=== PATIENT | female | born 1955 | race Caucasian/White ===

== ENCOUNTER 2018-03-19 05:54 | Emergency (ER) | payer BC ==
--- OUTSIDE RECORDS SUMMARY | 2018-03-19 05:57 | XMS REPORT | Clinical Summary ---
:1955 Author Organization [facility] Address [address] [place] [address] Phone Care Team Providers Name Role Phone Unavailable Primary Care Provider Unavailable Allergies No Known Allergies Current Medications Prescription Sig. Disp. Refills Start End Date Status Date amLODIPine Take 2.5 mg by Active (NORVASC) 2.5 MG mouth daily. tablet lysine 1,000 mg Take 1,000 mg by Active Tab mouth. gabapentin Take 1 capsule 90 capsule 2 07/10/20 Active (NEURONTIN) 100 MG (100 mg total) by 7 18 capsule mouth 3 (three) times daily. meropenem (MERREM) Inject 1 g 0 Active MBP 1 gm in 100 mL intravenously 7 NS every 8 (eight) hours. micafungin Inject 100 mg 0 Active (MYCAMINE) MBP 100 intravenously 7 mg in 100 mL NS daily. lisinopril Take 20 mg by 07/10/20 Discontinued (PRINIVIL,ZESTRIL) mouth daily. 17 20 MG tablet acetaminophen Take 2 tablets 50 tablet 0 07/20/20 (TYLENOL) 325 MG (650 mg total) by 7 17 tablet mouth every 6 (six) hours for 10 days. psyllium Take 1 packet by 90 packet 0 07/20/20 (METAMUCIL mouth 3 (three) 7 17 SUGAR-FREE) 3.4 times daily for 10 gram packet days. traMADol (ULTRAM) Take 1-2 tablets 80 tablet 0 07/20/20 50 mg tablet (50-100 mg total) 7 17 by mouth every 6 (six) hours for 10 days. Max Daily Amount: 400 mg Active Problems Problem Noted Date Pulmonary edema 06/30/2017 Moderate protein-calorie malnutrition (HCC) 06/30/2017 Acute pulmonary insufficiency following thoracic surgery ([facility]) 06/26/2017 Acute blood loss as cause of postoperative anemia 06/26/2017 Metabolic acidosis 06/26/2017 LESTER (acute kidney injury) ([facility]) 06/26/2017 COPD (chronic obstructive pulmonary disease) ([facility]) 06/26/2017 Leukocytosis 06/26/2017 Empyema lung ([facility]) 06/22/2017 HTN (hypertension) 06/21/2017 Hiatal hernia 06/21/2017 Acid reflux 06/21/2017 Obesity 06/21/2017 [place] lesion, chronic 06/21/2017 Dyspnea 06/21/2017 Parapneumonic effusion 06/21/2017 s/p L VATS decortication 06/22/17 06/21/2017 Encounters Date Type Specialty Care Team Description 01/29/2018 Procedure Pass Gastroenterology 01/26/2018 Procedure Pass Gastroenterology 06/24/2017 Anesthesia Event Intensive Care Leni Kessler MD 06/22/2017 Anesthesia Event Jose Kelly AA 06/22/2017 Procedure Pass 06/22/2017 Surgery Brayan Joseph BRONCHOSCOPY MD [place] 06/21/2017 - Hospital Encounter Intensive Care Noah Larios, [place] lesion, 07/10/2017 MD harden (Primary Brayan Joseph Dx);Empyema of left MD [place] pleural space ([facility]);Pneumonia of left lower lobe due to infectious organism ([facility]);Essential hypertension;Acute blood loss as cause of postoperative anemia;Acute pulmonary insufficiency following thoracic surgery ([facility]);LESTER (acute kidney injury) ([facility]) 06/21/2017 Orders Only General Internal Medicine after 03/18/2017 Social History Tobacco Use Types Packs/Day Years Used Date Former Smoker Quit: 09/12/2016 Smokeless Tobacco: Never Used Sex Assigned at Date Recorded Not on file Last Filed Vital Signs Vital Sign Reading Time Taken Blood Pressure 147/72 07/10/2017 11:50 AM CDT Pulse 75 07/10/2017 11:50 AM CDT Temperature 36.9 C (98.4 F) 07/10/2017 11:50 AM CDT Respiratory Rate 22 07/10/2017 11:50 AM CDT Oxygen Saturation 95% 07/10/2017 11:50 AM CDT Inhaled Oxygen Concentration - - Weight 82.8 kg (182 lb 9.6 oz) 07/10/2017 5:34 AM CDT Height 160 cm (5' 3") 06/21/2017 11:43 PM CDT Body Mass Index 32.35 07/10/2017 5:34 AM CDT Plan of Treatment Not on file Implants Implanted Type Area Bank Messenger Device Expiration Model / Identifier Date Serial / Lot Block Nrv C-Blk 1-7ml/Hr 600ml [id number] - [id number] Pain Left: [facility] 09/08/2019 [id number] / Implanted: Qty: 1 on 06/22/2017 by Brayan Joseph MD Mgmt/Sti Chest / mulator [id number] Cath Exp Silv Soak M1 Armor Crewman 12.5cmx [id number] - [id number] Pain Left: JERI LUNDBERG 07/06/2019 [id number] / Implanted: Qty: 2 on 06/22/2017 by Brayan Joseph MD Mgmt/Sti Chest / mulator [id number] Procedures Procedure Name Priority Date/Time Associated Comments Diagnosis THORACOSCOPY (VATS),DECORTICATION 06/22/2017 9:30 LEFT EMPYEMA AM CDT ESOPHAGOGASTRODUODENOSCOPY (EGD) 06/22/2017 9:30 LEFT EMPYEMA AM CDT BRONCHOSCOPY 06/22/2017 9:30 LEFT EMPYEMA AM CDT after 03/18/2017 Results RHYTHM STRIP - SCAN (07/11/2017 1:41 PM)XR chest 1 view portable/bedside (07/10 6:25 AM)Only the most recent of27 resultswithin the time period is included. Specimen Performing Laboratory GE RIS Narrative FINAL REPORT RAD, CHEST, 1 VIEW, NON DEPT INDICATION: r/o effusion COMPARISON: Prior day's exam FINDINGS: Portable frontal view of the chest. IMPRESSION: Support Lines: Stable right PICC. Lungs and pleura: Scattered subsegmental atelectasis and questionable interstitial edema. No new airspace disease. Trace left effusion. No pneumothorax. Heart and mediastinum: Cardiomediastinal contours are unchanged. Additional findings: None. Signed: JR Saldana Robert MD Report Verified Date/Time:07/10/2017 06:40:58 Reading Location: [facility] Transitional Reading Room Procedure Note Interface, External Ris In - 07/10/2017 6:56 AM CDT FINAL REPORT RAD, CHEST, 1 VIEW, NON DEPT INDICATION: r/o effusion COMPARISON: Prior day's exam FINDINGS: Portable frontal view of the chest. IMPRESSION: Support Lines: Stable right PICC. Lungs and pleura: Scattered subsegmental atelectasis and questionable interstitial edema. No new airspace disease. Trace left effusion. No pneumothorax. Heart and mediastinum: Cardiomediastinal contours are unchanged. Additional findings: None. Signed: JR Saldana Robert MD Report Verified Date/Time: 07/10/2017 06:40:58 Reading Location: [address] Transitional Reading Room with platelet count + automated diff (07/10/2017 4:25 AM)Only the most recent of43 resultswithin the time period is included. Component Value Ref Range WBC 7.6 3.5 - 10.5 K/L RBC 3.53 (L) 3.93 - 5.22 M/L Hemoglobin 9.0 (L) 11.2 - 15.7 GM/DL Hematocrit 29.2 (L) 34.1 - 44.9 % MCV 82.7 79.4 - 94.8 fL MCH 25.5 (L) 25.6 - 32.2 pg MCHC 30.8 (L) 32.2 - 35.5 GM/DL RDW 17.5 (H) 11.7 - 14.4 % Platelets 364 150 - 450 K/CU MM MPV 9.7 9.4 - 12.3 fL nRBC 0 0 - 0 /100 WBC % Neutros 56 % % Lymphs 26 % % Monos 12 % % Eos 5 % % Baso 2 % # Neutros 4.22 1.56 - 6.13 K/L # Lymphs 1.93 1.18 - 3.74 K/L # Monos 0.92 (H) 0.24 - 0.36 K/L # Eos 0.34 0.04 - 0.36 K/L # Baso 0.11 (H) 0.01 - 0.08 K/L Immature Granulocytes-Relative 1 0 - 1 % Specimen Performing Laboratory Blood - Central Venous Line [address] [address] Prothrombin time/INR (07/10/2017 4:25 AM)Only the most recent of33 resultswithin the time period is included. Component Value Ref Range Protime 15.7 (H) 11.7 - 14.7 seconds INR 1.3 <=5.9 Specimen Performing Laboratory Blood - Central Venous Line [address] [address] Narrative RECOMMENDED COUMADIN/WARFARIN INR THERAPY RANGES STANDARD DOSE: 2.0 - 3.0 Includes: PROPHYLAXIS for venous thrombosis, systemic embolization; TREATMENT for venous thrombosis and/or pulmonary embolus. HIGH RISK: Target INR is 2.5-3.5 for patients with mechanical heart valves. CBC with platelet count + automated diff (07/10/2017 4:25 AM)Only the most recent of43 resultswithin the time period is included. Specimen Performing Laboratory Blood Narrative The following orders were created for panel order CBC with platelet count + automated diff. Procedure Abnormality Status --------- ------ CBC with platelet count ...[[id number]]AbnormalFinal result Please view results for these tests on the individual orders. Protein, total (07/10/2017 4:25 AM)Only the most recent of3 resultswithin the time period is included. Component Value Ref Range Protein, Total 6.5 6.0 - 8.3 gm/dL Specimen Performing Laboratory Blood - Central Venous Line [address] [address] Prealbumin (07/10/2017 4:25 AM)Only the most recent of4 resultswithin the time period is included. Component Value Ref Range Prealbumin 15 14 - 45 mg/dL Specimen Performing Laboratory Blood - Central Venous Line [address] [address] Phosphorus (07/10/2017 4:25 AM)Only the most recent of40 resultswithin the time period is included. Component Value Ref Range Phosphorus 2.9 2.3 - 4.7 mg/dL Specimen Performing Laboratory Blood - Central Venous Line [address] [address] Magnesium (07/10/2017 4:25 AM)Only the most recent of45 resultswithin the time period is included. Component Value Ref Range Magnesium 1.7 1.6 - 2.6 mg/dL Specimen Performing Laboratory Blood - Central Venous Line [address] [address] Albumin (07/10/2017 4:25 AM)Only the most recent of3 resultswithin the time period is included. Component Value Ref Range Albumin 3.0 (L) 3.5 - 5.0 g/dL Specimen Performing Laboratory Blood - Central Venous Line [address] [address] Basic Metabolic Panel (07/10/2017 4:25 AM)Only the most recent of42 resultswithin the time period is included. Component Value Ref Range Sodium 142 136 - 145 meq/L Potassium 3.5 3.5 - 5.1 meq/L Chloride 105 98 - 107 meq/L CO2 26 22 - 29 meq/L BUN 14 7 - 21 mg/dL Creatinine 0.88 0.57 - 1.25 mg/dL Glucose 95 70 - 105 mg/dL Calcium 8.8 8.4 - 10.2 mg/dL EGFR 66Comment: ESTIMATED GFR IS NOT ACCURATE mL/min/1.73 sq m CREATININE CLEARANCE IN PREDICTING GLOMERULAR FILTRATION RATE. ESTIMATED GFR IS NOT APPLICABLE FOR DIALYSIS PATIENTS. Specimen Performing Laboratory Blood - Central Venous Line [address] [address] Potassium (07/05/2017 4:45 PM)Only the most recent of3 resultswithin the time period is included. Component Value Ref Range Potassium 3.6 3.5 - 5.1 meq/L Specimen Performing Laboratory Blood [address] [address] Blood gas, arterial (07/04/2017 1:06 PM)Only the most recent of37 resultswithin the time period is included. Component Value Ref Range pH, Arterial 7.49 (H) 7.35 - 7.45 pCO2, Arterial 34 (L) 35 - 45 mmHg pO2, Arterial 88 80 - 90 mmHg O2 Sat, Arterial 97.4 (H) 96.0 - 97.0 % HCO3, Arterial 25 21 - 29 mmol/L Base Excess, Arterial 1.8 -2.0 - 3.0 mmol/L Patient Temperature 37.0 C FIO2 36.0 % Specimen Performing Laboratory Blood, Arterial [address] [address] TRANSFUSION SERVICE REPORT - SCAN (07/03/2017 5:41 PM)Only the most recent of7 resultswithin the time period is included.POC-Glucose meter (07/03/2017 12:13 PM )Only the most recent of22 resultswithin the time period is included. Component Value Ref Range POC-Glucose Meter 110Comment: TESTED AT [address] 70 - 110 mg/dL [id number] Specimen Performing Laboratory Blood [address] [address] Prepare Leuko-Red RBC (07/02/2017 11:54 PM)Only the most recent of4 resultswithin the time period is included. Component Value Ref Range CROSSMATCH COMPATIBLE Unit ABO A Neg UNIT NUMBER [id number] Status TRANSFUSED Blood Bank Product RED BLOOD CELLS PRODUCT CODE [id number] Specimen Performing Laboratory Other SAFETRACE TX XR abdomen / KUB 1 view (07/02/2017 7:18 PM)Only the most recent of2 resultswithin the time period is included. Specimen Performing Laboratory GE RIS Narrative FINAL REPORT EXAMINATION: SUPINE ABDOMEN CLINICAL INDICATION:FEEDING TUBE PLACEMENT IMPRESSION: Compared with 06/27/2017. Tip of the feeding tube projects over the right upper abdomen in the region of the gastroduodenal junction. The visualized bowel gas pattern is nonspecific. Signed: Darrin Escalera MD Report Verified Date/Time:07/02/2017 20:00:19 Reading Location: [address] Reading Room Procedure Note Interface, External Ris In - 07/02/2017 8:02 PM CDT FINAL REPORT EXAMINATION: SUPINE ABDOMEN CLINICAL INDICATION: FEEDING TUBE PLACEMENT IMPRESSION: Compared with 06/27/2017. Tip of the feeding tube projects over the right upper abdomen in the region of the gastroduodenal junction. The visualized bowel gas pattern is nonspecific. Signed: Darrin Escalera MD Report Verified Date/Time: 07/02/2017 20:00:19 Reading Location: [address] Reading Room Transfuse Leuko-Red RBC (07/01/2017 6:24 PM)Only the most recent of4 resultswithin the time period is included.Type and screen, automated (2016 11:53 AM)Only the most recent of2 resultswithin the time period is included. Component Value Ref Range ABO/RH AUTOMATED (BEAKER) A NEGATIVE Ab Scrn NEGATIVE Specimen Performing [place] [address] Vancomycin level, random (06/30/2017 3:16 AM)Only the most recent of8 resultswithin the time period is included. Component Value Ref Range Vancomycin Rm 11.5 ug/mL Specimen Performing Laboratory Blood [address] [address] Narrative Reference Range: No Normals ECHOCARDIOGRAM REPORT - SCAN (06/26/2017 11:32 AM)2D Echo W/Doppler(CW/PW/Color ) (06/25/2017 3:59 PM) Component Value Ref Range Ejection Fraction Specimen Performing Laboratory [facility] ECHO [facility] MKCKESSON CPA Narrative Transthoracic Echocardiography Report (TTE) Demographics Patient Name Kyaw NAQVI of Study06/25/2017 [id number] Female Visit Number [id number] Unknown [id number] Room [id number] Number Date of Birth1955Referring Physician Age62 year(s)SonographerTdominic Sagastume RDCS Interpreting [facility] Needs to be Pre Physician Read Josef Chakraborty MD Fellow DESTINY Moreau Procedure Type of Study TTE procedure:2DECHO W DOPPLER(CW/PW/COLOR) (STAT) Indications:Hypotension or hemodynamic instability. Clinical History HGB 8.5 HCT 27.6 % Dyspnea Hypertension Empyema lung Obesity S/P L VATs decortication (06/22/17) Contrast Medium: Definity. Height: 63 inches Weight: 89.81 kg (198 lbs) BSA: 1.93 m^2 BMI: 35.07 kg/m^2 HR: 107 bpm BP: 146/62 mmHg Summary Global LV systolic function hyperdynamic . LVEF by quantitative assessment is increased (>70%) . Degree of diastolic dysfunction (LAP assessment) is inconclusive due to tachycardia . All of the LV segments are hyperkinetic . No evidence of LV hypertrophy. The right ventricular chamber size and systolic function are within normal limits. Estimated peak systolic PA pressure is 40-45 mmHg . No pericardial effusion is visualized. The estimated RA pressure by IVC dynamics 5-10mmHg . Signature Findings Rhythm/BPSinus tachycardia during the exam. Left Ventricle Global LV systolic function hyperdynamic . LVEF by quantitative assessment is increased (>70%) . Degree of diastolic dysfunction (LAP assessment) is inconclusive due to tachycardia . All of the LV segments are hyperkinetic . No evidence of LV hypertrophy. Left AtriumLA is not well visualized, but appears normal based on available views. Right VentricleThe right ventricular chamber size and systolic function are within normal limits. Right Atrium RA size is probably normal based on available views. Aortic Valve Normal AoV structure and function. There is no aortic stenosis. There is no aortic regurgitation. Mitral Valve Normal MV structure and function. No evidence of mitral regurgitation. Tricuspid ValveTV structure is normal. Mild tricuspid regurgitation. Estimated peak systolic PA pressure is 40-45 mmHg . Pulmonic Valve Normal PV structure and function by limited views and Doppler. AortaAortic root size (SInus of Valsalva diameter) is normal . PericardiumNo pericardial effusion is visualized. IVC/SVC/PA/PV/PleuralThe inferior vena cava size is normal . The estimated RA pressure by IVC dynamics 5-10mmHg . Chambers/Structures Left Ventricle LVIDd: 4.75 cmLVEDV 2D:104.82 ml LVIDs: 2.82 cmLVESV 2D :29.95 ml LV Septum Diastolic: 0.81 cm LV PW Diastolic: 0.84 cm LV FS: 40.6 % LV ESV (Cubed):22.43 cc LVOT Diameter: 1.83 cm LV ESV (Teich):30.07 ml LV SV (Teich):74.85 ml LV SI (Teich):38.78 ml/m^2 LVEF 2D Teich: 71.4 % Shunts QS:69.46 ml Doppler/Quantitative Measurements Mitral Valve MV Peak E-Wave: 1.12 m/s MV Peak A-Wave: 0.91 m/s E /A Ratio: 1.23 P eak Gradient: 4.99 mmHg Tissue Doppler E' Septal Velocity: 0.11 m/s E/E': 7.42 E' Lateral Velocity: 0.15 m/s LVOT Peak Velocity: 1.7 m/sPeak Gradient: 11.5 mmHg Mean Velocity: 0.99 m/s Mean Gradient: 4.81 mmHg LVOT Diameter: 1.83 cmLVOT VTI: 26.41 cm LVOT Area: 2.63 cm^2LVOT SV:69.43 ml LVOT CO: 7.43 l/min LVOT CI: 3.85 l/min/m^2 Tricuspid Valve TV Mean Gradient: 23.98 mmHg TR Mean Velocity: 2.35 m/s Procedure Note Interface, External Ris In - 06/26/2017 10:47 AM CDT Transthoracic Echocardiography Report (TTE) Demographics Patient Name PRINCE NAQVI Date of Study 06/25/2017 Gender Female Visit Number [id number] Race Unknown Room Number 7A11 Number Date of 1955 Referring Physician Age 62 year(s) Manager Cosmetics Meli Sagastume RDCS Interpreting [facility] Needs to be Pre Physician Read Josef Chakraborty MD Fellow DESTINY Moreau Procedure Type of Study TTE procedure:2DECHO W DOPPLER(CW/PW/COLOR) (STAT) Indications:Hypotension or hemodynamic instability. Clinical History HGB 8.5 HCT 27.6 % Dyspnea Hypertension Empyema lung Obesity S/P L VATs decortication (06/22/17) Contrast Medium: Definity. Height: 63 inches Weight: 89.81 kg (198 lbs) BSA: 1.93 m^2 BMI: 35.07 kg/m^2 HR: 107 bpm BP: 146/62 mmHg Summary Global LV systolic function hyperdynamic . LVEF by quantitative assessment is increased (>70%) . Degree of diastolic dysfunction (LAP assessment) is inconclusive due to tachycardia . All of the LV segments are hyperkinetic . No evidence of LV hypertrophy. The right ventricular chamber size and systolic function are within normal limits. Estimated peak systolic PA pressure is 40-45 mmHg . No pericardial effusion is visualized. The estimated RA pressure by IVC dynamics 5-10mmHg . Signature Findings Rhythm/BP Sinus tachycardia during the exam. Left Ventricle Global LV systolic function hyperdynamic . LVEF by quantitative assessment is increased (>70%) . Degree of diastolic dysfunction (LAP assessment) is inconclusive due to tachycardia . All of the LV segments are hyperkinetic . No evidence of LV hypertrophy. Left Atrium LA is not well visualized, but appears normal based on available views. Right Ventricle The right ventricular chamber size and systolic function are within normal limits. Right Atrium RA size is probably normal based on available views. Aortic Valve Normal AoV structure and function. There is no aortic stenosis. There is no aortic regurgitation. Mitral Valve Normal MV structure and function. No evidence of mitral regurgitation. Tricuspid Valve TV structure is normal. Mild tricuspid regurgitation. Estimated peak systolic PA pressure is 40-45 mmHg . Pulmonic Valve Normal PV structure and function by limited views and Doppler. Aorta Aortic root size (SInus of Valsalva diameter) is normal . Pericardium No pericardial effusion is visualized. IVC/SVC/PA/PV/Pleural The inferior vena cava size is normal . The estimated RA pressure by IVC dynamics 5-10mmHg . Chambers/Structures Left Ventricle LVIDd: 4.75 cm LVEDV 2D:104.82 ml LVIDs: 2.82 cm LVESV 2D:29.95 ml LV Septum Diastolic: 0.81 cm LV PW Diastolic: 0.84 cm LV FS: 40.6 % LV ESV (Cubed):22.43 cc LVOT Diameter: 1.83 cm LV ESV (Teich):30.07 ml LV SV (Teich):74.85 ml LV SI (Teich):38.78 ml/m^2 LVEF 2D Teich: 71.4 % Shunts QS:69.46 ml Doppler/Quantitative Measurements Mitral Valve MV Peak E-Wave: 1.12 m/s MV Peak A-Wave: 0.91 m/s E/A Ratio: 1.23 Peak Gradient: 4.99 mmHg Tissue Doppler E' Septal Velocity: 0.11 m/s E/E': 7.42 E' Lateral Velocity: 0.15 m/s LVOT Peak Velocity: 1.7 m/s Peak Gradient: 11.5 mmHg Mean Velocity: 0.99 m/s Mean Gradient: 4.81 mmHg LVOT Diameter: 1.83 cm LVOT VTI: 26.41 cm LVOT Area: 2.63 cm^2 LVOT SV:69.43 ml LVOT CO: 7.43 l/min LVOT CI: 3.85 l/min/m^2 Tricuspid Valve TV Mean Gradient: 23.98 mmHg TR Mean Velocity: 2.35 m/s Osmolality, serum (06/24/2017 4:03 PM) Component Value Ref Range Osmolality Serum 292 275 - 295 mOsm/kg Specimen Performing Laboratory Blood [address] [address] Manual Differential (06/24/2017 4:13 AM)Only the most recent of3 resultswithin the time period is included. Component Value Ref Range Total Counted WBC Morphology Normal Platelet Morphology Normal [place] Cells 2+ moderate Specimen Performing Laboratory Blood [address] [address] Sodium, random urine (06/23/2017 1:27 PM) Component Value Ref Range Sodium Urine 35 meq/L Specimen Performing Laboratory Urine - Urine, [address] [address] Narrative Reference Range: No Normals Osmolality, urine (06/23/2017 1:27 PM) Component Value Ref Range Osmolality, Ur 228 40 - 1400 mOsm/kg Specimen Performing Laboratory Urine - Urine, [address] [address] Creatinine, random urine (06/23/2017 1:27 PM) Component Value Ref Range Creatinine, Ur 62.4 mg/dL Specimen Performing Laboratory Urine - Urine, [address] [address] Narrative Reference Range: No Normals Vancomycin level, trough (06/23/2017 11:21 AM) Component Value Ref Range Vancomycin Tr 22.6 (H) 10.0 - 20.0 ug/mL Specimen Performing Laboratory Blood - Line, Arterial [place] [id number] Narrative Get Vanc trough before next dose Dont give Vanc until result reviewed by MED ADMIN/MD Lactic acid, arterial, whole blood (06/23/2017 3:37 AM) Component Value Ref Range Lactate, Art 1.0 0.5 - 2.2 mmol/L Specimen Performing Laboratory Blood, Arterial [address] [address] Narrative Effective 02/10/2016: Units/Reference Range Change New: 0.5-2.2 mmol/LPrevious: 5-20 mg/dL RRL Critical Labs (ABG,NA,K,H&H,GLU) (06/22/2017 3:45 PM)Only the most recent of2 resultswithin the time period is included. Specimen Performing Laboratory Blood, Arterial Narrative The following orders were created for panel order RRL Critical Labs (ABG,NA,K,H&H,GLU). Procedure Abnormality Status --------- ------ Blood gas, arterial[[id number]]AbnormalFinal result Sodium Na-Stat Lab[[id number]] AbnormalFinal result Potassium-Stat Lab[[id number]] AbnormalFinal result Glucose-Stat Lab[[id number]] AbnormalFinal result HGB/HCT (H&H)-Stat Lab[[id number]] Abnormal Final result Please view results for these tests on the individual orders. Potassium-Stat Lab (06/22/2017 3:45 PM)Only the most recent of2 resultswithin the time period is included. Component Value Ref Range Potassium 3.4 (L) 3.6 - 5.5 meq/L Specimen Performing Laboratory Blood, [address] [address] Sodium Na-Stat Lab (06/22/2017 3:45 PM)Only the most recent of2 resultswithin the time period is included. Component Value Ref Range Sodium 134 (L) 135 - 148 meq/L Specimen Performing Laboratory Blood, [address] [address] Glucose-Stat Lab (06/22/2017 3:45 PM)Only the most recent of2 resultswithin the time period is included. Component Value Ref Range Glucose 132 (H) 70 - 110 mg/dL Specimen Performing Laboratory Blood, [address] [address] HGB/HCT (H&H)-Stat Lab (06/22/2017 3:45 PM)Only the most recent of2 resultswithin the time period is included. Component Value Ref Range Hemoglobin 8.3 (L) 12.0 - 15.0 g/dL Hematocrit 24.0 (L) 36.0 - 45.0 % Specimen Performing Laboratory Blood, [address] [address] Calcium, Ionized (06/22/2017 3:45 PM) Component Value Ref Range Calcium, Ion 1.00 (L) 1.12 - 1.27 mmol/L pH, Blood 7.34 Specimen Performing Laboratory Blood [address] [address] Bronchial culture + gram stain (06/22/2017 11:33 AM) Component Value Ref Range Result No growth Gram Stain Result <1+ WBCs Gram Stain Result No organisms seen Specimen Performing Laboratory BAL - Lung, Left Lower Lobe [address] [address] Anaerobic culture (06/22/2017 10:50 AM)Only the most recent of4 resultswithin the time period is included. Component Value Ref Range Result No anaerobes isolated Specimen Performing Laboratory Tissue - Pleural, Left [address] [address] Surgically obtained culture + gram stain (06/22/2017 10:50 AM)Only the most recent of4 resultswithin the time period is included. Component Value Ref Range Result No growth Gram Stain Result 1+ WBCs Gram Stain Result No organisms seen Specimen Performing Laboratory Tissue - Pleural, [address] [address] Fungus culture + smear (06/22/2017 10:50 AM)Only the most recent of5 resultswithin the time period is included. Component Value Ref Range Result No fungus isolated in 28 days Fungus Smear No fungi seen Specimen Performing Laboratory Tissue - Pleural, [address] [address] [employer] PCR (06/22/2017 10:50 AM)Only the most recent of3 resultswithin the time period is included. Component Value Ref Range Scan Result Specimen Performing Laboratory Tissue [facility] [id number] [place] [address] Tissue Exam (06/22/2017 10:45 AM) Component Value Ref Range Case Report Surgical Pathology Report Case: [id number] Authorizing Provider:Brayan Joseph MD Collected: 06/22/2017 1045 Ordering Location: [facility] Received: 06/22/2017 1510 PERIOPERATIVE SERVICES Pathologist: Otis Meade MD Specimens: A) - Pleural, Left, Left Parietal Pleural Peel B) - Pleural, Left, left upper lobe visceral pleural peel C) - Pleural, Left, Left Lower Lobe Viseral Pleural Peel DIAGNOSIS A. PLEURA, LEFT PARIETAL, EXCISION: - FIBROADIPOSE TISSUE WITH MARKED ACUTE INFLAMMATION WITH ABSCESS FORMATION AND NECROSIS. B. PLEURA, LEFT UPPER LOBE VISCERAL, EXCISION: - FIBROUS TISSUE WITH MARKED ACUTE INFLAMMATION WITH ABSCESS FORMATION AND NECROSIS. C. PLEURA, LEFT LOWER LOBE VISCERAL, EXCISION: -FIBROUS TISSUE WITH MARKED ACUTE INFLAMMATION WITH ABSCESS FORMATION AND NECROSIS. Signing Pathologist Direct Phone Line: [phone] CPT Code(s) 03229 X3 CLINICAL HISTORY Left empyema SPECIMEN SOURCE A. Left parietal pleural peel; B. Left upper lobe visceral pleural peel; C. Lower lobe visceral pleural peel GROSS DESCRIPTION The specimen is received in three containers of formalin all labeled with the patient's information, received without formalin. Part A labeled "left parietal pleural peel" consists of multiple fragments of champion-hicks and champion-pink soft tissue measuring 2.5 x 2 x 1 cm in aggregate. The specimen is entirely submitted A1 to A3. Part B labeled "left upper lobe visceral pleural peel" consists of a segment of champion-hicks hemorrhagic soft tissue measuring 1.5 x 1 x 0.2 cm. Tissue is submitted entirely B1. Part C labeled "left lower lobe visceral pleural peel" consists of a segment of champion hemorrhagic dusky soft tissue measuring 2.9 x 2 x 0.2 cm. Tissue is sectioned, submitted entirely C1 and C2. CG/pl MICROSCOPIC DESCRIPTION A-C. Performed. Specimen Performing Laboratory Tissue - Pleural, [address] [address] AF[employer] culture + smear (06/22/2017 9:42 AM) Component Value Ref Range Result No acid-fast bacilli isolated in 42 days [employer] Smear No acid fast bacilli seen Specimen Performing Laboratory BAL - Lung, Left Lower Lobe [address] [address] SPIN/CONCENTRATION CHARGE (06/22/2017 9:42 AM) Component Value Ref Range Concentration charged Done Specimen Performing Laboratory BAL - Lung, Left Lower Lobe [address] [address] Urinalysis w/ Microscopic (06/22/2017) Component Value Ref Range Color, UA Yellow Clarity, UA Clear Specific [place], UA 1.023 1.001 - 1.035 pH, UA 5.5 5.0 - 8.0 Protein, UA 50 mg/dL (A) Negative Glucose, UA Negative Negative Ketones, UA 60 mg/dL (A) Negative Bilirubin, UA Negative Negative Blood, UA Small (A) Negative Nitrite, UA Negative Negative Leukocytes, UA Small (A) Negative Urobilinogen, UA 0.2 0.2 - 1.0 mg/dL RBC, UA 4 /HPF WBC, UA 19 /HPF Mucus Many Squam Epithel, UA 2 /HPF Hyaline Casts, UA 3 /LPF Amorphous Crystals Rare Specimen Source Urine, Clean Catch Specimen Performing Laboratory Urine - Urine, Clean Catch [address] [address] PT/aPTT (06/21/2017 9:28 PM) Component Value Ref Range Protime 17.6 (H) 11.7 - 14.7 seconds INR 1.5 <=5.9 PTT 39.0 (H) 22.5 - 36.0 seconds Specimen Performing Laboratory Blood [address] [address] Narrative RECOMMENDED COUMADIN/WARFARIN INR THERAPY RANGES STANDARD DOSE: 2.0 - 3.0 Includes: PROPHYLAXIS for venous thrombosis, systemic embolization; TREATMENT for venous thrombosis and/or pulmonary embolus. HIGH RISK: Target INR is 2.5-3.5 for patients with mechanical heart valves. Comprehensive metabolic panel (06/21/2017 9:28 PM) Component Value Ref Range Protein, Total 6.4 6.0 - 8.3 gm/dL Albumin 3.2 (L) 3.5 - 5.0 g/dL Alkaline Phosphatase 65 40 - 150 U/L Total Bilirubin <0.3 0.2 - 1.2 mg/dL Sodium 136 136 - 145 meq/L Potassium 3.7 3.5 - 5.1 meq/L Chloride 105 98 - 107 meq/L CO2 23 22 - 29 meq/L BUN 10 7 - 21 mg/dL Creatinine 0.61 0.57 - 1.25 mg/dL Glucose 110 (H) 70 - 105 mg/dL Calcium 9.0 8.4 - 10.2 mg/dL AST 12 5 - 34 U/L ALT 13 6 - 55 U/L EGFR 100Comment: ESTIMATED GFR IS NOT ACCURATE mL/min/1.73 sq m CREATININE CLEARANCE IN PREDICTING GLOMERULAR FILTRATION RATE. ESTIMATED GFR IS NOT APPLICABLE FOR DIALYSIS PATIENTS. Specimen Performing Laboratory Blood [address] [address] ECG 12 lead (06/21/2017 8:52 PM) Specimen Performing Laboratory GE MUSE Narrative Ventricular Rate 111 BPM Atrial Rate 111 BPM P-R Interval 140 ms QRS Duration 82 ms Q-T Interval 302 ms QTC Calculation(Bazett) 410 ms P Barrett 43 degrees R Barrett 9 degrees T Barrett 31 degrees Sinus tachycardia with Premature ventricular complex Low voltage QRS Borderline ECG No previous ECGs available Confirmed by MD Jennings Roberto ([id number]) on 06/22/2017 10:33:05 AM Procedure Note Interface, External Ris In - 06/22/2017 10:33 AM CDT Ventricular Rate 111 BPM Atrial Rate 111 BPM P-R Interval 140 ms QRS Duration 82 ms Q-T Interval 302 ms QTC Calculation(Bazett) 410 ms P Barrett 43 degrees R Barrett 9 degrees T Barrett 31 degrees Sinus tachycardia with Premature ventricular complex Low voltage QRS Borderline ECG No previous ECGs available Confirmed by MD Jennings Roberto ([id number]) on 06/22/2017 10:33:05 AM after 03/18/2017
--- OUTSIDE RECORDS SUMMARY | 2018-03-19 06:02 | XMS REPORT ---
:1955 [facility] Address [address] [place] [id number] Care Team Providers Name Role Phone NICOLE BRAXTOND SarahJose Unavailable Unavailable Problems This patient has no known problems. Allergies, Adverse Reactions, Alerts This patient has no known allergies or adverse reactions. Medications This patient has no known medications. Results Test Description Test Time Test Comments Text Results Atomic Results Result Comments AFB CULTURE + SMEAR 2017-08-08 08:42:00 Test Item Value Reference Range Comments CULTURE (BEAKER) (test ituv=8585) No acid-fast bacilli isolated in 42 days AFB SMEAR (BEAKER) (test fbtl=332) No acid fast bacilli seen FUNGUS CULTURE + [id number] 10:40:00 Test Item Value Reference Range Comments CULTURE (BEAKER) (test No fungus isolated in 28 days cdpf=7855) FUNGUS SMEAR (BEAKER) (test No fungi seen vvdl=5575) FUNGUS CULTURE + [id number] 10:40:00 Test Item Value Reference Range Comments CULTURE (BEAKER) (test No fungus isolated in 28 days easn=5075) FUNGUS SMEAR (BEAKER) (test No fungi seen zwfd=9841) FUNGUS CULTURE + [id number] 10:40:00 Test Item Value Reference Range Comments CULTURE (BEAKER) (test No fungus isolated in 28 days ajoi=1328) FUNGUS SMEAR (BEAKER) (test No fungi seen uajs=9733) FUNGUS CULTURE + [id number] 10:40:00 Test Item Value Reference Range Comments CULTURE (BEAKER) (test No fungus isolated in 28 days akto=9744) FUNGUS SMEAR (BEAKER) (test No fungi seen qcdv=1791) RAD, CHEST, 1 VIEW, NON [id number] 06:40:00Reason for exam:->r/o effusionIs the patient ?->NoShould this be performed at the bedside?- >YesFINAL REPORT RAD, CHEST, 1 VIEW, NON DEPT INDICATION: r/o effusion COMPARISON: Prior day's exam FINDINGS: Portable frontal view of the chest. IMPRESSION: Support Lines: Stableright PICC. Lungs and pleura: Scattered subsegmental atelectasis and questionable interstitial edema. No new airspace disease. Trace left effusion. No pneumothorax.Heart and mediastinum: Cardiomediastinal contours are unchanged.Additional findings: None. Signed: JR Saldana Robert MDReport Verified Date/Time: 07/10/2017 06:40:58 Reading Location: [address] Transitional Reading Room [id number] 05:25:00 Test Item Value Reference Range Comments PREALBUMIN (BEAKER) (test aqfo=694) 15 mg/dL 14-45 PROTEIN, [id number] 05:10:00 Test Item Value Reference Range Comments TOTAL PROTEIN (BEAKER) (test wzdv=267) 6.5 gm/dL 6.0-8.3 [id number] 05:10:00 Test Item Value Reference Range Comments MAGNESIUM (BEAKER) (test xvwl=617) 1.7 mg/dL 1.6-2.6 [id number] 05:10:00 Test Item Value Reference Range Comments PHOSPHORUS (BEAKER) (test fqnf=917) 2.9 mg/dL 2.3-4.7 BASIC METABOLIC [id number] 05:10:00 Test Item Value Reference Range Comments SODIUM (BEAKER) (test 142 meq/L 136-145 iavz=402) POTASSIUM (BEAKER) (test 3.5 meq/L 3.5-5.1 rswj=886) CHLORIDE (BEAKER) (test 105 meq/L 98-107 vwgk=040) CO2 (BEAKER) (test 26 meq/L 22-29 cfti=667) BLOOD UREA NITROGEN 14 mg/dL 7-21 (BEAKER) (test gaby=462) CREATININE (BEAKER) (test 0.88 mg/dL 0.57-1.25 uppf=285) GLUCOSE RANDOM (BEAKER) 95 mg/dL 70-105 (test xgta=238) CALCIUM (BEAKER) (test 8.8 mg/dL 8.4-10.2 naqx=916) EGFR (BEAKER) (test 66 mL/min/1.73 sq m ESTIMATED GFR IS NOT dvau=2168) ACCURATE CREATININE CLEARANCE IN PREDICTING GLOMERULAR FILTRATION RATE. ESTIMATED GFR IS NOT APPLICABLE FOR DIALYSIS PATIENTS. [id number] 05:10:00 Test Item Value Reference Range Comments ALBUMIN (BEAKER) (test bbmo=1592) 3.0 g/dL 3.5-5.0 PROTHROMBIN [id number] 04:52:00 Test Item Value Reference Range Comments PROTIME (BEAKER) (test yitp=892) 15.7 seconds 11.7-14.7 INR (BEAKER) (test wkfr=967) 1.3 <=5.9 RECOMMENDED COUMADIN/WARFARIN INR THERAPY RANGESSTANDARD DOSE: 2.0 - 3.0 Includes: PROPHYLAXIS forvenous thrombosis, systemic embolization; TREATMENT for venous thrombosis and/or pulmonary embolus.HIGH RISK: Target INR is 2.5-3.5 for patients with mechanical heart valves.CBC W/PLT COUNT & AUTO [id number] 04:49:00 Test Item Value Reference Range Comments WHITE BLOOD CELL COUNT (BEAKER) (test cnjp=341) 7.6 K/ L 3.5-10.5 RED BLOOD CELL COUNT (BEAKER) (test aqep=535) 3.53 M/ L 3.93-5.22 HEMOGLOBIN (BEAKER) (test aupv=880) 9.0 GM/DL 11.2-15.7 HEMATOCRIT (BEAKER) (test ybxh=953) 29.2 % 34.1-44.9 MEAN CORPUSCULAR VOLUME (BEAKER) (test acda=052) 82.7 fL 79.4-94.8 MEAN CORPUSCULAR HEMOGLOBIN (BEAKER) (test 25.5 pg 25.6-32.2 kuzn=152) MEAN CORPUSCULAR HEMOGLOBIN CONC (BEAKER) (test 30.8 GM/DL 32.2-35.5 dlhu=486) RED CELL DISTRIBUTION WIDTH (BEAKER) (test 17.5 % 11.7-14.4 luym=955) PLATELET COUNT (BEAKER) (test hlat=869) 364 K/CU MM 150-450 MEAN PLATELET VOLUME (BEAKER) (test qnib=053) 9.7 fL 9.4-12.3 NUCLEATED RED BLOOD CELLS (BEAKER) (test 0 /100 WBC 0-0 zqgd=796) NEUTROPHILS RELATIVE PERCENT (BEAKER) (test 56 % lqjn=193) LYMPHOCYTES RELATIVE PERCENT (BEAKER) (test 26 % zbow=564) MONOCYTES RELATIVE PERCENT (BEAKER) (test 12 % rbhw=380) EOSINOPHILS RELATIVE PERCENT (BEAKER) (test 5 % mqpr=584) BASOPHILS RELATIVE PERCENT (BEAKER) (test 2 % efgn=673) NEUTROPHILS ABSOLUTE COUNT (BEAKER) (test 4.22 K/ L 1.56-6.13 ktuj=674) LYMPHOCYTES ABSOLUTE COUNT (BEAKER) (test 1.93 K/ L 1.18-3.74 xwyd=807) MONOCYTES ABSOLUTE COUNT (BEAKER) (test 0.92 K/ L 0.24-0.36 sadq=179) EOSINOPHILS ABSOLUTE COUNT (BEAKER) (test 0.34 K/ L 0.04-0.36 ouuj=237) BASOPHILS ABSOLUTE COUNT (BEAKER) (test 0.11 K/ L 0.01-0.08 cgtx=492) IMMATURE GRANULOCYTES-RELATIVE PERCENT (BEAKER) 1 % 0-1 (test qfce=2215) [id number] 05:14:00 Test Item Value Reference Range Comments PHOSPHORUS (BEAKER) (test udzd=775) 3.0 mg/dL 2.3-4.7 [id number] 05:14:00 Test Item Value Reference Range Comments MAGNESIUM (BEAKER) (test qzlz=347) 1.5 mg/dL 1.6-2.6 BASIC METABOLIC [id number] 05:14:00 Test Item Value Reference Range Comments SODIUM (BEAKER) (test 140 meq/L 136-145 jkdw=299) POTASSIUM (BEAKER) (test 3.6 meq/L 3.5-5.1 wglu=846) CHLORIDE (BEAKER) (test 104 meq/L 98-107 cnqh=419) CO2 (BEAKER) (test 26 meq/L 22-29 rxyl=384) BLOOD UREA NITROGEN 14 mg/dL 7-21 (BEAKER) (test jhnp=727) CREATININE (BEAKER) (test 0.87 mg/dL 0.57-1.25 wukn=914) GLUCOSE RANDOM (BEAKER) 110 mg/dL 70-105 (test rrpp=173) CALCIUM (BEAKER) (test 8.5 mg/dL 8.4-10.2 jvcy=719) EGFR (BEAKER) (test 66 mL/min/1.73 sq m ESTIMATED GFR IS NOT wtbz=9634) ACCURATE CREATININE CLEARANCE IN PREDICTING GLOMERULAR FILTRATION RATE. ESTIMATED GFR IS NOT APPLICABLE FOR DIALYSIS PATIENTS. PROTHROMBIN TIME/[id number] 05:05:00 Test Item Value Reference Range Comments PROTIME (BEAKER) (test dyyi=147) 16.7 seconds 11.7-14.7 INR (BEAKER) (test vsyt=203) 1.4 <=5.9 RECOMMENDED COUMADIN/WARFARIN INR THERAPY RANGESSTANDARD DOSE: 2.0 - 3.0 Includes: PROPHYLAXIS forvenous thrombosis, systemic embolization; TREATMENT for venous thrombosis and/or pulmonary embolus.HIGH RISK: Target INR is 2.5-3.5 for patients with mechanical heart valves.CBC W/PLT COUNT & AUTO [id number] 05:00:00 Test Item Value Reference Range Comments WHITE BLOOD CELL COUNT (BEAKER) (test vwiw=939) 6.8 K/ L 3.5-10.5 RED BLOOD CELL COUNT (BEAKER) (test lgcj=088) 3.50 M/ L 3.93-5.22 HEMOGLOBIN (BEAKER) (test xume=756) 8.9 GM/DL 11.2-15.7 HEMATOCRIT (BEAKER) (test vdem=029) 29.2 % 34.1-44.9 MEAN CORPUSCULAR VOLUME (BEAKER) (test pwfg=380) 83.4 fL 79.4-94.8 MEAN CORPUSCULAR HEMOGLOBIN (BEAKER) (test 25.4 pg 25.6-32.2 bgto=072) MEAN CORPUSCULAR HEMOGLOBIN CONC (BEAKER) (test 30.5 GM/DL 32.2-35.5 fxlq=498) RED CELL DISTRIBUTION WIDTH (BEAKER) (test 17.4 % 11.7-14.4 oxtj=221) PLATELET COUNT (BEAKER) (test xefg=809) 362 K/CU MM 150-450 MEAN PLATELET VOLUME (BEAKER) (test jbri=849) 9.8 fL 9.4-12.3 NUCLEATED RED BLOOD CELLS (BEAKER) (test 0 /100 WBC 0-0 mwgt=721) NEUTROPHILS RELATIVE PERCENT (BEAKER) (test 62 % duow=959) LYMPHOCYTES RELATIVE PERCENT (BEAKER) (test 20 % gjzs=263) MONOCYTES RELATIVE PERCENT (BEAKER) (test 11 % ydhz=246) EOSINOPHILS RELATIVE PERCENT (BEAKER) (test 6 % tgtm=815) BASOPHILS RELATIVE PERCENT (BEAKER) (test 1 % lfsc=646) NEUTROPHILS ABSOLUTE COUNT (BEAKER) (test 4.16 K/ L 1.56-6.13 gzcg=114) LYMPHOCYTES ABSOLUTE COUNT (BEAKER) (test 1.34 K/ L 1.18-3.74 xohq=175) MONOCYTES ABSOLUTE COUNT (BEAKER) (test 0.72 K/ L 0.24-0.36 envf=682) EOSINOPHILS ABSOLUTE COUNT (BEAKER) (test 0.39 K/ L 0.04-0.36 mmly=772) BASOPHILS ABSOLUTE COUNT (BEAKER) (test 0.08 K/ L 0.01-0.08 iybp=072) IMMATURE GRANULOCYTES-RELATIVE PERCENT (BEAKER) 1 % 0-1 (test bvpn=2566) RAD, CHEST, 1 VIEW, NON [id number] 04:27:00Reason for exam:->r/o effusionIs the patient ?->NoShould this be performed at the bedside?- >YesFINAL REPORT EXAMINATION: AP PORTABLE CHEST RADIOGRAPH CLINICAL INDICATION:Pleural effusion IMPRESSION: Compared with 2016. The tip of the right upper survey central lineprojects over the superior vena cava. The heart is enlarged as before. Mediastinal contours are grossly stable with a prominent thoracic aorta. The bilateral parenchymal lung opacities and superimposedpleural effusions are grossly stable. No definite evidence of new lung consolidation or pneumothorax. In summary, no significant interval change. Signed: Darrin Escalera Verified Date/Time: 07/09/2017 04:27:13 Reading Location: [address] Reading Room [id number] 05:12:00 Test Item Value Reference Range Comments PHOSPHORUS (BEAKER) (test fugo=710) 3.3 mg/dL 2.3-4.7 [id number] 05:12:00 Test Item Value Reference Range Comments MAGNESIUM (BEAKER) (test hfwq=397) 1.7 mg/dL 1.6-2.6 BASIC METABOLIC [id number] 05:12:00 Test Item Value Reference Range Comments SODIUM (BEAKER) (test 139 meq/L 136-145 rrvg=218) POTASSIUM (BEAKER) (test 3.3 meq/L 3.5-5.1 zdex=608) CHLORIDE (BEAKER) (test 103 meq/L 98-107 ilgn=511) CO2 (BEAKER) (test 27 meq/L 22-29 pyqp=566) BLOOD UREA NITROGEN 15 mg/dL 7-21 (BEAKER) (test dtdr=502) CREATININE (BEAKER) (test 1.01 mg/dL 0.57-1.25 qxpn=579) GLUCOSE RANDOM (BEAKER) 101 mg/dL 70-105 (test ikzb=448) CALCIUM (BEAKER) (test 8.6 mg/dL 8.4-10.2 ffmf=104) EGFR (BEAKER) (test 56 mL/min/1.73 sq m ESTIMATED GFR IS NOT nlxv=3965) ACCURATE CREATININE CLEARANCE IN PREDICTING GLOMERULAR FILTRATION RATE. ESTIMATED GFR IS NOT APPLICABLE FOR DIALYSIS PATIENTS. PROTHROMBIN TIME/[id number] 04:56:00 Test Item Value Reference Range Comments PROTIME (BEAKER) (test sqmb=829) 15.6 seconds 11.7-14.7 INR (BEAKER) (test jgib=599) 1.3 <=5.9 RECOMMENDED COUMADIN/WARFARIN INR THERAPY RANGESSTANDARD DOSE: 2.0 - 3.0 Includes: PROPHYLAXIS forvenous thrombosis, systemic embolization; TREATMENT for venous thrombosis and/or pulmonary embolus.HIGH RISK: Target INR is 2.5-3.5 for patients with mechanical heart valves.CBC W/PLT COUNT & AUTO [id number] 04:47:00 Test Item Value Reference Range Comments WHITE BLOOD CELL COUNT (BEAKER) (test kjlo=487) 8.4 K/ L 3.5-10.5 RED BLOOD CELL COUNT (BEAKER) (test jogj=491) 3.48 M/ L 3.93-5.22 HEMOGLOBIN (BEAKER) (test keom=311) 8.8 GM/DL 11.2-15.7 HEMATOCRIT (BEAKER) (test xfuu=549) 29.1 % 34.1-44.9 MEAN CORPUSCULAR VOLUME (BEAKER) (test tacy=758) 83.6 fL 79.4-94.8 MEAN CORPUSCULAR HEMOGLOBIN (BEAKER) (test 25.3 pg 25.6-32.2 nhqg=120) MEAN CORPUSCULAR HEMOGLOBIN CONC (BEAKER) (test 30.2 GM/DL 32.2-35.5 zrow=067) RED CELL DISTRIBUTION WIDTH (BEAKER) (test 17.4 % 11.7-14.4 dhft=107) PLATELET COUNT (BEAKER) (test vxgr=758) 364 K/CU MM 150-450 MEAN PLATELET VOLUME (BEAKER) (test nskn=448) 9.6 fL 9.4-12.3 NUCLEATED RED BLOOD CELLS (BEAKER) (test 0 /100 WBC 0-0 ktac=765) NEUTROPHILS RELATIVE PERCENT (BEAKER) (test 71 % ccqa=262) LYMPHOCYTES RELATIVE PERCENT (BEAKER) (test 13 % gyha=260) MONOCYTES RELATIVE PERCENT (BEAKER) (test 9 % gbix=787) EOSINOPHILS RELATIVE PERCENT (BEAKER) (test 5 % zgts=704) BASOPHILS RELATIVE PERCENT (BEAKER) (test 1 % baol=598) NEUTROPHILS ABSOLUTE COUNT (BEAKER) (test 5.92 K/ L 1.56-6.13 pcrd=126) LYMPHOCYTES ABSOLUTE COUNT (BEAKER) (test 1.10 K/ L 1.18-3.74 himn=905) MONOCYTES ABSOLUTE COUNT (BEAKER) (test 0.77 K/ L 0.24-0.36 fdes=510) EOSINOPHILS ABSOLUTE COUNT (BEAKER) (test 0.41 K/ L 0.04-0.36 wdgj=355) BASOPHILS ABSOLUTE COUNT (BEAKER) (test 0.09 K/ L 0.01-0.08 gsak=638) IMMATURE GRANULOCYTES-RELATIVE PERCENT (BEAKER) 1 % 0-1 (test nsqu=2865) RAD, CHEST, 1 VIEW, NON [id number] 04:47:00Reason for exam:->r/o effusionIs the patient ?->NoShould this be performed at the bedside?- >YesFINAL REPORT RAD, CHEST, 1 VIEW, NON DEPT INDICATION: r/o effusion COMPARISON: Prior day's exam FINDINGS: Portable frontal view of the chest. IMPRESSION: Support Lines: Stableright PICC Lungs and pleura: Redemonstration of bilateral pleural effusions, left greater than right. No significant change in the appearance of the air spaces. Interstitial congestion is greater on the left. There is no pneumothorax.Heart and mediastinum: Stable contours. Additional findings: None. Signed: JR Saldana Robert MDReport Verified Date/Time: 07/08/2017 04:47:50 Reading Location: [facility] C013Y CT Body Reading Room RAD, CHEST, 1 VIEW, NON [id number] 13:44: 00Reason for exam:->eval atelectasisFINAL REPORT Chest one view INDICATION: Atelectasis COMPARISON: 07/07/2017 IMPRESSION: Right PICC line extends to the SVC. The cardiac silhouette is enlarged. Pulmonary edema appears decreased. Left asymmetric airspace opacities are improved. Pneumonitis should be excluded clinically. Dependent pleural effusions are suspected, left greater than right. A retrocardiac hiatal hernia is present. No pneumothorax is seen. Signed: Ruslan Cohen MDReport Verified Date/Time: 07/07/2017 13:44:12 Reading Location: [facility] C013W Consult Reading Room [id number] 05:20:00 Test Item Value Reference Range Comments PHOSPHORUS (BEAKER) (test tfal=371) 3.8 mg/dL 2.3-4.7 [id number] 05:20:00 Test Item Value Reference Range Comments MAGNESIUM (BEAKER) (test yrad=630) 2.1 mg/dL 1.6-2.6 BASIC METABOLIC [id number] 05:20:00 Test Item Value Reference Range Comments SODIUM (BEAKER) (test 142 meq/L 136-145 fxdb=577) POTASSIUM (BEAKER) (test 3.6 meq/L 3.5-5.1 rldx=963) CHLORIDE (BEAKER) (test 105 meq/L 98-107 khbw=681) CO2 (BEAKER) (test 28 meq/L 22-29 elxk=492) BLOOD UREA NITROGEN 21 mg/dL 7-21 (BEAKER) (test dkwd=948) CREATININE (BEAKER) (test 1.34 mg/dL 0.57-1.25 xbuk=661) GLUCOSE RANDOM (BEAKER) 89 mg/dL 70-105 (test sjhc=929) CALCIUM (BEAKER) (test 8.4 mg/dL 8.4-10.2 xnoo=819) EGFR (BEAKER) (test 40 mL/min/1.73 sq m ESTIMATED GFR IS NOT jaaf=9143) ACCURATE CREATININE CLEARANCE IN PREDICTING GLOMERULAR FILTRATION RATE. ESTIMATED GFR IS NOT APPLICABLE FOR DIALYSIS PATIENTS. PROTHROMBIN [id number] 05:10:00 Test Item Value Reference Range Comments PROTIME (BEAKER) (test xwdz=413) 16.9 seconds 11.7-14.7 INR (BEAKER) (test glfk=452) 1.4 <=5.9 RECOMMENDED COUMADIN/WARFARIN INR THERAPY RANGESSTANDARD DOSE: 2.0 - 3.0 Includes: PROPHYLAXIS forvenous thrombosis, systemic embolization; TREATMENT for venous thrombosis and/or pulmonary embolus.HIGH RISK: Target INR is 2.5-3.5 for patients with mechanical heart valves.CBC W/PLT COUNT & AUTO [id number] 04:57:00 Test Item Value Reference Range Comments WHITE BLOOD CELL COUNT (BEAKER) (test glng=942) 8.3 K/ L 3.5-10.5 RED BLOOD CELL COUNT (BEAKER) (test vmsp=172) 3.32 M/ L 3.93-5.22 HEMOGLOBIN (BEAKER) (test vzgt=864) 8.5 GM/DL 11.2-15.7 HEMATOCRIT (BEAKER) (test maqf=754) 28.3 % 34.1-44.9 MEAN CORPUSCULAR VOLUME (BEAKER) (test etur=518) 85.2 fL 79.4-94.8 MEAN CORPUSCULAR HEMOGLOBIN (BEAKER) (test 25.6 pg 25.6-32.2 ngpe=410) MEAN CORPUSCULAR HEMOGLOBIN CONC (BEAKER) (test 30.0 GM/DL 32.2-35.5 xxub=452) RED CELL DISTRIBUTION WIDTH (BEAKER) (test 17.7 % 11.7-14.4 xtza=446) PLATELET COUNT (BEAKER) (test ppgt=099) 397 K/CU MM 150-450 MEAN PLATELET VOLUME (BEAKER) (test wkzl=507) 10.2 fL 9.4-12.3 NUCLEATED RED BLOOD CELLS (BEAKER) (test 0 /100 WBC 0-0 shjj=687) NEUTROPHILS RELATIVE PERCENT (BEAKER) (test 66 % mbkn=539) LYMPHOCYTES RELATIVE PERCENT (BEAKER) (test 15 % ydjk=431) MONOCYTES RELATIVE PERCENT (BEAKER) (test 12 % gkvn=642) EOSINOPHILS RELATIVE PERCENT (BEAKER) (test 5 % rkyn=734) BASOPHILS RELATIVE PERCENT (BEAKER) (test 1 % jpbg=857) NEUTROPHILS ABSOLUTE COUNT (BEAKER) (test 5.50 K/ L 1.56-6.13 abov=662) LYMPHOCYTES ABSOLUTE COUNT (BEAKER) (test 1.25 K/ L 1.18-3.74 cmpc=239) MONOCYTES ABSOLUTE COUNT (BEAKER) (test 1.02 K/ L 0.24-0.36 tome=353) EOSINOPHILS ABSOLUTE COUNT (BEAKER) (test 0.41 K/ L 0.04-0.36 lctx=306) BASOPHILS ABSOLUTE COUNT (BEAKER) (test 0.09 K/ L 0.01-0.08 vwyz=232) IMMATURE GRANULOCYTES-RELATIVE PERCENT (BEAKER) 1 % 0-1 (test gtzk=2754) RAD, CHEST, 1 VIEW, NON [id number] 04:40:00Reason for exam:->r/o effusionIs the patient ?->NoShould this be performed at the bedside?- >YesFINAL REPORT RAD, CHEST, 1 VIEW, NON DEPT INDICATION: r/o effusion COMPARISON: Prior day's exam FINDINGS: Portable frontal view of the chest. IMPRESSION: The right PICC remains in place with termination over the superior vena cava. Previously noted left IJ central venous catheter has been removed. Since the prior date there has been increased conspicuity of interstitial edema/congestion in the left lung. The left effusion has increased in volume. Increasing congestive changes on the right are noted, but to a lesser degree than on the left. There is no visible pneumothorax.The cardiomediastinal contours are stable. Signed: JR Les , Mahendra Zafar Verified Date/Time: 07/07/2017 04:40:50 Reading Location: [facility] C013Y CT Body Reading Room [id number] 18:44:00 Test Item Value Reference Range Comments MAGNESIUM (BEAKER) (test glzt=704) 1.5 mg/dL 1.6-2.6 CBC W/PLT COUNT & AUTO [id number] 08:59:00 Test Item Value Reference Range Comments WHITE BLOOD CELL COUNT (BEAKER) (test htfu=280) 11.1 K/ L 3.5-10.5 RED BLOOD CELL COUNT (BEAKER) (test prpx=393) 3.58 M/ L 3.93-5.22 HEMOGLOBIN (BEAKER) (test rzvl=886) 9.4 GM/DL 11.2-15.7 HEMATOCRIT (BEAKER) (test qneg=511) 30.5 % 34.1-44.9 MEAN CORPUSCULAR VOLUME (BEAKER) (test lmwl=662) 85.2 fL 79.4-94.8 MEAN CORPUSCULAR HEMOGLOBIN (BEAKER) (test 26.3 pg 25.6-32.2 fkbq=104) MEAN CORPUSCULAR HEMOGLOBIN CONC (BEAKER) (test 30.8 GM/DL 32.2-35.5 ongl=074) RED CELL DISTRIBUTION WIDTH (BEAKER) (test 17.8 % 11.7-14.4 hyfm=784) PLATELET COUNT (BEAKER) (test bmis=258) 453 K/CU MM 150-450 MEAN PLATELET VOLUME (BEAKER) (test ixje=973) 9.8 fL 9.4-12.3 NUCLEATED RED BLOOD CELLS (BEAKER) (test 0 /100 WBC 0-0 sdfo=284) NEUTROPHILS RELATIVE PERCENT (BEAKER) (test 80 % bnjo=616) LYMPHOCYTES RELATIVE PERCENT (BEAKER) (test 8 % ride=739) MONOCYTES RELATIVE PERCENT (BEAKER) (test 9 % vgun=484) EOSINOPHILS RELATIVE PERCENT (BEAKER) (test 2 % drus=077) BASOPHILS RELATIVE PERCENT (BEAKER) (test 1 % qoze=605) NEUTROPHILS ABSOLUTE COUNT (BEAKER) (test 8.79 K/ L 1.56-6.13 akzq=312) LYMPHOCYTES ABSOLUTE COUNT (BEAKER) (test 0.83 K/ L 1.18-3.74 mchh=248) MONOCYTES ABSOLUTE COUNT (BEAKER) (test 1.03 K/ L 0.24-0.36 asil=613) EOSINOPHILS ABSOLUTE COUNT (BEAKER) (test 0.23 K/ L 0.04-0.36 xzqn=770) BASOPHILS ABSOLUTE COUNT (BEAKER) (test 0.11 K/ L 0.01-0.08 hrvj=157) IMMATURE GRANULOCYTES-RELATIVE PERCENT (BEAKER) 1 % 0-1 (test nufa=7659) RAD, CHEST, 1 VIEW, NON [id number] 05:06:00Reason for exam:->r/o effusionIs the patient ?->NoShould this be performed at the bedside?- >YesFINAL REPORT RAD, CHEST, 1 VIEW, NON DEPT INDICATION: r/o effusion COMPARISON: Prior day's exam FINDINGS: Portable frontal view of the chest. IMPRESSION: Support Lines: Stable. Lungs and pleura: Unchanged airspace and pleural opacities. No pneumothorax.Heart and mediastinum: Stable contours. Additional findings: None. Signed: JR Saldana Robert MDRepcox north Verified Date/Time: 07/06/2017 05:06:54 Reading Location: [facility] B1 C013Y CT Body Reading Room [id number] 04:29:00 Test Item Value Reference Range Comments PHOSPHORUS (BEAKER) (test qfuo=093) 3.7 mg/dL 2.3-4.7 [id number] 04:29:00 Test Item Value Reference Range Comments MAGNESIUM (BEAKER) (test fvme=212) 2.0 mg/dL 1.6-2.6 BASIC METABOLIC [id number] 04:29:00 Test Item Value Reference Range Comments SODIUM (BEAKER) (test 147 meq/L 136-145 tgzt=230) POTASSIUM (BEAKER) (test 3.5 meq/L 3.5-5.1 zcas=809) CHLORIDE (BEAKER) (test 109 meq/L 98-107 atqa=626) CO2 (BEAKER) (test 27 meq/L 22-29 cplw=467) BLOOD UREA NITROGEN 25 mg/dL 7-21 (BEAKER) (test rhpv=438) CREATININE (BEAKER) (test 1.57 mg/dL 0.57-1.25 ymls=387) GLUCOSE RANDOM (BEAKER) 101 mg/dL 70-105 (test eukw=258) CALCIUM (BEAKER) (test 8.7 mg/dL 8.4-10.2 unkf=581) EGFR (BEAKER) (test 34 mL/min/1.73 sq m ESTIMATED GFR IS NOT wvtg=5798) ACCURATE CREATININE CLEARANCE IN PREDICTING GLOMERULAR FILTRATION RATE. ESTIMATED GFR IS NOT APPLICABLE FOR DIALYSIS PATIENTS. PROTHROMBIN TIME/[id number] 04:24:00 Test Item Value Reference Range Comments PROTIME (BEAKER) (test psws=975) 15.8 seconds 11.7-14.7 INR (BEAKER) (test rtjw=251) 1.3 <=5.9 RECOMMENDED COUMADIN/WARFARIN INR THERAPY RANGESSTANDARD DOSE: 2.0 - 3.0 Includes: PROPHYLAXIS forvenous thrombosis, systemic embolization; TREATMENT for venous thrombosis and/or pulmonary embolus.HIGH RISK: Target INR is 2.5-3.5 for patients with mechanical heart valves.[id number] 17:12:00 Test Item Value Reference Range Comments POTASSIUM (BEAKER) (test mtdu=650) 3.6 meq/L 3.5-5.1 [id number] 17:12:00 Test Item Value Reference Range Comments MAGNESIUM (BEAKER) (test kxrb=908) 2.2 mg/dL 1.6-2.6 [id number] 17:01:00 Test Item Value Reference Range Comments POTASSIUM (BEAKER) (test bdip=607) 3.8 meq/L 3.5-5.1 [id number] 17:01:00 Test Item Value Reference Range Comments MAGNESIUM (BEAKER) (test znao=071) 2.3 mg/dL 1.6-2.6 RAD, CHEST, 1 VIEW, NON [id number] 15:01:00Reason for exam:->PICC PlacementShould this be performed at the bedside?->YesReason for exam:-> PICC PlacementShould this be performed at the bedside?->YesFINAL REPORT EXAM: AP chest radiograph HISTORY: PICC placement COMPARISON: 07/05/2017 at 0419 IMPRESSION:The tip of a right arm PICC line projects over the SVC. Left IJ central venous catheter projects over the SVC. No significant change in bilateral left greater than right interstitial opacities compatible with interstitial edema. Retrocardiac opacity likely represents a combination of a left pleural effusion and atelectasis, although underlying airspace disease is not excluded. The cardiac silhouette is stable. No discernible pneumothorax. Signed: Eric AlexandraVerified Date/ Time: 07/05/2017 15:01:27 Reading Location: [facility] Mammo Reading Room RAD, CHEST, 1 VIEW, NON [id number] 05:06:00Reason for exam:->r/o effusionIs the patient ?->NoShould this be performed at the bedside?->YesFINAL REPORT RAD, CHEST, 1 VIEW, NON DEPT INDICATION: r/o effusion COMPARISON: Prior day's exam FINDINGS: Portable frontal view of the chest. IMPRESSION: Support Lines: Left IJ central venous catheter terminates over the superior vena cava. Lungs and pleura: Within the limitations of patient rotation, no significant improvement in interstitial congestion, presumed to represent edema. Tracking left effusion noted. No pneumothorax.Heart and mediastinum: Stable contours. Additional findings: None. Signed: JR Saldana Robert MDReport Verified Date/Time: 07/05/2017 05:06: 19 Reading Location: [facility] C013Y CT Body Reading Room BASIC METABOLIC [id number] 04:36:00 Test Item Value Reference Range Comments SODIUM (BEAKER) (test 149 meq/L 136-145 tsrz=469) POTASSIUM (BEAKER) (test 3.0 meq/L 3.5-5.1 sfgp=219) CHLORIDE (BEAKER) (test 110 meq/L 98-107 fmfm=493) CO2 (BEAKER) (test 26 meq/L 22-29 malf=497) BLOOD UREA NITROGEN 34 mg/dL 7-21 (BEAKER) (test kipo=046) CREATININE (BEAKER) (test 2.16 mg/dL 0.57-1.25 tywn=982) GLUCOSE RANDOM (BEAKER) 106 mg/dL 70-105 (test qzak=153) CALCIUM (BEAKER) (test 8.6 mg/dL 8.4-10.2 qbzy=677) EGFR (BEAKER) (test 23 mL/min/1.73 sq m ESTIMATED GFR IS NOT urzg=0448) ACCURATE CREATININE CLEARANCE IN PREDICTING GLOMERULAR FILTRATION RATE. ESTIMATED GFR IS NOT APPLICABLE FOR DIALYSIS PATIENTS. [id number] 04:26:00 Test Item Value Reference Range Comments PHOSPHORUS (BEAKER) (test wuvu=638) 3.6 mg/dL 2.3-4.7 [id number] 04:26:00 Test Item Value Reference Range Comments MAGNESIUM (BEAKER) (test woul=203) 1.8 mg/dL 1.6-2.6 CBC W/PLT COUNT & AUTO [id number] 04:08:00 Test Item Value Reference Range Comments WHITE BLOOD CELL COUNT (BEAKER) (test qbug=740) 8.9 K/ L 3.5-10.5 RED BLOOD CELL COUNT (BEAKER) (test hrph=084) 3.54 M/ L 3.93-5.22 HEMOGLOBIN (BEAKER) (test htoe=589) 9.0 GM/DL 11.2-15.7 HEMATOCRIT (BEAKER) (test orrc=458) 29.2 % 34.1-44.9 MEAN CORPUSCULAR VOLUME (BEAKER) (test ryzh=216) 82.5 fL 79.4-94.8 MEAN CORPUSCULAR HEMOGLOBIN (BEAKER) (test 25.4 pg 25.6-32.2 ijwm=577) MEAN CORPUSCULAR HEMOGLOBIN CONC (BEAKER) (test 30.8 GM/DL 32.2-35.5 peol=206) RED CELL DISTRIBUTION WIDTH (BEAKER) (test 17.8 % 11.7-14.4 zveq=945) PLATELET COUNT (BEAKER) (test ebgh=518) 496 K/CU MM 150-450 MEAN PLATELET VOLUME (BEAKER) (test fuhe=655) 10.2 fL 9.4-12.3 NUCLEATED RED BLOOD CELLS (BEAKER) (test 0 /100 WBC 0-0 weob=459) NEUTROPHILS RELATIVE PERCENT (BEAKER) (test 70 % japf=602) LYMPHOCYTES RELATIVE PERCENT (BEAKER) (test 12 % mnyh=972) MONOCYTES RELATIVE PERCENT (BEAKER) (test 13 % vlac=295) EOSINOPHILS RELATIVE PERCENT (BEAKER) (test 3 % ysqg=387) BASOPHILS RELATIVE PERCENT (BEAKER) (test 1 % vjpb=390) NEUTROPHILS ABSOLUTE COUNT (BEAKER) (test 6.26 K/ L 1.56-6.13 owyj=892) LYMPHOCYTES ABSOLUTE COUNT (BEAKER) (test 1.09 K/ L 1.18-3.74 wggq=720) MONOCYTES ABSOLUTE COUNT (BEAKER) (test 1.12 K/ L 0.24-0.36 fmvp=610) EOSINOPHILS ABSOLUTE COUNT (BEAKER) (test 0.28 K/ L 0.04-0.36 ccni=578) BASOPHILS ABSOLUTE COUNT (BEAKER) (test 0.08 K/ L 0.01-0.08 zqkg=467) IMMATURE GRANULOCYTES-RELATIVE PERCENT (BEAKER) 1 % 0-1 (test eozg=0332) PROTHROMBIN [id number] 04:05:00 Test Item Value Reference Range Comments PROTIME (BEAKER) (test txwv=230) 17.1 seconds 11.7-14.7 INR (BEAKER) (test neek=571) 1.4 <=5.9 RECOMMENDED COUMADIN/WARFARIN INR THERAPY RANGESSTANDARD DOSE: 2.0 - 3.0 Includes: PROPHYLAXIS forvenous thrombosis, systemic embolization; TREATMENT for venous thrombosis and/or pulmonary embolus.HIGH RISK: Target INR is 2.5-3.5 for patients with mechanical heart valves.CBC W/PLT COUNT & AUTO [id number] 17:52:00 Test Item Value Reference Range Comments WHITE BLOOD CELL COUNT (BEAKER) (test cosb=908) 8.7 K/ L 3.5-10.5 RED BLOOD CELL COUNT (BEAKER) (test nryf=711) 3.58 M/ L 3.93-5.22 HEMOGLOBIN (BEAKER) (test ulln=593) 8.9 GM/DL 11.2-15.7 HEMATOCRIT (BEAKER) (test zilh=035) 29.5 % 34.1-44.9 MEAN CORPUSCULAR VOLUME (BEAKER) (test tvxk=140) 82.4 fL 79.4-94.8 MEAN CORPUSCULAR HEMOGLOBIN (BEAKER) (test 24.9 pg 25.6-32.2 ryko=855) MEAN CORPUSCULAR HEMOGLOBIN CONC (BEAKER) (test 30.2 GM/DL 32.2-35.5 unob=821) RED CELL DISTRIBUTION WIDTH (BEAKER) (test 17.7 % 11.7-14.4 mrvv=826) PLATELET COUNT (BEAKER) (test fmmi=588) 490 K/CU MM 150-450 MEAN PLATELET VOLUME (BEAKER) (test yuyc=464) 9.5 fL 9.4-12.3 NUCLEATED RED BLOOD CELLS (BEAKER) (test 0 /100 WBC 0-0 gmxw=155) NEUTROPHILS RELATIVE PERCENT (BEAKER) (test 79 % irkq=241) LYMPHOCYTES RELATIVE PERCENT (BEAKER) (test 7 % hsvj=782) MONOCYTES RELATIVE PERCENT (BEAKER) (test 11 % ysnx=302) EOSINOPHILS RELATIVE PERCENT (BEAKER) (test 1 % kvfd=465) BASOPHILS RELATIVE PERCENT (BEAKER) (test 1 % xjso=404) NEUTROPHILS ABSOLUTE COUNT (BEAKER) (test 6.88 K/ L 1.56-6.13 cgtk=046) LYMPHOCYTES ABSOLUTE COUNT (BEAKER) (test 0.64 K/ L 1.18-3.74 zhdr=856) MONOCYTES ABSOLUTE COUNT (BEAKER) (test 0.93 K/ L 0.24-0.36 yekh=728) EOSINOPHILS ABSOLUTE COUNT (BEAKER) (test 0.10 K/ L 0.04-0.36 ptsm=581) BASOPHILS ABSOLUTE COUNT (BEAKER) (test 0.08 K/ L 0.01-0.08 kdzo=095) IMMATURE GRANULOCYTES-RELATIVE PERCENT (BEAKER) 1 % 0-1 (test eekm=0433) BASIC METABOLIC [id number] 17:51:00 Test Item Value Reference Range Comments SODIUM (BEAKER) (test 147 meq/L 136-145 ukre=187) POTASSIUM (BEAKER) (test 3.4 meq/L 3.5-5.1 tfdh=750) CHLORIDE (BEAKER) (test 110 meq/L 98-107 mogt=735) CO2 (BEAKER) (test 25 meq/L 22-29 zhum=452) BLOOD UREA NITROGEN 42 mg/dL 7-21 (BEAKER) (test jrhw=410) CREATININE (BEAKER) (test 2.69 mg/dL 0.57-1.25 ymqp=705) GLUCOSE RANDOM (BEAKER) 122 mg/dL 70-105 (test xesj=457) CALCIUM (BEAKER) (test 8.5 mg/dL 8.4-10.2 mlnc=334) EGFR (BEAKER) (test 18 mL/min/1.73 sq m ESTIMATED GFR IS NOT jons=9681) ACCURATE CREATININE CLEARANCE IN PREDICTING GLOMERULAR FILTRATION RATE. ESTIMATED GFR IS NOT APPLICABLE FOR DIALYSIS PATIENTS. [id number] 17:45:00 Test Item Value Reference Range Comments PHOSPHORUS (BEAKER) (test nkdj=319) 3.5 mg/dL 2.3-4.7 [id number] 17:45:00 Test Item Value Reference Range Comments MAGNESIUM (BEAKER) (test vftr=144) 2.0 mg/dL 1.6-2.6 RAD, CHEST, 1 VIEW, NON [id number] 17:39:00Reason for exam:->s/p chest tube removalShould this be performed at the bedside?->YesFINAL REPORT Chest x-ray Clinical History: s/p chest tube removal Comparison:July 04, 2017 at 424 Views: 1 Chest x-ray:The cardiac and mediastinal silhouettes are within normal limits. There is no evidence of a pneumothorax. There is no evidence of a pleural effusion. There is no evidence of overt cardiac failure. The visible regional skeleton is intact. There is noevidence of a focal parenchymal opacity. There is a left internal jugular catheter terminating at cavoatrial junction. There is been interval removal of a right internal jugular dialysis catheter. Impression: Interval removal of a right dialysis catheter. There remains volume loss on the left with nonspecific increased interstitial findings. Signed: Ingrid Garciaort Verified Date/Time: 07/04/2017 17:39:24 Reading Location: [facility] B1 C013W Consult Reading Room 05: 39 PMPROTHROMBIN [id number] 17:08:00 Test Item Value Reference Range Comments PROTIME (BEAKER) (test fcde=241) 17.3 seconds 11.7-14.7 INR (BEAKER) (test pphw=853) 1.4 <=5.9 RECOMMENDED COUMADIN/WARFARIN INR THERAPY RANGESSTANDARD DOSE: 2.0 - 3.0 Includes: PROPHYLAXIS forvenous thrombosis, systemic embolization; TREATMENT for venous thrombosis and/or pulmonary embolus.HIGH RISK: Target INR is 2.5-3.5 for patients with mechanical heart valves.BLOOD GAS, [id number] 13:15:00 Test Item Value Reference Range Comments PH ARTERIAL (BEAKER) (test hidx=230) 7.49 7.35-7.45 PCO2 ARTERIAL (BEAKER) (test lvew=122) 34 mmHg 35-45 PO2 ARTERIAL (BEAKER) (test psvx=025) 88 mmHg 80-90 O2 SATURATION ARTERIAL (BEAKER) (test faea=697) 97.4 % 96.0-97.0 HCO3 ARTERIAL (BEAKER) (test oyme=786) 25 mmol/L 21-29 BASE EXCESS ARTERIAL (BEAKER) (test uexe=365) 1.8 mmol/L -2.0-3.0 PATIENT TEMPERATURE (BEAKER) (test kdmz=8975) 37.0 C FIO2 (BEAKER) (test ppls=8118) 36.0 % FUNGUS CULTURE + [id number] 12:50:00 Test Item Value Reference Range Comments CULTURE (BEAKER) (test <1+ Theodora dubliniensis txwe=9522) FUNGUS SMEAR (BEAKER) (test No fungi seen zehp=7002) BLOOD GAS, [id number] 05:22:00 Test Item Value Reference Range Comments PH ARTERIAL (BEAKER) (test cnby=958) 7.48 7.35-7.45 PCO2 ARTERIAL (BEAKER) (test ppvp=386) 32 mmHg 35-45 PO2 ARTERIAL (BEAKER) (test macq=310) 69 mmHg 80-90 O2 SATURATION ARTERIAL (BEAKER) (test ptsm=011) 95.1 % 96.0-97.0 HCO3 ARTERIAL (BEAKER) (test hrry=287) 23 mmol/L 21-29 BASE EXCESS ARTERIAL (BEAKER) (test hxvg=132) 0.4 mmol/L -2.0-3.0 PATIENT TEMPERATURE (BEAKER) (test wsvl=1100) 37.0 C FIO2 (BEAKER) (test dedh=6437) 36.0 % RAD, CHEST, 1 VIEW, NON [id number] 05:15:00Reason for exam:->r/o effusionIs the patient ?->NoShould this be performed at the bedside?- >YesFINAL REPORT RAD, CHEST, 1 VIEW, NON DEPT INDICATION: r/o effusion COMPARISON: Prior day's exam FINDINGS: Portable frontal view of the chest. IMPRESSION: Support Lines: The feeding tube is been removed. Remaining support hardware is stable. Lungs and pleura: No significant change in the appearance of the air spaces or small effusions. No pneumothorax.Heart and mediastinum: Stable contours.Additional findings: None. Signed: JR Saldana Robert MDReport Verified Date/Time: 07/04/2017 05:15: 15 Reading Location: [address] Reading Room BASIC METABOLIC [id number] 04:31:00 Test Item Value Reference Range Comments SODIUM (BEAKER) (test 149 meq/L 136-145 dfle=477) POTASSIUM (BEAKER) (test 3.2 meq/L 3.5-5.1 ekej=716) CHLORIDE (BEAKER) (test 110 meq/L 98-107 yqlw=671) CO2 (BEAKER) (test 24 meq/L 22-29 rqhc=799) BLOOD UREA NITROGEN 46 mg/dL 7-21 (BEAKER) (test sapf=525) CREATININE (BEAKER) (test 3.18 mg/dL 0.57-1.25 cdtw=186) GLUCOSE RANDOM (BEAKER) 118 mg/dL 70-105 (test sybk=412) CALCIUM (BEAKER) (test 9.1 mg/dL 8.4-10.2 jhri=921) EGFR (BEAKER) (test 15 mL/min/1.73 sq m ESTIMATED GFR IS NOT ztsw=2365) ACCURATE CREATININE CLEARANCE IN PREDICTING GLOMERULAR FILTRATION RATE. ESTIMATED GFR IS NOT APPLICABLE FOR DIALYSIS PATIENTS. [id number] 04:26:00 Test Item Value Reference Range Comments PHOSPHORUS (BEAKER) (test qvui=538) 4.9 mg/dL 2.3-4.7 [id number] 04:26:00 Test Item Value Reference Range Comments MAGNESIUM (BEAKER) (test tkge=265) 2.1 mg/dL 1.6-2.6 PROTHROMBIN [id number] 04:07:00 Test Item Value Reference Range Comments PROTIME (BEAKER) (test mwih=689) 16.8 seconds 11.7-14.7 INR (BEAKER) (test zhre=976) 1.4 <=5.9 RECOMMENDED COUMADIN/WARFARIN INR THERAPY RANGESSTANDARD DOSE: 2.0 - 3.0 Includes: PROPHYLAXIS forvenous thrombosis, systemic embolization; TREATMENT for venous thrombosis and/or pulmonary embolus.HIGH RISK: Target INR is 2.5-3.5 for patients with mechanical heart valves.CBC W/PLT COUNT & AUTO [id number] 03:55:00 Test Item Value Reference Range Comments WHITE BLOOD CELL COUNT (BEAKER) (test hkrh=856) 7.9 K/ L 3.5-10.5 RED BLOOD CELL COUNT (BEAKER) (test nrms=154) 3.50 M/ L 3.93-5.22 HEMOGLOBIN (BEAKER) (test oacd=336) 8.8 GM/DL 11.2-15.7 HEMATOCRIT (BEAKER) (test kdve=728) 28.7 % 34.1-44.9 MEAN CORPUSCULAR VOLUME (BEAKER) (test mwdn=217) 82.0 fL 79.4-94.8 MEAN CORPUSCULAR HEMOGLOBIN (BEAKER) (test 25.1 pg 25.6-32.2 oxab=901) MEAN CORPUSCULAR HEMOGLOBIN CONC (BEAKER) (test 30.7 GM/DL 32.2-35.5 jzcf=779) RED CELL DISTRIBUTION WIDTH (BEAKER) (test 17.7 % 11.7-14.4 zwsc=626) PLATELET COUNT (BEAKER) (test aivw=146) 459 K/CU MM 150-450 MEAN PLATELET VOLUME (BEAKER) (test jcug=562) 9.8 fL 9.4-12.3 NUCLEATED RED BLOOD CELLS (BEAKER) (test 0 /100 WBC 0-0 qzgg=651) NEUTROPHILS RELATIVE PERCENT (BEAKER) (test 72 % hujb=455) LYMPHOCYTES RELATIVE PERCENT (BEAKER) (test 13 % yqfz=531) MONOCYTES RELATIVE PERCENT (BEAKER) (test 11 % hsds=265) EOSINOPHILS RELATIVE PERCENT (BEAKER) (test 2 % zlzr=627) BASOPHILS RELATIVE PERCENT (BEAKER) (test 1 % bvgz=517) NEUTROPHILS ABSOLUTE COUNT (BEAKER) (test 5.68 K/ L 1.56-6.13 ugoz=862) LYMPHOCYTES ABSOLUTE COUNT (BEAKER) (test 1.01 K/ L 1.18-3.74 qnfp=347) MONOCYTES ABSOLUTE COUNT (BEAKER) (test 0.84 K/ L 0.24-0.36 dpmz=567) EOSINOPHILS ABSOLUTE COUNT (BEAKER) (test 0.19 K/ L 0.04-0.36 ppck=746) BASOPHILS ABSOLUTE COUNT (BEAKER) (test 0.07 K/ L 0.01-0.08 bnss=329) IMMATURE GRANULOCYTES-RELATIVE PERCENT (BEAKER) 1 % 0-1 (test wiqd=8130) RAD, CHEST, 1 VIEW, NON [id number] 17:46:00Reason for exam:->s/p chest tube removalShould this be performed at the bedside?->YesFINAL REPORT Chest, portable AP view History: Status post chest tube removal Comparison: Earlier the same day at 434 IMPRESSION: Examination is slightly recommended by patient rotation to right. There is been interval removal of one left-sided chest tube. There is no evidence ofpneumothorax. There is a small left pleural effusion. Left basilar chest tube remains in place. Other support devices are stable. Signed: Marcellus Wren MDReport Verified Date/Time: 07/03/2017 17:46:43 Reading Location: [facility] B1 C013W Consult Reading Room BASI METABOLIC [id number] 16:18:00 Test Item Value Reference Range Comments SODIUM (BEAKER) (test 146 meq/L 136-145 ohzx=548) POTASSIUM (BEAKER) (test 3.3 meq/L 3.5-5.1 eiis=900) CHLORIDE (BEAKER) (test 108 meq/L 98-107 jyfq=123) CO2 (BEAKER) (test 25 meq/L 22-29 pkqi=554) BLOOD UREA NITROGEN 50 mg/dL 7-21 (BEAKER) (test utub=458) CREATININE (BEAKER) (test 3.72 mg/dL 0.57-1.25 laif=723) GLUCOSE RANDOM (BEAKER) 107 mg/dL 70-105 (test jnmj=691) CALCIUM (BEAKER) (test 9.1 mg/dL 8.4-10.2 knop=795) EGFR (BEAKER) (test 12 mL/min/1.73 sq m ESTIMATED GFR IS NOT obqi=9517) ACCURATE CREATININE CLEARANCE IN PREDICTING GLOMERULAR FILTRATION RATE. ESTIMATED GFR IS NOT APPLICABLE FOR DIALYSIS PATIENTS. [id number] 16:11:00 Test Item Value Reference Range Comments PHOSPHORUS (BEAKER) (test wndm=074) 5.2 mg/dL 2.3-4.7 [id number] 16:11:00 Test Item Value Reference Range Comments MAGNESIUM (BEAKER) (test samp=487) 2.1 mg/dL 1.6-2.6 PROTHROMBIN [id number] 16:10:00 Test Item Value Reference Range Comments PROTIME (BEAKER) (test vkhl=397) 16.0 seconds 11.7-14.7 INR (BEAKER) (test xtnn=286) 1.3 <=5.9 RECOMMENDED COUMADIN/WARFARIN INR THERAPY RANGESSTANDARD DOSE: 2.0 - 3.0 Includes: PROPHYLAXIS forvenous thrombosis, systemic embolization; TREATMENT for venous thrombosis and/or pulmonary embolus.HIGH RISK: Target INR is 2.5-3.5 for patients with mechanical heart valves.CBC W/PLT COUNT & AUTO [id number] 16:01:00 Test Item Value Reference Range Comments WHITE BLOOD CELL COUNT (BEAKER) (test nqnc=443) 8.2 K/ L 3.5-10.5 RED BLOOD CELL COUNT (BEAKER) (test bskm=825) 3.59 M/ L 3.93-5.22 HEMOGLOBIN (BEAKER) (test mztu=447) 9.1 GM/DL 11.2-15.7 HEMATOCRIT (BEAKER) (test uyjt=395) 29.1 % 34.1-44.9 MEAN CORPUSCULAR VOLUME (BEAKER) (test mxsi=460) 81.1 fL 79.4-94.8 MEAN CORPUSCULAR HEMOGLOBIN (BEAKER) (test 25.3 pg 25.6-32.2 yfad=911) MEAN CORPUSCULAR HEMOGLOBIN CONC (BEAKER) (test 31.3 GM/DL 32.2-35.5 djmu=652) RED CELL DISTRIBUTION WIDTH (BEAKER) (test 17.7 % 11.7-14.4 iriv=051) PLATELET COUNT (BEAKER) (test ukxx=557) 480 K/CU MM 150-450 MEAN PLATELET VOLUME (BEAKER) (test shbm=340) 9.5 fL 9.4-12.3 NUCLEATED RED BLOOD CELLS (BEAKER) (test 0 /100 WBC 0-0 unps=638) NEUTROPHILS RELATIVE PERCENT (BEAKER) (test 82 % fscu=645) LYMPHOCYTES RELATIVE PERCENT (BEAKER) (test 7 % jaxm=136) MONOCYTES RELATIVE PERCENT (BEAKER) (test 9 % ooze=274) EOSINOPHILS RELATIVE PERCENT (BEAKER) (test 1 % sgvl=128) BASOPHILS RELATIVE PERCENT (BEAKER) (test 1 % yrbu=177) NEUTROPHILS ABSOLUTE COUNT (BEAKER) (test 6.70 K/ L 1.56-6.13 xaug=005) LYMPHOCYTES ABSOLUTE COUNT (BEAKER) (test 0.58 K/ L 1.18-3.74 qahx=996) MONOCYTES ABSOLUTE COUNT (BEAKER) (test 0.70 K/ L 0.24-0.36 fjoz=250) EOSINOPHILS ABSOLUTE COUNT (BEAKER) (test 0.11 K/ L 0.04-0.36 sqhs=724) BASOPHILS ABSOLUTE COUNT (BEAKER) (test 0.07 K/ L 0.01-0.08 sxzo=924) IMMATURE GRANULOCYTES-RELATIVE PERCENT (BEAKER) 1 % 0-1 (test xuwq=8206) BLOOD GAS, [id number] 15:49:00 Test Item Value Reference Range Comments PH ARTERIAL (BEAKER) (test idtt=401) 7.46 7.35-7.45 PCO2 ARTERIAL (BEAKER) (test rbil=151) 39 mmHg 35-45 PO2 ARTERIAL (BEAKER) (test glwc=566) 79 mmHg 80-90 O2 SATURATION ARTERIAL (BEAKER) (test agnm=440) 96.3 % 96.0-97.0 HCO3 ARTERIAL (BEAKER) (test kqob=132) 27 mmol/L 21-29 BASE EXCESS ARTERIAL (BEAKER) (test ndpf=677) 2.9 mmol/L -2.0-3.0 PATIENT TEMPERATURE (BEAKER) (test jvuu=2828) 37.0 C FIO2 (BEAKER) (test gnnl=3158) 36.0 % [id number] 13:56:00 Test Item Value Reference Range Comments POTASSIUM (BEAKER) (test yxed=729) 3.4 meq/L 3.5-5.1 POCT-GLUCOSE [id number] 12:22:00 Test Item Value Reference Range Comments POC-GLUCOSE METER (BEAKER) 110 mg/dL 70-[address] [facility] [address] [place] [address] (test vwby=6128) [facility] [address] RAD, CHEST, 1 VIEW, NON [id number] 08:28:00Reason for exam:->r/o effusionIs the patient ?->NoShould this be performed at the bedside?- >YesFINAL REPORT Chest, one view. HISTORY: Effusion COMPARISON: 07/02/2017 IMPRESSION: Interval decrease in bilateral pleural effusions with near resolution of right-sided pleural effusion. A trace left- sided pleural effusion remains. No identifiable pneumothorax. Supporting hardware grossly unchanged in position. Cardiomediastinal silhouette is unchanged from prior examination. Signed: Marcellus Brxaton Verified Date/ Time: 07/03/2017 08:28:04 Reading Location: [facility] Diagnostic Imaging Reading Room - [place] [address] Electronically signed by: MARCELLUS BRAXTON on 2016 08:28 [id number] 04:33:00 Test Item Value Reference Range Comments PREALBUMIN (BEAKER) (test fspo=654) 12 mg/dL 14-45 CBC W/PLT COUNT & AUTO [id number] 04:30:00 Test Item Value Reference Range Comments WHITE BLOOD CELL COUNT (BEAKER) (test xneg=579) 8.5 K/ L 3.5-10.5 RED BLOOD CELL COUNT (BEAKER) (test pajk=072) 3.15 M/ L 3.93-5.22 HEMOGLOBIN (BEAKER) (test ndqw=965) 8.2 GM/DL 11.2-15.7 HEMATOCRIT (BEAKER) (test hqfj=133) 25.8 % 34.1-44.9 MEAN CORPUSCULAR VOLUME (BEAKER) (test olip=700) 81.9 fL 79.4-94.8 MEAN CORPUSCULAR HEMOGLOBIN (BEAKER) (test 26.0 pg 25.6-32.2 rxnr=419) MEAN CORPUSCULAR HEMOGLOBIN CONC (BEAKER) (test 31.8 GM/DL 32.2-35.5 tyvk=294) RED CELL DISTRIBUTION WIDTH (BEAKER) (test 18.0 % 11.7-14.4 rzhc=773) PLATELET COUNT (BEAKER) (test xqiv=527) 470 K/CU MM 150-450 MEAN PLATELET VOLUME (BEAKER) (test zuzs=642) 10.2 fL 9.4-12.3 NUCLEATED RED BLOOD CELLS (BEAKER) (test 0 /100 WBC 0-0 bwqg=965) NEUTROPHILS RELATIVE PERCENT (BEAKER) (test 73 % yyfh=642) LYMPHOCYTES RELATIVE PERCENT (BEAKER) (test 12 % vxyt=761) MONOCYTES RELATIVE PERCENT (BEAKER) (test 11 % pnyj=176) EOSINOPHILS RELATIVE PERCENT (BEAKER) (test 3 % aqtx=548) BASOPHILS RELATIVE PERCENT (BEAKER) (test 1 % bgvq=806) NEUTROPHILS ABSOLUTE COUNT (BEAKER) (test 6.17 K/ L 1.56-6.13 jmhh=209) LYMPHOCYTES ABSOLUTE COUNT (BEAKER) (test 0.97 K/ L 1.18-3.74 cfuu=975) MONOCYTES ABSOLUTE COUNT (BEAKER) (test 0.95 K/ L 0.24-0.36 frsp=176) EOSINOPHILS ABSOLUTE COUNT (BEAKER) (test 0.24 K/ L 0.04-0.36 skoo=256) BASOPHILS ABSOLUTE COUNT (BEAKER) (test 0.05 K/ L 0.01-0.08 rtgl=038) IMMATURE GRANULOCYTES-RELATIVE PERCENT (BEAKER) 1 % 0-1 (test nwrg=3068) BASIC METABOLIC [id number] 04:27:00 Test Item Value Reference Range Comments SODIUM (BEAKER) (test 147 meq/L 136-145 xrfl=057) POTASSIUM (BEAKER) (test 3.0 meq/L 3.5-5.1 kwtn=305) CHLORIDE (BEAKER) (test 110 meq/L 98-107 hdhg=976) CO2 (BEAKER) (test 24 meq/L 22-29 ynnp=621) BLOOD UREA NITROGEN 54 mg/dL 7-21 (BEAKER) (test cylo=587) CREATININE (BEAKER) (test 4.42 mg/dL 0.57-1.25 ugkp=660) GLUCOSE RANDOM (BEAKER) 81 mg/dL 70-105 (test bmwi=935) CALCIUM (BEAKER) (test 9.1 mg/dL 8.4-10.2 ajfw=906) EGFR (BEAKER) (test 10 mL/min/1.73 sq m ESTIMATED GFR IS NOT bpts=9223) ACCURATE CREATININE CLEARANCE IN PREDICTING GLOMERULAR FILTRATION RATE. ESTIMATED GFR IS NOT APPLICABLE FOR DIALYSIS PATIENTS. PROTEIN, [id number] 04:25:00 Test Item Value Reference Range Comments TOTAL PROTEIN (BEAKER) (test wchm=469) 5.9 gm/dL 6.0-8.3 [id number] 04:25:00 Test Item Value Reference Range Comments MAGNESIUM (BEAKER) (test dmdz=256) 1.8 mg/dL 1.6-2.6 [id number] 04:25:00 Test Item Value Reference Range Comments PHOSPHORUS (BEAKER) (test somx=638) 5.1 mg/dL 2.3-4.7 [id number] 04:25:00 Test Item Value Reference Range Comments ALBUMIN (BEAKER) (test lkgg=0312) 2.5 g/dL 3.5-5.0 PROTHROMBIN [id number] 04:20:00 Test Item Value Reference Range Comments PROTIME (BEAKER) (test wfpt=764) 16.7 seconds 11.7-14.7 INR (BEAKER) (test qwad=684) 1.4 <=5.9 RECOMMENDED COUMADIN/WARFARIN INR THERAPY RANGESSTANDARD DOSE: 2.0 - 3.0 Includes: PROPHYLAXIS forvenous thrombosis, systemic embolization; TREATMENT for venous thrombosis and/or pulmonary embolus.HIGH RISK: Target INR is 2.5-3.5 for patients with mechanical heart valves.BLOOD GAS, [id number] 04:13:00 Test Item Value Reference Range Comments PH ARTERIAL (BEAKER) (test lqty=677) 7.51 7.35-7.45 PCO2 ARTERIAL (BEAKER) (test ozid=033) 22 mmHg 35-45 PO2 ARTERIAL (BEAKER) (test cwqb=959) 111 mmHg 80-90 O2 SATURATION ARTERIAL (BEAKER) (test kjmd=645) 98.5 % 96.0-97.0 HCO3 ARTERIAL (BEAKER) (test mgom=710) 17 mmol/L 21-29 BASE EXCESS ARTERIAL (BEAKER) (test wcbe=656) -5.3 mmol/L -2.0-3.0 PATIENT TEMPERATURE (BEAKER) (test jdys=2517) 37.5 C FIO2 (BEAKER) (test oold=1382) 50.0 % POCT-GLUCOSE [id number] 00:13:00 Test Item Value Reference Range Comments POC-GLUCOSE METER (BEAKER) 118 mg/dL 70-110 TESTED AT [address] (test mjke=9785) [facility] [address] RAD, ABDOMEN/KUB, 1 VIEW [id number] 20:00:00Reason for exam:->s/p Corpak insertion Should this be performed at the bedside?->YesFINAL REPORT EXAMINATION: SUPINE ABDOMEN CLINICAL INDICATION: FEEDING TUBE PLACEMENT IMPRESSION: Compared with 06/27/2017. Tip of the feeding tube projects over the right upper abdomen in the region of the gastroduodenal junction. The visualized bowel gas pattern is nonspecific. Signed: Darrin Escalera Verified Date/Time: 07/02/2017 20:00:19 Reading Location: [address] Reading Room Electronically signed by: DARRIN ESCALERA M.D. on 08:00 PMPOCT-GLUCOSE [id number] 18:51:00 Test Item Value Reference Range Comments POC-GLUCOSE METER (BEAKER) 105 mg/dL 70-[address] [facility] [address] [facility] (test iccl=2698) [facility] [address] BASIC METABOLIC [id number] 16:42:00 Test Item Value Reference Range Comments SODIUM (BEAKER) (test 146 meq/L 136-145 mptq=891) POTASSIUM (BEAKER) (test 3.4 meq/L 3.5-5.1 eifh=324) CHLORIDE (BEAKER) (test 111 meq/L 98-107 kxqh=049) CO2 (BEAKER) (test 21 meq/L 22-29 iflb=412) BLOOD UREA NITROGEN 56 mg/dL 7-21 (BEAKER) (test fynd=368) CREATININE (BEAKER) (test 4.90 mg/dL 0.57-1.25 fovj=962) GLUCOSE RANDOM (BEAKER) 111 mg/dL 70-105 (test dxtd=330) CALCIUM (BEAKER) (test 9.3 mg/dL 8.4-10.2 vgsu=426) EGFR (BEAKER) (test 9 mL/min/1.73 sq m ESTIMATED GFR IS NOT rgbj=5685) ACCURATE CREATININE CLEARANCE IN PREDICTING GLOMERULAR FILTRATION RATE. ESTIMATED GFR IS NOT APPLICABLE FOR DIALYSIS PATIENTS. [id number] 16:37:00 Test Item Value Reference Range Comments PHOSPHORUS (BEAKER) (test ncyf=110) 5.4 mg/dL 2.3-4.7 [id number] 16:37:00 Test Item Value Reference Range Comments MAGNESIUM (BEAKER) (test dkxv=037) 1.9 mg/dL 1.6-2.6 CBC W/PLT COUNT & AUTO [id number] 16:24:00 Test Item Value Reference Range Comments WHITE BLOOD CELL COUNT (BEAKER) (test fljz=788) 10.4 K/ L 3.5-10.5 RED BLOOD CELL COUNT (BEAKER) (test afnx=586) 3.43 M/ L 3.93-5.22 HEMOGLOBIN (BEAKER) (test gnwz=752) 8.8 GM/DL 11.2-15.7 HEMATOCRIT (BEAKER) (test iuzf=853) 27.3 % 34.1-44.9 MEAN CORPUSCULAR VOLUME (BEAKER) (test aulf=796) 79.6 fL 79.4-94.8 MEAN CORPUSCULAR HEMOGLOBIN (BEAKER) (test 25.7 pg 25.6-32.2 tuke=136) MEAN CORPUSCULAR HEMOGLOBIN CONC (BEAKER) (test 32.2 GM/DL 32.2-35.5 dktx=729) RED CELL DISTRIBUTION WIDTH (BEAKER) (test 18.0 % 11.7-14.4 eqzn=784) PLATELET COUNT (BEAKER) (test fcyr=514) 518 K/CU MM 150-450 MEAN PLATELET VOLUME (BEAKER) (test nsjh=170) 9.9 fL 9.4-12.3 NUCLEATED RED BLOOD CELLS (BEAKER) (test 0 /100 WBC 0-0 vooy=228) NEUTROPHILS RELATIVE PERCENT (BEAKER) (test 79 % dpsm=919) LYMPHOCYTES RELATIVE PERCENT (BEAKER) (test 7 % zrvf=724) MONOCYTES RELATIVE PERCENT (BEAKER) (test 10 % fzgv=688) EOSINOPHILS RELATIVE PERCENT (BEAKER) (test 3 % pmrq=762) BASOPHILS RELATIVE PERCENT (BEAKER) (test 0 % hwpr=079) NEUTROPHILS ABSOLUTE COUNT (BEAKER) (test 8.19 K/ L 1.56-6.13 eruy=020) LYMPHOCYTES ABSOLUTE COUNT (BEAKER) (test 0.72 K/ L 1.18-3.74 imut=644) MONOCYTES ABSOLUTE COUNT (BEAKER) (test 1.01 K/ L 0.24-0.36 drtj=789) EOSINOPHILS ABSOLUTE COUNT (BEAKER) (test 0.34 K/ L 0.04-0.36 fvpz=247) BASOPHILS ABSOLUTE COUNT (BEAKER) (test 0.04 K/ L 0.01-0.08 blcx=964) IMMATURE GRANULOCYTES-RELATIVE PERCENT (BEAKER) 1 % 0-1 (test svqs=4202) PROTHROMBIN [id number] 16:18:00 Test Item Value Reference Range Comments PROTIME (BEAKER) (test dnsn=973) 16.5 seconds 11.7-14.7 INR (BEAKER) (test pvpn=982) 1.3 <=5.9 RECOMMENDED COUMADIN/WARFARIN INR THERAPY RANGESSTANDARD DOSE: 2.0 - 3.0 Includes: PROPHYLAXIS forvenous thrombosis, systemic embolization; TREATMENT for venous thrombosis and/or pulmonary embolus.HIGH RISK: Target INR is 2.5-3.5 for patients with mechanical heart valves.BLOOD GAS, [id number] 15:56:00 Test Item Value Reference Range Comments PH ARTERIAL (BEAKER) (test lmso=237) 7.49 7.35-7.45 PCO2 ARTERIAL (BEAKER) (test zblf=905) 33 mmHg 35-45 PO2 ARTERIAL (BEAKER) (test fvgq=444) 114 mmHg 80-90 O2 SATURATION ARTERIAL (BEAKER) (test wstc=515) 98.5 % 96.0-97.0 HCO3 ARTERIAL (BEAKER) (test ikdf=850) 24 mmol/L 21-29 BASE EXCESS ARTERIAL (BEAKER) (test apnv=962) 1.0 mmol/L -2.0-3.0 PATIENT TEMPERATURE (BEAKER) (test khfv=0359) 37.0 C FIO2 (BEAKER) (test gtbt=8740) 50.0 % POCT-GLUCOSE [id number] 12:25:00 Test Item Value Reference Range Comments POC-GLUCOSE METER (BEAKER) 139 mg/dL 70-[address] [facility] [address] (test qipu=0736) [facility] [address] RAD, CHEST, 1 VIEW, NON [id number] 07:09:00Reason for exam:->r/o effusionIs the patient ?->NoShould this be performed at the bedside?- >YesFINAL REPORT History: Pleural effusion Comparison : 07/01/2017 Findings: Smallleft pleural effusion, decreased since the prior study. Minimal right pleural effusion. Left-sided chest tubes are present, without evidence of a pneumothorax. Mild diffuse pulmonary opacities persist suggestive of pulmonary edema. Atelectatic changes in the left lower lobe are unchanged. Endotrachealtube tip is 3.0 cm proximal to the rachele. Bilateral jugular central venous catheters are present, with their tips in the SVC region. Feeding tube passes below the diaphragm, with the tip not imaged. Signed: Eric Osman MDReport Verified Date/Time: 07/02/2017 07:09:46 Reading Location: [address] Reading Room BASIC METABOLIC [id number] 04:14: 00 Test Item Value Reference Range Comments SODIUM (BEAKER) (test 145 meq/L 136-145 nauy=584) POTASSIUM (BEAKER) (test 3.3 meq/L 3.5-5.1 vmau=540) CHLORIDE (BEAKER) (test 112 meq/L 98-107 iknq=194) CO2 (BEAKER) (test 19 meq/L 22-29 fupv=808) BLOOD UREA NITROGEN 57 mg/dL 7-21 (BEAKER) (test upkt=415) CREATININE (BEAKER) (test 5.45 mg/dL 0.57-1.25 hsyq=678) GLUCOSE RANDOM (BEAKER) 111 mg/dL 70-105 (test ijdw=927) CALCIUM (BEAKER) (test 9.1 mg/dL 8.4-10.2 eozn=653) EGFR (BEAKER) (test 8 mL/min/1.73 sq m ESTIMATED GFR IS NOT bwfi=0329) ACCURATE CREATININE CLEARANCE IN PREDICTING GLOMERULAR FILTRATION RATE. ESTIMATED GFR IS NOT APPLICABLE FOR DIALYSIS PATIENTS. BLOOD GAS, [id number] 04:11:00 Test Item Value Reference Range Comments PH ARTERIAL (BEAKER) (test rfav=026) 7.47 7.35-7.45 PCO2 ARTERIAL (BEAKER) (test wncm=052) 31 mmHg 35-45 PO2 ARTERIAL (BEAKER) (test wqwo=327) 141 mmHg 80-90 O2 SATURATION ARTERIAL (BEAKER) (test iafq=312) 98.9 % 96.0-97.0 HCO3 ARTERIAL (BEAKER) (test felm=951) 22 mmol/L 21-29 BASE EXCESS ARTERIAL (BEAKER) (test tlkr=701) -1.1 mmol/L -2.0-3.0 PATIENT TEMPERATURE (BEAKER) (test tmid=0317) 37.5 C FIO2 (BEAKER) (test kllw=8022) 60.0 % [id number] 04:09:00 Test Item Value Reference Range Comments PHOSPHORUS (BEAKER) (test mrlm=345) 5.5 mg/dL 2.3-4.7 [id number] 04:09:00 Test Item Value Reference Range Comments MAGNESIUM (BEAKER) (test tchk=783) 1.9 mg/dL 1.6-2.6 PROTHROMBIN [id number] 03:50:00 Test Item Value Reference Range Comments PROTIME (BEAKER) (test znyg=855) 16.7 seconds 11.7-14.7 INR (BEAKER) (test wlnk=711) 1.4 <=5.9 RECOMMENDED COUMADIN/WARFARIN INR THERAPY RANGESSTANDARD DOSE: 2.0 - 3.0 Includes: PROPHYLAXIS forvenous thrombosis, systemic embolization; TREATMENT for venous thrombosis and/or pulmonary embolus.HIGH RISK: Target INR is 2.5-3.5 for patients with mechanical heart valves.CBC W/PLT COUNT & AUTO [id number] 03:45:00 Test Item Value Reference Range Comments WHITE BLOOD CELL COUNT (BEAKER) (test nzbj=455) 9.0 K/ L 3.5-10.5 RED BLOOD CELL COUNT (BEAKER) (test ixso=468) 3.31 M/ L 3.93-5.22 HEMOGLOBIN (BEAKER) (test seqi=872) 8.3 GM/DL 11.2-15.7 HEMATOCRIT (BEAKER) (test zllk=320) 26.8 % 34.1-44.9 MEAN CORPUSCULAR VOLUME (BEAKER) (test pvup=168) 81.0 fL 79.4-94.8 MEAN CORPUSCULAR HEMOGLOBIN (BEAKER) (test 25.1 pg 25.6-32.2 soon=377) MEAN CORPUSCULAR HEMOGLOBIN CONC (BEAKER) (test 31.0 GM/DL 32.2-35.5 mjgi=249) RED CELL DISTRIBUTION WIDTH (BEAKER) (test 18.0 % 11.7-14.4 qtuw=123) PLATELET COUNT (BEAKER) (test qiku=862) 433 K/CU MM 150-450 MEAN PLATELET VOLUME (BEAKER) (test zuft=630) 9.6 fL 9.4-12.3 NUCLEATED RED BLOOD CELLS (BEAKER) (test 0 /100 WBC 0-0 qylb=005) NEUTROPHILS RELATIVE PERCENT (BEAKER) (test 72 % qnrn=058) LYMPHOCYTES RELATIVE PERCENT (BEAKER) (test 10 % toty=588) MONOCYTES RELATIVE PERCENT (BEAKER) (test 11 % rqco=352) EOSINOPHILS RELATIVE PERCENT (BEAKER) (test 5 % hkun=132) BASOPHILS RELATIVE PERCENT (BEAKER) (test 1 % lhro=529) NEUTROPHILS ABSOLUTE COUNT (BEAKER) (test 6.50 K/ L 1.56-6.13 vpnr=261) LYMPHOCYTES ABSOLUTE COUNT (BEAKER) (test 0.93 K/ L 1.18-3.74 qqbf=821) MONOCYTES ABSOLUTE COUNT (BEAKER) (test 0.96 K/ L 0.24-0.36 rlwp=963) EOSINOPHILS ABSOLUTE COUNT (BEAKER) (test 0.46 K/ L 0.04-0.36 nuzb=347) BASOPHILS ABSOLUTE COUNT (BEAKER) (test 0.05 K/ L 0.01-0.08 cbus=582) IMMATURE GRANULOCYTES-RELATIVE PERCENT (BEAKER) 1 % 0-1 (test tuwh=8611) POCT-GLUCOSE [id number] 00:44:00 Test Item Value Reference Range Comments POC-GLUCOSE METER (BEAKER) 132 mg/dL 70-[address] [facility] [address] (test guuo=9101) [facility] [address] CBC W/PLT COUNT & AUTO [id number] 18:56:00 Test Item Value Reference Range Comments WHITE BLOOD CELL COUNT (BEAKER) (test npqv=522) 10.4 K/ L 3.5-10.5 RED BLOOD CELL COUNT (BEAKER) (test abbh=673) 3.45 M/ L 3.93-5.22 HEMOGLOBIN (BEAKER) (test dyij=843) 8.8 GM/DL 11.2-15.7 HEMATOCRIT (BEAKER) (test sval=292) 28.4 % 34.1-44.9 MEAN CORPUSCULAR VOLUME (BEAKER) (test qshu=188) 82.3 fL 79.4-94.8 MEAN CORPUSCULAR HEMOGLOBIN (BEAKER) (test 25.5 pg 25.6-32.2 btgl=870) MEAN CORPUSCULAR HEMOGLOBIN CONC (BEAKER) (test 31.0 GM/DL 32.2-35.5 rpru=432) RED CELL DISTRIBUTION WIDTH (BEAKER) (test 18.3 % 11.7-14.4 zacs=259) PLATELET COUNT (BEAKER) (test qmsr=243) 453 K/CU MM 150-450 MEAN PLATELET VOLUME (BEAKER) (test veik=595) 9.5 fL 9.4-12.3 NUCLEATED RED BLOOD CELLS (BEAKER) (test 0 /100 WBC 0-0 uenj=592) NEUTROPHILS RELATIVE PERCENT (BEAKER) (test 77 % ujej=417) LYMPHOCYTES RELATIVE PERCENT (BEAKER) (test 7 % hdcn=711) MONOCYTES RELATIVE PERCENT (BEAKER) (test 9 % ygag=196) EOSINOPHILS RELATIVE PERCENT (BEAKER) (test 5 % dgfc=986) BASOPHILS RELATIVE PERCENT (BEAKER) (test 1 % qvse=614) NEUTROPHILS ABSOLUTE COUNT (BEAKER) (test 8.02 K/ L 1.56-6.13 jjmr=996) LYMPHOCYTES ABSOLUTE COUNT (BEAKER) (test 0.77 K/ L 1.18-3.74 ipay=434) MONOCYTES ABSOLUTE COUNT (BEAKER) (test 0.92 K/ L 0.24-0.36 dwyv=762) EOSINOPHILS ABSOLUTE COUNT (BEAKER) (test 0.48 K/ L 0.04-0.36 hire=547) BASOPHILS ABSOLUTE COUNT (BEAKER) (test 0.05 K/ L 0.01-0.08 pedm=076) IMMATURE GRANULOCYTES-RELATIVE PERCENT (BEAKER) 1 % 0-1 (test peeg=9287) BASIC METABOLIC [id number] 16:41:00 Test Item Value Reference Range Comments SODIUM (BEAKER) (test 141 meq/L 136-145 gmdw=095) POTASSIUM (BEAKER) (test 3.4 meq/L 3.5-5.1 rzbn=565) CHLORIDE (BEAKER) (test 111 meq/L 98-107 zeym=353) CO2 (BEAKER) (test 20 meq/L 22-29 zwdk=316) BLOOD UREA NITROGEN 56 mg/dL 7-21 (BEAKER) (test zwnr=082) CREATININE (BEAKER) (test 5.85 mg/dL 0.57-1.25 symf=660) GLUCOSE RANDOM (BEAKER) 116 mg/dL 70-105 (test hoxk=202) CALCIUM (BEAKER) (test 9.1 mg/dL 8.4-10.2 qbky=012) EGFR (BEAKER) (test 7 mL/min/1.73 sq m ESTIMATED GFR IS NOT ezgd=2565) ACCURATE CREATININE CLEARANCE IN PREDICTING GLOMERULAR FILTRATION RATE. ESTIMATED GFR IS NOT APPLICABLE FOR DIALYSIS PATIENTS. [id number] 16:37:00 Test Item Value Reference Range Comments PHOSPHORUS (BEAKER) (test mhdw=454) 5.7 mg/dL 2.3-4.7 [id number] 16:37:00 Test Item Value Reference Range Comments MAGNESIUM (BEAKER) (test pgrf=897) 2.0 mg/dL 1.6-2.6 PROTHROMBIN [id number] 16:21:00 Test Item Value Reference Range Comments PROTIME (BEAKER) (test hvfu=164) 16.0 seconds 11.7-14.7 INR (BEAKER) (test hhfk=056) 1.3 <=5.9 RECOMMENDED COUMADIN/WARFARIN INR THERAPY RANGESSTANDARD DOSE: 2.0 - 3.0 Includes: PROPHYLAXIS forvenous thrombosis, systemic embolization; TREATMENT for venous thrombosis and/or pulmonary embolus.HIGH RISK: Target INR is 2.5-3.5 for patients with mechanical heart valves.BLOOD GAS, [id number] 15:49:00 Test Item Value Reference Range Comments PH ARTERIAL (BEAKER) (test bdvq=360) 7.48 7.35-7.45 PCO2 ARTERIAL (BEAKER) (test uvxv=418) 29 mmHg 35-45 PO2 ARTERIAL (BEAKER) (test dfql=292) 132 mmHg 80-90 O2 SATURATION ARTERIAL (BEAKER) (test xxta=662) 98.9 % 96.0-97.0 HCO3 ARTERIAL (BEAKER) (test zbof=312) 21 mmol/L 21-29 BASE EXCESS ARTERIAL (BEAKER) (test cxvx=447) -1.7 mmol/L -2.0-3.0 PATIENT TEMPERATURE (BEAKER) (test wxke=5591) 37.0 C FIO2 (BEAKER) (test qdzt=1895) 60.0 % POCT-GLUCOSE [id number] 12:20:00 Test Item Value Reference Range Comments POC-GLUCOSE METER (BEAKER) 134 mg/dL 70-110 TESTED AT [address] (test acsl=3751) [facility] [address] RAD, CHEST, 1 VIEW, NON [id number] 07:57:00Reason for exam:->r/o effusionIs the patient ?->NoShould this be performed at the bedside?- >YesFINAL REPORT Chest one view compared to June 30 Discussion: Pulmonary congestion and basilar opacities obscuring hemidiaphragms are similar. Tubes and lines again noted. I could not exclude small effusions. No pneumothorax. IMPRESSIONS: No change Signed: Fady Bauer Verified Date/Time: 07/01/2017 07:57:44 Reading Location: [address] Reading Room Electronically signed by: FADY BAUER M.D. on 07:57 AMBLOOD GAS, [id number] 05:39:00 Test Item Value Reference Range Comments PH ARTERIAL (BEAKER) (test vedq=535) 7.45 7.35-7.45 PCO2 ARTERIAL (BEAKER) (test avlj=526) 29 mmHg 35-45 PO2 ARTERIAL (BEAKER) (test ucbb=847) 132 mmHg 80-90 O2 SATURATION ARTERIAL (BEAKER) (test okyp=886) 98.8 % 96.0-97.0 HCO3 ARTERIAL (BEAKER) (test eezp=584) 20 mmol/L 21-29 BASE EXCESS ARTERIAL (BEAKER) (test kglr=864) -3.6 mmol/L -2.0-3.0 PATIENT TEMPERATURE (BEAKER) (test rble=6829) 37.0 C FIO2 (BEAKER) (test kizp=6177) 60.0 % BASIC METABOLIC [id number] 05:29:00 Test Item Value Reference Range Comments SODIUM (BEAKER) (test 144 meq/L 136-145 qrwx=527) POTASSIUM (BEAKER) (test 3.3 meq/L 3.5-5.1 ofjm=337) CHLORIDE (BEAKER) (test 114 meq/L 98-107 lnlh=375) CO2 (BEAKER) (test 20 meq/L 22-29 mzmg=034) BLOOD UREA NITROGEN 57 mg/dL 7-21 (BEAKER) (test uyng=324) CREATININE (BEAKER) (test 6.39 mg/dL 0.57-1.25 jjzh=637) GLUCOSE RANDOM (BEAKER) 106 mg/dL 70-105 (test ffmg=626) CALCIUM (BEAKER) (test 9.0 mg/dL 8.4-10.2 yyot=115) EGFR (BEAKER) (test 7 mL/min/1.73 sq m ESTIMATED GFR IS NOT elrd=7867) ACCURATE CREATININE CLEARANCE IN PREDICTING GLOMERULAR FILTRATION RATE. ESTIMATED GFR IS NOT APPLICABLE FOR DIALYSIS PATIENTS. [id number] 05:26:00 Test Item Value Reference Range Comments PHOSPHORUS (BEAKER) (test ofqi=390) 5.8 mg/dL 2.3-4.7 [id number] 05:26:00 Test Item Value Reference Range Comments MAGNESIUM (BEAKER) (test bfqo=241) 2.0 mg/dL 1.6-2.6 PROTHROMBIN [id number] 05:19:00 Test Item Value Reference Range Comments PROTIME (BEAKER) (test ygil=514) 16.5 seconds 11.7-14.7 INR (BEAKER) (test ijyd=508) 1.3 <=5.9 RECOMMENDED COUMADIN/WARFARIN INR THERAPY RANGESSTANDARD DOSE: 2.0 - 3.0 Includes: PROPHYLAXIS forvenous thrombosis, systemic embolization; TREATMENT for venous thrombosis and/or pulmonary embolus.HIGH RISK: Target INR is 2.5-3.5 for patients with mechanical heart valves.CBC W/PLT COUNT & AUTO [id number] 05:04:00 Test Item Value Reference Range Comments WHITE BLOOD CELL COUNT (BEAKER) (test gyok=126) 8.6 K/ L 3.5-10.5 RED BLOOD CELL COUNT (BEAKER) (test nbel=139) 2.98 M/ L 3.93-5.22 HEMOGLOBIN (BEAKER) (test hhlc=721) 7.6 GM/DL 11.2-15.7 HEMATOCRIT (BEAKER) (test cjts=144) 24.3 % 34.1-44.9 MEAN CORPUSCULAR VOLUME (BEAKER) (test gscd=998) 81.5 fL 79.4-94.8 MEAN CORPUSCULAR HEMOGLOBIN (BEAKER) (test 25.5 pg 25.6-32.2 fjbp=635) MEAN CORPUSCULAR HEMOGLOBIN CONC (BEAKER) (test 31.3 GM/DL 32.2-35.5 mycn=960) RED CELL DISTRIBUTION WIDTH (BEAKER) (test 18.6 % 11.7-14.4 goct=929) PLATELET COUNT (BEAKER) (test xmwz=849) 472 K/CU MM 150-450 MEAN PLATELET VOLUME (BEAKER) (test prga=741) 10.1 fL 9.4-12.3 NUCLEATED RED BLOOD CELLS (BEAKER) (test 0 /100 WBC 0-0 hruh=499) NEUTROPHILS RELATIVE PERCENT (BEAKER) (test 75 % psdr=101) LYMPHOCYTES RELATIVE PERCENT (BEAKER) (test 10 % jhvh=780) MONOCYTES RELATIVE PERCENT (BEAKER) (test 9 % fydq=334) EOSINOPHILS RELATIVE PERCENT (BEAKER) (test 5 % hwzy=839) BASOPHILS RELATIVE PERCENT (BEAKER) (test 1 % eeob=259) NEUTROPHILS ABSOLUTE COUNT (BEAKER) (test 6.43 K/ L 1.56-6.13 rrrb=583) LYMPHOCYTES ABSOLUTE COUNT (BEAKER) (test 0.83 K/ L 1.18-3.74 jvhs=242) MONOCYTES ABSOLUTE COUNT (BEAKER) (test 0.78 K/ L 0.24-0.36 xxhe=352) EOSINOPHILS ABSOLUTE COUNT (BEAKER) (test 0.42 K/ L 0.04-0.36 hyfr=839) BASOPHILS ABSOLUTE COUNT (BEAKER) (test 0.05 K/ L 0.01-0.08 cqsu=371) IMMATURE GRANULOCYTES-RELATIVE PERCENT (BEAKER) 1 % 0-1 (test hgid=9004) BASIC METABOLIC [id number] 17:53:00 Test Item Value Reference Range Comments SODIUM (BEAKER) (test 144 meq/L 136-145 whxj=871) POTASSIUM (BEAKER) (test 3.3 meq/L 3.5-5.1 ovek=714) CHLORIDE (BEAKER) (test 115 meq/L 98-107 okzh=357) CO2 (BEAKER) (test 18 meq/L 22-29 ouhr=444) BLOOD UREA NITROGEN 53 mg/dL 7-21 (BEAKER) (test lhkf=617) CREATININE (BEAKER) (test 6.82 mg/dL 0.57-1.25 hjbj=816) GLUCOSE RANDOM (BEAKER) 114 mg/dL 70-105 (test uwbn=380) CALCIUM (BEAKER) (test 8.9 mg/dL 8.4-10.2 jfao=303) EGFR (BEAKER) (test 6 mL/min/1.73 sq m ESTIMATED GFR IS NOT idnq=4913) ACCURATE CREATININE CLEARANCE IN PREDICTING GLOMERULAR FILTRATION RATE. ESTIMATED GFR IS NOT APPLICABLE FOR DIALYSIS PATIENTS. POCT-GLUCOSE [id number] 17:53:00 Test Item Value Reference Range Comments POC-GLUCOSE METER (BEAKER) 132 mg/dL 70-[address] [facility] [address] (test gehb=2857) [place] [address] [id number] 17:48:00 Test Item Value Reference Range Comments PHOSPHORUS (BEAKER) (test rygy=716) 5.7 mg/dL 2.3-4.7 [id number] 17:48:00 Test Item Value Reference Range Comments MAGNESIUM (BEAKER) (test gtqk=870) 2.0 mg/dL 1.6-2.6 PROTHROMBIN [id number] 17:45:00 Test Item Value Reference Range Comments PROTIME (BEAKER) (test yblu=967) 16.6 seconds 11.7-14.7 INR (BEAKER) (test qbyo=777) 1.4 <=5.9 RECOMMENDED COUMADIN/WARFARIN INR THERAPY RANGESSTANDARD DOSE: 2.0 - 3.0 Includes: PROPHYLAXIS forvenous thrombosis, systemic embolization; TREATMENT for venous thrombosis and/or pulmonary embolus.HIGH RISK: Target INR is 2.5-3.5 for patients with mechanical heart valves.BLOOD GAS, [id number] 17:24:00 Test Item Value Reference Range Comments PH ARTERIAL (BEAKER) (test pmjh=782) 7.45 7.35-7.45 PCO2 ARTERIAL (BEAKER) (test dffk=817) 29 mmHg 35-45 PO2 ARTERIAL (BEAKER) (test wzbu=866) 110 mmHg 80-90 O2 SATURATION ARTERIAL (BEAKER) (test ovdd=385) 98.3 % 96.0-97.0 HCO3 ARTERIAL (BEAKER) (test zfdw=188) 19 mmol/L 21-29 BASE EXCESS ARTERIAL (BEAKER) (test oxzn=044) -3.9 mmol/L -2.0-3.0 PATIENT TEMPERATURE (BEAKER) (test qoml=8608) 37.0 C CBC W/PLT COUNT & AUTO [id number] 17:19:00 Test Item Value Reference Range Comments WHITE BLOOD CELL COUNT (BEAKER) (test qlwj=489) 8.3 K/ L 3.5-10.5 RED BLOOD CELL COUNT (BEAKER) (test jiyc=869) 2.89 M/ L 3.93-5.22 HEMOGLOBIN (BEAKER) (test mrsb=630) 7.4 GM/DL 11.2-15.7 HEMATOCRIT (BEAKER) (test pfag=757) 23.4 % 34.1-44.9 MEAN CORPUSCULAR VOLUME (BEAKER) (test jbkw=189) 81.0 fL 79.4-94.8 MEAN CORPUSCULAR HEMOGLOBIN (BEAKER) (test 25.6 pg 25.6-32.2 vdtu=579) MEAN CORPUSCULAR HEMOGLOBIN CONC (BEAKER) (test 31.6 GM/DL 32.2-35.5 yvsq=771) RED CELL DISTRIBUTION WIDTH (BEAKER) (test 18.4 % 11.7-14.4 uvza=101) PLATELET COUNT (BEAKER) (test bwhf=161) 443 K/CU MM 150-450 MEAN PLATELET VOLUME (BEAKER) (test sfgd=447) 9.7 fL 9.4-12.3 NUCLEATED RED BLOOD CELLS (BEAKER) (test 0 /100 WBC 0-0 gfss=119) NEUTROPHILS RELATIVE PERCENT (BEAKER) (test 75 % nvwg=419) LYMPHOCYTES RELATIVE PERCENT (BEAKER) (test 10 % resb=735) MONOCYTES RELATIVE PERCENT (BEAKER) (test 9 % ugsc=267) EOSINOPHILS RELATIVE PERCENT (BEAKER) (test 5 % ogyc=189) BASOPHILS RELATIVE PERCENT (BEAKER) (test 0 % einh=032) NEUTROPHILS ABSOLUTE COUNT (BEAKER) (test 6.21 K/ L 1.56-6.13 ufwy=632) LYMPHOCYTES ABSOLUTE COUNT (BEAKER) (test 0.79 K/ L 1.18-3.74 kcnr=097) MONOCYTES ABSOLUTE COUNT (BEAKER) (test 0.78 K/ L 0.24-0.36 udfm=385) EOSINOPHILS ABSOLUTE COUNT (BEAKER) (test 0.41 K/ L 0.04-0.36 uoby=131) BASOPHILS ABSOLUTE COUNT (BEAKER) (test 0.03 K/ L 0.01-0.08 dvhe=180) IMMATURE GRANULOCYTES-RELATIVE PERCENT (BEAKER) 1 % 0-1 (test rqho=4602) POCT-GLUCOSE [id number] 08:21:00 Test Item Value Reference Range Comments POC-GLUCOSE METER (BEAKER) 140 mg/dL 70-[address] [facility] [address] (test ggez=3815) [place] [address] RAD, CHEST, 1 VIEW, NON [id number] 07:46:00Reason for exam:->r/o effusionIs the patient ?->NoShould this be performed at the bedside?- >YesFINAL REPORT HISTORY : r/o effusion. Comparison: Comment: Single portable view of the chest was obtained. The cardiac silhouette size is enlarged. There are findings of pulmonary venous congestion. Some diffuse airspace disease may represent interstitial edema or a nonspecific interstitial pneumonitis. Support lines and tubes are unchanged. There are bilateral pleural effusions which are small-moderate in size with adjacent consolidations. Signed: Cecy Saucedo Verified Date/Time: 06/30/2017 07 :46:57 Reading Location: [facility] Diagnostic Imaging Reading Room -[place] [address] BLOOD GAS , [id number] 06:10:00 Test Item Value Reference Range Comments PH ARTERIAL (BEAKER) (test sgnq=913) 7.41 7.35-7.45 PCO2 ARTERIAL (BEAKER) (test wckk=654) 29 mmHg 35-45 PO2 ARTERIAL (BEAKER) (test emfe=267) 107 mmHg 80-90 O2 SATURATION ARTERIAL (BEAKER) (test vnbh=293) 97.9 % 96.0-97.0 HCO3 ARTERIAL (BEAKER) (test pibh=800) 18 mmol/L 21-29 BASE EXCESS ARTERIAL (BEAKER) (test qiml=118) -5.9 mmol/L -2.0-3.0 PATIENT TEMPERATURE (BEAKER) (test qxxk=5893) 37.5 C FIO2 (BEAKER) (test kthl=3918) 60.0 % VANCOMYCIN LEVEL, [id number] 05:08:00 Test Item Value Reference Range Comments VANCOMYCIN RANDOM (BEAKER) (test lzoq=185) 11.5 ug/mL Reference Range: No NormalsPROTHROMBIN [id number] 03:55:00 Test Item Value Reference Range Comments PROTIME (BEAKER) (test rklf=792) 16.7 seconds 11.7-14.7 INR (BEAKER) (test qscq=352) 1.4 <=5.9 RECOMMENDED COUMADIN/WARFARIN INR THERAPY RANGESSTANDARD DOSE: 2.0 - 3.0 Includes: PROPHYLAXIS forvenous thrombosis, systemic embolization; TREATMENT for venous thrombosis and/or pulmonary embolus.HIGH RISK: Target INR is 2.5-3.5 for patients with mechanical heart valves.BASIC METABOLIC [id number] 03:54: 00 Test Item Value Reference Range Comments SODIUM (BEAKER) (test 144 meq/L 136-145 boyd=006) POTASSIUM (BEAKER) (test 3.5 meq/L 3.5-5.1 pdxc=009) CHLORIDE (BEAKER) (test 116 meq/L 98-107 cshb=593) CO2 (BEAKER) (test 17 meq/L 22-29 kmky=154) BLOOD UREA NITROGEN 51 mg/dL 7-21 (BEAKER) (test dpog=423) CREATININE (BEAKER) (test 7.09 mg/dL 0.57-1.25 dbxc=622) GLUCOSE RANDOM (BEAKER) 111 mg/dL 70-105 (test weie=685) CALCIUM (BEAKER) (test 8.9 mg/dL 8.4-10.2 pssl=767) EGFR (BEAKER) (test 6 mL/min/1.73 sq m ESTIMATED GFR IS NOT umug=8098) ACCURATE CREATININE CLEARANCE IN PREDICTING GLOMERULAR FILTRATION RATE. ESTIMATED GFR IS NOT APPLICABLE FOR DIALYSIS PATIENTS. [id number] 03:51:00 Test Item Value Reference Range Comments PHOSPHORUS (BEAKER) (test ghow=650) 5.8 mg/dL 2.3-4.7 [id number] 03:51:00 Test Item Value Reference Range Comments MAGNESIUM (BEAKER) (test awwh=153) 2.1 mg/dL 1.6-2.6 CBC W/PLT COUNT & AUTO [id number] 03:41:00 Test Item Value Reference Range Comments WHITE BLOOD CELL COUNT (BEAKER) (test joko=456) 7.6 K/ L 3.5-10.5 RED BLOOD CELL COUNT (BEAKER) (test lqwf=254) 2.90 M/ L 3.93-5.22 HEMOGLOBIN (BEAKER) (test lbeq=296) 7.3 GM/DL 11.2-15.7 HEMATOCRIT (BEAKER) (test ugdb=537) 23.4 % 34.1-44.9 MEAN CORPUSCULAR VOLUME (BEAKER) (test kjpf=537) 80.7 fL 79.4-94.8 MEAN CORPUSCULAR HEMOGLOBIN (BEAKER) (test 25.2 pg 25.6-32.2 zwmq=761) MEAN CORPUSCULAR HEMOGLOBIN CONC (BEAKER) (test 31.2 GM/DL 32.2-35.5 mntb=534) RED CELL DISTRIBUTION WIDTH (BEAKER) (test 18.5 % 11.7-14.4 sxls=318) PLATELET COUNT (BEAKER) (test ancr=741) 453 K/CU MM 150-450 MEAN PLATELET VOLUME (BEAKER) (test shkv=750) 9.3 fL 9.4-12.3 NUCLEATED RED BLOOD CELLS (BEAKER) (test 0 /100 WBC 0-0 yfuw=431) NEUTROPHILS RELATIVE PERCENT (BEAKER) (test 76 % kzje=725) LYMPHOCYTES RELATIVE PERCENT (BEAKER) (test 9 % fxtz=007) MONOCYTES RELATIVE PERCENT (BEAKER) (test 9 % sanr=433) EOSINOPHILS RELATIVE PERCENT (BEAKER) (test 5 % tmer=774) BASOPHILS RELATIVE PERCENT (BEAKER) (test 1 % owuc=420) NEUTROPHILS ABSOLUTE COUNT (BEAKER) (test 5.80 K/ L 1.56-6.13 kegk=777) LYMPHOCYTES ABSOLUTE COUNT (BEAKER) (test 0.72 K/ L 1.18-3.74 ppfn=629) MONOCYTES ABSOLUTE COUNT (BEAKER) (test 0.66 K/ L 0.24-0.36 knmt=171) EOSINOPHILS ABSOLUTE COUNT (BEAKER) (test 0.34 K/ L 0.04-0.36 wftz=758) BASOPHILS ABSOLUTE COUNT (BEAKER) (test 0.04 K/ L 0.01-0.08 uxip=235) IMMATURE GRANULOCYTES-RELATIVE PERCENT (BEAKER) 1 % 0-1 (test svee=9850) POCT-GLUCOSE [id number] 22:03:00 Test Item Value Reference Range Comments POC-GLUCOSE METER (BEAKER) 135 mg/dL 70-110 TESTED AT [address] (test fivl=2155) [facility] [id number] POCT-GLUCOSE [id number] 18:07:00 Test Item Value Reference Range Comments POC-GLUCOSE METER (BEAKER) 116 mg/dL 70-110 TESTED AT [address] (test gidd=1842) [facility] [address] POCT-GLUCOSE [id number] 17:48:00 Test Item Value Reference Range Comments POC-GLUCOSE METER (BEAKER) 134 mg/dL 70-110 TESTED AT [address] (test wdml=9845) [facility] [address] [id number] 17:14:00 Test Item Value Reference Range Comments PHOSPHORUS (BEAKER) (test thtt=381) 5.7 mg/dL 2.3-4.7 [id number] 17:14:00 Test Item Value Reference Range Comments MAGNESIUM (BEAKER) (test kjoo=680) 2.1 mg/dL 1.6-2.6 BASIC METABOLIC [id number] 17:14:00 Test Item Value Reference Range Comments SODIUM (BEAKER) (test 144 meq/L 136-145 zhsd=944) POTASSIUM (BEAKER) (test 3.5 meq/L 3.5-5.1 bzbp=455) CHLORIDE (BEAKER) (test 116 meq/L 98-107 clrv=690) CO2 (BEAKER) (test 17 meq/L 22-29 jqxz=876) BLOOD UREA NITROGEN 48 mg/dL 7-21 (BEAKER) (test bgcq=143) CREATININE (BEAKER) (test 7.07 mg/dL 0.57-1.25 hbdz=652) GLUCOSE RANDOM (BEAKER) 120 mg/dL 70-105 (test biqv=254) CALCIUM (BEAKER) (test 9.0 mg/dL 8.4-10.2 xkyk=410) EGFR (BEAKER) (test 6 mL/min/1.73 sq m ESTIMATED GFR IS NOT bqdg=2640) ACCURATE CREATININE CLEARANCE IN PREDICTING GLOMERULAR FILTRATION RATE. ESTIMATED GFR IS NOT APPLICABLE FOR DIALYSIS PATIENTS. PROTHROMBIN [id number] 17:09:00 Test Item Value Reference Range Comments PROTIME (BEAKER) (test dyjh=633) 16.7 seconds 11.7-14.7 INR (BEAKER) (test wkfj=868) 1.4 <=5.9 RECOMMENDED COUMADIN/WARFARIN INR THERAPY RANGESSTANDARD DOSE: 2.0 - 3.0 Includes: PROPHYLAXIS forvenous thrombosis, systemic embolization; TREATMENT for venous thrombosis and/or pulmonary embolus.HIGH RISK: Target INR is 2.5-3.5 for patients with mechanical heart valves.BLOOD GAS, [id number] 17:03:00 Test Item Value Reference Range Comments PH ARTERIAL (BEAKER) (test slad=814) 7.38 7.35-7.45 PCO2 ARTERIAL (BEAKER) (test amiq=038) 33 mmHg 35-45 PO2 ARTERIAL (BEAKER) (test drjq=179) 120 mmHg 80-90 O2 SATURATION ARTERIAL (BEAKER) (test pece=962) 98.3 % 96.0-97.0 HCO3 ARTERIAL (BEAKER) (test mmpa=132) 19 mmol/L 21-29 BASE EXCESS ARTERIAL (BEAKER) (test ytke=018) -5.4 mmol/L -2.0-3.0 PATIENT TEMPERATURE (BEAKER) (test prkt=6219) 37.0 C FIO2 (BEAKER) (test ltmi=1111) 60.0 % CBC W/PLT COUNT & AUTO [id number] 17:00:00 Test Item Value Reference Range Comments WHITE BLOOD CELL COUNT (BEAKER) (test plkv=105) 7.8 K/ L 3.5-10.5 RED BLOOD CELL COUNT (BEAKER) (test qufk=159) 3.05 M/ L 3.93-5.22 HEMOGLOBIN (BEAKER) (test bszs=034) 7.7 GM/DL 11.2-15.7 HEMATOCRIT (BEAKER) (test msyn=947) 24.9 % 34.1-44.9 MEAN CORPUSCULAR VOLUME (BEAKER) (test fqoz=892) 81.6 fL 79.4-94.8 MEAN CORPUSCULAR HEMOGLOBIN (BEAKER) (test 25.2 pg 25.6-32.2 tfaw=172) MEAN CORPUSCULAR HEMOGLOBIN CONC (BEAKER) (test 30.9 GM/DL 32.2-35.5 ynxh=500) RED CELL DISTRIBUTION WIDTH (BEAKER) (test 18.6 % 11.7-14.4 szfa=111) PLATELET COUNT (BEAKER) (test ujij=855) 438 K/CU MM 150-450 MEAN PLATELET VOLUME (BEAKER) (test iufy=531) 9.2 fL 9.4-12.3 NUCLEATED RED BLOOD CELLS (BEAKER) (test 0 /100 WBC 0-0 wusg=504) NEUTROPHILS RELATIVE PERCENT (BEAKER) (test 78 % vcyn=063) LYMPHOCYTES RELATIVE PERCENT (BEAKER) (test 8 % ehgi=072) MONOCYTES RELATIVE PERCENT (BEAKER) (test 8 % gopi=999) EOSINOPHILS RELATIVE PERCENT (BEAKER) (test 4 % vufc=618) BASOPHILS RELATIVE PERCENT (BEAKER) (test 1 % cyia=040) NEUTROPHILS ABSOLUTE COUNT (BEAKER) (test 6.11 K/ L 1.56-6.13 kjmt=189) LYMPHOCYTES ABSOLUTE COUNT (BEAKER) (test 0.60 K/ L 1.18-3.74 cvjg=389) MONOCYTES ABSOLUTE COUNT (BEAKER) (test 0.65 K/ L 0.24-0.36 tftd=488) EOSINOPHILS ABSOLUTE COUNT (BEAKER) (test 0.34 K/ L 0.04-0.36 mrpu=051) BASOPHILS ABSOLUTE COUNT (BEAKER) (test 0.05 K/ L 0.01-0.08 rzde=244) IMMATURE GRANULOCYTES-RELATIVE PERCENT (BEAKER) 1 % 0-1 (test ocsd=9733) BLOOD GAS, [id number] 11:32:00 Test Item Value Reference Range Comments PH ARTERIAL (BEAKER) (test iuys=710) 7.40 7.35-7.45 PCO2 ARTERIAL (BEAKER) (test jbzo=653) 29 mmHg 35-45 PO2 ARTERIAL (BEAKER) (test pcck=814) 142 mmHg 80-90 O2 SATURATION ARTERIAL (BEAKER) (test sudk=655) 98.9 % 96.0-97.0 HCO3 ARTERIAL (BEAKER) (test vguf=265) 18 mmol/L 21-29 BASE EXCESS ARTERIAL (BEAKER) (test bqgs=690) -6.6 mmol/L -2.0-3.0 PATIENT TEMPERATURE (BEAKER) (test fstv=7607) 37.0 C FIO2 (BEAKER) (test kwpe=1288) 60.0 % RAD, CHEST, 1 VIEW, NON [id number] 07:35:00Reason for exam:->r/o effusionIs the patient ?->NoShould this be performed at the bedside?- >YesFINAL REPORT Chest one view compared to June 28, 2017 Discussion: Support tubes, lines, left-sided chest tubes, cardiac prominence, pulmonary edema left greater than right are similar. Probable small effusions unchanged. No pneumothorax. IMPRESSIONS: No change Signed: Fady Bauereport Verified Date/Time: 06/29/2017 07:35:52 Reading Location: [facility] Reading Room BASIC METABOLIC [id number] 04:12:00 Test Item Value Reference Range Comments SODIUM (BEAKER) (test 144 meq/L 136-145 htwf=093) POTASSIUM (BEAKER) (test 3.5 meq/L 3.5-5.1 bxdt=175) CHLORIDE (BEAKER) (test 116 meq/L 98-107 ffva=515) CO2 (BEAKER) (test 18 meq/L 22-29 uwhd=988) BLOOD UREA NITROGEN 45 mg/dL 7-21 (BEAKER) (test bujp=870) CREATININE (BEAKER) (test 7.17 mg/dL 0.57-1.25 upxt=278) GLUCOSE RANDOM (BEAKER) 127 mg/dL 70-105 (test jfvx=194) CALCIUM (BEAKER) (test 8.8 mg/dL 8.4-10.2 xtoh=097) EGFR (BEAKER) (test 6 mL/min/1.73 sq m ESTIMATED GFR IS NOT ymqd=2188) ACCURATE CREATININE CLEARANCE IN PREDICTING GLOMERULAR FILTRATION RATE. ESTIMATED GFR IS NOT APPLICABLE FOR DIALYSIS PATIENTS. VANCOMYCIN LEVEL, [id number] 04:09:00 Test Item Value Reference Range Comments VANCOMYCIN RANDOM (BEAKER) (test qiou=326) 12.6 ug/mL Reference Range: No [id number] 04:07:00 Test Item Value Reference Range Comments PHOSPHORUS (BEAKER) (test jahr=903) 5.6 mg/dL 2.3-4.7 [id number] 04:07:00 Test Item Value Reference Range Comments MAGNESIUM (BEAKER) (test ufsa=868) 2.3 mg/dL 1.6-2.6 PROTHROMBIN [id number] 04:04:00 Test Item Value Reference Range Comments PROTIME (BEAKER) (test osfp=288) 16.6 seconds 11.7-14.7 INR (BEAKER) (test vuuw=400) 1.4 <=5.9 RECOMMENDED COUMADIN/WARFARIN INR THERAPY RANGESSTANDARD DOSE: 2.0 - 3.0 Includes: PROPHYLAXIS forvenous thrombosis, systemic embolization; TREATMENT for venous thrombosis and/or pulmonary embolus.HIGH RISK: Target INR is 2.5-3.5 for patients with mechanical heart valves.CBC W/PLT COUNT & AUTO [id number] 03:53:00 Test Item Value Reference Range Comments WHITE BLOOD CELL COUNT (BEAKER) (test eutt=341) 7.5 K/ L 3.5-10.5 RED BLOOD CELL COUNT (BEAKER) (test zdas=543) 3.02 M/ L 3.93-5.22 HEMOGLOBIN (BEAKER) (test zbpj=077) 7.7 GM/DL 11.2-15.7 HEMATOCRIT (BEAKER) (test etvs=984) 24.7 % 34.1-44.9 MEAN CORPUSCULAR VOLUME (BEAKER) (test gmfl=913) 81.8 fL 79.4-94.8 MEAN CORPUSCULAR HEMOGLOBIN (BEAKER) (test 25.5 pg 25.6-32.2 zffk=213) MEAN CORPUSCULAR HEMOGLOBIN CONC (BEAKER) (test 31.2 GM/DL 32.2-35.5 rglz=561) RED CELL DISTRIBUTION WIDTH (BEAKER) (test 18.4 % 11.7-14.4 demn=711) PLATELET COUNT (BEAKER) (test inij=568) 410 K/CU MM 150-450 MEAN PLATELET VOLUME (BEAKER) (test jjvs=086) 9.1 fL 9.4-12.3 NUCLEATED RED BLOOD CELLS (BEAKER) (test 0 /100 WBC 0-0 nyxs=604) NEUTROPHILS RELATIVE PERCENT (BEAKER) (test 77 % kied=880) LYMPHOCYTES RELATIVE PERCENT (BEAKER) (test 9 % nqjg=657) MONOCYTES RELATIVE PERCENT (BEAKER) (test 8 % pqel=637) EOSINOPHILS RELATIVE PERCENT (BEAKER) (test 6 % ptwu=092) BASOPHILS RELATIVE PERCENT (BEAKER) (test 0 % hidj=206) NEUTROPHILS ABSOLUTE COUNT (BEAKER) (test 5.70 K/ L 1.56-6.13 ccmc=825) LYMPHOCYTES ABSOLUTE COUNT (BEAKER) (test 0.65 K/ L 1.18-3.74 zshd=280) MONOCYTES ABSOLUTE COUNT (BEAKER) (test 0.60 K/ L 0.24-0.36 ljpp=118) EOSINOPHILS ABSOLUTE COUNT (BEAKER) (test 0.43 K/ L 0.04-0.36 tbmg=011) BASOPHILS ABSOLUTE COUNT (BEAKER) (test 0.03 K/ L 0.01-0.08 dbee=124) IMMATURE GRANULOCYTES-RELATIVE PERCENT (BEAKER) 1 % 0-1 (test cfff=5336) POCT-GLUCOSE [id number] 23:22:00 Test Item Value Reference Range Comments POC-GLUCOSE METER (BEAKER) 135 mg/dL 70-110 TESTED AT [address] (test ujlb=8382) [facility] [address] BASIC METABOLIC [id number] 16:54:00 Test Item Value Reference Range Comments SODIUM (BEAKER) (test 143 meq/L 136-145 doxf=269) POTASSIUM (BEAKER) (test 3.7 meq/L 3.5-5.1 qxvh=603) CHLORIDE (BEAKER) (test 116 meq/L 98-107 eehu=968) CO2 (BEAKER) (test 16 meq/L 22-29 cuqf=655) BLOOD UREA NITROGEN 42 mg/dL 7-21 (BEAKER) (test gftn=029) CREATININE (BEAKER) (test 6.88 mg/dL 0.57-1.25 mumt=287) GLUCOSE RANDOM (BEAKER) 120 mg/dL 70-105 (test hbrv=184) CALCIUM (BEAKER) (test 9.0 mg/dL 8.4-10.2 zsgd=477) EGFR (BEAKER) (test 6 mL/min/1.73 sq m ESTIMATED GFR IS NOT gvac=6443) ACCURATE CREATININE CLEARANCE IN PREDICTING GLOMERULAR FILTRATION RATE. ESTIMATED GFR IS NOT APPLICABLE FOR DIALYSIS PATIENTS. CBC W/PLT COUNT & AUTO [id number] 16:50:00 Test Item Value Reference Range Comments WHITE BLOOD CELL COUNT (BEAKER) (test llxy=886) 7.9 K/ L 3.5-10.5 RED BLOOD CELL COUNT (BEAKER) (test itoq=339) 3.12 M/ L 3.93-5.22 HEMOGLOBIN (BEAKER) (test xnym=551) 7.9 GM/DL 11.2-15.7 HEMATOCRIT (BEAKER) (test jeut=895) 25.7 % 34.1-44.9 MEAN CORPUSCULAR VOLUME (BEAKER) (test xxhn=447) 82.4 fL 79.4-94.8 MEAN CORPUSCULAR HEMOGLOBIN (BEAKER) (test 25.3 pg 25.6-32.2 isys=993) MEAN CORPUSCULAR HEMOGLOBIN CONC (BEAKER) (test 30.7 GM/DL 32.2-35.5 pazl=805) RED CELL DISTRIBUTION WIDTH (BEAKER) (test 18.6 % 11.7-14.4 mzti=504) PLATELET COUNT (BEAKER) (test udcx=609) 402 K/CU MM 150-450 MEAN PLATELET VOLUME (BEAKER) (test ugke=173) 8.7 fL 9.4-12.3 NUCLEATED RED BLOOD CELLS (BEAKER) (test 0 /100 WBC 0-0 npzj=466) NEUTROPHILS RELATIVE PERCENT (BEAKER) (test 77 % sndv=606) LYMPHOCYTES RELATIVE PERCENT (BEAKER) (test 8 % dwiw=829) MONOCYTES RELATIVE PERCENT (BEAKER) (test 9 % qbyt=257) EOSINOPHILS RELATIVE PERCENT (BEAKER) (test 6 % bodl=442) BASOPHILS RELATIVE PERCENT (BEAKER) (test 1 % piym=836) NEUTROPHILS ABSOLUTE COUNT (BEAKER) (test 6.05 K/ L 1.56-6.13 akti=321) LYMPHOCYTES ABSOLUTE COUNT (BEAKER) (test 0.63 K/ L 1.18-3.74 vipb=686) MONOCYTES ABSOLUTE COUNT (BEAKER) (test 0.67 K/ L 0.24-0.36 wjhg=179) EOSINOPHILS ABSOLUTE COUNT (BEAKER) (test 0.46 K/ L 0.04-0.36 bfuc=193) BASOPHILS ABSOLUTE COUNT (BEAKER) (test 0.05 K/ L 0.01-0.08 orno=557) IMMATURE GRANULOCYTES-RELATIVE PERCENT (BEAKER) 1 % 0-1 (test siyj=1754) [id number] 16:50:00 Test Item Value Reference Range Comments PHOSPHORUS (BEAKER) (test nqwh=756) 5.8 mg/dL 2.3-4.7 [id number] 16:50:00 Test Item Value Reference Range Comments MAGNESIUM (BEAKER) (test wejc=537) 2.3 mg/dL 1.6-2.6 BLOOD GAS, [id number] 16:45:00 Test Item Value Reference Range Comments PH ARTERIAL (BEAKER) (test tbef=527) 7.31 7.35-7.45 PCO2 ARTERIAL (BEAKER) (test xyat=916) 35 mmHg 35-45 PO2 ARTERIAL (BEAKER) (test ctmk=158) 198 mmHg 80-90 O2 SATURATION ARTERIAL (BEAKER) (test xftu=061) 99.3 % 96.0-97.0 HCO3 ARTERIAL (BEAKER) (test pgss=065) 17 mmol/L 21-29 BASE EXCESS ARTERIAL (BEAKER) (test ukfv=375) -8.3 mmol/L -2.0-3.0 PATIENT TEMPERATURE (BEAKER) (test mhhf=9113) 37.0 C FIO2 (BEAKER) (test qrfp=6523) 100.0 % PROTHROMBIN [id number] 16:30:00 Test Item Value Reference Range Comments PROTIME (BEAKER) (test rdxp=208) 16.6 seconds 11.7-14.7 INR (BEAKER) (test zgeh=649) 1.4 <=5.9 RECOMMENDED COUMADIN/WARFARIN INR THERAPY RANGESSTANDARD DOSE: 2.0 - 3.0 Includes: PROPHYLAXIS forvenous thrombosis, systemic embolization; TREATMENT for venous thrombosis and/or pulmonary embolus.HIGH RISK: Target INR is 2.5-3.5 for patients with mechanical heart valves.BASIC METABOLIC [id number] 12:12: 00 Test Item Value Reference Range Comments SODIUM (BEAKER) (test 142 meq/L 136-145 lror=487) POTASSIUM (BEAKER) (test 3.6 meq/L 3.5-5.1 nvac=331) CHLORIDE (BEAKER) (test 116 meq/L 98-107 euyw=798) CO2 (BEAKER) (test 16 meq/L 22-29 ijym=244) BLOOD UREA NITROGEN 42 mg/dL 7-21 (BEAKER) (test tkmj=619) CREATININE (BEAKER) (test 7.04 mg/dL 0.57-1.25 bzmo=940) GLUCOSE RANDOM (BEAKER) 128 mg/dL 70-105 (test rrpm=409) CALCIUM (BEAKER) (test 8.6 mg/dL 8.4-10.2 tpdr=972) EGFR (BEAKER) (test 6 mL/min/1.73 sq m ESTIMATED GFR IS NOT tpip=8198) ACCURATE CREATININE CLEARANCE IN PREDICTING GLOMERULAR FILTRATION RATE. ESTIMATED GFR IS NOT APPLICABLE FOR DIALYSIS PATIENTS. CBC W/PLT COUNT & AUTO [id number] 12:05:00 Test Item Value Reference Range Comments WHITE BLOOD CELL COUNT (BEAKER) (test disv=742) 8.1 K/ L 3.5-10.5 RED BLOOD CELL COUNT (BEAKER) (test rrjn=017) 3.03 M/ L 3.93-5.22 HEMOGLOBIN (BEAKER) (test qmvg=440) 7.6 GM/DL 11.2-15.7 HEMATOCRIT (BEAKER) (test cwpq=188) 24.8 % 34.1-44.9 MEAN CORPUSCULAR VOLUME (BEAKER) (test oypz=423) 81.8 fL 79.4-94.8 MEAN CORPUSCULAR HEMOGLOBIN (BEAKER) (test 25.1 pg 25.6-32.2 eqzk=999) MEAN CORPUSCULAR HEMOGLOBIN CONC (BEAKER) (test 30.6 GM/DL 32.2-35.5 xwyl=827) RED CELL DISTRIBUTION WIDTH (BEAKER) (test 18.1 % 11.7-14.4 fptk=667) PLATELET COUNT (BEAKER) (test woyx=084) 382 K/CU MM 150-450 MEAN PLATELET VOLUME (BEAKER) (test efyc=877) 9.2 fL 9.4-12.3 NUCLEATED RED BLOOD CELLS (BEAKER) (test 0 /100 WBC 0-0 najq=389) NEUTROPHILS RELATIVE PERCENT (BEAKER) (test 79 % gerb=759) LYMPHOCYTES RELATIVE PERCENT (BEAKER) (test 7 % vxil=501) MONOCYTES RELATIVE PERCENT (BEAKER) (test 7 % helw=967) EOSINOPHILS RELATIVE PERCENT (BEAKER) (test 6 % gkzx=231) BASOPHILS RELATIVE PERCENT (BEAKER) (test 0 % ezoc=904) NEUTROPHILS ABSOLUTE COUNT (BEAKER) (test 6.37 K/ L 1.56-6.13 tlyu=752) LYMPHOCYTES ABSOLUTE COUNT (BEAKER) (test 0.58 K/ L 1.18-3.74 mtic=919) MONOCYTES ABSOLUTE COUNT (BEAKER) (test 0.59 K/ L 0.24-0.36 ymtz=405) EOSINOPHILS ABSOLUTE COUNT (BEAKER) (test 0.47 K/ L 0.04-0.36 wwvt=845) BASOPHILS ABSOLUTE COUNT (BEAKER) (test 0.03 K/ L 0.01-0.08 ufvs=193) IMMATURE GRANULOCYTES-RELATIVE PERCENT (BEAKER) 1 % 0-1 (test cfjw=3521) [id number] 12:02:00 Test Item Value Reference Range Comments PHOSPHORUS (BEAKER) (test zsom=250) 5.6 mg/dL 2.3-4.7 [id number] 12:02:00 Test Item Value Reference Range Comments MAGNESIUM (BEAKER) (test ahvt=316) 2.3 mg/dL 1.6-2.6 BLOOD GAS, [id number] 11:33:00 Test Item Value Reference Range Comments PH ARTERIAL (BEAKER) (test wzfv=049) 7.35 7.35-7.45 PCO2 ARTERIAL (BEAKER) (test umcj=115) 31 mmHg 35-45 PO2 ARTERIAL (BEAKER) (test umqr=232) 87 mmHg 80-90 O2 SATURATION ARTERIAL (BEAKER) (test bkkg=643) 96.3 % 96.0-97.0 HCO3 ARTERIAL (BEAKER) (test knpf=801) 17 mmol/L 21-29 BASE EXCESS ARTERIAL (BEAKER) (test tyok=470) -8.0 mmol/L -2.0-3.0 PATIENT TEMPERATURE (BEAKER) (test qkke=9624) 37.0 C FIO2 (BEAKER) (test qqwx=7088) 60.0 % POCT-GLUCOSE [id number] 07:54:00 Test Item Value Reference Range Comments POC-GLUCOSE METER (BEAKER) 155 mg/dL 70-[address] [facility] [address] (test dnru=4602) [facility] [address] BLOOD GAS, [id number] 05:47:00 Test Item Value Reference Range Comments PH ARTERIAL (BEAKER) (test mjkt=469) 7.36 7.35-7.45 PCO2 ARTERIAL (BEAKER) (test bukz=027) 30 mmHg 35-45 PO2 ARTERIAL (BEAKER) (test imir=626) 159 mmHg 80-90 O2 SATURATION ARTERIAL (BEAKER) (test eoge=901) 99.0 % 96.0-97.0 HCO3 ARTERIAL (BEAKER) (test eumm=506) 16 mmol/L 21-29 BASE EXCESS ARTERIAL (BEAKER) (test dmko=738) -8.2 mmol/L -2.0-3.0 PATIENT TEMPERATURE (BEAKER) (test bkft=4017) 37.5 C FIO2 (BEAKER) (test ogus=4135) 60.0 % BASIC METABOLIC [id number] 04:28:00 Test Item Value Reference Range Comments SODIUM (BEAKER) (test 144 meq/L 136-145 nlcd=242) POTASSIUM (BEAKER) (test 3.6 meq/L 3.5-5.1 kner=735) CHLORIDE (BEAKER) (test 119 meq/L 98-107 ihqp=100) CO2 (BEAKER) (test 15 meq/L 22-29 hfdj=635) BLOOD UREA NITROGEN 38 mg/dL 7-21 (BEAKER) (test gvgn=950) CREATININE (BEAKER) (test 6.81 mg/dL 0.57-1.25 cmuh=920) GLUCOSE RANDOM (BEAKER) 126 mg/dL 70-105 (test pnum=419) CALCIUM (BEAKER) (test 8.8 mg/dL 8.4-10.2 vobs=544) EGFR (BEAKER) (test 6 mL/min/1.73 sq m ESTIMATED GFR IS NOT hirl=2367) ACCURATE CREATININE CLEARANCE IN PREDICTING GLOMERULAR FILTRATION RATE. ESTIMATED GFR IS NOT APPLICABLE FOR DIALYSIS PATIENTS. [id number] 04:22:00 Test Item Value Reference Range Comments PHOSPHORUS (BEAKER) (test zkhy=779) 5.4 mg/dL 2.3-4.7 [id number] 04:22:00 Test Item Value Reference Range Comments MAGNESIUM (BEAKER) (test stke=447) 2.3 mg/dL 1.6-2.6 RAD, CHEST, 1 VIEW, NON [id number] 04:19:00Reason for exam:->L pleural effusion, empyemaShould this be performed at the bedside?->YesFINAL REPORT EXAMINATION: AP PORTABLE CHEST RADIOGRAPH CLINICAL INDICATION:Left pleural effusion, empyema IMPRESSION: Compared with 06/27/2017. Support tube and catheter positions are unchanged. The enlarged heart, pulmonary edema and bilateral pleural effusions are similar tothe prior examination and compatible with fluid overload/heart failure. More confluent basilar lung opacities likely reflect associated passive atelectasis. An underlying pneumonia cannot be excluded. No evidence of new parenchymal lung consolidation or pneumothorax. In summary, no significant interval change. CHF/ fluid overload. Signed: Darrin Escalera MDReport Verified Date/Time: 06/28/2017 04 :19:29Reading Location: [address] Reading Room VANCOMYCIN LEVEL, [id number] 04:12:00 Test Item Value Reference Range Comments VANCOMYCIN RANDOM (BEAKER) (test xyor=679) 13.2 ug/mL Reference Range: No NormalsPROTHROMBIN [id number] 04:08:00 Test Item Value Reference Range Comments PROTIME (BEAKER) (test ujeg=246) 17.4 seconds 11.7-14.7 INR (BEAKER) (test sbjm=553) 1.4 <=5.9 RECOMMENDED COUMADIN/WARFARIN INR THERAPY RANGESSTANDARD DOSE: 2.0 - 3.0 Includes: PROPHYLAXIS forvenous thrombosis, systemic embolization; TREATMENT for venous thrombosis and/or pulmonary embolus.HIGH RISK: Target INR is 2.5-3.5 for patients with mechanical heart valves.CBC W/PLT COUNT & AUTO [id number] 03:55:00 Test Item Value Reference Range Comments WHITE BLOOD CELL COUNT (BEAKER) (test soni=972) 8.1 K/ L 3.5-10.5 RED BLOOD CELL COUNT (BEAKER) (test drcv=102) 3.03 M/ L 3.93-5.22 HEMOGLOBIN (BEAKER) (test grax=841) 7.6 GM/DL 11.2-15.7 HEMATOCRIT (BEAKER) (test xqwl=302) 24.9 % 34.1-44.9 MEAN CORPUSCULAR VOLUME (BEAKER) (test sqbd=709) 82.2 fL 79.4-94.8 MEAN CORPUSCULAR HEMOGLOBIN (BEAKER) (test 25.1 pg 25.6-32.2 gxao=031) MEAN CORPUSCULAR HEMOGLOBIN CONC (BEAKER) (test 30.5 GM/DL 32.2-35.5 eirx=080) RED CELL DISTRIBUTION WIDTH (BEAKER) (test 18.3 % 11.7-14.4 hmad=636) PLATELET COUNT (BEAKER) (test lpdw=783) 370 K/CU MM 150-450 MEAN PLATELET VOLUME (BEAKER) (test svhk=918) 8.7 fL 9.4-12.3 NUCLEATED RED BLOOD CELLS (BEAKER) (test 0 /100 WBC 0-0 solg=751) NEUTROPHILS RELATIVE PERCENT (BEAKER) (test 77 % wufk=310) LYMPHOCYTES RELATIVE PERCENT (BEAKER) (test 8 % qvif=602) MONOCYTES RELATIVE PERCENT (BEAKER) (test 8 % ztpp=276) EOSINOPHILS RELATIVE PERCENT (BEAKER) (test 6 % ocxi=935) BASOPHILS RELATIVE PERCENT (BEAKER) (test 1 % idun=425) NEUTROPHILS ABSOLUTE COUNT (BEAKER) (test 6.16 K/ L 1.56-6.13 cgwr=218) LYMPHOCYTES ABSOLUTE COUNT (BEAKER) (test 0.63 K/ L 1.18-3.74 xkrp=297) MONOCYTES ABSOLUTE COUNT (BEAKER) (test 0.67 K/ L 0.24-0.36 xfdy=456) EOSINOPHILS ABSOLUTE COUNT (BEAKER) (test 0.50 K/ L 0.04-0.36 evug=626) BASOPHILS ABSOLUTE COUNT (BEAKER) (test 0.04 K/ L 0.01-0.08 klnm=793) IMMATURE GRANULOCYTES-RELATIVE PERCENT (BEAKER) 1 % 0-1 (test hmgf=9354) ANAEROBIC [id number] 02:09:00 Test Item Value Reference Range Comments CULTURE (BEAKER) (test wiaf=5101) No anaerobes isolated ANAEROBIC [id number] 02:09:00 Test Item Value Reference Range Comments CULTURE (BEAKER) (test cbdy=6114) No anaerobes isolated ANAEROBIC [id number] 02:09:00 Test Item Value Reference Range Comments CULTURE (BEAKER) (test yxah=4538) No anaerobes isolated ANAEROBIC [id number] 02:09:00 Test Item Value Reference Range Comments CULTURE (BEAKER) (test gywf=9556) No anaerobes isolated POCT-GLUCOSE [id number] 23:01:00 Test Item Value Reference Range Comments POC-GLUCOSE METER (BEAKER) 104 mg/dL 70-[address] [facility] [address] (test ywsi=8971) [facility] [address] CBC W/PLT COUNT & AUTO [id number] 22:42:00 Test Item Value Reference Range Comments WHITE BLOOD CELL COUNT (BEAKER) (test dpov=202) 8.4 K/ L 3.5-10.5 RED BLOOD CELL COUNT (BEAKER) (test gbii=675) 3.01 M/ L 3.93-5.22 HEMOGLOBIN (BEAKER) (test ywmr=150) 7.7 GM/DL 11.2-15.7 HEMATOCRIT (BEAKER) (test ckov=177) 25.0 % 34.1-44.9 MEAN CORPUSCULAR VOLUME (BEAKER) (test cocv=945) 83.1 fL 79.4-94.8 MEAN CORPUSCULAR HEMOGLOBIN (BEAKER) (test 25.6 pg 25.6-32.2 kffr=480) MEAN CORPUSCULAR HEMOGLOBIN CONC (BEAKER) (test 30.8 GM/DL 32.2-35.5 sbvc=162) RED CELL DISTRIBUTION WIDTH (BEAKER) (test 18.2 % 11.7-14.4 lhls=089) PLATELET COUNT (BEAKER) (test ymxw=075) 345 K/CU MM 150-450 MEAN PLATELET VOLUME (BEAKER) (test giot=085) 8.7 fL 9.4-12.3 NUCLEATED RED BLOOD CELLS (BEAKER) (test 0 /100 WBC 0-0 uuwx=247) NEUTROPHILS RELATIVE PERCENT (BEAKER) (test 81 % lbmj=551) LYMPHOCYTES RELATIVE PERCENT (BEAKER) (test 6 % kisz=707) MONOCYTES RELATIVE PERCENT (BEAKER) (test 7 % izqn=050) EOSINOPHILS RELATIVE PERCENT (BEAKER) (test 5 % qyng=893) BASOPHILS RELATIVE PERCENT (BEAKER) (test 1 % xfmx=513) NEUTROPHILS ABSOLUTE COUNT (BEAKER) (test 6.82 K/ L 1.56-6.13 jarn=768) LYMPHOCYTES ABSOLUTE COUNT (BEAKER) (test 0.53 K/ L 1.18-3.74 bwct=219) MONOCYTES ABSOLUTE COUNT (BEAKER) (test 0.61 K/ L 0.24-0.36 dsej=702) EOSINOPHILS ABSOLUTE COUNT (BEAKER) (test 0.39 K/ L 0.04-0.36 tcnc=459) BASOPHILS ABSOLUTE COUNT (BEAKER) (test 0.04 K/ L 0.01-0.08 ncuc=555) IMMATURE GRANULOCYTES-RELATIVE PERCENT (BEAKER) 1 % 0-1 (test vggw=8299) BASIC METABOLIC [id number] 22:26:00 Test Item Value Reference Range Comments SODIUM (BEAKER) (test 143 meq/L 136-145 xaxo=614) POTASSIUM (BEAKER) (test 3.7 meq/L 3.5-5.1 fjto=028) CHLORIDE (BEAKER) (test 117 meq/L 98-107 nimb=695) CO2 (BEAKER) (test 16 meq/L 22-29 oyqt=314) BLOOD UREA NITROGEN 36 mg/dL 7-21 (BEAKER) (test xbhn=159) CREATININE (BEAKER) (test 6.79 mg/dL 0.57-1.25 rfxb=225) GLUCOSE RANDOM (BEAKER) 112 mg/dL 70-105 (test lfvn=455) CALCIUM (BEAKER) (test 8.6 mg/dL 8.4-10.2 xhhz=630) EGFR (BEAKER) (test 6 mL/min/1.73 sq m ESTIMATED GFR IS NOT pojv=9051) ACCURATE CREATININE CLEARANCE IN PREDICTING GLOMERULAR FILTRATION RATE. ESTIMATED GFR IS NOT APPLICABLE FOR DIALYSIS PATIENTS. [id number] 22:22:00 Test Item Value Reference Range Comments PHOSPHORUS (BEAKER) (test jyzo=384) 5.5 mg/dL 2.3-4.7 [id number] 22:22:00 Test Item Value Reference Range Comments MAGNESIUM (BEAKER) (test xjmh=874) 2.3 mg/dL 1.6-2.6 BLOOD GAS, [id number] 21:58:00 Test Item Value Reference Range Comments PH ARTERIAL (BEAKER) (test prjf=576) 7.35 7.35-7.45 PCO2 ARTERIAL (BEAKER) (test ggtu=131) 28 mmHg 35-45 PO2 ARTERIAL (BEAKER) (test brxi=933) 142 mmHg 80-90 O2 SATURATION ARTERIAL (BEAKER) (test szii=901) 98.7 % 96.0-97.0 HCO3 ARTERIAL (BEAKER) (test awmj=355) 15 mmol/L 21-29 BASE EXCESS ARTERIAL (BEAKER) (test maoh=177) -9.6 mmol/L -2.0-3.0 PATIENT TEMPERATURE (BEAKER) (test ifoc=7189) 37.5 C FIO2 (BEAKER) (test zzuo=6248) 60.0 % POCT-GLUCOSE [id number] 18:13:00 Test Item Value Reference Range Comments POC-GLUCOSE METER (BEAKER) 121 mg/dL 70-[address] [facility] [address] [facility] (test islp=0096) [facility] [id number] BASIC METABOLIC [id number] 16:34:00 Test Item Value Reference Range Comments SODIUM (BEAKER) (test 144 meq/L 136-145 chwr=650) POTASSIUM (BEAKER) (test 3.8 meq/L 3.5-5.1 giwj=470) CHLORIDE (BEAKER) (test 116 meq/L 98-107 pywn=504) CO2 (BEAKER) (test 15 meq/L 22-29 morq=792) BLOOD UREA NITROGEN 36 mg/dL 7-21 (BEAKER) (test bzuw=024) CREATININE (BEAKER) (test 6.65 mg/dL 0.57-1.25 twnk=744) GLUCOSE RANDOM (BEAKER) 102 mg/dL 70-105 (test oacr=828) CALCIUM (BEAKER) (test 8.5 mg/dL 8.4-10.2 feqq=389) EGFR (BEAKER) (test 6 mL/min/1.73 sq m ESTIMATED GFR IS NOT qtks=9300) ACCURATE CREATININE CLEARANCE IN PREDICTING GLOMERULAR FILTRATION RATE. ESTIMATED GFR IS NOT APPLICABLE FOR DIALYSIS PATIENTS. CBC W/PLT COUNT & AUTO [id number] 16:34:00 Test Item Value Reference Range Comments WHITE BLOOD CELL COUNT (BEAKER) (test wtnh=361) 8.7 K/ L 3.5-10.5 RED BLOOD CELL COUNT (BEAKER) (test ysql=602) 2.97 M/ L 3.93-5.22 HEMOGLOBIN (BEAKER) (test bdrl=214) 7.4 GM/DL 11.2-15.7 HEMATOCRIT (BEAKER) (test przr=220) 24.5 % 34.1-44.9 MEAN CORPUSCULAR VOLUME (BEAKER) (test fqtj=695) 82.5 fL 79.4-94.8 MEAN CORPUSCULAR HEMOGLOBIN (BEAKER) (test 24.9 pg 25.6-32.2 gmcl=477) MEAN CORPUSCULAR HEMOGLOBIN CONC (BEAKER) (test 30.2 GM/DL 32.2-35.5 nnet=114) RED CELL DISTRIBUTION WIDTH (BEAKER) (test 18.3 % 11.7-14.4 hmav=029) PLATELET COUNT (BEAKER) (test uvjt=619) 332 K/CU MM 150-450 MEAN PLATELET VOLUME (BEAKER) (test vceg=155) 8.9 fL 9.4-12.3 NUCLEATED RED BLOOD CELLS (BEAKER) (test 0 /100 WBC 0-0 dcsf=712) NEUTROPHILS RELATIVE PERCENT (BEAKER) (test 82 % nphb=442) LYMPHOCYTES RELATIVE PERCENT (BEAKER) (test 6 % aszu=988) MONOCYTES RELATIVE PERCENT (BEAKER) (test 7 % aren=746) EOSINOPHILS RELATIVE PERCENT (BEAKER) (test 3 % oslh=061) BASOPHILS RELATIVE PERCENT (BEAKER) (test 1 % lrfr=247) NEUTROPHILS ABSOLUTE COUNT (BEAKER) (test 7.12 K/ L 1.56-6.13 wdin=984) LYMPHOCYTES ABSOLUTE COUNT (BEAKER) (test 0.56 K/ L 1.18-3.74 tdfg=480) MONOCYTES ABSOLUTE COUNT (BEAKER) (test 0.60 K/ L 0.24-0.36 egbc=282) EOSINOPHILS ABSOLUTE COUNT (BEAKER) (test 0.28 K/ L 0.04-0.36 dcdl=956) BASOPHILS ABSOLUTE COUNT (BEAKER) (test 0.05 K/ L 0.01-0.08 znij=647) IMMATURE GRANULOCYTES-RELATIVE PERCENT (BEAKER) 1 % 0-1 (test ktmu=0126) [id number] 16:31:00 Test Item Value Reference Range Comments PHOSPHORUS (BEAKER) (test chwx=784) 5.7 mg/dL 2.3-4.7 [id number] 16:31:00 Test Item Value Reference Range Comments MAGNESIUM (BEAKER) (test sbed=392) 2.4 mg/dL 1.6-2.6 PROTHROMBIN [id number] 16:27:00 Test Item Value Reference Range Comments PROTIME (BEAKER) (test lzau=098) 18.2 seconds 11.7-14.7 INR (BEAKER) (test oadr=437) 1.5 <=5.9 RECOMMENDED COUMADIN/WARFARIN INR THERAPY RANGESSTANDARD DOSE: 2.0 - 3.0 Includes: PROPHYLAXIS forvenous thrombosis, systemic embolization; TREATMENT for venous thrombosis and/or pulmonary embolus.HIGH RISK: Target INR is 2.5-3.5 for patients with mechanical heart valves.BLOOD GAS, [id number] 16:12:00 Test Item Value Reference Range Comments PH ARTERIAL (BEAKER) (test cdcb=522) 7.32 7.35-7.45 PCO2 ARTERIAL (BEAKER) (test vfng=100) 29 mmHg 35-45 PO2 ARTERIAL (BEAKER) (test jfsi=496) 100 mmHg 80-90 O2 SATURATION ARTERIAL (BEAKER) (test cypx=349) 97.2 % 96.0-97.0 HCO3 ARTERIAL (BEAKER) (test knsj=407) 15 mmol/L 21-29 BASE EXCESS ARTERIAL (BEAKER) (test nzvk=009) -10.3 mmol/L -2.0-3.0 PATIENT TEMPERATURE (BEAKER) (test urex=8241) 37.0 C FIO2 (BEAKER) (test etpj=2822) 60.0 % POCT-GLUCOSE [id number] 12:36:00 Test Item Value Reference Range Comments POC-GLUCOSE METER (BEAKER) 100 mg/dL 70-110 TESTED AT [facility] [address] (test fshf=5346) [facility] [address] BASIC METABOLIC [id number] 10:54:00 Test Item Value Reference Range Comments SODIUM (BEAKER) (test 144 meq/L 136-145 lrsg=864) POTASSIUM (BEAKER) (test 3.8 meq/L 3.5-5.1 cfbk=630) CHLORIDE (BEAKER) (test 117 meq/L 98-107 gmex=227) CO2 (BEAKER) (test 15 meq/L 22-29 waer=307) BLOOD UREA NITROGEN 35 mg/dL 7-21 (BEAKER) (test lvjh=790) CREATININE (BEAKER) (test 6.35 mg/dL 0.57-1.25 rrjm=229) GLUCOSE RANDOM (BEAKER) 95 mg/dL 70-105 (test rmpy=021) CALCIUM (BEAKER) (test 8.6 mg/dL 8.4-10.2 rfdg=504) EGFR (BEAKER) (test 7 mL/min/1.73 sq m ESTIMATED GFR IS NOT xzau=4817) ACCURATE CREATININE CLEARANCE IN PREDICTING GLOMERULAR FILTRATION RATE. ESTIMATED GFR IS NOT APPLICABLE FOR DIALYSIS PATIENTS. [id number] 10:51:00 Test Item Value Reference Range Comments PHOSPHORUS (BEAKER) (test zztz=973) 5.6 mg/dL 2.3-4.7 [id number] 10:51:00 Test Item Value Reference Range Comments MAGNESIUM (BEAKER) (test rlyf=243) 2.3 mg/dL 1.6-2.6 RAD, ABDOMEN/KUB, 1 VIEW [id number] 10:43:00Reason for exam:->corpak placedFINAL REPORT Abdomen one view Comparison: None. Reason for exam: corpak placed Findings: Tip of Corpak projects over the expected location of gastric antrum. No free air identified on this single frontal view. Signed: Nina Naranjo Verified Date/Time: 06/27/2017 10:43: 50 Reading Location: [facility] Reading Room VANCOMYCIN LEVEL, [id number] 10:36:00 Test Item Value Reference Range Comments VANCOMYCIN RANDOM (BEAKER) (test oxrp=687) 13.8 ug/mL Reference Range: No NormalsBLOOD GAS, [id number] 10:29:00 Test Item Value Reference Range Comments PH ARTERIAL (BEAKER) (test rrct=627) 7.31 7.35-7.45 PCO2 ARTERIAL (BEAKER) (test isoo=412) 28 mmHg 35-45 PO2 ARTERIAL (BEAKER) (test soey=833) 157 mmHg 80-90 O2 SATURATION ARTERIAL (BEAKER) (test vcpc=841) 98.9 % 96.0-97.0 HCO3 ARTERIAL (BEAKER) (test zqhs=689) 14 mmol/L 21-29 BASE EXCESS ARTERIAL (BEAKER) (test hovq=931) -11.6 mmol/L -2.0-3.0 PATIENT TEMPERATURE (BEAKER) (test sium=5391) 37.0 C FIO2 (BEAKER) (test xygs=1240) 60.0 % CBC W/PLT COUNT & AUTO [id number] 10:19:00 Test Item Value Reference Range Comments WHITE BLOOD CELL COUNT (BEAKER) (test iqtw=703) 9.3 K/ L 3.5-10.5 RED BLOOD CELL COUNT (BEAKER) (test vsft=136) 2.97 M/ L 3.93-5.22 HEMOGLOBIN (BEAKER) (test dmmx=213) 7.7 GM/DL 11.2-15.7 HEMATOCRIT (BEAKER) (test mdbp=478) 24.8 % 34.1-44.9 MEAN CORPUSCULAR VOLUME (BEAKER) (test zzic=704) 83.5 fL 79.4-94.8 MEAN CORPUSCULAR HEMOGLOBIN (BEAKER) (test 25.9 pg 25.6-32.2 aanv=402) MEAN CORPUSCULAR HEMOGLOBIN CONC (BEAKER) (test 31.0 GM/DL 32.2-35.5 cjye=778) RED CELL DISTRIBUTION WIDTH (BEAKER) (test 18.1 % 11.7-14.4 dcri=059) PLATELET COUNT (BEAKER) (test vuoy=803) 315 K/CU MM 150-450 MEAN PLATELET VOLUME (BEAKER) (test icve=345) 8.7 fL 9.4-12.3 NUCLEATED RED BLOOD CELLS (BEAKER) (test 0 /100 WBC 0-0 uobi=665) NEUTROPHILS RELATIVE PERCENT (BEAKER) (test 85 % uaho=657) LYMPHOCYTES RELATIVE PERCENT (BEAKER) (test 4 % tnsz=150) MONOCYTES RELATIVE PERCENT (BEAKER) (test 7 % qjpc=538) EOSINOPHILS RELATIVE PERCENT (BEAKER) (test 3 % dipg=672) BASOPHILS RELATIVE PERCENT (BEAKER) (test 0 % uhvt=196) NEUTROPHILS ABSOLUTE COUNT (BEAKER) (test 7.92 K/ L 1.56-6.13 cgkt=363) LYMPHOCYTES ABSOLUTE COUNT (BEAKER) (test 0.37 K/ L 1.18-3.74 jxkm=270) MONOCYTES ABSOLUTE COUNT (BEAKER) (test 0.60 K/ L 0.24-0.36 nbsr=741) EOSINOPHILS ABSOLUTE COUNT (BEAKER) (test 0.29 K/ L 0.04-0.36 pcls=457) BASOPHILS ABSOLUTE COUNT (BEAKER) (test 0.04 K/ L 0.01-0.08 zhqr=794) IMMATURE GRANULOCYTES-RELATIVE PERCENT (BEAKER) 1 % 0-1 (test zsfj=5999) BLOOD GAS, [id number] 05:22:00 Test Item Value Reference Range Comments PH ARTERIAL (BEAKER) (test zbex=938) 7.28 7.35-7.45 PCO2 ARTERIAL (BEAKER) (test sxvp=884) 32 mmHg 35-45 PO2 ARTERIAL (BEAKER) (test zygb=467) 135 mmHg 80-90 O2 SATURATION ARTERIAL (BEAKER) (test xzln=052) 98.3 % 96.0-97.0 HCO3 ARTERIAL (BEAKER) (test bbxh=360) 14 mmol/L 21-29 BASE EXCESS ARTERIAL (BEAKER) (test othk=068) -11.3 mmol/L -2.0-3.0 PATIENT TEMPERATURE (BEAKER) (test tvoo=2544) 37.5 C FIO2 (BEAKER) (test zmlp=8979) 60.0 % BASIC METABOLIC [id number] 04:40:00 Test Item Value Reference Range Comments SODIUM (BEAKER) (test 143 meq/L 136-145 wbud=030) POTASSIUM (BEAKER) (test 3.8 meq/L 3.5-5.1 xvih=001) CHLORIDE (BEAKER) (test 116 meq/L 98-107 qbyu=925) CO2 (BEAKER) (test 15 meq/L 22-29 xlmt=170) BLOOD UREA NITROGEN 34 mg/dL 7-21 (BEAKER) (test jaar=756) CREATININE (BEAKER) (test 6.22 mg/dL 0.57-1.25 ykmy=752) GLUCOSE RANDOM (BEAKER) 103 mg/dL 70-105 (test nxfo=373) CALCIUM (BEAKER) (test 8.5 mg/dL 8.4-10.2 wgxn=362) EGFR (BEAKER) (test 7 mL/min/1.73 sq m ESTIMATED GFR IS NOT rlcm=9893) ACCURATE CREATININE CLEARANCE IN PREDICTING GLOMERULAR FILTRATION RATE. ESTIMATED GFR IS NOT APPLICABLE FOR DIALYSIS PATIENTS. [id number] 04:39:00 Test Item Value Reference Range Comments PHOSPHORUS (BEAKER) (test knyw=048) 5.5 mg/dL 2.3-4.7 [id number] 04:39:00 Test Item Value Reference Range Comments MAGNESIUM (BEAKER) (test miiy=582) 2.3 mg/dL 1.6-2.6 PROTHROMBIN [id number] 04:29:00 Test Item Value Reference Range Comments PROTIME (BEAKER) (test pplf=353) 17.6 seconds 11.7-14.7 INR (BEAKER) (test ofju=939) 1.5 <=5.9 RECOMMENDED COUMADIN/WARFARIN INR THERAPY RANGESSTANDARD DOSE: 2.0 - 3.0 Includes: PROPHYLAXIS forvenous thrombosis, systemic embolization; TREATMENT for venous thrombosis and/or pulmonary embolus.HIGH RISK: Target INR is 2.5-3.5 for patients with mechanical heart valves.CBC W/PLT COUNT & AUTO [id number] 04:27:00 Test Item Value Reference Range Comments WHITE BLOOD CELL COUNT (BEAKER) (test liiz=587) 10.5 K/ L 3.5-10.5 RED BLOOD CELL COUNT (BEAKER) (test daoc=174) 3.08 M/ L 3.93-5.22 HEMOGLOBIN (BEAKER) (test mnax=309) 7.9 GM/DL 11.2-15.7 HEMATOCRIT (BEAKER) (test tjvs=954) 25.7 % 34.1-44.9 MEAN CORPUSCULAR VOLUME (BEAKER) (test focw=640) 83.4 fL 79.4-94.8 MEAN CORPUSCULAR HEMOGLOBIN (BEAKER) (test 25.6 pg 25.6-32.2 bahb=544) MEAN CORPUSCULAR HEMOGLOBIN CONC (BEAKER) (test 30.7 GM/DL 32.2-35.5 bbin=513) RED CELL DISTRIBUTION WIDTH (BEAKER) (test 18.1 % 11.7-14.4 pqxr=505) PLATELET COUNT (BEAKER) (test uerr=977) 311 K/CU MM 150-450 MEAN PLATELET VOLUME (BEAKER) (test fvgl=435) 8.8 fL 9.4-12.3 NUCLEATED RED BLOOD CELLS (BEAKER) (test 0 /100 WBC 0-0 oyhh=597) NEUTROPHILS RELATIVE PERCENT (BEAKER) (test 85 % ezky=441) LYMPHOCYTES RELATIVE PERCENT (BEAKER) (test 5 % rcui=793) MONOCYTES RELATIVE PERCENT (BEAKER) (test 7 % kvln=553) EOSINOPHILS RELATIVE PERCENT (BEAKER) (test 2 % dnhq=023) BASOPHILS RELATIVE PERCENT (BEAKER) (test 0 % zftw=333) NEUTROPHILS ABSOLUTE COUNT (BEAKER) (test 8.92 K/ L 1.56-6.13 qchn=323) LYMPHOCYTES ABSOLUTE COUNT (BEAKER) (test 0.54 K/ L 1.18-3.74 obto=484) MONOCYTES ABSOLUTE COUNT (BEAKER) (test 0.68 K/ L 0.24-0.36 tssu=581) EOSINOPHILS ABSOLUTE COUNT (BEAKER) (test 0.25 K/ L 0.04-0.36 nceb=429) BASOPHILS ABSOLUTE COUNT (BEAKER) (test 0.04 K/ L 0.01-0.08 bjhr=958) IMMATURE GRANULOCYTES-RELATIVE PERCENT (BEAKER) 1 % 0-1 (test zdyg=5675) RAD, CHEST, 1 VIEW, NON [id number] 04:20:00Reason for exam:->r/o effusionIs the patient ?->NoShould this be performed at the bedside?- >YesFINAL REPORT EXAMINATION: AP PORTABLE CHEST RADIOGRAPH CLINICAL INDICATION:Pleural effusion IMPRESSION: Compared with 2016. The enlarged heart, pulmonary edema and bilateral pleural effusions are compatible with fluid overload/heart failure and grossly similar to the prior study. More confluent parenchymal lung opacities are also again noted which may reflect associatedpassive atelectasis. However an underlying pneumonia is difficult to exclude. Cardiac and mediastinal contours are grossly stable. No evidence of a significant pneumothorax. Tip of the feeding tube nowextends back up towards the gastroesophageal junction. Consider repositioning prior to initiating tube feeds. Support tube and catheter positions are otherwise unchanged. Results including the positionof the feeding tube were discussed with the nurse caring for the patient at the time of dictation. She will notify the appropriate on-call clinician. Signed: Darrin Escaleraeport Verified Date/ Time: 06/27/2017 04:20:42 Reading Location: [address] Reading Room Electronically signedby: DARRIN ESCALERA M.D. on 06/27/2017 04:20 AMBASIC METABOLIC [id number] 22:17:00 Test Item Value Reference Range Comments SODIUM (BEAKER) (test 144 meq/L 136-145 alip=986) POTASSIUM (BEAKER) (test 3.8 meq/L 3.5-5.1 ogtr=294) CHLORIDE (BEAKER) (test 116 meq/L 98-107 wqtw=342) CO2 (BEAKER) (test 13 meq/L 22-29 oiqp=438) BLOOD UREA NITROGEN 33 mg/dL 7-21 (BEAKER) (test xvuk=983) CREATININE (BEAKER) (test 6.10 mg/dL 0.57-1.25 znky=296) GLUCOSE RANDOM (BEAKER) 86 mg/dL 70-105 (test mpoo=956) CALCIUM (BEAKER) (test 8.2 mg/dL 8.4-10.2 tbrt=273) EGFR (BEAKER) (test 7 mL/min/1.73 sq m ESTIMATED GFR IS NOT bemy=8659) ACCURATE CREATININE CLEARANCE IN PREDICTING GLOMERULAR FILTRATION RATE. ESTIMATED GFR IS NOT APPLICABLE FOR DIALYSIS PATIENTS. [id number] 22:14:00 Test Item Value Reference Range Comments PHOSPHORUS (BEAKER) (test wesk=061) 5.5 mg/dL 2.3-4.7 [id number] 22:14:00 Test Item Value Reference Range Comments MAGNESIUM (BEAKER) (test huau=343) 2.3 mg/dL 1.6-2.6 CBC W/PLT COUNT & AUTO [id number] 21:57:00 Test Item Value Reference Range Comments WHITE BLOOD CELL COUNT (BEAKER) (test lpvn=371) 11.0 K/ L 3.5-10.5 RED BLOOD CELL COUNT (BEAKER) (test ruwt=499) 2.95 M/ L 3.93-5.22 HEMOGLOBIN (BEAKER) (test ycmu=116) 7.6 GM/DL 11.2-15.7 HEMATOCRIT (BEAKER) (test zdlc=267) 24.7 % 34.1-44.9 MEAN CORPUSCULAR VOLUME (BEAKER) (test cygc=436) 83.7 fL 79.4-94.8 MEAN CORPUSCULAR HEMOGLOBIN (BEAKER) (test 25.8 pg 25.6-32.2 koie=298) MEAN CORPUSCULAR HEMOGLOBIN CONC (BEAKER) (test 30.8 GM/DL 32.2-35.5 uaeh=555) RED CELL DISTRIBUTION WIDTH (BEAKER) (test 17.8 % 11.7-14.4 lbmk=098) PLATELET COUNT (BEAKER) (test nukz=404) 299 K/CU MM 150-450 MEAN PLATELET VOLUME (BEAKER) (test vnax=945) 9.1 fL 9.4-12.3 NUCLEATED RED BLOOD CELLS (BEAKER) (test 0 /100 WBC 0-0 fgun=096) NEUTROPHILS RELATIVE PERCENT (BEAKER) (test 88 % svev=321) LYMPHOCYTES RELATIVE PERCENT (BEAKER) (test 4 % quit=675) MONOCYTES RELATIVE PERCENT (BEAKER) (test 6 % zmpw=996) EOSINOPHILS RELATIVE PERCENT (BEAKER) (test 2 % uaid=636) BASOPHILS RELATIVE PERCENT (BEAKER) (test 0 % avxt=619) NEUTROPHILS ABSOLUTE COUNT (BEAKER) (test 9.70 K/ L 1.56-6.13 mmtq=412) LYMPHOCYTES ABSOLUTE COUNT (BEAKER) (test 0.42 K/ L 1.18-3.74 wwku=496) MONOCYTES ABSOLUTE COUNT (BEAKER) (test 0.67 K/ L 0.24-0.36 wtnx=300) EOSINOPHILS ABSOLUTE COUNT (BEAKER) (test 0.16 K/ L 0.04-0.36 hsmg=173) BASOPHILS ABSOLUTE COUNT (BEAKER) (test 0.03 K/ L 0.01-0.08 jhuc=243) IMMATURE GRANULOCYTES-RELATIVE PERCENT (BEAKER) 1 % 0-1 (test mqfr=4600) POCT-GLUCOSE [id number] 21:56:00 Test Item Value Reference Range Comments POC-GLUCOSE METER (BEAKER) 91 mg/dL 70-110 TESTED AT [address] (test gyct=1634) [facility] [address] BLOOD GAS, [id number] 21:53:00 Test Item Value Reference Range Comments PH ARTERIAL (BEAKER) (test xkbw=217) 7.34 7.35-7.45 PCO2 ARTERIAL (BEAKER) (test apmp=296) 25 mmHg 35-45 PO2 ARTERIAL (BEAKER) (test knuf=641) 120 mmHg 80-90 O2 SATURATION ARTERIAL (BEAKER) (test pnkr=226) 98.2 % 96.0-97.0 HCO3 ARTERIAL (BEAKER) (test bztd=612) 13 mmol/L 21-29 BASE EXCESS ARTERIAL (BEAKER) (test vafl=966) -11.0 mmol/L -2.0-3.0 PATIENT TEMPERATURE (BEAKER) (test nyqu=6870) 37.5 C FIO2 (BEAKER) (test cnke=0596) 60.0 % POCT-GLUCOSE [id number] 18:49:00 Test Item Value Reference Range Comments POC-GLUCOSE METER (BEAKER) 92 mg/dL 70-110 TESTED AT [address] (test gslj=1685) [facility] [address] BASIC METABOLIC [id number] 18:20:00 Test Item Value Reference Range Comments SODIUM (BEAKER) (test 144 meq/L 136-145 epog=398) POTASSIUM (BEAKER) (test 4.1 meq/L 3.5-5.1 baek=098) CHLORIDE (BEAKER) (test 119 meq/L 98-107 yuis=167) CO2 (BEAKER) (test 13 meq/L 22-29 qbdo=833) BLOOD UREA NITROGEN 31 mg/dL 7-21 (BEAKER) (test bnzy=970) CREATININE (BEAKER) (test 5.84 mg/dL 0.57-1.25 tcko=268) GLUCOSE RANDOM (BEAKER) 78 mg/dL 70-105 (test glme=867) CALCIUM (BEAKER) (test 8.4 mg/dL 8.4-10.2 mpcq=382) EGFR (BEAKER) (test 7 mL/min/1.73 sq m ESTIMATED GFR IS NOT ceel=2950) ACCURATE CREATININE CLEARANCE IN PREDICTING GLOMERULAR FILTRATION RATE. ESTIMATED GFR IS NOT APPLICABLE FOR DIALYSIS PATIENTS. [id number] 18:17:00 Test Item Value Reference Range Comments PHOSPHORUS (BEAKER) (test drgg=945) 5.5 mg/dL 2.3-4.7 [id number] 18:17:00 Test Item Value Reference Range Comments MAGNESIUM (BEAKER) (test cuyv=734) 2.4 mg/dL 1.6-2.6 PROTHROMBIN [id number] 17:59:00 Test Item Value Reference Range Comments PROTIME (BEAKER) (test zywf=910) 17.5 seconds 11.7-14.7 INR (BEAKER) (test qbgw=985) 1.4 <=5.9 RECOMMENDED COUMADIN/WARFARIN INR THERAPY RANGESSTANDARD DOSE: 2.0 - 3.0 Includes: PROPHYLAXIS forvenous thrombosis, systemic embolization; TREATMENT for venous thrombosis and/or pulmonary embolus.HIGH RISK: Target INR is 2.5-3.5 for patients with mechanical heart valves.CBC W/PLT COUNT & AUTO [id number] 17:40:00 Test Item Value Reference Range Comments WHITE BLOOD CELL COUNT (BEAKER) (test wopa=005) 12.2 K/ L 3.5-10.5 RED BLOOD CELL COUNT (BEAKER) (test haaq=786) 3.24 M/ L 3.93-5.22 HEMOGLOBIN (BEAKER) (test bmcf=460) 8.3 GM/DL 11.2-15.7 HEMATOCRIT (BEAKER) (test abev=422) 27.2 % 34.1-44.9 MEAN CORPUSCULAR VOLUME (BEAKER) (test tkuf=524) 84.0 fL 79.4-94.8 MEAN CORPUSCULAR HEMOGLOBIN (BEAKER) (test 25.6 pg 25.6-32.2 ggjc=676) MEAN CORPUSCULAR HEMOGLOBIN CONC (BEAKER) (test 30.5 GM/DL 32.2-35.5 clbn=226) RED CELL DISTRIBUTION WIDTH (BEAKER) (test 17.8 % 11.7-14.4 gjnm=144) PLATELET COUNT (BEAKER) (test awbg=848) 314 K/CU MM 150-450 MEAN PLATELET VOLUME (BEAKER) (test zgzc=060) 9.3 fL 9.4-12.3 NUCLEATED RED BLOOD CELLS (BEAKER) (test 0 /100 WBC 0-0 wdls=496) NEUTROPHILS RELATIVE PERCENT (BEAKER) (test 87 % bleb=488) LYMPHOCYTES RELATIVE PERCENT (BEAKER) (test 4 % mlvq=890) MONOCYTES RELATIVE PERCENT (BEAKER) (test 6 % xbep=514) EOSINOPHILS RELATIVE PERCENT (BEAKER) (test 1 % vwwt=938) BASOPHILS RELATIVE PERCENT (BEAKER) (test 0 % thzz=881) NEUTROPHILS ABSOLUTE COUNT (BEAKER) (test 10.58 K/ L 1.56-6.13 ulxg=845) LYMPHOCYTES ABSOLUTE COUNT (BEAKER) (test 0.51 K/ L 1.18-3.74 bynj=814) MONOCYTES ABSOLUTE COUNT (BEAKER) (test 0.78 K/ L 0.24-0.36 hbva=859) EOSINOPHILS ABSOLUTE COUNT (BEAKER) (test 0.16 K/ L 0.04-0.36 vykm=442) BASOPHILS ABSOLUTE COUNT (BEAKER) (test 0.04 K/ L 0.01-0.08 rhsp=436) IMMATURE GRANULOCYTES-RELATIVE PERCENT (BEAKER) 1 % 0-1 (test zjzi=1920) BLOOD GAS, [id number] 16:50:00 Test Item Value Reference Range Comments PH ARTERIAL (BEAKER) (test rfmu=513) 7.28 7.35-7.45 PCO2 ARTERIAL (BEAKER) (test jfoe=897) 30 mmHg 35-45 PO2 ARTERIAL (BEAKER) (test ohfq=984) 100 mmHg 80-90 O2 SATURATION ARTERIAL (BEAKER) (test eyie=034) 96.9 % 96.0-97.0 HCO3 ARTERIAL (BEAKER) (test wxjm=422) 14 mmol/L 21-29 BASE EXCESS ARTERIAL (BEAKER) (test eqaf=595) -11.9 mmol/L -2.0-3.0 PATIENT TEMPERATURE (BEAKER) (test vlqw=6499) 37.0 C FIO2 (BEAKER) (test rhyd=9682) 60.0 % VANCOMYCIN LEVEL, [id number] 15:13:00 Test Item Value Reference Range Comments VANCOMYCIN RANDOM (BEAKER) (test gawf=293) 15.1 ug/mL Reference Range: No NormalsRAD, CHEST, 1 VIEW, NON [id number] 14:15: 00Reason for exam:->CT removalShould this be performed at the bedside?-> YesFINAL REPORT AP chest HISTORY: Chest tube removal COMPARISON: 06/26/2017 IMPRESSION:One of the left-sided thoracostomy tubes has been removed. A feeding tube is present with tip projecting over the stomach. Stable cardiac silhouette. Small effusions and left apical and lateral pleural thickening unchanged. No pneumothorax. Signed: Kendall Vivar MDReport Verified Date/Time: 06/26/2017 14:15:00 Reading Location: [facility] Reading Room 02: 15 PMBLOOD GAS, [id number] 13:30:00 Test Item Value Reference Range Comments PH ARTERIAL (BEAKER) (test cmen=162) 7.24 7.35-7.45 PCO2 ARTERIAL (BEAKER) (test ntgs=085) 34 mmHg 35-45 PO2 ARTERIAL (BEAKER) (test ieod=677) 115 mmHg 80-90 O2 SATURATION ARTERIAL (BEAKER) (test rwaf=166) 97.5 % 96.0-97.0 HCO3 ARTERIAL (BEAKER) (test eqrl=483) 14 mmol/L 21-29 BASE EXCESS ARTERIAL (BEAKER) (test cmhn=102) -12.1 mmol/L -2.0-3.0 PATIENT TEMPERATURE (BEAKER) (test chir=3538) 37.0 C FIO2 (BEAKER) (test zcls=1171) 60.0 % POCT-GLUCOSE [id number] 13:19:00 Test Item Value Reference Range Comments POC-GLUCOSE METER (BEAKER) 87 mg/dL 70-110 TESTED AT [address] (test xzro=0547) [facility] [address] BASIC METABOLIC [id number] 11:25:00 Test Item Value Reference Range Comments SODIUM (BEAKER) (test 142 meq/L 136-145 kcfy=870) POTASSIUM (BEAKER) (test 3.9 meq/L 3.5-5.1 mprp=957) CHLORIDE (BEAKER) (test 116 meq/L 98-107 gafz=907) CO2 (BEAKER) (test 15 meq/L 22-29 jfqt=330) BLOOD UREA NITROGEN 29 mg/dL 7-21 (BEAKER) (test iycx=658) CREATININE (BEAKER) (test 5.54 mg/dL 0.57-1.25 ypht=478) GLUCOSE RANDOM (BEAKER) 83 mg/dL 70-105 (test yuje=225) CALCIUM (BEAKER) (test 8.2 mg/dL 8.4-10.2 affg=317) EGFR (BEAKER) (test 8 mL/min/1.73 sq m ESTIMATED GFR IS NOT vciy=4174) ACCURATE CREATININE CLEARANCE IN PREDICTING GLOMERULAR FILTRATION RATE. ESTIMATED GFR IS NOT APPLICABLE FOR DIALYSIS PATIENTS. [id number] 11:22:00 Test Item Value Reference Range Comments PHOSPHORUS (BEAKER) (test krxw=447) 5.2 mg/dL 2.3-4.7 [id number] 11:22:00 Test Item Value Reference Range Comments MAGNESIUM (BEAKER) (test bfjd=789) 2.4 mg/dL 1.6-2.6 CBC W/PLT COUNT & AUTO [id number] 11:02:00 Test Item Value Reference Range Comments WHITE BLOOD CELL COUNT (BEAKER) (test lfdw=945) 13.4 K/ L 3.5-10.5 RED BLOOD CELL COUNT (BEAKER) (test pzwr=911) 3.11 M/ L 3.93-5.22 HEMOGLOBIN (BEAKER) (test aguh=358) 7.9 GM/DL 11.2-15.7 HEMATOCRIT (BEAKER) (test qzai=453) 26.2 % 34.1-44.9 MEAN CORPUSCULAR VOLUME (BEAKER) (test uiuu=651) 84.2 fL 79.4-94.8 MEAN CORPUSCULAR HEMOGLOBIN (BEAKER) (test 25.4 pg 25.6-32.2 nwyh=375) MEAN CORPUSCULAR HEMOGLOBIN CONC (BEAKER) (test 30.2 GM/DL 32.2-35.5 wddj=943) RED CELL DISTRIBUTION WIDTH (BEAKER) (test 17.7 % 11.7-14.4 dicg=244) PLATELET COUNT (BEAKER) (test jwzk=153) 288 K/CU MM 150-450 MEAN PLATELET VOLUME (BEAKER) (test mdph=055) 9.2 fL 9.4-12.3 NUCLEATED RED BLOOD CELLS (BEAKER) (test 0 /100 WBC 0-0 ienm=312) NEUTROPHILS RELATIVE PERCENT (BEAKER) (test 89 % pkda=790) LYMPHOCYTES RELATIVE PERCENT (BEAKER) (test 3 % ehlc=122) MONOCYTES RELATIVE PERCENT (BEAKER) (test 6 % cqtn=690) EOSINOPHILS RELATIVE PERCENT (BEAKER) (test 1 % iaew=664) BASOPHILS RELATIVE PERCENT (BEAKER) (test 0 % dufd=292) NEUTROPHILS ABSOLUTE COUNT (BEAKER) (test 11.98 K/ L 1.56-6.13 rdwa=214) LYMPHOCYTES ABSOLUTE COUNT (BEAKER) (test 0.41 K/ L 1.18-3.74 wtej=286) MONOCYTES ABSOLUTE COUNT (BEAKER) (test 0.74 K/ L 0.24-0.36 dblg=682) EOSINOPHILS ABSOLUTE COUNT (BEAKER) (test 0.11 K/ L 0.04-0.36 gzjg=482) BASOPHILS ABSOLUTE COUNT (BEAKER) (test 0.05 K/ L 0.01-0.08 gxcm=023) IMMATURE GRANULOCYTES-RELATIVE PERCENT (BEAKER) 1 % 0-1 (test vpvi=9031) BLOOD GAS, [id number] 10:47:00 Test Item Value Reference Range Comments PH ARTERIAL (BEAKER) (test tewb=434) 7.28 7.35-7.45 PCO2 ARTERIAL (BEAKER) (test smdx=094) 29 mmHg 35-45 PO2 ARTERIAL (BEAKER) (test qzvp=396) 97 mmHg 80-90 O2 SATURATION ARTERIAL (BEAKER) (test iilh=742) 96.7 % 96.0-97.0 HCO3 ARTERIAL (BEAKER) (test suzt=176) 13 mmol/L 21-29 BASE EXCESS ARTERIAL (BEAKER) (test kkyo=548) -12.2 mmol/L -2.0-3.0 PATIENT TEMPERATURE (BEAKER) (test lfgi=8399) 37.0 C FIO2 (BEAKER) (test tiwx=2090) 60.0 % RAD, CHEST, 1 VIEW, NON [id number] 10:41:00Reason for exam:->HD line placementShould this be performed at the bedside?->YesFINAL REPORT Two frontal chest images compared to June 26, 2017 Discussion : Pulmonary opacities, left chest tubes, ET tube, left IJ line unchanged. New right IJ dialysis catheter extends to the mid SVC level. Small effusions are suspected. No pneumothorax. IMPRESSIONS: Grossly similar chest appearance. Signed: Fady Bauer Verified Date/Time: 06/26/2017 10:41:23 Reading Location: [facility] Reading Room RAD, CHEST, 1 VIEW, NON [id number] 04:39:00Reason for exam:->r/o effusionIs the patient ?-> NoShould this be performed at the bedside?->YesFINAL REPORT CLINICAL INDICATION: Support lines. Comparison: 06/25/2017 The cardiomediastinal contours are stable. Central pulmonary vascular congestion and left greater than right parenchymal and pleural opacities are unchanged. There is no pneumothorax. Support lines are stable. Signed: Gelacio Glez Verified Date/Time: 06/26/2017 04:39:23 Reading Location: [address] Reading Room BASIC METABOLIC [id number] 04:29:00 Test Item Value Reference Range Comments SODIUM (BEAKER) (test 143 meq/L 136-145 uprt=232) POTASSIUM (BEAKER) (test 3.8 meq/L 3.5-5.1 xago=811) CHLORIDE (BEAKER) (test 116 meq/L 98-107 tauk=056) CO2 (BEAKER) (test 16 meq/L 22-29 powx=238) BLOOD UREA NITROGEN 27 mg/dL 7-21 (BEAKER) (test lfve=780) CREATININE (BEAKER) (test 5.24 mg/dL 0.57-1.25 gyna=481) GLUCOSE RANDOM (BEAKER) 77 mg/dL 70-105 (test robc=808) CALCIUM (BEAKER) (test 8.4 mg/dL 8.4-10.2 kwgw=735) EGFR (BEAKER) (test 8 mL/min/1.73 sq m ESTIMATED GFR IS NOT vvev=7269) ACCURATE CREATININE CLEARANCE IN PREDICTING GLOMERULAR FILTRATION RATE. ESTIMATED GFR IS NOT APPLICABLE FOR DIALYSIS PATIENTS. VANCOMYCIN LEVEL, [id number] 04:29:00 Test Item Value Reference Range Comments VANCOMYCIN RANDOM (BEAKER) (test skqm=037) < ug/mL Reference Range: No NormalsPROTEIN, [id number] 04:25:00 Test Item Value Reference Range Comments TOTAL PROTEIN (BEAKER) (test pwmh=935) 5.1 gm/dL 6.0-8.3 [id number] 04:25:00 Test Item Value Reference Range Comments MAGNESIUM (BEAKER) (test maqv=409) 2.1 mg/dL 1.6-2.6 [id number] 04:25:00 Test Item Value Reference Range Comments PHOSPHORUS (BEAKER) (test ajlc=902) 4.8 mg/dL 2.3-4.7 [id number] 04:25:00 Test Item Value Reference Range Comments ALBUMIN (BEAKER) (test sbli=7024) 2.3 g/dL 3.5-5.0 [id number] 04:22:00 Test Item Value Reference Range Comments PREALBUMIN (BEAKER) (test dbua=801) 8 mg/dL 14-45 PROTHROMBIN [id number] 04:15:00 Test Item Value Reference Range Comments PROTIME (BEAKER) (test xlpf=735) 17.6 seconds 11.7-14.7 INR (BEAKER) (test kkug=459) 1.5 <=5.9 RECOMMENDED COUMADIN/WARFARIN INR THERAPY RANGESSTANDARD DOSE: 2.0 - 3.0 Includes: PROPHYLAXIS forvenous thrombosis, systemic embolization; TREATMENT for venous thrombosis and/or pulmonary embolus.HIGH RISK: Target INR is 2.5-3.5 for patients with mechanical heart valves.CBC W/PLT COUNT & AUTO [id number] 04:08:00 Test Item Value Reference Range Comments WHITE BLOOD CELL COUNT (BEAKER) (test dadc=988) 13.8 K/ L 3.5-10.5 RED BLOOD CELL COUNT (BEAKER) (test cimo=661) 3.34 M/ L 3.93-5.22 HEMOGLOBIN (BEAKER) (test ixte=601) 8.5 GM/DL 11.2-15.7 HEMATOCRIT (BEAKER) (test kdrp=722) 27.9 % 34.1-44.9 MEAN CORPUSCULAR VOLUME (BEAKER) (test sjzg=728) 83.5 fL 79.4-94.8 MEAN CORPUSCULAR HEMOGLOBIN (BEAKER) (test 25.4 pg 25.6-32.2 xasj=695) MEAN CORPUSCULAR HEMOGLOBIN CONC (BEAKER) (test 30.5 GM/DL 32.2-35.5 rrjb=026) RED CELL DISTRIBUTION WIDTH (BEAKER) (test 17.7 % 11.7-14.4 ywfl=746) PLATELET COUNT (BEAKER) (test mpbq=331) 304 K/CU MM 150-450 MEAN PLATELET VOLUME (BEAKER) (test nqth=677) 9.3 fL 9.4-12.3 NUCLEATED RED BLOOD CELLS (BEAKER) (test 0 /100 WBC 0-0 hubr=175) NEUTROPHILS RELATIVE PERCENT (BEAKER) (test 85 % sjqz=942) LYMPHOCYTES RELATIVE PERCENT (BEAKER) (test 6 % rkjx=499) MONOCYTES RELATIVE PERCENT (BEAKER) (test 7 % ospa=768) EOSINOPHILS RELATIVE PERCENT (BEAKER) (test 2 % ovfu=149) BASOPHILS RELATIVE PERCENT (BEAKER) (test 0 % vtsq=363) NEUTROPHILS ABSOLUTE COUNT (BEAKER) (test 11.66 K/ L 1.56-6.13 jygv=814) LYMPHOCYTES ABSOLUTE COUNT (BEAKER) (test 0.77 K/ L 1.18-3.74 vmpb=630) MONOCYTES ABSOLUTE COUNT (BEAKER) (test 0.97 K/ L 0.24-0.36 czrh=143) EOSINOPHILS ABSOLUTE COUNT (BEAKER) (test 0.20 K/ L 0.04-0.36 ynlm=187) BASOPHILS ABSOLUTE COUNT (BEAKER) (test 0.05 K/ L 0.01-0.08 imar=916) IMMATURE GRANULOCYTES-RELATIVE PERCENT (BEAKER) 1 % 0-1 (test ukao=2829) BLOOD GAS, [id number] 03:36:00 Test Item Value Reference Range Comments PH ARTERIAL (BEAKER) (test vfhj=354) 7.27 7.35-7.45 PCO2 ARTERIAL (BEAKER) (test uiko=919) 33 mmHg 35-45 PO2 ARTERIAL (BEAKER) (test ytqh=460) 104 mmHg 80-90 O2 SATURATION ARTERIAL (BEAKER) (test ruyf=039) 97.1 % 96.0-97.0 HCO3 ARTERIAL (BEAKER) (test tkvh=368) 15 mmol/L 21-29 BASE EXCESS ARTERIAL (BEAKER) (test krav=840) -11.1 mmol/L -2.0-3.0 PATIENT TEMPERATURE (BEAKER) (test boyo=3766) 37.2 C FIO2 (BEAKER) (test pyqw=3517) 60.0 % POCT-GLUCOSE [id number] 22:29:00 Test Item Value Reference Range Comments POC-GLUCOSE METER (BEAKER) 101 mg/dL 70-[address] [facility] [address] (test ozct=7104) [facility] [address] BASIC METABOLIC [id number] 21:47:00 Test Item Value Reference Range Comments SODIUM (BEAKER) (test 143 meq/L 136-145 lrhl=419) POTASSIUM (BEAKER) (test 4.0 meq/L 3.5-5.1 kmvc=446) CHLORIDE (BEAKER) (test 117 meq/L 98-107 eydk=381) CO2 (BEAKER) (test 16 meq/L 22-29 aieh=668) BLOOD UREA NITROGEN 25 mg/dL 7-21 (BEAKER) (test rhvy=150) CREATININE (BEAKER) (test 4.93 mg/dL 0.57-1.25 aily=009) GLUCOSE RANDOM (BEAKER) 92 mg/dL 70-105 (test fjbb=774) CALCIUM (BEAKER) (test 8.2 mg/dL 8.4-10.2 gbsm=282) EGFR (BEAKER) (test 9 mL/min/1.73 sq m ESTIMATED GFR IS NOT hrdq=7957) ACCURATE CREATININE CLEARANCE IN PREDICTING GLOMERULAR FILTRATION RATE. ESTIMATED GFR IS NOT APPLICABLE FOR DIALYSIS PATIENTS. [id number] 21:35:00 Test Item Value Reference Range Comments PHOSPHORUS (BEAKER) (test luui=554) 4.8 mg/dL 2.3-4.7 [id number] 21:35:00 Test Item Value Reference Range Comments MAGNESIUM (BEAKER) (test ogku=890) 1.9 mg/dL 1.6-2.6 CBC W/PLT COUNT & AUTO [id number] 21:11:00 Test Item Value Reference Range Comments WHITE BLOOD CELL COUNT (BEAKER) (test fvtq=270) 16.4 K/ L 3.5-10.5 RED BLOOD CELL COUNT (BEAKER) (test ezqv=363) 3.26 M/ L 3.93-5.22 HEMOGLOBIN (BEAKER) (test ygby=591) 8.3 GM/DL 11.2-15.7 HEMATOCRIT (BEAKER) (test asxg=607) 27.3 % 34.1-44.9 MEAN CORPUSCULAR VOLUME (BEAKER) (test shgd=939) 83.7 fL 79.4-94.8 MEAN CORPUSCULAR HEMOGLOBIN (BEAKER) (test 25.5 pg 25.6-32.2 befb=389) MEAN CORPUSCULAR HEMOGLOBIN CONC (BEAKER) (test 30.4 GM/DL 32.2-35.5 bjgr=017) RED CELL DISTRIBUTION WIDTH (BEAKER) (test 17.5 % 11.7-14.4 bygn=922) PLATELET COUNT (BEAKER) (test vfzl=332) 281 K/CU MM 150-450 MEAN PLATELET VOLUME (BEAKER) (test caqv=344) 9.0 fL 9.4-12.3 NUCLEATED RED BLOOD CELLS (BEAKER) (test 0 /100 WBC 0-0 cyqc=782) NEUTROPHILS RELATIVE PERCENT (BEAKER) (test 88 % gnsz=322) LYMPHOCYTES RELATIVE PERCENT (BEAKER) (test 4 % cndx=899) MONOCYTES RELATIVE PERCENT (BEAKER) (test 6 % nyfq=042) EOSINOPHILS RELATIVE PERCENT (BEAKER) (test 1 % khiv=368) BASOPHILS RELATIVE PERCENT (BEAKER) (test 0 % tkmu=344) NEUTROPHILS ABSOLUTE COUNT (BEAKER) (test 14.43 K/ L 1.56-6.13 otnq=217) LYMPHOCYTES ABSOLUTE COUNT (BEAKER) (test 0.70 K/ L 1.18-3.74 euuc=714) MONOCYTES ABSOLUTE COUNT (BEAKER) (test 0.99 K/ L 0.24-0.36 adyq=417) EOSINOPHILS ABSOLUTE COUNT (BEAKER) (test 0.12 K/ L 0.04-0.36 zxin=468) BASOPHILS ABSOLUTE COUNT (BEAKER) (test 0.06 K/ L 0.01-0.08 nguf=677) IMMATURE GRANULOCYTES-RELATIVE PERCENT (BEAKER) 1 % 0-1 (test dnik=4166) BLOOD GAS, [id number] 20:46:00 Test Item Value Reference Range Comments PH ARTERIAL (BEAKER) (test nhho=204) 7.28 7.35-7.45 PCO2 ARTERIAL (BEAKER) (test xivf=100) 31 mmHg 35-45 PO2 ARTERIAL (BEAKER) (test eoym=416) 288 mmHg 80-90 O2 SATURATION ARTERIAL (BEAKER) (test gmul=397) 99.6 % 96.0-97.0 HCO3 ARTERIAL (BEAKER) (test znga=756) 14 mmol/L 21-29 BASE EXCESS ARTERIAL (BEAKER) (test nqua=690) -11.4 mmol/L -2.0-3.0 PATIENT TEMPERATURE (BEAKER) (test jnvg=1369) 37.2 C FIO2 (BEAKER) (test kwpr=3241) 60.0 % BASIC METABOLIC [id number] 17:29:00 Test Item Value Reference Range Comments SODIUM (BEAKER) (test 142 meq/L 136-145 dtbt=756) POTASSIUM (BEAKER) (test 4.1 meq/L 3.5-5.1 roxv=633) CHLORIDE (BEAKER) (test 117 meq/L 98-107 sfbm=019) CO2 (BEAKER) (test 13 meq/L 22-29 rjlb=428) BLOOD UREA NITROGEN 24 mg/dL 7-21 (BEAKER) (test jwcp=062) CREATININE (BEAKER) (test 4.73 mg/dL 0.57-1.25 xwnv=633) GLUCOSE RANDOM (BEAKER) 66 mg/dL 70-105 (test tmkp=495) CALCIUM (BEAKER) (test 8.4 mg/dL 8.4-10.2 ozix=442) EGFR (BEAKER) (test 9 mL/min/1.73 sq m ESTIMATED GFR IS NOT tewb=8097) ACCURATE CREATININE CLEARANCE IN PREDICTING GLOMERULAR FILTRATION RATE. ESTIMATED GFR IS NOT APPLICABLE FOR DIALYSIS PATIENTS. [id number] 17:24:00 Test Item Value Reference Range Comments PHOSPHORUS (BEAKER) (test cqva=583) 5.2 mg/dL 2.3-4.7 [id number] 17:24:00 Test Item Value Reference Range Comments MAGNESIUM (BEAKER) (test fitx=360) 2.0 mg/dL 1.6-2.6 PROTHROMBIN [id number] 17:17:00 Test Item Value Reference Range Comments PROTIME (BEAKER) (test xzvu=485) 17.3 seconds 11.7-14.7 INR (BEAKER) (test bwsm=792) 1.4 <=5.9 RECOMMENDED COUMADIN/WARFARIN INR THERAPY RANGESSTANDARD DOSE: 2.0 - 3.0 Includes: PROPHYLAXIS forvenous thrombosis, systemic embolization; TREATMENT for venous thrombosis and/or pulmonary embolus.HIGH RISK: Target INR is 2.5-3.5 for patients with mechanical heart valves.CBC W/PLT COUNT & AUTO [id number] 17:15:00 Test Item Value Reference Range Comments WHITE BLOOD CELL COUNT (BEAKER) (test xcww=610) 19.0 K/ L 3.5-10.5 RED BLOOD CELL COUNT (BEAKER) (test ednt=954) 3.39 M/ L 3.93-5.22 HEMOGLOBIN (BEAKER) (test njhx=039) 8.9 GM/DL 11.2-15.7 HEMATOCRIT (BEAKER) (test tqpe=632) 28.6 % 34.1-44.9 MEAN CORPUSCULAR VOLUME (BEAKER) (test kqzy=137) 84.4 fL 79.4-94.8 MEAN CORPUSCULAR HEMOGLOBIN (BEAKER) (test 26.3 pg 25.6-32.2 wzvh=916) MEAN CORPUSCULAR HEMOGLOBIN CONC (BEAKER) (test 31.1 GM/DL 32.2-35.5 fgro=272) RED CELL DISTRIBUTION WIDTH (BEAKER) (test 17.4 % 11.7-14.4 bdaa=725) PLATELET COUNT (BEAKER) (test ojlt=160) 315 K/CU MM 150-450 MEAN PLATELET VOLUME (BEAKER) (test brdx=484) 9.0 fL 9.4-12.3 NUCLEATED RED BLOOD CELLS (BEAKER) (test 0 /100 WBC 0-0 gjrv=920) NEUTROPHILS RELATIVE PERCENT (BEAKER) (test 89 % xapn=743) LYMPHOCYTES RELATIVE PERCENT (BEAKER) (test 3 % rsla=752) MONOCYTES RELATIVE PERCENT (BEAKER) (test 6 % vejv=905) EOSINOPHILS RELATIVE PERCENT (BEAKER) (test 1 % pwxv=374) BASOPHILS RELATIVE PERCENT (BEAKER) (test 0 % fvjz=562) NEUTROPHILS ABSOLUTE COUNT (BEAKER) (test 17.02 K/ L 1.56-6.13 hkwk=840) LYMPHOCYTES ABSOLUTE COUNT (BEAKER) (test 0.62 K/ L 1.18-3.74 wrel=941) MONOCYTES ABSOLUTE COUNT (BEAKER) (test 1.04 K/ L 0.24-0.36 wetu=926) EOSINOPHILS ABSOLUTE COUNT (BEAKER) (test 0.11 K/ L 0.04-0.36 hfdw=125) BASOPHILS ABSOLUTE COUNT (BEAKER) (test 0.07 K/ L 0.01-0.08 bcha=219) IMMATURE GRANULOCYTES-RELATIVE PERCENT (BEAKER) 1 % 0-1 (test ympn=2420) BLOOD GAS, [id number] 17:07:00 Test Item Value Reference Range Comments PH ARTERIAL (BEAKER) (test gmre=077) 7.21 7.35-7.45 PCO2 ARTERIAL (BEAKER) (test xptu=537) 31 mmHg 35-45 PO2 ARTERIAL (BEAKER) (test mbdo=425) 105 mmHg 80-90 O2 SATURATION ARTERIAL (BEAKER) (test qifc=898) 96.4 % 96.0-97.0 HCO3 ARTERIAL (BEAKER) (test ygpt=804) 12 mmol/L 21-29 BASE EXCESS ARTERIAL (BEAKER) (test woxb=144) -14.4 mmol/L -2.0-3.0 PATIENT TEMPERATURE (BEAKER) (test jsyq=5511) 38.0 C FIO2 (BEAKER) (test gspx=0820) 60.0 % SURGICALLY OBTAINED CULTURE + GRAM [id number] 12:57:00 Test Item Value Reference Range Comments CULTURE (BEAKER) (test bzna=5042) No growth GRAM STAIN RESULT (BEAKER) (test 1+ WBCs cwdu=0936) GRAM STAIN RESULT (BEAKER) (test No organisms seen vcbf=22659) SURGICALLY OBTAINED CULTURE + GRAM [id number] 12:57:00 Test Item Value Reference Range Comments CULTURE (BEAKER) (test rort=6744) No growth GRAM STAIN RESULT (BEAKER) (test <1+ WBCs vjyo=1964) GRAM STAIN RESULT (BEAKER) (test No organisms seen onhb=62295) SURGICALLY OBTAINED CULTURE + GRAM [id number] 12:57:00 Test Item Value Reference Range Comments CULTURE (BEAKER) (test tjoo=3904) No growth GRAM STAIN RESULT (BEAKER) (test <1+ WBCs wqgd=9357) GRAM STAIN RESULT (BEAKER) (test No organisms seen qkxd=23256) SURGICALLY OBTAINED CULTURE + GRAM [id number] 12:56:00 Test Item Value Reference Range Comments CULTURE (BEAKER) (test vhig=0812) No growth GRAM STAIN RESULT (BEAKER) (test <1+ WBCs gaov=4896) GRAM STAIN RESULT (BEAKER) (test No organisms seen zuyc=24147) BASIC METABOLIC [id number] 11:14:00 Test Item Value Reference Range Comments SODIUM (BEAKER) (test 141 meq/L 136-145 hexy=420) POTASSIUM (BEAKER) (test 3.4 meq/L 3.5-5.1 lmfe=688) CHLORIDE (BEAKER) (test 117 meq/L 98-107 jaxr=309) CO2 (BEAKER) (test 14 meq/L 22-29 msgc=706) BLOOD UREA NITROGEN 23 mg/dL 7-21 (BEAKER) (test gpop=287) CREATININE (BEAKER) (test 4.36 mg/dL 0.57-1.25 snej=884) GLUCOSE RANDOM (BEAKER) 78 mg/dL 70-105 (test vhuo=578) CALCIUM (BEAKER) (test 8.0 mg/dL 8.4-10.2 nqcd=656) EGFR (BEAKER) (test 10 mL/min/1.73 sq m ESTIMATED GFR IS NOT bwno=1700) ACCURATE CREATININE CLEARANCE IN PREDICTING GLOMERULAR FILTRATION RATE. ESTIMATED GFR IS NOT APPLICABLE FOR DIALYSIS PATIENTS. CBC W/PLT COUNT & AUTO [id number] 11:10:00 Test Item Value Reference Range Comments WHITE BLOOD CELL COUNT (BEAKER) (test ayvj=091) 16.2 K/ L 3.5-10.5 RED BLOOD CELL COUNT (BEAKER) (test qwoi=842) 3.31 M/ L 3.93-5.22 HEMOGLOBIN (BEAKER) (test pzrk=633) 8.5 GM/DL 11.2-15.7 HEMATOCRIT (BEAKER) (test nbnj=561) 27.6 % 34.1-44.9 MEAN CORPUSCULAR VOLUME (BEAKER) (test vjpj=889) 83.4 fL 79.4-94.8 MEAN CORPUSCULAR HEMOGLOBIN (BEAKER) (test 25.7 pg 25.6-32.2 plsv=828) MEAN CORPUSCULAR HEMOGLOBIN CONC (BEAKER) (test 30.8 GM/DL 32.2-35.5 pheg=837) RED CELL DISTRIBUTION WIDTH (BEAKER) (test 17.2 % 11.7-14.4 gvsk=473) PLATELET COUNT (BEAKER) (test pufp=061) 277 K/CU MM 150-450 MEAN PLATELET VOLUME (BEAKER) (test cusd=434) 8.8 fL 9.4-12.3 NUCLEATED RED BLOOD CELLS (BEAKER) (test 0 /100 WBC 0-0 evqt=828) NEUTROPHILS RELATIVE PERCENT (BEAKER) (test 87 % tyla=048) LYMPHOCYTES RELATIVE PERCENT (BEAKER) (test 5 % ohxd=119) MONOCYTES RELATIVE PERCENT (BEAKER) (test 6 % zxnx=052) EOSINOPHILS RELATIVE PERCENT (BEAKER) (test 1 % slog=641) BASOPHILS RELATIVE PERCENT (BEAKER) (test 0 % stlu=571) NEUTROPHILS ABSOLUTE COUNT (BEAKER) (test 14.04 K/ L 1.56-6.13 fapn=218) LYMPHOCYTES ABSOLUTE COUNT (BEAKER) (test 0.85 K/ L 1.18-3.74 tsgf=385) MONOCYTES ABSOLUTE COUNT (BEAKER) (test 1.00 K/ L 0.24-0.36 vctc=155) EOSINOPHILS ABSOLUTE COUNT (BEAKER) (test 0.16 K/ L 0.04-0.36 koyo=876) BASOPHILS ABSOLUTE COUNT (BEAKER) (test 0.05 K/ L 0.01-0.08 nkvs=324) IMMATURE GRANULOCYTES-RELATIVE PERCENT (BEAKER) 1 % 0-1 (test xuag=3706) [id number] 11:08:00 Test Item Value Reference Range Comments PHOSPHORUS (BEAKER) (test txfq=537) 4.6 mg/dL 2.3-4.7 [id number] 11:08:00 Test Item Value Reference Range Comments MAGNESIUM (BEAKER) (test dyye=224) 2.0 mg/dL 1.6-2.6 BLOOD GAS, [id number] 10:44:00 Test Item Value Reference Range Comments PH ARTERIAL (BEAKER) (test jctp=463) 7.30 7.35-7.45 PCO2 ARTERIAL (BEAKER) (test uxka=819) 29 mmHg 35-45 PO2 ARTERIAL (BEAKER) (test dzhz=318) 160 mmHg 80-90 O2 SATURATION ARTERIAL (BEAKER) (test whdo=456) 98.9 % 96.0-97.0 HCO3 ARTERIAL (BEAKER) (test voeg=582) 14 mmol/L 21-29 BASE EXCESS ARTERIAL (BEAKER) (test azdp=959) -11.2 mmol/L -2.0-3.0 PATIENT TEMPERATURE (BEAKER) (test necs=9525) 37.0 C FIO2 (BEAKER) (test buqb=2222) 70.0 % POCT-GLUCOSE [id number] 10:18:00 Test Item Value Reference Range Comments POC-GLUCOSE METER (BEAKER) 89 mg/dL 70-110 TESTED AT [address] (test robr=8651) [place] [id number] RAD, CHEST, 1 VIEW, NON [id number] 09:03:00Reason for exam:->r/o effusionIs the patient ?->NoShould this be performed at the bedside?- >YesFINAL REPORT Chest dated 06/25/2017 COMPARISON: Clinical Information: r/o effusion Comment: Heart is enlarged. Pulmonary vasculature is indistinct. Interstitial diseaseis seen bilaterally suggestive of basilar congestion or pulmonary edema. There is small bilateral pleural effusion. Endotracheal tube, left IJ central venous catheter, and left chest tubes remain in place. No pneumothorax is noted. Signed: Eric [place] Verified Date/Time: 06/25/2017 09:03:49 Reading Location: [facility] [id number] Ortho Consult Reading Room POCT-GLUCOSE [id number] 08:04:00 Test Item Value Reference Range Comments POC-GLUCOSE METER (BEAKER) 65 mg/dL 70-110 TESTED AT [address] (test vuen=0226) [facility] [id number] CBC W/PLT COUNT & AUTO [id number] 07:40:00 Test Item Value Reference Range Comments WHITE BLOOD CELL COUNT (BEAKER) (test kxwl=154) 16.9 K/ L 3.5-10.5 RED BLOOD CELL COUNT (BEAKER) (test ovce=441) 3.34 M/ L 3.93-5.22 HEMOGLOBIN (BEAKER) (test dcdz=241) 8.6 GM/DL 11.2-15.7 HEMATOCRIT (BEAKER) (test xajm=516) 27.9 % 34.1-44.9 MEAN CORPUSCULAR VOLUME (BEAKER) (test qkpm=303) 83.5 fL 79.4-94.8 MEAN CORPUSCULAR HEMOGLOBIN (BEAKER) (test 25.7 pg 25.6-32.2 fazl=908) MEAN CORPUSCULAR HEMOGLOBIN CONC (BEAKER) (test 30.8 GM/DL 32.2-35.5 zlyj=012) RED CELL DISTRIBUTION WIDTH (BEAKER) (test 17.3 % 11.7-14.4 phst=209) PLATELET COUNT (BEAKER) (test bfzb=830) 308 K/CU MM 150-450 MEAN PLATELET VOLUME (BEAKER) (test vpsn=024) 9.3 fL 9.4-12.3 NUCLEATED RED BLOOD CELLS (BEAKER) (test 0 /100 WBC 0-0 nols=226) NEUTROPHILS RELATIVE PERCENT (BEAKER) (test 87 % igln=777) LYMPHOCYTES RELATIVE PERCENT (BEAKER) (test 5 % ldvb=524) MONOCYTES RELATIVE PERCENT (BEAKER) (test 6 % hotz=742) EOSINOPHILS RELATIVE PERCENT (BEAKER) (test 1 % wupi=252) BASOPHILS RELATIVE PERCENT (BEAKER) (test 0 % aybj=396) NEUTROPHILS ABSOLUTE COUNT (BEAKER) (test 14.64 K/ L 1.56-6.13 nevj=193) LYMPHOCYTES ABSOLUTE COUNT (BEAKER) (test 0.86 K/ L 1.18-3.74 jxwa=738) MONOCYTES ABSOLUTE COUNT (BEAKER) (test 1.05 K/ L 0.24-0.36 lfxd=807) EOSINOPHILS ABSOLUTE COUNT (BEAKER) (test 0.17 K/ L 0.04-0.36 xxza=203) BASOPHILS ABSOLUTE COUNT (BEAKER) (test 0.06 K/ L 0.01-0.08 vfap=150) IMMATURE GRANULOCYTES-RELATIVE PERCENT (BEAKER) 1 % 0-1 (test ywhx=1683) BASIC METABOLIC [id number] 07:06:00 Test Item Value Reference Range Comments SODIUM (BEAKER) (test 141 meq/L 136-145 lien=352) POTASSIUM (BEAKER) (test 3.5 meq/L 3.5-5.1 reem=067) CHLORIDE (BEAKER) (test 116 meq/L 98-107 bade=395) CO2 (BEAKER) (test 13 meq/L 22-29 ttwx=352) BLOOD UREA NITROGEN 21 mg/dL 7-21 (BEAKER) (test wxxl=961) CREATININE (BEAKER) (test 4.19 mg/dL 0.57-1.25 xaoy=266) GLUCOSE RANDOM (BEAKER) 65 mg/dL 70-105 (test gvwj=537) CALCIUM (BEAKER) (test 8.0 mg/dL 8.4-10.2 rdcx=617) EGFR (BEAKER) (test 11 mL/min/1.73 sq m ESTIMATED GFR IS NOT hpph=2577) ACCURATE CREATININE CLEARANCE IN PREDICTING GLOMERULAR FILTRATION RATE. ESTIMATED GFR IS NOT APPLICABLE FOR DIALYSIS PATIENTS. [id number] 06:57:00 Test Item Value Reference Range Comments PHOSPHORUS (BEAKER) (test yqos=348) 4.1 mg/dL 2.3-4.7 [id number] 06:57:00 Test Item Value Reference Range Comments MAGNESIUM (BEAKER) (test eljn=602) 2.0 mg/dL 1.6-2.6 VANCOMYCIN LEVEL, [id number] 06:33:00 Test Item Value Reference Range Comments VANCOMYCIN RANDOM (BEAKER) (test uciw=332) 16.9 ug/mL Reference Range: No NormalsPROTHROMBIN [id number] 06:03:00 Test Item Value Reference Range Comments PROTIME (BEAKER) (test oksd=436) 17.8 seconds 11.7-14.7 INR (BEAKER) (test iyyl=261) 1.5 <=5.9 RECOMMENDED COUMADIN/WARFARIN INR THERAPY RANGESSTANDARD DOSE: 2.0 - 3.0 Includes: PROPHYLAXIS forvenous thrombosis, systemic embolization; TREATMENT for venous thrombosis and/or pulmonary embolus.HIGH RISK: Target INR is 2.5-3.5 for patients with mechanical heart valves.BLOOD GAS, [id number] 05:41:00 Test Item Value Reference Range Comments PH ARTERIAL (BEAKER) (test rabm=796) 7.26 7.35-7.45 PCO2 ARTERIAL (BEAKER) (test fbab=096) 32 mmHg 35-45 PO2 ARTERIAL (BEAKER) (test hssj=273) 75 mmHg 80-90 O2 SATURATION ARTERIAL (BEAKER) (test jixi=820) 92.8 % 96.0-97.0 HCO3 ARTERIAL (BEAKER) (test hheg=295) 14 mmol/L 21-29 BASE EXCESS ARTERIAL (BEAKER) (test fuvp=223) -11.8 mmol/L -2.0-3.0 PATIENT TEMPERATURE (BEAKER) (test deim=9075) 37.5 C FIO2 (BEAKER) (test sguq=2346) 100.0 % OSMOLALITY, [id number] 16:49:00 Test Item Value Reference Range Comments OSMOLALITY, SERUM (BEAKER) (test odrp=572) 292 mOsm/kg 275-295 BASIC METABOLIC [id number] 16:46:00 Test Item Value Reference Range Comments SODIUM (BEAKER) (test 140 meq/L 136-145 pmhu=303) POTASSIUM (BEAKER) (test 3.2 meq/L 3.5-5.1 jvxp=719) CHLORIDE (BEAKER) (test 114 meq/L 98-107 ftcs=866) CO2 (BEAKER) (test 16 meq/L 22-29 foho=290) BLOOD UREA NITROGEN 17 mg/dL 7-21 (BEAKER) (test ljqp=775) CREATININE (BEAKER) (test 3.44 mg/dL 0.57-1.25 eozc=659) GLUCOSE RANDOM (BEAKER) 79 mg/dL 70-105 (test teni=176) CALCIUM (BEAKER) (test 7.6 mg/dL 8.4-10.2 egbl=459) EGFR (BEAKER) (test 14 mL/min/1.73 sq m ESTIMATED GFR IS NOT bdeb=1878) ACCURATE CREATININE CLEARANCE IN PREDICTING GLOMERULAR FILTRATION RATE. ESTIMATED GFR IS NOT APPLICABLE FOR DIALYSIS PATIENTS. [id number] 16:45:00 Test Item Value Reference Range Comments PHOSPHORUS (BEAKER) (test rvlk=998) 3.2 mg/dL 2.3-4.7 [id number] 16:45:00 Test Item Value Reference Range Comments MAGNESIUM (BEAKER) (test syna=846) 1.9 mg/dL 1.6-2.6 PROTHROMBIN [id number] 16:29:00 Test Item Value Reference Range Comments PROTIME (BEAKER) (test hrki=617) 17.7 seconds 11.7-14.7 INR (BEAKER) (test bjbc=974) 1.5 <=5.9 RECOMMENDED COUMADIN/WARFARIN INR THERAPY RANGESSTANDARD DOSE: 2.0 - 3.0 Includes: PROPHYLAXIS forvenous thrombosis, systemic embolization; TREATMENT for venous thrombosis and/or pulmonary embolus.HIGH RISK: Target INR is 2.5-3.5 for patients with mechanical heart valves.CBC W/PLT COUNT & AUTO [id number] 16:24:00 Test Item Value Reference Range Comments WHITE BLOOD CELL COUNT (BEAKER) (test luyn=285) 13.9 K/ L 3.5-10.5 RED BLOOD CELL COUNT (BEAKER) (test xyax=721) 3.10 M/ L 3.93-5.22 HEMOGLOBIN (BEAKER) (test jfql=142) 7.8 GM/DL 11.2-15.7 HEMATOCRIT (BEAKER) (test uppu=719) 25.6 % 34.1-44.9 MEAN CORPUSCULAR VOLUME (BEAKER) (test fons=035) 82.6 fL 79.4-94.8 MEAN CORPUSCULAR HEMOGLOBIN (BEAKER) (test 25.2 pg 25.6-32.2 tikz=244) MEAN CORPUSCULAR HEMOGLOBIN CONC (BEAKER) (test 30.5 GM/DL 32.2-35.5 qvyb=258) RED CELL DISTRIBUTION WIDTH (BEAKER) (test 17.2 % 11.7-14.4 twua=558) PLATELET COUNT (BEAKER) (test oepn=698) 318 K/CU MM 150-450 MEAN PLATELET VOLUME (BEAKER) (test vngq=286) 9.4 fL 9.4-12.3 NUCLEATED RED BLOOD CELLS (BEAKER) (test 0 /100 WBC 0-0 zgsg=689) NEUTROPHILS RELATIVE PERCENT (BEAKER) (test 85 % dvdb=606) LYMPHOCYTES RELATIVE PERCENT (BEAKER) (test 6 % wjpo=735) MONOCYTES RELATIVE PERCENT (BEAKER) (test 7 % dkne=986) EOSINOPHILS RELATIVE PERCENT (BEAKER) (test 1 % cgfz=190) BASOPHILS RELATIVE PERCENT (BEAKER) (test 0 % yrcr=590) NEUTROPHILS ABSOLUTE COUNT (BEAKER) (test 11.82 K/ L 1.56-6.13 jyhk=415) LYMPHOCYTES ABSOLUTE COUNT (BEAKER) (test 0.86 K/ L 1.18-3.74 ocwn=690) MONOCYTES ABSOLUTE COUNT (BEAKER) (test 0.99 K/ L 0.24-0.36 fsab=774) EOSINOPHILS ABSOLUTE COUNT (BEAKER) (test 0.12 K/ L 0.04-0.36 oqay=591) BASOPHILS ABSOLUTE COUNT (BEAKER) (test 0.04 K/ L 0.01-0.08 wfjw=422) IMMATURE GRANULOCYTES-RELATIVE PERCENT (BEAKER) 1 % 0-1 (test jdra=2772) BLOOD GAS, [id number] 16:15:00 Test Item Value Reference Range Comments PH ARTERIAL (BEAKER) (test xfww=106) 7.34 7.35-7.45 PCO2 ARTERIAL (BEAKER) (test dumd=937) 32 mmHg 35-45 PO2 ARTERIAL (BEAKER) (test qvrf=267) 175 mmHg 80-90 O2 SATURATION ARTERIAL (BEAKER) (test qwta=665) 99.1 % 96.0-97.0 HCO3 ARTERIAL (BEAKER) (test tsct=493) 17 mmol/L 21-29 BASE EXCESS ARTERIAL (BEAKER) (test jlkk=749) -8.3 mmol/L -2.0-3.0 PATIENT TEMPERATURE (BEAKER) (test mymq=9289) 37.2 C FIO2 (BEAKER) (test jyar=2162) 60.0 % BRONCHIAL CULTURE + GRAM [id number] 13:50:00 Test Item Value Reference Range Comments CULTURE (BEAKER) (test bjyp=8023) No growth GRAM STAIN RESULT (BEAKER) (test <1+ WBCs emgx=8301) GRAM STAIN RESULT (BEAKER) (test No organisms seen orqb=32667) RAD, CHEST, 1 VIEW, NON [id number] 11:38:00Reason for exam:->CVC line verificationShould this be performed at the bedside?->YesFINAL REPORT Chest dated 06/24/2017 COMPARISON: Same day Clinical Information: CVC line verification Comment: Since prior examination, there is interval placement of a left IJ central venous catheter with tip noted in the junction of the superior vena cava and right atrium. Endotracheal tube has been placed with tip seen by 1 cm above the rachele. Heart is enlarged. Pulmonary vasculature is indistinct. Interstitial disease is seen bilaterally suggestive of pulmonary edema. There is small left pleural effusion and a trace right pleural effusion. No pneumothorax is seen. Left chest tubes remain in place. Signed: Eric Fish MDReport Verified Date/Time: 06/24/2017 11:38:23 Reading Location: [address] Ortho Consult Reading Room CBC W/PLT COUNT & AUTO [id number] 11:19:00 Test Item Value Reference Range Comments WHITE BLOOD CELL COUNT (BEAKER) (test vaww=805) 15.2 K/ L 3.5-10.5 RED BLOOD CELL COUNT (BEAKER) (test fpue=223) 3.25 M/ L 3.93-5.22 HEMOGLOBIN (BEAKER) (test nnmu=390) 8.3 GM/DL 11.2-15.7 HEMATOCRIT (BEAKER) (test huek=602) 27.3 % 34.1-44.9 MEAN CORPUSCULAR VOLUME (BEAKER) (test acsf=085) 84.0 fL 79.4-94.8 MEAN CORPUSCULAR HEMOGLOBIN (BEAKER) (test 25.5 pg 25.6-32.2 lyvj=677) MEAN CORPUSCULAR HEMOGLOBIN CONC (BEAKER) (test 30.4 GM/DL 32.2-35.5 slkl=080) RED CELL DISTRIBUTION WIDTH (BEAKER) (test 16.8 % 11.7-14.4 tgaf=871) PLATELET COUNT (BEAKER) (test sukv=683) 303 K/CU MM 150-450 MEAN PLATELET VOLUME (BEAKER) (test hmjs=167) 9.0 fL 9.4-12.3 NUCLEATED RED BLOOD CELLS (BEAKER) (test 0 /100 WBC 0-0 kicb=728) NEUTROPHILS RELATIVE PERCENT (BEAKER) (test 88 % zgix=318) LYMPHOCYTES RELATIVE PERCENT (BEAKER) (test 4 % nksc=793) MONOCYTES RELATIVE PERCENT (BEAKER) (test 7 % mwbt=803) EOSINOPHILS RELATIVE PERCENT (BEAKER) (test 0 % vrya=027) BASOPHILS RELATIVE PERCENT (BEAKER) (test 0 % glas=434) NEUTROPHILS ABSOLUTE COUNT (BEAKER) (test 13.40 K/ L 1.56-6.13 ysgi=880) LYMPHOCYTES ABSOLUTE COUNT (BEAKER) (test 0.61 K/ L 1.18-3.74 gtez=533) MONOCYTES ABSOLUTE COUNT (BEAKER) (test 1.01 K/ L 0.24-0.36 fcuy=754) EOSINOPHILS ABSOLUTE COUNT (BEAKER) (test 0.01 K/ L 0.04-0.36 yfxs=432) BASOPHILS ABSOLUTE COUNT (BEAKER) (test 0.02 K/ L 0.01-0.08 qeec=965) IMMATURE GRANULOCYTES-RELATIVE PERCENT (BEAKER) 1 % 0-1 (test phoi=0650) BASIC METABOLIC [id number] 09:55:00 Test Item Value Reference Range Comments SODIUM (BEAKER) (test 140 meq/L 136-145 chsr=619) POTASSIUM (BEAKER) (test 3.5 meq/L 3.5-5.1 cygi=987) CHLORIDE (BEAKER) (test 114 meq/L 98-107 dlkz=341) CO2 (BEAKER) (test 16 meq/L 22-29 kjvi=821) BLOOD UREA NITROGEN 16 mg/dL 7-21 (BEAKER) (test sldw=426) CREATININE (BEAKER) (test 3.06 mg/dL 0.57-1.25 imfb=244) GLUCOSE RANDOM (BEAKER) 118 mg/dL 70-105 (test bavs=818) CALCIUM (BEAKER) (test 7.6 mg/dL 8.4-10.2 mkjq=268) EGFR (BEAKER) (test 16 mL/min/1.73 sq m ESTIMATED GFR IS NOT ivjn=3400) ACCURATE CREATININE CLEARANCE IN PREDICTING GLOMERULAR FILTRATION RATE. ESTIMATED GFR IS NOT APPLICABLE FOR DIALYSIS PATIENTS. [id number] 09:39:00 Test Item Value Reference Range Comments PHOSPHORUS (BEAKER) (test ytpk=648) 4.2 mg/dL 2.3-4.7 [id number] 09:39:00 Test Item Value Reference Range Comments MAGNESIUM (BEAKER) (test ppmh=904) 2.0 mg/dL 1.6-2.6 RAD, CHEST, 1 VIEW, NON [id number] 09:18:00Reason for exam:->L pleural effusion, empyemaShould this be performed at the bedside?->YesFINAL REPORT Chest, one view. HISTORY: Left pleural effusion, empyema COMPARISON: 06/23/2017 IMPRESSION: Interval extubation. Remaining supporting hardware unchanged in position.Moderate central venous congestion and small bilateral pleural effusions. Unchanged enlargement of the cardiomediastinal silhouette. No pneumothorax. Signed: Marcellus Braxton Verified Date/Time: 06/24/2017 09:18:28 Reading Location: [facility] C013Y CT Body Reading Room BLOOD GAS, [id number] 09:17:00 Test Item Value Reference Range Comments PH ARTERIAL (BEAKER) (test njmv=719) 7.32 7.35-7.45 PCO2 ARTERIAL (BEAKER) (test veoa=624) 32 mmHg 35-45 PO2 ARTERIAL (BEAKER) (test nyzg=976) 106 mmHg 80-90 O2 SATURATION ARTERIAL (BEAKER) (test fdmc=445) 97.5 % 96.0-97.0 HCO3 ARTERIAL (BEAKER) (test vcze=529) 16 mmol/L 21-29 BASE EXCESS ARTERIAL (BEAKER) (test xexs=848) -8.7 mmol/L -2.0-3.0 PATIENT TEMPERATURE (BEAKER) (test vcxh=2285) 37.3 C FIO2 (BEAKER) (test uudh=0561) 60.0 % CBC W/PLT COUNT & AUTO [id number] 07:49:00 Test Item Value Reference Range Comments WHITE BLOOD CELL COUNT (BEAKER) (test yfpt=290) 25.0 K/ L 3.5-10.5 RED BLOOD CELL COUNT (BEAKER) (test tidi=590) 3.91 M/ L 3.93-5.22 HEMOGLOBIN (BEAKER) (test xbmz=950) 9.7 GM/DL 11.2-15.7 HEMATOCRIT (BEAKER) (test xuuv=416) 34.1 % 34.1-44.9 MEAN CORPUSCULAR VOLUME (BEAKER) (test viva=504) 87.2 fL 79.4-94.8 MEAN CORPUSCULAR HEMOGLOBIN (BEAKER) (test 24.8 pg 25.6-32.2 knks=949) MEAN CORPUSCULAR HEMOGLOBIN CONC (BEAKER) (test 28.4 GM/DL 32.2-35.5 zrtn=074) RED CELL DISTRIBUTION WIDTH (BEAKER) (test 17.0 % 11.7-14.4 qebf=269) PLATELET COUNT (BEAKER) (test npuk=133) 424 K/CU MM 150-450 MEAN PLATELET VOLUME (BEAKER) (test ydnj=081) 9.5 fL 9.4-12.3 NUCLEATED RED BLOOD CELLS (BEAKER) (test 0 /100 WBC 0-0 kbvl=122) NEUTROPHILS RELATIVE PERCENT (BEAKER) (test 88 % fymk=598) LYMPHOCYTES RELATIVE PERCENT (BEAKER) (test 3 % xmlp=528) MONOCYTES RELATIVE PERCENT (BEAKER) (test 7 % zcsu=300) EOSINOPHILS RELATIVE PERCENT (BEAKER) (test 0 % rsui=916) BASOPHILS RELATIVE PERCENT (BEAKER) (test 0 % ynqj=063) NEUTROPHILS ABSOLUTE COUNT (BEAKER) (test 22.02 K/ L 1.56-6.13 vnwp=841) LYMPHOCYTES ABSOLUTE COUNT (BEAKER) (test 0.82 K/ L 1.18-3.74 acwz=579) MONOCYTES ABSOLUTE COUNT (BEAKER) (test 1.66 K/ L 0.24-0.36 zgye=406) EOSINOPHILS ABSOLUTE COUNT (BEAKER) (test 0.05 K/ L 0.04-0.36 tsaj=481) BASOPHILS ABSOLUTE COUNT (BEAKER) (test 0.06 K/ L 0.01-0.08 dept=375) IMMATURE GRANULOCYTES-RELATIVE PERCENT (BEAKER) 1 % 0-1 (test brrc=2091) (MANUAL DIFFERENTIAL)2017-06-24 07:49:00 Test Item Value Reference Range Comments TOTAL COUNTED (BEAKER) (test ambf=2456) WBC MORPHOLOGY (BEAKER) (test kpiz=713) Normal PLT MORPHOLOGY (BEAKER) (test qfvf=155) Normal DARBY CELLS (BEAKER) (test hvgz=669) 2+ moderate BASIC METABOLIC [id number] 06:17:00 Test Item Value Reference Range Comments SODIUM (BEAKER) (test 138 meq/L 136-145 yidz=493) POTASSIUM (BEAKER) (test 4.2 meq/L 3.5-5.1 rlio=942) CHLORIDE (BEAKER) (test 114 meq/L 98-107 wczm=807) CO2 (BEAKER) (test 15 meq/L 22-29 egex=035) BLOOD UREA NITROGEN 15 mg/dL 7-21 (BEAKER) (test tndk=276) CREATININE (BEAKER) (test 2.90 mg/dL 0.57-1.25 ggah=891) GLUCOSE RANDOM (BEAKER) 120 mg/dL 70-105 (test hmao=276) CALCIUM (BEAKER) (test 8.0 mg/dL 8.4-10.2 asag=109) EGFR (BEAKER) (test 17 mL/min/1.73 sq m ESTIMATED GFR IS NOT ioku=3778) ACCURATE CREATININE CLEARANCE IN PREDICTING GLOMERULAR FILTRATION RATE. ESTIMATED GFR IS NOT APPLICABLE FOR DIALYSIS PATIENTS. [id number] 06:15:00 Test Item Value Reference Range Comments PHOSPHORUS (BEAKER) (test qbhx=275) 5.7 mg/dL 2.3-4.7 [id number] 06:15:00 Test Item Value Reference Range Comments MAGNESIUM (BEAKER) (test nmci=455) 2.1 mg/dL 1.6-2.6 VANCOMYCIN LEVEL, [id number] 06:14:00 Test Item Value Reference Range Comments VANCOMYCIN RANDOM (BEAKER) (test khlh=312) 17.2 ug/mL Reference Range: No NormalsBLOOD GAS, [id number] 05:47:00 Test Item Value Reference Range Comments PH ARTERIAL (BEAKER) (test dfds=364) 7.07 7.35-7.45 PCO2 ARTERIAL (BEAKER) (test kgxa=757) 61 mmHg 35-45 PO2 ARTERIAL (BEAKER) (test leju=679) 93 mmHg 80-90 O2 SATURATION ARTERIAL (BEAKER) (test iocu=132) 93.3 % 96.0-97.0 HCO3 ARTERIAL (BEAKER) (test tvab=093) 17 mmol/L 21-29 BASE EXCESS ARTERIAL (BEAKER) (test gbzp=377) -13.0 mmol/L -2.0-3.0 PATIENT TEMPERATURE (BEAKER) (test mkby=3561) 37.1 C FIO2 (BEAKER) (test uznm=4583) 60.0 % PROTHROMBIN [id number] 05:45:00 Test Item Value Reference Range Comments PROTIME (BEAKER) (test cddp=853) 16.9 seconds 11.7-14.7 INR (BEAKER) (test otus=260) 1.4 <=5.9 RECOMMENDED COUMADIN/WARFARIN INR THERAPY RANGESSTANDARD DOSE: 2.0 - 3.0 Includes: PROPHYLAXIS forvenous thrombosis, systemic embolization; TREATMENT for venous thrombosis and/or pulmonary embolus.HIGH RISK: Target INR is 2.5-3.5 for patients with mechanical heart valves.BASIC METABOLIC [id number] 16:51: 00 Test Item Value Reference Range Comments SODIUM (BEAKER) (test 138 meq/L 136-145 dfpm=716) POTASSIUM (BEAKER) (test 3.2 meq/L 3.5-5.1 obwv=512) CHLORIDE (BEAKER) (test 113 meq/L 98-107 vauc=992) CO2 (BEAKER) (test 16 meq/L 22-29 ikht=554) BLOOD UREA NITROGEN 13 mg/dL 7-21 (BEAKER) (test wxab=830) CREATININE (BEAKER) (test 2.17 mg/dL 0.57-1.25 bopi=299) GLUCOSE RANDOM (BEAKER) 121 mg/dL 70-105 (test maiw=577) CALCIUM (BEAKER) (test 7.3 mg/dL 8.4-10.2 ddpa=981) EGFR (BEAKER) (test 23 mL/min/1.73 sq m ESTIMATED GFR IS NOT vcuw=5826) ACCURATE CREATININE CLEARANCE IN PREDICTING GLOMERULAR FILTRATION RATE. ESTIMATED GFR IS NOT APPLICABLE FOR DIALYSIS PATIENTS. [id number] 16:46:00 Test Item Value Reference Range Comments PHOSPHORUS (BEAKER) (test pzxd=059) 3.2 mg/dL 2.3-4.7 [id number] 16:46:00 Test Item Value Reference Range Comments MAGNESIUM (BEAKER) (test insw=948) 2.0 mg/dL 1.6-2.6 PROTHROMBIN [id number] 16:36:00 Test Item Value Reference Range Comments PROTIME (BEAKER) (test ctyg=362) 17.3 seconds 11.7-14.7 INR (BEAKER) (test sumh=303) 1.4 <=5.9 RECOMMENDED COUMADIN/WARFARIN INR THERAPY RANGESSTANDARD DOSE: 2.0 - 3.0 Includes: PROPHYLAXIS forvenous thrombosis, systemic embolization; TREATMENT for venous thrombosis and/or pulmonary embolus.HIGH RISK: Target INR is 2.5-3.5 for patients with mechanical heart valves.CBC W/PLT COUNT & AUTO [id number] 16:32:00 Test Item Value Reference Range Comments WHITE BLOOD CELL COUNT (BEAKER) (test rdhu=237) 16.7 K/ L 3.5-10.5 RED BLOOD CELL COUNT (BEAKER) (test dxvh=468) 3.40 M/ L 3.93-5.22 HEMOGLOBIN (BEAKER) (test bezj=426) 8.7 GM/DL 11.2-15.7 HEMATOCRIT (BEAKER) (test vzpe=094) 28.1 % 34.1-44.9 MEAN CORPUSCULAR VOLUME (BEAKER) (test pwpp=932) 82.6 fL 79.4-94.8 MEAN CORPUSCULAR HEMOGLOBIN (BEAKER) (test 25.6 pg 25.6-32.2 jljd=051) MEAN CORPUSCULAR HEMOGLOBIN CONC (BEAKER) (test 31.0 GM/DL 32.2-35.5 kand=358) RED CELL DISTRIBUTION WIDTH (BEAKER) (test 16.8 % 11.7-14.4 srvr=471) PLATELET COUNT (BEAKER) (test othy=917) 306 K/CU MM 150-450 MEAN PLATELET VOLUME (BEAKER) (test dhir=340) 9.2 fL 9.4-12.3 NUCLEATED RED BLOOD CELLS (BEAKER) (test 0 /100 WBC 0-0 mmzy=911) NEUTROPHILS RELATIVE PERCENT (BEAKER) (test 86 % wckf=501) LYMPHOCYTES RELATIVE PERCENT (BEAKER) (test 6 % ygpg=141) MONOCYTES RELATIVE PERCENT (BEAKER) (test 8 % yzat=240) EOSINOPHILS RELATIVE PERCENT (BEAKER) (test 0 % jeps=004) BASOPHILS RELATIVE PERCENT (BEAKER) (test 0 % jtwe=504) NEUTROPHILS ABSOLUTE COUNT (BEAKER) (test 14.31 K/ L 1.56-6.13 nsns=061) LYMPHOCYTES ABSOLUTE COUNT (BEAKER) (test 0.96 K/ L 1.18-3.74 wwyn=791) MONOCYTES ABSOLUTE COUNT (BEAKER) (test 1.25 K/ L 0.24-0.36 xhmo=076) EOSINOPHILS ABSOLUTE COUNT (BEAKER) (test 0.05 K/ L 0.04-0.36 jvqi=495) BASOPHILS ABSOLUTE COUNT (BEAKER) (test 0.05 K/ L 0.01-0.08 yzva=254) IMMATURE GRANULOCYTES-RELATIVE PERCENT (BEAKER) 1 % 0-1 (test ggdp=2689) BLOOD GAS, [id number] 16:19:00 Test Item Value Reference Range Comments PH ARTERIAL (BEAKER) (test gvfc=264) 7.24 7.35-7.45 PCO2 ARTERIAL (BEAKER) (test frtt=781) 42 mmHg 35-45 PO2 ARTERIAL (BEAKER) (test kmfp=027) 70 mmHg 80-90 O2 SATURATION ARTERIAL (BEAKER) (test ilgq=406) 91.2 % 96.0-97.0 HCO3 ARTERIAL (BEAKER) (test ngzx=709) 18 mmol/L 21-29 BASE EXCESS ARTERIAL (BEAKER) (test nsos=255) -9.1 mmol/L -2.0-3.0 PATIENT TEMPERATURE (BEAKER) (test xxpw=8213) 36.8 C FIO2 (BEAKER) (test flms=1538) 50.0 % OSMOLALITY, [id number] 14:48:00 Test Item Value Reference Range Comments OSMOLALITY URINE (BEAKER) (test kdeb=207) 228 mOsm/kg 40-1400 CREATININE, RANDOM [id number] 14:00:00 Test Item Value Reference Range Comments CREATININE URINE (BEAKER) (test hvhi=551) 62.4 mg/dL Reference Range: No NormalsSODIUM, RANDOM [id number] 14:00:00 Test Item Value Reference Range Comments SODIUM URINE (BEAKER) (test jrcl=896) 35 meq/L Reference Range: No NormalsTISSUE [id number] 13:58:00Surgical Pathology Report Case: [id number] Authorizing Provider: Brayan Joseph MD Collected: 2016 [id number] Ordering Location: [facility] Received : 06/22/2017 1510 PERIOPERATIVE SERVICES Pathologist: Otis Meade MD Specimens: A) - Pleural, Left, Left Parietal Pleural Peel B) -Pleural, Left, left upper lobe visceral pleural peel C) - Pleural, Left, Left Lower Lobe Viseral Pleural Peel A. PLEURA, LEFT PARIETAL, EXCISION: - FIBROADIPOSE TISSUE WITH MARKED ACUTE INFLAMMATION WITH ABSCESS FORMATION AND NECROSIS. B. PLEURA, LEFT UPPER LOBE VISCERAL, EXCISION:- FIBROUS TISSUE WITH MARKED ACUTE INFLAMMATION WITH ABSCESS FORMATION AND NECROSIS. C. PLEURA, LEFT LOWER LOBE VISCERAL, EXCISION:- FIBROUS TISSUE WITH MARKED ACUTE INFLAMMATION WITH ABSCESS FORMATION AND NECROSIS. Signing Pathologist Direct Phone Line: [phone] signed by Otis Meade MD on 06/23/2017 at 1:58 [id number] [id number] empyemaA. Left parietal pleural peel; B. Left upper lobe visceral pleural peel; C. Lower lobe visceral pleural peelThe specimen is received in three containers of formalin all labeled with thepatient's information, received without formalin. Part A labeled "left parietal pleural peel" consists of multiple fragments of chamipon-hicks and champion-pink soft tissue measuring 2.5 x 2 x 1 cm in aggregate. The specimen is entirely submitted A1 to A3. Part B labeled "left upper lobe visceral pleural peel" consists of a segment of champion-hicks hemorrhagic soft tissue measuring 1.5 x 1 x 0.2 cm. Tissue is submitted entirely B1.Part C labeled "left lower lobe visceral pleural peel" consists of a segment of champion hemorrhagic dusky soft tissue measuring 2.9 x 2 x 0.2 cm. Tissue is sectioned, submitted entirely C1 and C2. CG/pl A-C. Performed.BASIC METABOLIC [id number] 11:58:00 Test Item Value Reference Range Comments SODIUM (BEAKER) (test 135 meq/L 136-145 nqre=733) POTASSIUM (BEAKER) (test 3.2 meq/L 3.5-5.1 edvj=344) CHLORIDE (BEAKER) (test 111 meq/L 98-107 slbp=084) CO2 (BEAKER) (test 16 meq/L 22-29 oeqo=674) BLOOD UREA NITROGEN 13 mg/dL 7-21 (BEAKER) (test otfq=381) CREATININE (BEAKER) (test 1.90 mg/dL 0.57-1.25 vbkc=984) GLUCOSE RANDOM (BEAKER) 172 mg/dL 70-105 (test zznt=808) CALCIUM (BEAKER) (test 7.4 mg/dL 8.4-10.2 lwwm=818) EGFR (BEAKER) (test 27 mL/min/1.73 sq m ESTIMATED GFR IS NOT osmb=8039) ACCURATE CREATININE CLEARANCE IN PREDICTING GLOMERULAR FILTRATION RATE. ESTIMATED GFR IS NOT APPLICABLE FOR DIALYSIS PATIENTS. VANCOMYCIN LEVEL, [id number] 11:56:00 Test Item Value Reference Range Comments VANCOMYCIN TROUGH (BEAKER) (test fytm=828) 22.6 ug/mL 10.0-20.0 Get Vanc trough before next doseDont give Vanc until result reviewed by AUTOMATION AND CONTROLS MANAGER/ [id number] 11:56:00 Test Item Value Reference Range Comments PHOSPHORUS (BEAKER) (test bfis=033) 2.6 mg/dL 2.3-4.7 [id number] 11:56:00 Test Item Value Reference Range Comments MAGNESIUM (BEAKER) (test lkxg=276) 2.1 mg/dL 1.6-2.6 CBC W/PLT COUNT & AUTO [id number] 11:45:00 Test Item Value Reference Range Comments WHITE BLOOD CELL COUNT (BEAKER) (test iofm=660) 17.4 K/ L 3.5-10.5 RED BLOOD CELL COUNT (BEAKER) (test kpaw=225) 3.49 M/ L 3.93-5.22 HEMOGLOBIN (BEAKER) (test dcvt=593) 8.7 GM/DL 11.2-15.7 HEMATOCRIT (BEAKER) (test tbtd=762) 28.7 % 34.1-44.9 MEAN CORPUSCULAR VOLUME (BEAKER) (test ubga=362) 82.2 fL 79.4-94.8 MEAN CORPUSCULAR HEMOGLOBIN (BEAKER) (test 24.9 pg 25.6-32.2 qyfm=472) MEAN CORPUSCULAR HEMOGLOBIN CONC (BEAKER) (test 30.3 GM/DL 32.2-35.5 qlft=400) RED CELL DISTRIBUTION WIDTH (BEAKER) (test 16.6 % 11.7-14.4 kcac=122) PLATELET COUNT (BEAKER) (test zzuq=743) 296 K/CU MM 150-450 MEAN PLATELET VOLUME (BEAKER) (test pvmv=817) 9.7 fL 9.4-12.3 NUCLEATED RED BLOOD CELLS (BEAKER) (test 0 /100 WBC 0-0 vpyg=292) NEUTROPHILS RELATIVE PERCENT (BEAKER) (test 87 % imhb=956) LYMPHOCYTES RELATIVE PERCENT (BEAKER) (test 4 % ucoe=036) MONOCYTES RELATIVE PERCENT (BEAKER) (test 7 % vgki=306) EOSINOPHILS RELATIVE PERCENT (BEAKER) (test 0 % oohp=818) BASOPHILS RELATIVE PERCENT (BEAKER) (test 0 % ljlj=009) NEUTROPHILS ABSOLUTE COUNT (BEAKER) (test 15.21 K/ L 1.56-6.13 qymj=246) LYMPHOCYTES ABSOLUTE COUNT (BEAKER) (test 0.76 K/ L 1.18-3.74 dkyx=938) MONOCYTES ABSOLUTE COUNT (BEAKER) (test 1.19 K/ L 0.24-0.36 ydsa=653) EOSINOPHILS ABSOLUTE COUNT (BEAKER) (test 0.04 K/ L 0.04-0.36 thaf=795) BASOPHILS ABSOLUTE COUNT (BEAKER) (test 0.06 K/ L 0.01-0.08 rsoi=515) IMMATURE GRANULOCYTES-RELATIVE PERCENT (BEAKER) 1 % 0-1 (test nkba=2436) BLOOD GAS, [id number] 11:33:00 Test Item Value Reference Range Comments PH ARTERIAL (BEAKER) (test gzhk=400) 7.30 7.35-7.45 PCO2 ARTERIAL (BEAKER) (test aqoo=698) 35 mmHg 35-45 PO2 ARTERIAL (BEAKER) (test xrdq=115) 79 mmHg 80-90 O2 SATURATION ARTERIAL (BEAKER) (test dmsj=532) 94.4 % 96.0-97.0 HCO3 ARTERIAL (BEAKER) (test ohgx=897) 17 mmol/L 21-29 BASE EXCESS ARTERIAL (BEAKER) (test yqfb=880) -8.6 mmol/L -2.0-3.0 PATIENT TEMPERATURE (BEAKER) (test wpuq=7971) 37.3 C FIO2 (BEAKER) (test wxmc=7448) 50.0 % RAD, CHEST, 1 VIEW, NON [id number] 04:45:00Reason for exam:->r/o effusionIs the patient ?->NoShould this be performed at the bedside?- >YesFINAL REPORT CLINICAL INDICATION: Support lines. Comparison: 06/22/2017 The cardiomediastinal contours are stable. Central pulmonary vascular congestion and left greater than right parenchymal and pleural opacities are unchanged. There is no pneumothorax. Support lines are stable. Signed: Gelacio Glez MDReport Verified Date/Time: 06/23/2017 04:45:33 Reading Location: [address] Reading Room LACTIC ACID, ARTERIAL, WHOLE [id number] 04:02:00 Test Item Value Reference Range Comments LACTATE BLOOD ARTERIAL (2) (BEAKER) (test 1.0 mmol/L 0.5-2.2 lprf=3124) Effective 02/10/2016: Units/Reference Range ChangeNew: 0.5-2.2 mmol/L Previous: 5 -20 mg/dLBASIC METABOLIC [id number] 03:30:00 Test Item Value Reference Range Comments SODIUM (BEAKER) (test 135 meq/L 136-145 ryfv=493) POTASSIUM (BEAKER) (test 3.2 meq/L 3.5-5.1 rodh=783) CHLORIDE (BEAKER) (test 111 meq/L 98-107 ofml=407) CO2 (BEAKER) (test 18 meq/L 22-29 mdbq=712) BLOOD UREA NITROGEN 13 mg/dL 7-21 (BEAKER) (test psks=447) CREATININE (BEAKER) (test 1.38 mg/dL 0.57-1.25 wqap=691) GLUCOSE RANDOM (BEAKER) 170 mg/dL 70-105 (test afnj=585) CALCIUM (BEAKER) (test 7.6 mg/dL 8.4-10.2 pyvz=461) EGFR (BEAKER) (test 39 mL/min/1.73 sq m ESTIMATED GFR IS NOT ljgb=7555) ACCURATE CREATININE CLEARANCE IN PREDICTING GLOMERULAR FILTRATION RATE. ESTIMATED GFR IS NOT APPLICABLE FOR DIALYSIS PATIENTS. [id number] 03:16:00 Test Item Value Reference Range Comments PHOSPHORUS (BEAKER) (test emja=669) 2.2 mg/dL 2.3-4.7 [id number] 03:16:00 Test Item Value Reference Range Comments MAGNESIUM (BEAKER) (test cxjd=274) 2.3 mg/dL 1.6-2.6 PROTHROMBIN TIME/[id number] 03:04:00 Test Item Value Reference Range Comments PROTIME (BEAKER) (test jjzz=777) 18.8 seconds 11.7-14.7 INR (BEAKER) (test gktz=976) 1.6 <=5.9 RECOMMENDED COUMADIN/WARFARIN INR THERAPY RANGESSTANDARD DOSE: 2.0 - 3.0 Includes: PROPHYLAXIS forvenous thrombosis, systemic embolization; TREATMENT for venous thrombosis and/or pulmonary embolus.HIGH RISK: Target INR is 2.5-3.5 for patients with mechanical heart valves.BLOOD GAS, [id number] 02:57:00 Test Item Value Reference Range Comments PH ARTERIAL (BEAKER) (test qfaj=205) 7.38 7.35-7.45 PCO2 ARTERIAL (BEAKER) (test renz=644) 33 mmHg 35-45 PO2 ARTERIAL (BEAKER) (test yvhb=370) 106 mmHg 80-90 O2 SATURATION ARTERIAL (BEAKER) (test fyyj=536) 97.7 % 96.0-97.0 HCO3 ARTERIAL (BEAKER) (test peqt=309) 19 mmol/L 21-29 BASE EXCESS ARTERIAL (BEAKER) (test ccor=033) -5.2 mmol/L -2.0-3.0 PATIENT TEMPERATURE (BEAKER) (test vvtb=5575) 37.7 C FIO2 (BEAKER) (test olth=3607) 60.0 % CBC W/PLT COUNT & AUTO [id number] 02:55:00 Test Item Value Reference Range Comments WHITE BLOOD CELL COUNT (BEAKER) (test kruq=493) 14.6 K/ L 3.5-10.5 RED BLOOD CELL COUNT (BEAKER) (test bych=574) 2.98 M/ L 3.93-5.22 HEMOGLOBIN (BEAKER) (test acdr=498) 7.3 GM/DL 11.2-15.7 HEMATOCRIT (BEAKER) (test hjxu=510) 24.2 % 34.1-44.9 MEAN CORPUSCULAR VOLUME (BEAKER) (test ihyt=220) 81.2 fL 79.4-94.8 MEAN CORPUSCULAR HEMOGLOBIN (BEAKER) (test 24.5 pg 25.6-32.2 ogph=844) MEAN CORPUSCULAR HEMOGLOBIN CONC (BEAKER) (test 30.2 GM/DL 32.2-35.5 ouqk=228) RED CELL DISTRIBUTION WIDTH (BEAKER) (test 16.8 % 11.7-14.4 yhlj=910) PLATELET COUNT (BEAKER) (test qgnf=714) 256 K/CU MM 150-450 MEAN PLATELET VOLUME (BEAKER) (test dvth=113) 9.2 fL 9.4-12.3 NUCLEATED RED BLOOD CELLS (BEAKER) (test 0 /100 WBC 0-0 xptg=966) NEUTROPHILS RELATIVE PERCENT (BEAKER) (test 82 % bcab=855) LYMPHOCYTES RELATIVE PERCENT (BEAKER) (test 8 % gtgk=497) MONOCYTES RELATIVE PERCENT (BEAKER) (test 6 % elap=734) EOSINOPHILS RELATIVE PERCENT (BEAKER) (test 1 % ofss=302) BASOPHILS RELATIVE PERCENT (BEAKER) (test 0 % mwrs=154) NEUTROPHILS ABSOLUTE COUNT (BEAKER) (test 11.88 K/ L 1.56-6.13 jedv=392) LYMPHOCYTES ABSOLUTE COUNT (BEAKER) (test 1.20 K/ L 1.18-3.74 jdjv=508) MONOCYTES ABSOLUTE COUNT (BEAKER) (test 0.92 K/ L 0.24-0.36 pykx=166) EOSINOPHILS ABSOLUTE COUNT (BEAKER) (test 0.21 K/ L 0.04-0.36 bdgp=304) BASOPHILS ABSOLUTE COUNT (BEAKER) (test 0.02 K/ L 0.01-0.08 prxg=202) IMMATURE GRANULOCYTES-RELATIVE PERCENT (BEAKER) 2 % 0-1 (test tlsb=8716) [id number] 21:00:00 Test Item Value Reference Range Comments MAGNESIUM (BEAKER) (test yddm=271) 2.2 mg/dL 1.6-2.6 BASIC METABOLIC [id number] 21:00:00 Test Item Value Reference Range Comments SODIUM (BEAKER) (test 136 meq/L 136-145 cthj=700) POTASSIUM (BEAKER) (test 3.6 meq/L 3.5-5.1 ofgh=279) CHLORIDE (BEAKER) (test 112 meq/L 98-107 eexf=860) CO2 (BEAKER) (test 18 meq/L 22-29 gjbd=062) BLOOD UREA NITROGEN 13 mg/dL 7-21 (BEAKER) (test gdbx=494) CREATININE (BEAKER) (test 0.93 mg/dL 0.57-1.25 gjzu=436) GLUCOSE RANDOM (BEAKER) 154 mg/dL 70-105 (test szdw=749) CALCIUM (BEAKER) (test 7.6 mg/dL 8.4-10.2 qziz=890) EGFR (BEAKER) (test 61 mL/min/1.73 sq m ESTIMATED GFR IS NOT jepo=6524) ACCURATE CREATININE CLEARANCE IN PREDICTING GLOMERULAR FILTRATION RATE. ESTIMATED GFR IS NOT APPLICABLE FOR DIALYSIS PATIENTS. CBC W/PLT COUNT & AUTO [id number] 20:47:00 Test Item Value Reference Range Comments WHITE BLOOD CELL COUNT (BEAKER) (test nulc=133) 18.8 K/ L 3.5-10.5 RED BLOOD CELL COUNT (BEAKER) (test bhed=586) 3.12 M/ L 3.93-5.22 HEMOGLOBIN (BEAKER) (test dtpa=465) 7.6 GM/DL 11.2-15.7 HEMATOCRIT (BEAKER) (test qmsg=991) 25.2 % 34.1-44.9 MEAN CORPUSCULAR VOLUME (BEAKER) (test qmwe=225) 80.8 fL 79.4-94.8 MEAN CORPUSCULAR HEMOGLOBIN (BEAKER) (test 24.4 pg 25.6-32.2 eenq=869) MEAN CORPUSCULAR HEMOGLOBIN CONC (BEAKER) (test 30.2 GM/DL 32.2-35.5 rihp=497) RED CELL DISTRIBUTION WIDTH (BEAKER) (test 16.7 % 11.7-14.4 blbp=755) PLATELET COUNT (BEAKER) (test gskg=201) 256 K/CU MM 150-450 MEAN PLATELET VOLUME (BEAKER) (test omoc=682) 8.9 fL 9.4-12.3 NUCLEATED RED BLOOD CELLS (BEAKER) (test 0 /100 WBC 0-0 prmh=754) NEUTROPHILS RELATIVE PERCENT (BEAKER) (test 83 % regm=211) LYMPHOCYTES RELATIVE PERCENT (BEAKER) (test 3 % gmka=636) MONOCYTES RELATIVE PERCENT (BEAKER) (test 4 % nnca=106) EOSINOPHILS RELATIVE PERCENT (BEAKER) (test 0 % bhkw=853) BASOPHILS RELATIVE PERCENT (BEAKER) (test 0 % ssbw=271) NEUTROPHILS ABSOLUTE COUNT (BEAKER) (test 15.59 K/ L 1.56-6.13 cbhy=930) LYMPHOCYTES ABSOLUTE COUNT (BEAKER) (test 0.47 K/ L 1.18-3.74 zvge=936) MONOCYTES ABSOLUTE COUNT (BEAKER) (test 0.82 K/ L 0.24-0.36 tgjj=503) EOSINOPHILS ABSOLUTE COUNT (BEAKER) (test 0.00 K/ L 0.04-0.36 ksrd=433) BASOPHILS ABSOLUTE COUNT (BEAKER) (test 0.03 K/ L 0.01-0.08 rdyp=520) IMMATURE GRANULOCYTES-RELATIVE PERCENT (BEAKER) 10 % 0-1 (test fzaw=3934) (MANUAL DIFFERENTIAL)2017-06-22 20:47:00 Test Item Value Reference Range Comments NEUTROPHILS - REL (DIFF) (BEAKER) (test 92 % lulr=8509) LYMPHOCYTES - REL (DIFF) (BEAKER) (test 3 % rmil=9269) MONOCYTES - REL (DIFF) (BEAKER) (test klyh=7607) 3 % BANDS - REL (DIFF) (BEAKER) (test lghn=0435) 2 % 0-10 NEUTROPHILS - ABS (DIFF) (BEAKER) (test 17.30 K/ L 1.80-8.00 axsv=9835) LYMPHOCYTES - ABS (DIFF) (BEAKER) (test 0.56 K/ L 1.48-4.50 higt=6633) MONOCYTES - ABS (DIFF) (BEAKER) (test nfga=1360) 0.56 K/ L 0.00-1.30 BANDS-ABS (DIFF) (BEAKER) (test ctdv=7435) 0.4 K/ L 0.0-0.8 TOTAL COUNTED (BEAKER) (test ncbl=7090) 100 BANDS + SEGMENTED NEUTROPHILS (BEAKER) (test 17.67 ehik=7076) PLT MORPHOLOGY (BEAKER) (test fxlb=813) Normal RBC MORPHOLOGY (BEAKER) (test iidr=228) Normal DOHLE BODIES (BEAKER) (test hbhi=604) Present TOXIC GRANULATION (BEAKER) (test hvte=841) Present PROTHROMBIN TIME/[id number] 20:35:00 Test Item Value Reference Range Comments PROTIME (BEAKER) (test cbkb=700) 19.1 seconds 11.7-14.7 INR (BEAKER) (test wlor=175) 1.6 <=5.9 RECOMMENDED COUMADIN/WARFARIN INR THERAPY RANGESSTANDARD DOSE: 2.0 - 3.0 Includes: PROPHYLAXIS forvenous thrombosis, systemic embolization; TREATMENT for venous thrombosis and/or pulmonary embolus.HIGH RISK: Target INR is 2.5-3.5 for patients with mechanical heart valves.CBC W/PLT COUNT & AUTO [id number] 20:29:00 Test Item Value Reference Range Comments WHITE BLOOD CELL COUNT (BEAKER) (test vzkx=254) 18.3 K/ L 3.5-10.5 RED BLOOD CELL COUNT (BEAKER) (test zpbx=681) 3.09 M/ L 3.93-5.22 HEMOGLOBIN (BEAKER) (test huxy=520) 7.5 GM/DL 11.2-15.7 HEMATOCRIT (BEAKER) (test xkca=914) 25.3 % 34.1-44.9 MEAN CORPUSCULAR VOLUME (BEAKER) (test qdxl=963) 81.9 fL 79.4-94.8 MEAN CORPUSCULAR HEMOGLOBIN (BEAKER) (test 24.3 pg 25.6-32.2 broj=270) MEAN CORPUSCULAR HEMOGLOBIN CONC (BEAKER) (test 29.6 GM/DL 32.2-35.5 ntqf=360) RED CELL DISTRIBUTION WIDTH (BEAKER) (test 16.6 % 11.7-14.4 ingb=128) PLATELET COUNT (BEAKER) (test folr=215) 279 K/CU MM 150-450 MEAN PLATELET VOLUME (BEAKER) (test vqlu=810) 9.5 fL 9.4-12.3 NUCLEATED RED BLOOD CELLS (BEAKER) (test 0 /100 WBC 0-0 pmck=800) NEUTROPHILS RELATIVE PERCENT (BEAKER) (test 82 % rxzr=265) LYMPHOCYTES RELATIVE PERCENT (BEAKER) (test 4 % zmyk=314) MONOCYTES RELATIVE PERCENT (BEAKER) (test 5 % faqd=798) EOSINOPHILS RELATIVE PERCENT (BEAKER) (test 0 % tzoj=830) BASOPHILS RELATIVE PERCENT (BEAKER) (test 0 % zffn=106) NEUTROPHILS ABSOLUTE COUNT (BEAKER) (test 15.00 K/ L 1.56-6.13 wfzh=665) LYMPHOCYTES ABSOLUTE COUNT (BEAKER) (test 0.70 K/ L 1.18-3.74 fitu=108) MONOCYTES ABSOLUTE COUNT (BEAKER) (test 0.92 K/ L 0.24-0.36 amsi=034) EOSINOPHILS ABSOLUTE COUNT (BEAKER) (test 0.00 K/ L 0.04-0.36 xmwm=222) BASOPHILS ABSOLUTE COUNT (BEAKER) (test 0.03 K/ L 0.01-0.08 ckbp=877) IMMATURE GRANULOCYTES-RELATIVE PERCENT (BEAKER) 9 % 0-1 (test szmc=3286) BLOOD GAS, [id number] 20:22:00 Test Item Value Reference Range Comments PH ARTERIAL (BEAKER) (test qozd=543) 7.36 7.35-7.45 PCO2 ARTERIAL (BEAKER) (test uvde=220) 35 mmHg 35-45 PO2 ARTERIAL (BEAKER) (test atat=952) 113 mmHg 80-90 O2 SATURATION ARTERIAL (BEAKER) (test umvd=179) 98.0 % 96.0-97.0 HCO3 ARTERIAL (BEAKER) (test qgcr=694) 19 mmol/L 21-29 BASE EXCESS ARTERIAL (BEAKER) (test zojr=331) -5.5 mmol/L -2.0-3.0 PATIENT TEMPERATURE (BEAKER) (test bkuc=7194) 37.1 C FIO2 (BEAKER) (test xyyu=7235) 60.0 % RAD, CHEST, 1 VIEW, NON [id number] 16:44:00Reason for exam:->postopIs the patient ?->NoShould this be performed at the bedside?-> YesFINAL REPORT TECHNIQUE: Frontal chest radiograph dated 06/22/2017. CLINICAL HISTORY: Postop COMPARISON STUDY: Chest radiograph dated 06/21/2017 IMPRESSION:Endotracheal tube is 2.2cm above the rachele. Three left-sided chest tubes have been placed. The right pleural effusion has decreased in size. Increased interstitial lung markings and hazy opacities are seen in the left upper lobe possibly reexpansion pulmonary edema. No focal consolidation on the right. No pleural effusion or pneumothorax. Cardiomediastinal silhouette is stable in size. No fracture. Signed: Saumya Waters MDReport Verified Date/Time: 06/22/2017 16:44:08 Reading Location: [place] [facility] Radiology Reading Room [id number] 16:21:00 Test Item Value Reference Range Comments MAGNESIUM (BEAKER) (test hzpq=151) 1.5 mg/dL 1.6-2.6 BASIC METABOLIC [id number] 16:21:00 Test Item Value Reference Range Comments SODIUM (BEAKER) (test 137 meq/L 136-145 atbu=105) POTASSIUM (BEAKER) (test 3.5 meq/L 3.5-5.1 ssmr=073) CHLORIDE (BEAKER) (test 111 meq/L 98-107 tmht=156) CO2 (BEAKER) (test 21 meq/L 22-29 dfwg=894) BLOOD UREA NITROGEN 12 mg/dL 7-21 (BEAKER) (test cvvp=021) CREATININE (BEAKER) (test 0.70 mg/dL 0.57-1.25 gazw=214) GLUCOSE RANDOM (BEAKER) 133 mg/dL 70-105 (test oocl=005) CALCIUM (BEAKER) (test 7.6 mg/dL 8.4-10.2 wchv=250) EGFR (BEAKER) (test 85 mL/min/1.73 sq m ESTIMATED GFR IS NOT tbww=9976) ACCURATE CREATININE CLEARANCE IN PREDICTING GLOMERULAR FILTRATION RATE. ESTIMATED GFR IS NOT APPLICABLE FOR DIALYSIS PATIENTS. PROTHROMBIN [id number] 16:14:00 Test Item Value Reference Range Comments PROTIME (BEAKER) (test ksym=756) 18.8 seconds 11.7-14.7 INR (BEAKER) (test owuw=175) 1.6 <=5.9 RECOMMENDED COUMADIN/WARFARIN INR THERAPY RANGESSTANDARD DOSE: 2.0 - 3.0 Includes: PROPHYLAXIS forvenous thrombosis, systemic embolization; TREATMENT for venous thrombosis and/or pulmonary embolus.HIGH RISK: Target INR is 2.5-3.5 for patients with mechanical heart valves.BLOOD GAS, [id number] 15:59:00 Test Item Value Reference Range Comments PH ARTERIAL (BEAKER) (test dczj=650) 7.35 7.35-7.45 PCO2 ARTERIAL (BEAKER) (test uvbz=067) 37 mmHg 35-45 PO2 ARTERIAL (BEAKER) (test quhl=944) 76 mmHg 80-90 O2 SATURATION ARTERIAL (BEAKER) (test hbid=223) 95.0 % 96.0-97.0 HCO3 ARTERIAL (BEAKER) (test lscy=082) 20 mmol/L 21-29 BASE EXCESS ARTERIAL (BEAKER) (test isfc=629) -5.2 mmol/L -2.0-3.0 PATIENT TEMPERATURE (BEAKER) (test owhn=3406) 36.5 C FIO2 (BEAKER) (test bpoq=3702) 60.0 % SODIUM NA-STAT [id number] 15:59:00 Test Item Value Reference Range Comments SODIUM (BEAKER) (test curt=861) 134 meq/L 135-148 POTASSIUM-STAT [id number] 15:59:00 Test Item Value Reference Range Comments POTASSIUM (BEAKER) (test uwqj=198) 3.4 meq/L 3.6-5.5 GLUCOSE-STAT [id number] 15:59:00 Test Item Value Reference Range Comments GLUCOSE RANDOM (BEAKER) (test abyy=249) 132 mg/dL 70-110 HGB/HCT (H&H) - STAT [id number] 15:59:00 Test Item Value Reference Range Comments HEMOGLOBIN (BEAKER) (test omlm=240) 8.3 g/dL 12.0-15.0 HEMATOCRIT (BEAKER) (test tkwp=396) 24.0 % 36.0-45.0 CALCIUM, [id number] 15:59:00 Test Item Value Reference Range Comments CALCIUM IONIZED (BEAKER) (test fxhb=932) 1.00 mmol/L 1.12-1.27 PH, BLOOD (BEAKER) (test jvbt=9729) 7.34 BLOOD GAS, [id number] 13:05:00 Test Item Value Reference Range Comments PH ARTERIAL (BEAKER) (test qfwd=244) 7.37 7.35-7.45 PCO2 ARTERIAL (BEAKER) (test mqmg=940) 39 mmHg 35-45 PO2 ARTERIAL (BEAKER) (test aclg=128) 110 mmHg 80-90 O2 SATURATION ARTERIAL (BEAKER) (test gihf=118) 98.0 % 96.0-97.0 HCO3 ARTERIAL (BEAKER) (test mctj=211) 22 mmol/L 21-29 BASE EXCESS ARTERIAL (BEAKER) (test ozwy=899) -3.1 mmol/L -2.0-3.0 PATIENT TEMPERATURE (BEAKER) (test ddxy=4225) 36.2 C FIO2 (BEAKER) (test jpcc=5056) 96.0 % SODIUM NA-STAT [id number] 13:05:00 Test Item Value Reference Range Comments SODIUM (BEAKER) (test fydq=896) 134 meq/L 135-148 POTASSIUM-STAT [id number] 13:05:00 Test Item Value Reference Range Comments POTASSIUM (BEAKER) (test dbar=897) 3.4 meq/L 3.6-5.5 GLUCOSE-STAT [id number] 13:05:00 Test Item Value Reference Range Comments GLUCOSE RANDOM (BEAKER) (test cweb=520) 141 mg/dL 70-110 HGB/HCT (H&H) - STAT [id number] 13:05:00 Test Item Value Reference Range Comments HEMOGLOBIN (BEAKER) (test qbod=895) 9.1 g/dL 12.0-15.0 HEMATOCRIT (BEAKER) (test mvri=014) 27.0 % 36.0-45.0 SPIN/CONCENTRATION [id number] 12:10:00 Test Item Value Reference Range Comments CONCENTRATION CHARGED (BEAKER) (test ford=5879) Done [id number] 05:19:00 Test Item Value Reference Range Comments PHOSPHORUS (BEAKER) (test nmnz=443) 1.7 mg/dL 2.3-4.7 [id number] 05:19:00 Test Item Value Reference Range Comments MAGNESIUM (BEAKER) (test vdfe=257) 1.8 mg/dL 1.6-2.6 BASIC METABOLIC [id number] 05:19:00 Test Item Value Reference Range Comments SODIUM (BEAKER) (test 138 meq/L 136-145 gcca=547) POTASSIUM (BEAKER) (test 3.4 meq/L 3.5-5.1 ftvd=593) CHLORIDE (BEAKER) (test 106 meq/L 98-107 ohxs=428) CO2 (BEAKER) (test 25 meq/L 22-29 unlb=111) BLOOD UREA NITROGEN 10 mg/dL 7-21 (BEAKER) (test ttll=978) CREATININE (BEAKER) (test 0.59 mg/dL 0.57-1.25 wpyt=503) GLUCOSE RANDOM (BEAKER) 102 mg/dL 70-105 (test kdnb=770) CALCIUM (BEAKER) (test 8.9 mg/dL 8.4-10.2 ghtf=993) EGFR (BEAKER) (test 104 mL/min/1.73 sq m ESTIMATED GFR IS NOT zbvk=9805) ACCURATE CREATININE CLEARANCE IN PREDICTING GLOMERULAR FILTRATION RATE. ESTIMATED GFR IS NOT APPLICABLE FOR DIALYSIS PATIENTS. CBC W/PLT COUNT & AUTO [id number] 05:12:00 Test Item Value Reference Range Comments WHITE BLOOD CELL COUNT (BEAKER) (test sskm=546) 23.3 K/ L 3.5-10.5 RED BLOOD CELL COUNT (BEAKER) (test iqip=916) 3.63 M/ L 3.93-5.22 HEMOGLOBIN (BEAKER) (test ybof=382) 8.8 GM/DL 11.2-15.7 HEMATOCRIT (BEAKER) (test uubm=692) 29.2 % 34.1-44.9 MEAN CORPUSCULAR VOLUME (BEAKER) (test gqxo=490) 80.4 fL 79.4-94.8 MEAN CORPUSCULAR HEMOGLOBIN (BEAKER) (test 24.2 pg 25.6-32.2 fwuj=252) MEAN CORPUSCULAR HEMOGLOBIN CONC (BEAKER) (test 30.1 GM/DL 32.2-35.5 dadk=651) RED CELL DISTRIBUTION WIDTH (BEAKER) (test 16.5 % 11.7-14.4 qrqm=982) PLATELET COUNT (BEAKER) (test vadg=863) 326 K/CU MM 150-450 MEAN PLATELET VOLUME (BEAKER) (test hral=032) 9.3 fL 9.4-12.3 NUCLEATED RED BLOOD CELLS (BEAKER) (test 0 /100 WBC 0-0 siom=718) NEUTROPHILS RELATIVE PERCENT (BEAKER) (test 82 % psfi=410) LYMPHOCYTES RELATIVE PERCENT (BEAKER) (test 6 % njpo=625) MONOCYTES RELATIVE PERCENT (BEAKER) (test 6 % pcti=568) EOSINOPHILS RELATIVE PERCENT (BEAKER) (test 2 % fkbi=633) BASOPHILS RELATIVE PERCENT (BEAKER) (test 0 % cqzs=489) NEUTROPHILS ABSOLUTE COUNT (BEAKER) (test 19.08 K/ L 1.56-6.13 ossn=418) LYMPHOCYTES ABSOLUTE COUNT (BEAKER) (test 1.32 K/ L 1.18-3.74 jcer=431) MONOCYTES ABSOLUTE COUNT (BEAKER) (test 1.40 K/ L 0.24-0.36 hmuz=043) EOSINOPHILS ABSOLUTE COUNT (BEAKER) (test 0.43 K/ L 0.04-0.36 fyvw=620) BASOPHILS ABSOLUTE COUNT (BEAKER) (test 0.06 K/ L 0.01-0.08 alnd=348) IMMATURE GRANULOCYTES-RELATIVE PERCENT (BEAKER) 5 % 0-1 (test ggxt=3360) PROTHROMBIN TIME/[id number] 05:06:00 Test Item Value Reference Range Comments PROTIME (BEAKER) (test ganf=121) 17.9 seconds 11.7-14.7 INR (BEAKER) (test uvks=257) 1.5 <=5.9 RECOMMENDED COUMADIN/WARFARIN INR THERAPY RANGESSTANDARD DOSE: 2.0 - 3.0 Includes: PROPHYLAXIS forvenous thrombosis, systemic embolization; TREATMENT for venous thrombosis and/or pulmonary embolus.HIGH RISK: Target INR is 2.5-3.5 for patients with mechanical heart valves.CBC W/PLT COUNT & AUTO [id number] 00:24:00 Test Item Value Reference Range Comments WHITE BLOOD CELL COUNT (BEAKER) (test tcom=556) 30.1 K/ L 3.5-10.5 RED BLOOD CELL COUNT (BEAKER) (test nyib=815) 3.98 M/ L 3.93-5.22 HEMOGLOBIN (BEAKER) (test rcel=596) 9.7 GM/DL 11.2-15.7 HEMATOCRIT (BEAKER) (test nxcx=145) 31.9 % 34.1-44.9 MEAN CORPUSCULAR VOLUME (BEAKER) (test ypyv=901) 80.2 fL 79.4-94.8 MEAN CORPUSCULAR HEMOGLOBIN (BEAKER) (test 24.4 pg 25.6-32.2 cpwd=158) MEAN CORPUSCULAR HEMOGLOBIN CONC (BEAKER) (test 30.4 GM/DL 32.2-35.5 icii=400) RED CELL DISTRIBUTION WIDTH (BEAKER) (test 16.5 % 11.7-14.4 aknw=962) PLATELET COUNT (BEAKER) (test qawa=588) 372 K/CU MM 150-450 MEAN PLATELET VOLUME (BEAKER) (test yaza=391) 9.2 fL 9.4-12.3 NUCLEATED RED BLOOD CELLS (BEAKER) (test 0 /100 WBC 0-0 vqsg=006) IMMATURE GRANULOCYTES-RELATIVE PERCENT (BEAKER) 6 % 0-1 (test ufck=2902) (MANUAL DIFFERENTIAL)2017-06-22 00:24:00 Test Item Value Reference Range Comments NEUTROPHILS - REL (DIFF) (BEAKER) (test 78 % bmkb=1685) LYMPHOCYTES - REL (DIFF) (BEAKER) (test 5 % xpbq=9240) MONOCYTES - REL (DIFF) (BEAKER) (test eupm=2014) 4 % BANDS - REL (DIFF) (BEAKER) (test mzel=2574) 10 % 0-10 ATYPICAL LYMPHOCYTE - REL (DIFF) (BEAKER) (test 3 % 0-0 vnki=290) NEUTROPHILS - ABS (DIFF) (BEAKER) (test 23.48 K/ L 1.80-8.00 tmpb=3671) LYMPHOCYTES - ABS (DIFF) (BEAKER) (test 1.51 K/ L 1.48-4.50 behw=5782) MONOCYTES - ABS (DIFF) (BEAKER) (test uaqu=9614) 1.20 K/ L 0.00-1.30 BANDS-ABS (DIFF) (BEAKER) (test myii=4225) 3.0 K/ L 0.0-0.8 ATYPICAL LYMPHOCYTES - ABS (DIFF) (BEAKER) (test 0.90 K/ L 0.00-0.00 qzgk=899) TOTAL COUNTED (BEAKER) (test nslv=0418) 100 BANDS + SEGMENTED NEUTROPHILS (BEAKER) (test 26.49 yyca=5460) WBC MORPHOLOGY (BEAKER) (test funh=768) Normal PLT MORPHOLOGY (BEAKER) (test tjlv=307) Normal ANISOCYTOSIS (BEAKER) (test sdjt=798) 1+ few DARBY CELLS (BEAKER) (test qalk=518) 1+ few OVALOCYTES (BEAKER) (test cmxi=840) 1+ few POIKILOCYTES (BEAKER) (test ajsa=262) 1+ few URINALYSIS W/ [id number] 00:15:00 Test Item Value Reference Range Comments COLOR (BEAKER) (test bcgx=594) Yellow CLARITY (BEAKER) (test nqqm=731) Clear SPECIFIC GRAVITY UA (BEAKER) (test 1.023 1.001-1.035 uxme=047) PH UA (BEAKER) (test azeh=883) 5.5 5.0-8.0 PROTEIN UA (BEAKER) (test bpyi=184) 50 mg/dL Negative GLUCOSE UA (BEAKER) (test kdog=066) Negative Negative KETONES UA (BEAKER) (test xdxi=364) 60 mg/dL Negative BILIRUBIN UA (BEAKER) (test mjwa=032) Negative Negative BLOOD UA (BEAKER) (test lgqg=792) Small Negative NITRITE UA (BEAKER) (test bpii=733) Negative Negative LEUKOCYTE ESTERASE UA (BEAKER) (test Small Negative otmy=788) UROBILINOGEN UA (BEAKER) (test skzk=736) 0.2 mg/dL 0.2-1.0 RBC UA (BEAKER) (test lcrw=124) 4 /HPF WBC UA (BEAKER) (test lgpd=111) 19 /HPF MUCUS (BEAKER) (test zrxb=4334) Many SQUAMOUS EPITHELIAL (BEAKER) (test 2 /HPF dosw=907) HYALINE CASTS (BEAKER) (test wkpw=811) 3 /LPF AMORPHOUS CRYSTALS (BEAKER) (test Rare wycb=9493) SOURCE(BEAKER) (test yfev=4684) Urine, Clean Catch RAD, CHEST, 1 VIEW, NON [id number] 23:38:00Reason for exam:->pre- opShould this be performed at the bedside?->YesFINAL REPORT History: Preoperative evaluation. FINDINGS: Chest, single view: Single AP view of the chest demonstrates a moderate to large left-sided pleural fluid collection. Theheart and mediastinum are shifted rightward. The right lung is relatively clear. No pneumothorax. Bones are osteopenic but otherwise unremarkable. IMPRESSION: 1. Moderate to large left-sided pleural effusion. Signed: Fady Pop MDReport Verified Date/Time: 06/21/2017 23:38:52 Reading Location: [facility] Diagnostic Imaging Reading Room - [place] [id number] Electronically signed by: FADY POP M.D.on 06/21/2017 11:38 PMCOMPREHENSIVE METABOLIC [id number] 21:57:00 Test Item Value Reference Range Comments TOTAL PROTEIN (BEAKER) 6.4 gm/dL 6.0-8.3 (test vkir=973) ALBUMIN (BEAKER) (test 3.2 g/dL 3.5-5.0 jqts=6700) ALKALINE PHOSPHATASE 65 U/L 40-150 (BEAKER) (test stuy=319) BILIRUBIN TOTAL (BEAKER) < mg/dL 0.2-1.2 (test ivkn=755) SODIUM (BEAKER) (test 136 meq/L 136-145 uunt=946) POTASSIUM (BEAKER) (test 3.7 meq/L 3.5-5.1 mohb=273) CHLORIDE (BEAKER) (test 105 meq/L 98-107 cpej=985) CO2 (BEAKER) (test 23 meq/L 22-29 rptk=392) BLOOD UREA NITROGEN 10 mg/dL 7-21 (BEAKER) (test plye=878) CREATININE (BEAKER) (test 0.61 mg/dL 0.57-1.25 bgpq=307) GLUCOSE RANDOM (BEAKER) 110 mg/dL 70-105 (test mwcj=517) CALCIUM (BEAKER) (test 9.0 mg/dL 8.4-10.2 hblx=122) AST (SGOT) (BEAKER) (test 12 U/L 5-34 adpg=768) ALT (SGPT) (BEAKER) (test 13 U/L 6-55 qiet=584) EGFR (BEAKER) (test 100 mL/min/1.73 sq ESTIMATED GFR IS NOT hiel=2707) m ACCURATE CREATININE CLEARANCE IN PREDICTING GLOMERULAR FILTRATION RATE. ESTIMATED GFR IS NOT APPLICABLE FOR DIALYSIS PATIENTS. [id number] 21:57:00 Test Item Value Reference Range Comments PREALBUMIN (BEAKER) (test twvn=576) 13 mg/dL 14-45 PT/[id number] 21:46:00 Test Item Value Reference Range Comments PROTIME (BEAKER) (test rthd=424) 17.6 seconds 11.7-14.7 INR (BEAKER) (test enun=726) 1.5 <=5.9 PARTIAL THROMBOPLASTIN TIME (BEAKER) (test 39.0 seconds 22.5-36.0 jfca=890) RECOMMENDED COUMADIN/WARFARIN INR THERAPY RANGESSTANDARD DOSE: 2.0 - 3.0 Includes: PROPHYLAXIS forvenous thrombosis, systemic embolization; TREATMENT for venous thrombosis and/or pulmonary embolus.HIGH RISK: Target INR is 2.5-3.5 for patients with mechanical heart valves.
[2018-03-19] MEDS ORDERED: FENTANYL CITR 100 MCG/2 ML ONE ×2 (06:38→09:09)
[2018-03-19] MEDS ORDERED: NA CHLORIDE 0.9% 1,000 ML ONE (06:38)
[2018-03-19 06:39] LABS: Urine Blood NEGATIVE (NEG); Urine Glucose NEGATIVE (NEG); Urine Protein NEGATIVE (NEG); Urine Specific Gravity 1.015 (1.005-1.030)
[2018-03-19] MEDS ORDERED: ONDANSETRON 4 MG/2 ML VIAL ONE (06:39)
[2018-03-19 06:40] LABS: Urine Specific Gravity 1.015 (1.005-1.030)
[2018-03-19 06:51] LABS: Absolute Lymphocytes (CBC) 1.4 K/uL (0.7-4.9); Absolute Monocytes 0.5 K/uL (0.1-1.3); Absolute Neutrophil 4.8 K/uL (1.8-8.0); Eosinophils % 3.7 % (0-4.4); Hematocrit 40.1 % (36.0-45.0); Lymphocytes % 19.8 % (15.3-44.8); MCV 82.3 fL (80-100); MPV 8.7 fL (7.6-11.3); Monocytes % 7.4 % (3.3-12.3); RBC Red Blood Cell Count 4.88 M/uL (3.86-4.86)
[2018-03-19 07:08] LABS: Bicarbonate 27 mEq/L (21-31); Glucose Level 96 mg/dL (65-120); Lipase 25 U/L (22-51); Potassium 3.8 mEq/L (3.6-5.0); Sodium Level 139 mEq/L (135-145)
[2018-03-19 07:14] LABS: ALT/SGPT 18 IU/L (10-60); AST/SGOT 18 IU/L (10-42); Albumin 3.9 g/dL (3.2-5.5); Alkaline Phosphatase 111 IU/L (42-121); BUN Blood Urea Nitrogen 10 mg/dL (6-20); Bilirubin Direct < 0.1 mg/dL (0-0.2); Bilirubin Total 0.4 mg/dL (0.3-1.2); Protein, Total 7.1 g/dL (6.0-8.3)
[2018-03-19 07:15] LABS: Urine Bacteria NONE SEEN /HPF (<20); Urine Culture Reflex Order REFLEXED; Urine RBC <5 /HPF (NONE SEEN)
[2018-03-19 07:36] LABS: Anisocytosis 2+; Blood Morphology Comment NOTED (NOT SEEN); Platelet Estimate ADEQ; Urine White Blood Cell Casts OK
--- NOTE | 2018-03-19 09:33 | RAD REPORT ---
EXAM DESCRIPTION: CT - Abdomen Pelvis W Contrast - 03/19/2018 9:11 am CLINICAL HISTORY: Abdominal pain. Bilateral flank pain since COMPARISON: 2012 TECHNIQUE: Computed axial tomography of the abdomen and pelvis was obtained. 100 cc Isovue-300 is ad ministered intravenously. Oral contrast was given. All CT scans are performed using dose optimization technique as appropriate and may include automated exposure control or mA/KV adjustment according to patient size. FINDINGS: A large hiatal hernia is present. The liver, spleen, pancreas, adrenals and kidneys appear unremarkable. The appendix is normal caliber. There is no evidence of diverticulitis An adnexal mass is not seen. A tiny umbilical hernia is present. IMPRESSION: Large hiatal hernia. No acute abnormalities displayed.
--- NOTE | 2018-03-19 10:01 | ER ---
Nurse's Notes [facility] Name: Leona Alcazar Age: 62 yrs Sex: Female : 1955 Arrival Date: 03/19/2018 Time: 05:55 Bed 4 Private MD: Dave Keene Diagnosis: Unspecified abdominal pain;Low back pain Presentation: 03/19 06:10 Presenting complaint: Patient states: CANDELARIA flank pain that radiates to abdomen since tl1 . Denies NVD or burning with urination. Transition of care: patient was not received from another setting of care. Onset of symptoms was March 15, 2018. Risk Assessment: Do you want to hurt yourself or someone else? Patient reports no desire to harm self or others. Initial Sepsis Screen: Does the patient meet any 2 criteria? No. Patient's initial sepsis screen is negative. Does the patient have a suspected source of infection? No. Patient's initial sepsis screen is negative. Care prior to arrival: None. 06:10 Method Of Arrival: Ambulatory tl1 06:10 Acuity: ROCK 3 tl1 Triage Assessment: 06:13 General: Appears in no apparent distress. uncomfortable, Behavior is calm, cooperative, tl1 appropriate for age. Pain: Complains of pain in left mid back and right mid back Pain radiates to abdomen Pain currently is 10 out of 10 on a pain scale. Neuro: Level of Consciousness is awake, alert, obeys commands, Oriented to person, place, time, situation. Cardiovascular: Denies chest pain. Respiratory: Airway is patent Respiratory effort is even, unlabored, Respiratory pattern is regular, symmetrical. GI: Abd is soft and non tender Patient currently denies diarrhea, nausea, vomiting. : Denies burning with urination. Derm: Skin is pink, warm \T\ dry. Historical: - Allergies: 06:13 No Known Allergies; tl1 - Home Meds: 06:13 metoprolol tartrate 100 mg Oral tab 1 tab 2 times per day [Active]; lysine 1,000 mg tl1 Oral tab daily [Active]; omeprazole 40 mg Oral cpDR 1 cap once daily [Active]; psyllium 3.4 grams/ 5.4 grams Oral twice a day [Active]; Vitamin D Oral 1000 unit daily [Active]; vitamin E 100 unit Oral cap daily [Active]; - PMHx: 06:13 COPD; Genital herpes; Hepatitis B; hiatal hernia; Hypertension; pulmonary nodule; tl1 empyema; - PSHx: 06:13 Right BKA; tl1 - Immunization history:: Adult Immunizations up to date. - Social history:: Smoking status: Patient/guardian denies using tobacco, the patient reports quitting approximately 1.5 years ago. - Ebola Screening: : No symptoms or risks identified at this time. Screenin:13 Abuse screen: Denies threats or abuse. Nutritional screening: No deficits noted. tl1 Tuberculosis screening: No symptoms or risk factors identified. Fall Risk Ambulatory Aid- Crutches/Cane/Walker (15 pts). Assessment: 06:16 General: see triage assessment. tl1 07:18 Reassessment: Patient and/or family updated on plan of care and expected duration. Pain tw2 level reassessed. Patient is alert, oriented x 3, equal unlabored respirations, skin warm/dry/pink. notified Crys in [place] that contrast has been drank. pt NAD. Neuro: Level of Consciousness is awake, alert, obeys commands, Oriented to person, place, time, situation. Respiratory: Airway is patent Respiratory effort is even, unlabored, Respiratory pattern is regular, symmetrical, Breath sounds are clear. GI: Abdomen is round non-distended, Bowel sounds present X 4 quads. : No signs and/or symptoms were reported regarding the genitourinary system. Musculoskeletal: Amputation of Other: right BKA. 07:37 Reassessment: Patient appears in no apparent distress at this time. Patient and/or tw2 family updated on plan of care and expected duration. Pain level reassessed. Patient is alert, oriented x 3, equal unlabored respirations, skin warm/dry/pink. 09:44 Reassessment: Patient and/or family updated on plan of care and expected duration. Pain tw2 level reassessed. Patient is alert, oriented x 3, equal unlabored respirations, skin warm/dry/pink. 10:08 Reassessment: Patient appears in no apparent distress at this time. Patient and/or tw2 family updated on plan of care and expected duration. Pain level reassessed. Patient is alert, oriented x 3, equal unlabored respirations, skin warm/dry/pink. Patient states feeling better. Vital Signs: 06:13 BP 171 / 99; Pulse 65; Resp 18; Temp 98.9(TE); Pulse Ox 98% on R/A; Weight 86.18 kg; tl1 Height 5 ft. 3 in. (160.02 cm); Pain 10/10; 06:50 BP 142 / 79; Pulse 69; Resp 20; Pulse Ox 94% on 2 lpm NC; Pain 3/10; tl1 07:36 BP 160 / 81; Pulse 51; Resp 17; Pulse Ox 99% on R/A; tw2 08:50 BP 182 / 81; Pulse 53; Resp 18; Pulse Ox 99% ; sv 09:44 BP 167 / 94; Pulse 51; Resp 18; Pulse Ox 96% on R/A; tw2 06:13 Body Mass Index 33.66 (86.18 kg, 160.02 cm) tl1 ED Course: 05:55 Patient arrived in ED. am2 05:55 Dave Keene MD is Private Physician. am2 06:03 Arnaud Pfeiffer [facility]. pm1 06:03 Angel Li MD is Attending Physician. pm1 06:11 Triage completed. tl1 06:13 Arm band placed on right wrist. tl1 06:13 Patient has correct armband on for positive identification. Placed in gown. Bed in low tl1 position. Call light in reach. Side rails up X 1. Adult w/ patient. 06:13 Inserted saline lock: 22 gauge in right wrist, using aseptic technique. Blood tl1 collected. placed by ROSEMARY Schumacher. 06:43 Winsome Marie RN is Primary Nurse. tl1 06:51 Pulse ox on. NIBP on. tl1 06:51 No provider procedures requiring assistance completed. Oxygen administration via nasal tl1 cannula \T\ 2L/min. 07:13 Primary Nurse role handed off by Winsome Marie RN tw2 07:13 Yunior Don RN is Primary Nurse. tw2 08:[address] via stretcher. sv 09:11 CT Abd/Pelvis - W/Contrast In Process Unspecified. EDMS 09:11 Note: patient unable to hold still on table, nurse yunior came over to give patient meds. vr 10:00 Dave Keene MD is Referral Physician. pm1 10:08 IV discontinued, intact, bleeding controlled, No redness/swelling at site. Pressure tw2 dressing applied. Administered Medications: 06:36 CANCELLED (not available in pixis): morphine 4 mg IVP once pm1 06:43 Drug: Zofran 4 mg Route: IVP; Infused Over: 2 mins; Site: right wrist; tl1 09:10 Follow up: Response: No adverse reaction tw2 06:43 Drug: fentaNYL (PF) 50 mcg Route: IVP; Infused Over: 2 mins; Site: right wrist; tl1 07:30 Follow up: Response: No adverse reaction tw2 06:44 Drug: NS 0.9% 1000 ml Route: IV; Rate: 1 bolus; Site: right wrist; tl1 07:45 Follow up: Response: No adverse reaction; IV Status: Completed infusion; IV Intake: tw2 1000ml 09:10 Drug: fentaNYL (PF) 50 mcg Route: IVP; Site: right hand; tw2 10:00 Follow up: Response: No adverse reaction; Pain is decreased tw2 Intake: 07:45 IV: 1000ml; Total: 1000ml. tw2 Outcome: 10:01 Discharge ordered by MD. pm1 10:08 Patient left the ED. tw2 10:08 Discharged to home ambulatory, with family. tw2 10:08 Condition: stable 10:08 Discharge instructions given to patient, Instructed on discharge instructions, follow up and referral plans. no drinking with medication, no driving heavy equipment, medication usage, Demonstrated understanding of instructions, follow-up care, medications, Prescriptions given X 1. Signatures: Dispatcher [employer] EDDC Dayan Del Toro RN RN sv Davis, Victoria vr Lasagna, Tonya, RN RN tl1 Arnaud Pfeiffer NP [employer] pm1 Yunior Don RN RN tw2 Ericka Tyler am2 Corrections: (The following items were deleted from the chart) 06:17 06:13 BP 171 / 99; Pulse 65bpm; Resp 18bpm; Pulse Ox 98% RA; 86.18 kg; Height 5 ft. 3 tl1 in.; BMI: 33.6; Pain 10/10; tl1
--- NOTE | 2018-03-19 10:01 | EDPHYS ---
Physician Documentation [facility] Name: Leona Alcazar Age: 62 yrs Sex: Female : 1955 Arrival Date: 03/19/2018 Time: 05:55 Bed 4 Private MD: Dave Keene ED Physician Angel Li HPI: 03/19 07:00 This 62 yrs old Female presents to ER via Ambulatory with complaints of pm1 Possible Kidney Stone. 07:00 The patient complains of pain in the left low back and right low back. The pain pm1 radiates to the lower abdomen. Onset: The symptoms/episode began/occurred 4 day(s) ago. Modifying factors: The symptoms are alleviated by nothing. the symptoms are aggravated by movement, Changing position from lying to sitting. Associated signs and symptoms: Pertinent negatives: diarrhea, dysuria, fever, hematuria, nausea, pain radiating to the lower extremities, vomiting. Severity of pain: in the emergency department the pain is actually worse. The patient has not experienced similar symptoms in the past. The patient has not recently seen a physician. Historical: - Allergies: 06:13 No Known Allergies; tl1 - Home Meds: 06:13 metoprolol tartrate 100 mg Oral tab 1 tab 2 times per day [Active]; lysine 1,000 mg tl1 Oral tab daily [Active]; omeprazole 40 mg Oral cpDR 1 cap once daily [Active]; psyllium 3.4 grams/ 5.4 grams Oral twice a day [Active]; Vitamin D Oral 1000 unit daily [Active]; vitamin E 100 unit Oral cap daily [Active]; - PMHx: 06:13 COPD; Genital herpes; Hepatitis B; hiatal hernia; Hypertension; pulmonary nodule; tl1 empyema; - PSHx: 06:13 Right BKA; tl1 - Immunization history:: Adult Immunizations up to date. - Social history:: Smoking status: Patient/guardian denies using tobacco, the patient reports quitting approximately 1.5 years ago. - Ebola Screening: : No symptoms or risks identified at this time. ROS: 07:00 Constitutional: Negative for fever, chills, and weight loss, Eyes: Negative for injury, pm1 pain, redness, and discharge, ENT: Negative for injury, pain, and discharge, Neck: Negative for injury, pain, and swelling, Cardiovascular: Negative for chest pain, palpitations, and edema, Respiratory: Negative for shortness of breath, cough, wheezing, and pleuritic chest pain. 07:00 : Negative for injury, bleeding, discharge, and swelling, MS/Extremity: Negative for injury and deformity, Skin: Negative for injury, rash, and discoloration, Neuro: Negative for headache, weakness, numbness, tingling, and seizure. 07:00 Abdomen/GI: Positive for abdominal pain, of the right lower quadrant and left lower quadrant, Negative for nausea, vomiting, and diarrhea. 07:00 Back: Positive for flank pain, bilaterally. Exam: 07:00 Constitutional: This is a well developed, well nourished patient who is awake, alert, pm1 and in no acute distress. Head/Face: Normocephalic, atraumatic. Eyes: Pupils equal round and reactive to light, extra-ocular motions intact. Lids and lashes normal. Conjunctiva and sclera are non-icteric and not injected. Cornea within normal limits. Periorbital areas with no swelling, redness, or edema. ENT: Nares patent. No nasal discharge, no septal abnormalities noted. Tympanic membranes are normal and external auditory canals are clear. Oropharynx with no redness, swelling, or masses, exudates, or evidence of obstruction, uvula midline. Mucous membranes moist. Neck: Trachea midline, no thyromegaly or masses palpated, and no cervical lymphadenopathy. Supple, full range of motion without nuchal rigidity, or vertebral point tenderness. No Meningismus. Chest/axilla: Normal chest wall appearance and motion. Nontender with no deformity. No lesions are appreciated. Cardiovascular: Regular rate and rhythm with a normal S1 and S2. No gallops, murmurs, or rubs. No pulse deficits. Respiratory: Lungs have equal breath sounds bilaterally, clear to auscultation and percussion. No rales, rhonchi or wheezes noted. No increased work of breathing, no retractions or nasal flaring. Abdomen/GI: Soft, non-tender, with normal bowel sounds. No distension or tympany. No guarding or rebound. No evidence of tenderness throughout. Skin: Warm, dry with normal turgor. Normal color with no rashes, no lesions, and no evidence of cellulitis. MS/ Extremity: Pulses equal, no cyanosis. Neurovascular intact. Full, normal range of motion. 07:00 Back: pain, that is mild, of the left low back and right low back, normal spinal alignment noted, vertebral tenderness, is not appreciated. 07:00 Neuro: Orientation: is normal, Cerebellar function: normal finger to nose testing, Motor: is normal, moves all fours. Vital Signs: 06:13 BP 171 / 99; Pulse 65; Resp 18; Temp 98.9(TE); Pulse Ox 98% on R/A; Weight 86.18 kg; tl1 Height 5 ft. 3 in. (160.02 cm); Pain 10/10; 06:50 BP 142 / 79; Pulse 69; Resp 20; Pulse Ox 94% on 2 lpm NC; Pain 3/10; tl1 07:36 BP 160 / 81; Pulse 51; Resp 17; Pulse Ox 99% on R/A; tw2 08:50 BP 182 / 81; Pulse 53; Resp 18; Pulse Ox 99% ; sv 09:44 BP 167 / 94; Pulse 51; Resp 18; Pulse Ox 96% on R/A; tw2 06:13 Body Mass Index 33.66 (86.18 kg, 160.02 cm) tl1 MDM: 06:17 Patient medically screened. pm1 10:00 Data reviewed: vital signs. Data interpreted: Pulse oximetry: on room air is 96 %. pm1 Interpretation: normal. Counseling: I had a detailed discussion with the patient and/or guardian regarding: the historical points, exam findings, and any diagnostic results supporting the discharge/admit diagnosis, lab results, radiology results, the need for outpatient follow up, to return to the emergency department if symptoms worsen or persist or if there are any questions or concerns that arise at home. 03/19 06:24 Order name: Urine Dipstick--Ancillary (enter results); Complete Time: 09:37 2 03/19 06:25 Order name: Basic Metabolic Panel; Complete Time: 09:37 pm1 03/19 06:25 Order name: CBC with Diff; Complete Time: 09:37 pm1 03/19 06:25 Order name: Creatinine for Radiology; Complete Time: 09:37 pm1 03/19 06:25 Order name: Hepatic Function; Complete Time: 09:37 pm1 03/19 06:25 Order name: Lipase; Complete Time: 09:37 pm1 06/11 06:25 Order name: Urine Microscopic Only; Complete Time: 09:37 pm1 03/19 06:25 Order name: CT Abd/Pelvis - W/Contrast; Complete Time: 09:37 pm1 03/19 06:27 Order name: Urine --Ancillary (enter results); Complete Time: 09:37 rg2 03/19 06:52 Order name: CBC Smear Scan; Complete Time: 09:37 EDMS 03/19 07:16 Order name: Urine Culture EDMS 03/19 06:25 Order name: Urine Test (obtain specimen); Complete Time: 06:31 pm1 03/19 06:25 Order name: IV Saline Lock; Complete Time: 06:31 pm1 03/19 06:25 Order name: Labs collected and sent; Complete Time: 06:31 pm1 03/19 06:25 Order name: Urine Dipstick-Ancillary (obtain specimen); Complete Time: 06:31 pm1 Administered Medications: 06:36 CANCELLED (not available in pixis): morphine 4 mg IVP once pm1 06:43 Drug: Zofran 4 mg Route: IVP; Infused Over: 2 mins; Site: right wrist; tl1 09:10 Follow up: Response: No adverse reaction tw2 06:43 Drug: fentaNYL (PF) 50 mcg Route: IVP; Infused Over: 2 mins; Site: right wrist; tl1 07:30 Follow up: Response: No adverse reaction tw2 06:44 Drug: NS 0.9% 1000 ml Route: IV; Rate: 1 bolus; Site: right wrist; tl1 07:45 Follow up: Response: No adverse reaction; IV Status: Completed infusion; IV Intake: tw2 1000ml 09:10 Drug: fentaNYL (PF) 50 mcg Route: IVP; Site: right hand; tw2 10:00 Follow up: Response: No adverse reaction; Pain is decreased tw2 Disposition: 19:04 Co-signature as Attending Physician, Angel Li MD. pkl Disposition: 03/19/18 10:01 Discharged to Home. Impression: Unspecified abdominal pain, Low back pain. - Condition is Stable. - Discharge Instructions: Abdominal Pain, Adult, Back Pain, Adult. - Prescriptions for Tylenol- Codeine #3 300-30 mg Oral Tablet - take 2 tablets by ORAL route every 6 hours As needed; 20 tablet. - Medication Reconciliation Form, Thank You Letter, Prescription Opioid Use form. - Follow up: Emergency Department; When: As needed; Reason: Worsening of condition. Follow up: Dave Keene MD; When: 2 - 3 days; Reason: Recheck today's complaints, Continuance of care, Re-evaluation by your physician. - Problem is new. - Symptoms have improved. Signatures: Dispatcher [employer] EDMS Angel Li MD MD [email or web address] Beckford RN RN tl1 Arnaud Pfeiffer NP LIBRARY CLERK pm1 Viola Dno RN RN tw2 Corrections: (The following items were deleted from the chart) 06:36 06:33 morphine 4 mg IVP once ordered. pm1 pm1 10:08 10:01 03/19/2018 10:01 Discharged to Home. Impression: Unspecified abdominal pain; Low tw2 back pain. Condition is Stable. Forms are Medication Reconciliation Form, Thank You Letter, Antibiotic Education, Prescription Opioid Use. Follow up: Emergency Department; When: As needed; Reason: Worsening of condition. Follow up: Dave Keene; When: 2 - 3 days; Reason: Recheck today's complaints, Continuance of care, Re-evaluation by your physician. Problem is new. Symptoms have improved. pm1
[2018-03-19 10:13] VITALS: TEMP 98.9
[2018-03-19 10:18] VITALS: BP 167/94; O2SAT 96
== END 2018-03-19 10:08 | disposition home or self-care (01) ==
LOC: ER 05:54
DX: M54.5 Low back pain (principal); I10 Essential (primary) hypertension; J44.9 Chronic obstructive pulmonary disease, unspecified
CPT/HCPCS: 36415; 74177; 80048; 80076; 81003; 81015; 81025; 83690; 85025; 87086; 87088; 99285; J2405; J3010; J7030; Q9967

== ENCOUNTER 2019-04-27 08:03 | Emergency (ER) | payer BC ==
--- OUTSIDE RECORDS SUMMARY | 2019-04-27 08:05 | XMS REPORT | Clinical Summary ---
:1955 Author Organization [facility] Address [address] [place] [address] Care Team Providers Name Role Phone Dave Keene Primary Care Provider Allergies No Known Allergies Medications Medication Sig Dispensed Refills Start Date End Date Status amLODIPine Take 2.5 mg by mouth 0 Active (NORVASC) 2.5 MG daily. tablet lysine 1,000 mg Take 1,000 mg by 0 Active Tab mouth. meropenem Inject 1 g 0 07/10/2017 Active (MERREM) MBP 1 gm intravenously every in 100 mL NS 8 (eight) hours. micafungin Inject 100 mg 0 07/11/2017 Active (MYCAMINE) MBP intravenously daily. 100 mg in 100 mL NS gabapentin Take 1 capsule (100 90 capsule 2 07/10/2017 07/10/2018 (NEURONTIN) 100 mg total) by mouth 3 MG capsule (three) times daily. Active Problems Problem Noted Date Pulmonary edema 06/30/2017 Moderate protein-calorie malnutrition 06/30/2017 Acute pulmonary insufficiency following thoracic surgery 06/26/2017 Acute blood loss as cause of postoperative anemia 06/26/2017 Metabolic acidosis 06/26/2017 LESTER (acute kidney injury) 06/26/2017 COPD (chronic obstructive pulmonary disease) 06/26/2017 Leukocytosis 06/26/2017 Empyema lung 06/22/2017 HTN (hypertension) 06/21/2017 Hiatal hernia 06/21/2017 Acid reflux 06/21/2017 Obesity 06/21/2017 [place] lesion, chronic 06/21/2017 Dyspnea 06/21/2017 Parapneumonic effusion 06/21/2017 s/p L VATS decortication 06/22/17 06/21/2017 Social History Tobacco Use Types Packs/Day Years Used Date Former Smoker Quit: 09/12/2016 Smokeless Tobacco: Never Used Sex Assigned at Date Recorded Not on file Job Start Date Occupation Industry Not on file Not on file Not on file Travel History Travel Start Travel End No recent travel history available. 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 12.5cmx [id number] - [id number] Pain Left: [employer] 07/06/2019 [id number] / Implanted: Qty: 2 on 06/22/2017 by Brayan Joseph MD Mgmt/Sti Chest / mulator [id number] Procedures Procedure Name Priority Date/Time Associated Diagnosis Comments TRANSFUSE LEUKO-REDUCED Routine 11/15/2018 5:24 PM OCCUPATIONAL THERAPIST REHAB MANAGER RED BLOOD CELLS after 04/26/2018 Results Transfuse Leuko-Red RBC (11/15/2018 5:24 PM OCCUPATIONAL THERAPIST REHAB MANAGER)Only the most recent of2 resultswithin the time period is included.after 04/26/2018 Insurance Payer Benefit Plan / Subscriber ID Type Phone Address Group BLUE CROSS/BLUE BCBS PPO POS EPO xxxxxxxxxxxx PPO [phone] [address] [place] [address] Advance Directives For more information, please contact:[address] [phone] Code Status Date Activated Date Inactivated Comments Full Code 06/22/2017 3:13 PM 07/10/2017 4:59 PM This code status was determined by: Patient
--- OUTSIDE RECORDS SUMMARY | 2019-04-27 08:14 | XMS REPORT ---
:1955 [facility] Address [address] [place] [address] Care Team Providers Name Role Phone MARILUZ DANG YURIY Unavailable Unavailable JENNI BRAXTON Unavailable Unavailable Problems This patient has no known problems. Allergies, Adverse Reactions, Alerts This patient has no known allergies or adverse reactions. Medications This patient has no known medications. Results Test Description Test Time Test Comments Text Results Atomic Results Result Comments CT, ABDOMEN 2018-04-05 Reason for exam:->BACK FINAL REPORT PATIENT ID: [id number] PAIN[address] [id number] CT, ABDOMEN \\T\\ PELVIS, ?->NoWhat is WITH IV CONTRAST INDICATION: the patient's sedation Abdominal pain, unspecifiedBACK requirement?->No PAIN COMPARISON: None Sedation TECHNIQUE:Post contrast abdomen and pelvis CT. Coronal and sagittal reformatted images obtained. DOSE REDUCTION: Dose modulation, iterative reconstruction, and/or weight-based adjustment of the mA/kV was utilized to reduce the radiation dose to as low as reasonably achievable. FINDINGS: Lower thorax: Visible airspaces clear. No effusion. Liver: No parenchymal abnormality.Gallbladder and biliary tree: No ductal dilation or stones.Pancreas: No acute findings.Spleen: No acute findingsAdrenal Glands: No acute findings.Kidneys and ureters: No hydronephrosis or nephrolithiasis.Bladder and reproductive organs: Unremarkable. Stomach and Duodenum: Large large sliding hiatal hernia. Approximately two thirds of the gastric body protruding into the thoracic cavity.Small and large intestine: Normal calibers.Appendix: Normal. Major vascular structures: Normal aortic caliber. Scattered calcific atherosclerosis.Peritoneum and retroperitoneum: No free air, fluid or adenopathy. Skeleton: Diffuse demineralization. No acute or traumatic abnormality.Additional findings: None. IMPRESSION: Sliding hiatal hernia with approximately two thirds of the gastric body protruding into the thoracic cavity. Otherwise no acute abnormality in the abdomen or pelvis. Signed: JR Saldana Robert MDReport Verified Date/Time: 04/05/2018 00:43:50 Reading Location: [address] Reading Room C METABOLIC PANEL 2018-04-04 23:15:00 Test Item Value Reference Range Comments SODIUM (BEAKER) (test 138 meq/L 136-145 azcm=165) POTASSIUM (BEAKER) (test 3.5 meq/L 3.5-5.1 lcqx=829) CHLORIDE (BEAKER) (test 104 meq/L 98-107 spbo=238) CO2 (BEAKER) (test yids=844) 25 meq/L 22-29 BLOOD UREA NITROGEN (BEAKER) 9 mg/dL 7-21 (test onrt=073) CREATININE (BEAKER) (test 0.63 mg/dL 0.57-1.25 smop=498) GLUCOSE RANDOM (BEAKER) 78 mg/dL 70-105 (test mkau=942) CALCIUM (BEAKER) (test 9.8 mg/dL 8.4-10.2 siuw=625) EGFR (BEAKER) (test 96 mL/min/1.73 sq m ESTIMATED GFR IS NOT udty=1023) ACCURATE CREATININE CLEARANCE IN PREDICTING GLOMERULAR FILTRATION RATE. ESTIMATED GFR IS NOT APPLICABLE FOR DIALYSIS PATIENTS. RAD, CHEST, 1 VIEW, NON [id number] 22:56:00Reason for exam:->BACK PAINIs the patient ?->NoShould this be performed at the bedside?-> YesFINAL REPORT Comparison exam: 07/10/2017 No focal pulmonary consolidation or pneumothorax. Blunting of the left costophrenic angle. Large hiatus hernia. The cardiomediastinal contours are otherwise normal. Demineralized skeleton. Normal soft tissues. IMPRESSION: 1. Large hiatus hernia. 2. No acute abnormality. Signed: Tree Townsendeport Verified Date/Time: 04/04/2018 22:56:08 Reading Location: [facility] B1 C013X Ortho Consult Reading Room 10 :56 PMURINALYSIS W/ [id number] 22:41:00 Test Item Value Reference Range Comments COLOR (BEAKER) (test dkfv=437) Yellow CLARITY (BEAKER) (test bath=176) Hazy SPECIFIC GRAVITY UA (BEAKER) (test twnd=822) 1.012 1.001-1.035 PH UA (BEAKER) (test zguc=122) 6.5 5.0-8.0 PROTEIN UA (BEAKER) (test dasg=462) Negative Negative GLUCOSE UA (BEAKER) (test cfyi=410) 50 mg/dL Negative KETONES UA (BEAKER) (test mvtg=740) Negative Negative BILIRUBIN UA (BEAKER) (test pdqu=997) Negative Negative BLOOD UA (BEAKER) (test ciex=952) Trace Negative NITRITE UA (BEAKER) (test plrn=849) Negative Negative LEUKOCYTE ESTERASE UA (BEAKER) (test sxww=278) Small Negative UROBILINOGEN UA (BEAKER) (test llnw=034) 0.2 mg/dL 0.2-1.0 RBC UA (BEAKER) (test gztz=269) 1 /HPF WBC UA (BEAKER) (test bbny=280) 0 /HPF MUCUS (BEAKER) (test ksys=1953) Rare SQUAMOUS EPITHELIAL (BEAKER) (test edzv=731) < /HPF AMORPHOUS CRYSTALS (BEAKER) (test vmah=2103) Rare SOURCE(BEAKER) (test cjki=7802) CBC W/PLT COUNT & AUTO [id number] 22:40:00 Test Item Value Reference Range Comments WHITE BLOOD CELL COUNT (BEAKER) (test mdes=586) 7.6 K/ L 3.5-10.5 RED BLOOD CELL COUNT (BEAKER) (test gvdm=626) 4.72 M/ L 3.93-5.22 HEMOGLOBIN (BEAKER) (test nssm=847) 12.8 GM/DL 11.2-15.7 HEMATOCRIT (BEAKER) (test vuli=659) 40.9 % 34.1-44.9 MEAN CORPUSCULAR VOLUME (BEAKER) (test jkin=241) 86.7 fL 79.4-94.8 MEAN CORPUSCULAR HEMOGLOBIN (BEAKER) (test 27.1 pg 25.6-32.2 ijjo=993) MEAN CORPUSCULAR HEMOGLOBIN CONC (BEAKER) (test 31.3 GM/DL 32.2-35.5 lktf=378) RED CELL DISTRIBUTION WIDTH (BEAKER) (test 21.0 % 11.7-14.4 sbrj=009) PLATELET COUNT (BEAKER) (test eqyk=781) 194 K/CU MM 150-450 MEAN PLATELET VOLUME (BEAKER) (test hhfg=396) 11.9 fL 9.4-12.3 NUCLEATED RED BLOOD CELLS (BEAKER) (test 0 /100 WBC 0-0 iuxs=121) NEUTROPHILS RELATIVE PERCENT (BEAKER) (test 69 % bfmc=889) LYMPHOCYTES RELATIVE PERCENT (BEAKER) (test 18 % zboc=927) MONOCYTES RELATIVE PERCENT (BEAKER) (test 9 % sduy=232) EOSINOPHILS RELATIVE PERCENT (BEAKER) (test 3 % omvd=736) BASOPHILS RELATIVE PERCENT (BEAKER) (test 1 % imum=815) NEUTROPHILS ABSOLUTE COUNT (BEAKER) (test 5.23 K/ L 1.56-6.13 kyqz=159) LYMPHOCYTES ABSOLUTE COUNT (BEAKER) (test 1.37 K/ L 1.18-3.74 xdkx=442) MONOCYTES ABSOLUTE COUNT (BEAKER) (test 0.68 K/ L 0.24-0.36 iovj=991) EOSINOPHILS ABSOLUTE COUNT (BEAKER) (test 0.20 K/ L 0.04-0.36 iwsu=499) BASOPHILS ABSOLUTE COUNT (BEAKER) (test 0.06 K/ L 0.01-0.08 xltt=590) IMMATURE GRANULOCYTES-RELATIVE PERCENT (BEAKER) 0 % 0-1 (test ptus=4680) AFB CULTURE + [id number] 08:42:00 Test Item Value Reference Range Comments CULTURE (BEAKER) (test No acid-fast bacilli isolated hfwz=9730) in 42 days AFB SMEAR (BEAKER) (test No acid fast bacilli seen tlec=187) FUNGUS CULTURE + [id number] 10:40:00 Test Item Value Reference Range Comments CULTURE (BEAKER) (test No fungus isolated in 28 days zidj=1273) FUNGUS SMEAR (BEAKER) (test No fungi seen bdod=9730) FUNGUS CULTURE + [id number] 10:40:00 Test Item Value Reference Range Comments CULTURE (BEAKER) (test No fungus isolated in 28 days lomc=6542) FUNGUS SMEAR (BEAKER) (test No fungi seen uhxd=2664) FUNGUS CULTURE + [id number] 10:40:00 Test Item Value Reference Range Comments CULTURE (BEAKER) (test No fungus isolated in 28 days aphq=2715) FUNGUS SMEAR (BEAKER) (test No fungi seen vyzp=3046) FUNGUS CULTURE + [id number] 10:40:00 Test Item Value Reference Range Comments CULTURE (BEAKER) (test No fungus isolated in 28 days xmvm=5098) FUNGUS SMEAR (BEAKER) (test No fungi seen hkzt=4666) RAD, CHEST, 1 VIEW, NON [id number] 06:40:00Reason for exam:->r/o effusionIs the patient ?->NoShould [...] MDReport Verified Date/Time: 07/10/2017 06:40:58 Reading Location: [address] Reading Room [id number] 05:25:00 Test Item Value Reference Range Comments PREALBUMIN (BEAKER) (test kubp=299) 15 mg/dL 14-45 PROTEIN, [id number] 05:10:00 Test Item Value Reference Range Comments TOTAL PROTEIN (BEAKER) (test yjst=940) 6.5 gm/dL 6.0-8.3 [id number] 05:10:00 Test Item Value Reference Range Comments MAGNESIUM (BEAKER) (test pobs=634) 1.7 mg/dL 1.6-2.6 [id number] 05:10:00 Test Item Value Reference Range Comments PHOSPHORUS (BEAKER) (test xzpm=566) 2.9 mg/dL 2.3-4.7 BASIC METABOLIC [id number] 05:10:00 Test Item Value Reference Range Comments SODIUM (BEAKER) (test 142 meq/L 136-145 ykzw=305) POTASSIUM (BEAKER) (test 3.5 meq/L 3.5-5.1 femz=783) CHLORIDE (BEAKER) (test 105 meq/L 98-107 uabk=943) CO2 (BEAKER) (test 26 meq/L 22-29 vkxw=470) BLOOD UREA NITROGEN 14 mg/dL 7-21 (BEAKER) (test jbli=854) CREATININE (BEAKER) (test 0.88 mg/dL 0.57-1.25 grgb=259) GLUCOSE RANDOM (BEAKER) 95 mg/dL 70-105 (test qcmz=267) CALCIUM (BEAKER) (test 8.8 mg/dL 8.4-10.2 wuet=013) EGFR (BEAKER) (test 66 mL/min/1.73 sq m ESTIMATED GFR IS NOT temb=1784) ACCURATE CREATININE CLEARANCE IN PREDICTING GLOMERULAR FILTRATION RATE. ESTIMATED GFR IS NOT APPLICABLE FOR DIALYSIS PATIENTS. [id number] 05:10:00 Test Item Value Reference Range Comments ALBUMIN (BEAKER) (test siox=6590) 3.0 g/dL 3.5-5.0 PROTHROMBIN [id number] 04:52:00 Test Item Value Reference Range Comments PROTIME (BEAKER) (test jlnz=702) 15.7 seconds 11.7-14.7 INR (BEAKER) (test eeed=831) 1.3 <=5.9 RECOMMENDED COUMADIN/WARFARIN INR THERAPY RANGESSTANDARD DOSE: 2.0 - 3.0 Includes: PROPHYLAXIS forvenous thrombosis, systemic embolization; TREATMENT for venous thrombosis and/or pulmonary embolus.HIGH RISK: Target INR is 2.5-3.5 for patients with mechanical heart valves.CBC W/PLT COUNT & AUTO [id number] 04:49:00 Test Item Value Reference Range Comments WHITE BLOOD CELL COUNT (BEAKER) (test dten=622) 7.6 K/ L 3.5-10.5 RED BLOOD CELL COUNT (BEAKER) (test tkqv=490) 3.53 M/ L 3.93-5.22 HEMOGLOBIN (BEAKER) (test otjl=894) 9.0 GM/DL 11.2-15.7 HEMATOCRIT (BEAKER) (test huzm=666) 29.2 % 34.1-44.9 MEAN CORPUSCULAR VOLUME (BEAKER) (test xssw=739) 82.7 fL 79.4-94.8 MEAN CORPUSCULAR HEMOGLOBIN (BEAKER) (test 25.5 pg 25.6-32.2 kapy=273) MEAN CORPUSCULAR HEMOGLOBIN CONC (BEAKER) (test 30.8 GM/DL 32.2-35.5 mwjh=316) RED CELL DISTRIBUTION WIDTH (BEAKER) (test 17.5 % 11.7-14.4 xtnj=468) PLATELET COUNT (BEAKER) (test gluv=366) 364 K/CU MM 150-450 MEAN PLATELET VOLUME (BEAKER) (test cvnp=882) 9.7 fL 9.4-12.3 NUCLEATED RED BLOOD CELLS (BEAKER) (test 0 /100 WBC 0-0 yrse=657) NEUTROPHILS RELATIVE PERCENT (BEAKER) (test 56 % jihp=229) LYMPHOCYTES RELATIVE PERCENT (BEAKER) (test 26 % mzbt=053) MONOCYTES RELATIVE PERCENT (BEAKER) (test 12 % pkqj=176) EOSINOPHILS RELATIVE PERCENT (BEAKER) (test 5 % nwsy=815) BASOPHILS RELATIVE PERCENT (BEAKER) (test 2 % lsfb=395) NEUTROPHILS ABSOLUTE COUNT (BEAKER) (test 4.22 K/ L 1.56-6.13 jics=276) LYMPHOCYTES ABSOLUTE COUNT (BEAKER) (test 1.93 K/ L 1.18-3.74 ufxn=282) MONOCYTES ABSOLUTE COUNT (BEAKER) (test 0.92 K/ L 0.24-0.36 qhlj=856) EOSINOPHILS ABSOLUTE COUNT (BEAKER) (test 0.34 K/ L 0.04-0.36 vcff=298) BASOPHILS ABSOLUTE COUNT (BEAKER) (test 0.11 K/ L 0.01-0.08 lcas=108) IMMATURE GRANULOCYTES-RELATIVE PERCENT (BEAKER) 1 % 0-1 (test edit=7458) [id number] 05:14:00 Test Item Value Reference Range Comments PHOSPHORUS (BEAKER) (test eelp=876) 3.0 mg/dL 2.3-4.7 [id number] 05:14:00 Test Item Value Reference Range Comments MAGNESIUM (BEAKER) (test vhpn=010) 1.5 mg/dL 1.6-2.6 BASIC METABOLIC [id number] 05:14:00 Test Item Value Reference Range Comments SODIUM (BEAKER) (test 140 meq/L 136-145 owvh=583) POTASSIUM (BEAKER) (test 3.6 meq/L 3.5-5.1 wszt=448) CHLORIDE (BEAKER) (test 104 meq/L 98-107 mtpd=383) CO2 (BEAKER) (test 26 meq/L 22-29 ataz=307) BLOOD UREA NITROGEN 14 mg/dL 7-21 (BEAKER) (test ipmy=878) CREATININE (BEAKER) (test 0.87 mg/dL 0.57-1.25 cmmb=989) GLUCOSE RANDOM (BEAKER) 110 mg/dL 70-105 (test zomi=673) CALCIUM (BEAKER) (test 8.5 mg/dL 8.4-10.2 ofyx=531) EGFR (BEAKER) (test 66 mL/min/1.73 sq m ESTIMATED GFR IS NOT wrbt=7552) ACCURATE CREATININE CLEARANCE IN PREDICTING GLOMERULAR FILTRATION RATE. ESTIMATED GFR IS NOT APPLICABLE FOR DIALYSIS PATIENTS. PROTHROMBIN TIME/[id number] 05:05:00 Test Item Value Reference Range Comments PROTIME (BEAKER) (test tmnx=916) 16.7 seconds 11.7-14.7 INR (BEAKER) (test budm=099) 1.4 <=5.9 RECOMMENDED COUMADIN/WARFARIN INR THERAPY RANGESSTANDARD DOSE: 2.0 - 3.0 Includes: PROPHYLAXIS forvenous thrombosis, systemic embolization; TREATMENT for venous thrombosis and/or pulmonary embolus.HIGH RISK: Target INR is 2.5-3.5 for patients with mechanical heart valves.CBC W/PLT COUNT & AUTO [id number] 05:00:00 Test Item Value Reference Range Comments WHITE BLOOD CELL COUNT (BEAKER) (test naza=246) 6.8 K/ L 3.5-10.5 RED BLOOD CELL COUNT (BEAKER) (test vvjg=408) 3.50 M/ L 3.93-5.22 HEMOGLOBIN (BEAKER) (test vpnh=563) 8.9 GM/DL 11.2-15.7 HEMATOCRIT (BEAKER) (test jaqk=865) 29.2 % 34.1-44.9 MEAN CORPUSCULAR VOLUME (BEAKER) (test pnxs=765) 83.4 fL 79.4-94.8 MEAN CORPUSCULAR HEMOGLOBIN (BEAKER) (test 25.4 pg 25.6-32.2 ivsi=704) MEAN CORPUSCULAR HEMOGLOBIN CONC (BEAKER) (test 30.5 GM/DL 32.2-35.5 szml=513) RED CELL DISTRIBUTION WIDTH (BEAKER) (test 17.4 % 11.7-14.4 yahk=917) PLATELET COUNT (BEAKER) (test zqwm=499) 362 K/CU MM 150-450 MEAN PLATELET VOLUME (BEAKER) (test rbkg=441) 9.8 fL 9.4-12.3 NUCLEATED RED BLOOD CELLS (BEAKER) (test 0 /100 WBC 0-0 jdmr=525) NEUTROPHILS RELATIVE PERCENT (BEAKER) (test 62 % chlr=310) LYMPHOCYTES RELATIVE PERCENT (BEAKER) (test 20 % lhru=641) MONOCYTES RELATIVE PERCENT (BEAKER) (test 11 % lkte=530) EOSINOPHILS RELATIVE PERCENT (BEAKER) (test 6 % yukh=434) BASOPHILS RELATIVE PERCENT (BEAKER) (test 1 % wapg=672) NEUTROPHILS ABSOLUTE COUNT (BEAKER) (test 4.16 K/ L 1.56-6.13 mwfq=377) LYMPHOCYTES ABSOLUTE COUNT (BEAKER) (test 1.34 K/ L 1.18-3.74 evom=488) MONOCYTES ABSOLUTE COUNT (BEAKER) (test 0.72 K/ L 0.24-0.36 nhep=352) EOSINOPHILS ABSOLUTE COUNT (BEAKER) (test 0.39 K/ L 0.04-0.36 qhdb=767) BASOPHILS ABSOLUTE COUNT (BEAKER) (test 0.08 K/ L 0.01-0.08 mazx=085) IMMATURE GRANULOCYTES-RELATIVE PERCENT (BEAKER) 1 % 0-1 (test ogce=3930) RAD, CHEST, 1 VIEW, NON [id number] 04:27:00Reason for exam:->r/o effusionIs the patient ?->NoShould [...] no significant interval change. Signed: Darrin Escalera MDReport Verified Date/Time: 07/09/2017 04:27:13 Reading Location: [address] Reading Room [id number] 05:12:00 Test Item Value Reference Range Comments PHOSPHORUS (BEAKER) (test hvdd=801) 3.3 mg/dL 2.3-4.7 [id number] 05:12:00 Test Item Value Reference Range Comments MAGNESIUM (BEAKER) (test fujg=228) 1.7 mg/dL 1.6-2.6 BASIC METABOLIC [id number] 05:12:00 Test Item Value Reference Range Comments SODIUM (BEAKER) (test 139 meq/L 136-145 bcxy=090) POTASSIUM (BEAKER) (test 3.3 meq/L 3.5-5.1 vdmq=540) CHLORIDE (BEAKER) (test 103 meq/L 98-107 tnuk=763) CO2 (BEAKER) (test 27 meq/L 22-29 kthj=091) BLOOD UREA NITROGEN 15 mg/dL 7-21 (BEAKER) (test lywt=500) CREATININE (BEAKER) (test 1.01 mg/dL 0.57-1.25 hvys=468) GLUCOSE RANDOM (BEAKER) 101 mg/dL 70-105 (test fppz=230) CALCIUM (BEAKER) (test 8.6 mg/dL 8.4-10.2 gwut=141) EGFR (BEAKER) (test 56 mL/min/1.73 sq m ESTIMATED GFR IS NOT cuju=2006) ACCURATE CREATININE CLEARANCE IN PREDICTING GLOMERULAR FILTRATION RATE. ESTIMATED GFR IS NOT APPLICABLE FOR DIALYSIS PATIENTS. PROTHROMBIN [id number] 04:56:00 Test Item Value Reference Range Comments PROTIME (BEAKER) (test zimm=266) 15.6 seconds 11.7-14.7 INR (BEAKER) (test tdpu=038) 1.3 <=5.9 RECOMMENDED COUMADIN/WARFARIN INR THERAPY RANGESSTANDARD DOSE: 2.0 - 3.0 Includes: PROPHYLAXIS forvenous thrombosis, systemic embolization; TREATMENT for venous thrombosis and/or pulmonary embolus.HIGH RISK: Target INR is 2.5-3.5 for patients with mechanical heart valves.CBC W/PLT COUNT & AUTO [id number] 04:47:00 Test Item Value Reference Range Comments WHITE BLOOD CELL COUNT (BEAKER) (test neox=280) 8.4 K/ L 3.5-10.5 RED BLOOD CELL COUNT (BEAKER) (test iwhv=593) 3.48 M/ L 3.93-5.22 HEMOGLOBIN (BEAKER) (test zsuh=641) 8.8 GM/DL 11.2-15.7 HEMATOCRIT (BEAKER) (test fxwd=464) 29.1 % 34.1-44.9 MEAN CORPUSCULAR VOLUME (BEAKER) (test sfch=042) 83.6 fL 79.4-94.8 MEAN CORPUSCULAR HEMOGLOBIN (BEAKER) (test 25.3 pg 25.6-32.2 wuqi=149) MEAN CORPUSCULAR HEMOGLOBIN CONC (BEAKER) (test 30.2 GM/DL 32.2-35.5 djsv=159) RED CELL DISTRIBUTION WIDTH (BEAKER) (test 17.4 % 11.7-14.4 vdhr=104) PLATELET COUNT (BEAKER) (test dywp=168) 364 K/CU MM 150-450 MEAN PLATELET VOLUME (BEAKER) (test stql=300) 9.6 fL 9.4-12.3 NUCLEATED RED BLOOD CELLS (BEAKER) (test 0 /100 WBC 0-0 sfvg=154) NEUTROPHILS RELATIVE PERCENT (BEAKER) (test 71 % bqpc=158) LYMPHOCYTES RELATIVE PERCENT (BEAKER) (test 13 % gajs=224) MONOCYTES RELATIVE PERCENT (BEAKER) (test 9 % fhch=540) EOSINOPHILS RELATIVE PERCENT (BEAKER) (test 5 % ffot=610) BASOPHILS RELATIVE PERCENT (BEAKER) (test 1 % ofuu=431) NEUTROPHILS ABSOLUTE COUNT (BEAKER) (test 5.92 K/ L 1.56-6.13 eydl=427) LYMPHOCYTES ABSOLUTE COUNT (BEAKER) (test 1.10 K/ L 1.18-3.74 zyfv=971) MONOCYTES ABSOLUTE COUNT (BEAKER) (test 0.77 K/ L 0.24-0.36 nfrq=084) EOSINOPHILS ABSOLUTE COUNT (BEAKER) (test 0.41 K/ L 0.04-0.36 suri=295) BASOPHILS ABSOLUTE COUNT (BEAKER) (test 0.09 K/ L 0.01-0.08 dudx=115) IMMATURE GRANULOCYTES-RELATIVE PERCENT (BEAKER) 1 % 0-1 (test imfd=0772) RAD, CHEST, 1 VIEW, NON [id number] 04:47:00Reason for exam:->r/o effusionIs the patient ?->NoShould [...] MDReport Verified Date/Time: 07/08/2017 04:47:50 Reading Location: [address] Body Reading Room RAD, CHEST, 1 VIEW, NON [id number] 13:44: 00Reason for exam:->eval atelectasisFINAL REPORT Chest [...] MDReport Verified Date/Time: 07/07/2017 13:44:12 Reading Location: [facility] C013W Consult Reading Room [id number] 05:20:00 Test Item Value Reference Range Comments PHOSPHORUS (BEAKER) (test dvyw=556) 3.8 mg/dL 2.3-4.7 [id number] 05:20:00 Test Item Value Reference Range Comments MAGNESIUM (BEAKER) (test reuv=758) 2.1 mg/dL 1.6-2.6 BASIC METABOLIC [id number] 05:20:00 Test Item Value Reference Range Comments SODIUM (BEAKER) (test 142 meq/L 136-145 ordg=512) POTASSIUM (BEAKER) (test 3.6 meq/L 3.5-5.1 vffe=602) CHLORIDE (BEAKER) (test 105 meq/L 98-107 yxtx=951) CO2 (BEAKER) (test 28 meq/L 22-29 apqt=336) BLOOD UREA NITROGEN 21 mg/dL 7-21 (BEAKER) (test dnnz=654) CREATININE (BEAKER) (test 1.34 mg/dL 0.57-1.25 pwjo=996) GLUCOSE RANDOM (BEAKER) 89 mg/dL 70-105 (test rjgu=087) CALCIUM (BEAKER) (test 8.4 mg/dL 8.4-10.2 qmpl=029) EGFR (BEAKER) (test 40 mL/min/1.73 sq m ESTIMATED GFR IS NOT uyll=5383) ACCURATE CREATININE CLEARANCE IN PREDICTING GLOMERULAR FILTRATION RATE. ESTIMATED GFR IS NOT APPLICABLE FOR DIALYSIS PATIENTS. PROTHROMBIN TIME/[id number] 05:10:00 Test Item Value Reference Range Comments PROTIME (BEAKER) (test fmsj=440) 16.9 seconds 11.7-14.7 INR (BEAKER) (test mslr=720) 1.4 <=5.9 RECOMMENDED COUMADIN/WARFARIN INR THERAPY RANGESSTANDARD DOSE: 2.0 - 3.0 Includes: PROPHYLAXIS forvenous thrombosis, systemic embolization; TREATMENT for venous thrombosis and/or pulmonary embolus.HIGH RISK: Target INR is 2.5-3.5 for patients with mechanical heart valves.CBC W/PLT COUNT & AUTO [id number] 04:57:00 Test Item Value Reference Range Comments WHITE BLOOD CELL COUNT (BEAKER) (test jnwa=522) 8.3 K/ L 3.5-10.5 RED BLOOD CELL COUNT (BEAKER) (test pyje=576) 3.32 M/ L 3.93-5.22 HEMOGLOBIN (BEAKER) (test wlak=107) 8.5 GM/DL 11.2-15.7 HEMATOCRIT (BEAKER) (test ktfe=550) 28.3 % 34.1-44.9 MEAN CORPUSCULAR VOLUME (BEAKER) (test xjdh=305) 85.2 fL 79.4-94.8 MEAN CORPUSCULAR HEMOGLOBIN (BEAKER) (test 25.6 pg 25.6-32.2 yyfq=579) MEAN CORPUSCULAR HEMOGLOBIN CONC (BEAKER) (test 30.0 GM/DL 32.2-35.5 svxq=314) RED CELL DISTRIBUTION WIDTH (BEAKER) (test 17.7 % 11.7-14.4 ucfj=297) PLATELET COUNT (BEAKER) (test gbdz=752) 397 K/CU MM 150-450 MEAN PLATELET VOLUME (BEAKER) (test eelo=277) 10.2 fL 9.4-12.3 NUCLEATED RED BLOOD CELLS (BEAKER) (test 0 /100 WBC 0-0 hwrc=574) NEUTROPHILS RELATIVE PERCENT (BEAKER) (test 66 % bszd=471) LYMPHOCYTES RELATIVE PERCENT (BEAKER) (test 15 % nfwu=644) MONOCYTES RELATIVE PERCENT (BEAKER) (test 12 % jxfb=875) EOSINOPHILS RELATIVE PERCENT (BEAKER) (test 5 % jebj=713) BASOPHILS RELATIVE PERCENT (BEAKER) (test 1 % hnhd=485) NEUTROPHILS ABSOLUTE COUNT (BEAKER) (test 5.50 K/ L 1.56-6.13 swkx=183) LYMPHOCYTES ABSOLUTE COUNT (BEAKER) (test 1.25 K/ L 1.18-3.74 exqg=209) MONOCYTES ABSOLUTE COUNT (BEAKER) (test 1.02 K/ L 0.24-0.36 eumg=816) EOSINOPHILS ABSOLUTE COUNT (BEAKER) (test 0.41 K/ L 0.04-0.36 jjkl=172) BASOPHILS ABSOLUTE COUNT (BEAKER) (test 0.09 K/ L 0.01-0.08 lbfz=835) IMMATURE GRANULOCYTES-RELATIVE PERCENT (BEAKER) 1 % 0-1 (test cwqh=3977) RAD, CHEST, 1 VIEW, NON [id number] 04:40:00Reason for exam:->r/o effusionIs the patient ?->NoShould [...] pneumothorax.The cardiomediastinal contours are stable. Signed: JR Saldana Robert MDReport Verified Date/Time: 07/07/2017 04:40:50 Reading Location: [address] Body Reading Room [id number] 18:44:00 Test Item Value Reference Range Comments MAGNESIUM (BEAKER) (test ouhe=411) 1.5 mg/dL 1.6-2.6 CBC W/PLT COUNT & AUTO [id number] 08:59:00 Test Item Value Reference Range Comments WHITE BLOOD CELL COUNT (BEAKER) (test ncse=631) 11.1 K/ L 3.5-10.5 RED BLOOD CELL COUNT (BEAKER) (test ixay=645) 3.58 M/ L 3.93-5.22 HEMOGLOBIN (BEAKER) (test pftr=004) 9.4 GM/DL 11.2-15.7 HEMATOCRIT (BEAKER) (test ikcp=475) 30.5 % 34.1-44.9 MEAN CORPUSCULAR VOLUME (BEAKER) (test lfee=766) 85.2 fL 79.4-94.8 MEAN CORPUSCULAR HEMOGLOBIN (BEAKER) (test 26.3 pg 25.6-32.2 bnlv=069) MEAN CORPUSCULAR HEMOGLOBIN CONC (BEAKER) (test 30.8 GM/DL 32.2-35.5 nhuu=315) RED CELL DISTRIBUTION WIDTH (BEAKER) (test 17.8 % 11.7-14.4 sscd=653) PLATELET COUNT (BEAKER) (test wlql=631) 453 K/CU MM 150-450 MEAN PLATELET VOLUME (BEAKER) (test xxym=241) 9.8 fL 9.4-12.3 NUCLEATED RED BLOOD CELLS (BEAKER) (test 0 /100 WBC 0-0 umsd=249) NEUTROPHILS RELATIVE PERCENT (BEAKER) (test 80 % fesh=331) LYMPHOCYTES RELATIVE PERCENT (BEAKER) (test 8 % uvoe=970) MONOCYTES RELATIVE PERCENT (BEAKER) (test 9 % hahk=242) EOSINOPHILS RELATIVE PERCENT (BEAKER) (test 2 % ptos=355) BASOPHILS RELATIVE PERCENT (BEAKER) (test 1 % stul=888) NEUTROPHILS ABSOLUTE COUNT (BEAKER) (test 8.79 K/ L 1.56-6.13 wuyy=995) LYMPHOCYTES ABSOLUTE COUNT (BEAKER) (test 0.83 K/ L 1.18-3.74 iepv=745) MONOCYTES ABSOLUTE COUNT (BEAKER) (test 1.03 K/ L 0.24-0.36 uhdb=228) EOSINOPHILS ABSOLUTE COUNT (BEAKER) (test 0.23 K/ L 0.04-0.36 ixbz=426) BASOPHILS ABSOLUTE COUNT (BEAKER) (test 0.11 K/ L 0.01-0.08 gdft=831) IMMATURE GRANULOCYTES-RELATIVE PERCENT (BEAKER) 1 % 0-1 (test xpdn=8928) RAD, CHEST, 1 VIEW, NON [id number] 05:06:00Reason for exam:->r/o effusionIs the patient ?->NoShould this be performed at the bedside?- >YesFINAL REPORT RAD, CHEST, 1 VIEW, NON DEPT INDICATION: r/o effusion COMPARISON: Prior day's exam FINDINGS: Portable frontal view of the chest. IMPRESSION: Support Lines: Stable. Lungs and pleura: Unchanged airspace and pleural opacities. No pneumothorax.Heart and mediastinum: Stable contours. Additional findings: None. Signed: JR Les, Mahendra Zafar Verified Date/Time: 07/06/2017 05:06:54 Reading Location: [facility] B1 C013Y CT Body Reading Room [id number] 04:29:00 Test Item Value Reference Range Comments PHOSPHORUS (BEAKER) (test abei=968) 3.7 mg/dL 2.3-4.7 [id number] 04:29:00 Test Item Value Reference Range Comments MAGNESIUM (BEAKER) (test pcjk=004) 2.0 mg/dL 1.6-2.6 BASIC METABOLIC [id number] 04:29:00 Test Item Value Reference Range Comments SODIUM (BEAKER) (test 147 meq/L 136-145 lajt=880) POTASSIUM (BEAKER) (test 3.5 meq/L 3.5-5.1 pnpw=150) CHLORIDE (BEAKER) (test 109 meq/L 98-107 lotw=312) CO2 (BEAKER) (test 27 meq/L 22-29 pwdf=769) BLOOD UREA NITROGEN 25 mg/dL 7-21 (BEAKER) (test ocpj=169) CREATININE (BEAKER) (test 1.57 mg/dL 0.57-1.25 jkxl=131) GLUCOSE RANDOM (BEAKER) 101 mg/dL 70-105 (test debk=798) CALCIUM (BEAKER) (test 8.7 mg/dL 8.4-10.2 klui=769) EGFR (BEAKER) (test 34 mL/min/1.73 sq m ESTIMATED GFR IS NOT inza=3001) ACCURATE CREATININE CLEARANCE IN PREDICTING GLOMERULAR FILTRATION RATE. ESTIMATED GFR IS NOT APPLICABLE FOR DIALYSIS PATIENTS. PROTHROMBIN [id number] 04:24:00 Test Item Value Reference Range Comments PROTIME (BEAKER) (test buqv=262) 15.8 seconds 11.7-14.7 INR (BEAKER) (test lajr=098) 1.3 <=5.9 RECOMMENDED COUMADIN/WARFARIN INR THERAPY RANGESSTANDARD DOSE: 2.0 - 3.0 Includes: PROPHYLAXIS forvenous thrombosis, systemic embolization; TREATMENT for venous thrombosis and/or pulmonary embolus.HIGH RISK: Target INR is 2.5-3.5 for patients with mechanical heart valves.[id number] 17:12:00 Test Item Value Reference Range Comments POTASSIUM (BEAKER) (test fzpm=529) 3.6 meq/L 3.5-5.1 [id number] 17:12:00 Test Item Value Reference Range Comments MAGNESIUM (BEAKER) (test rdhr=920) 2.2 mg/dL 1.6-2.6 [id number] 17:01:00 Test Item Value Reference Range Comments POTASSIUM (BEAKER) (test kyfi=420) 3.8 meq/L 3.5-5.1 [id number] 17:01:00 Test Item Value Reference Range Comments MAGNESIUM (BEAKER) (test zeyu=073) 2.3 mg/dL 1.6-2.6 RAD, CHEST, 1 VIEW, NON [id number] 15:01:00Reason for exam:->PICC PlacementShould this be performed [...] is stable. No discernible pneumothorax. Signed: Eric Alexandra MDReportVerified Date/ Time: 07/05/2017 15:01:27 Reading Location: [facility] Mammo Reading Room RAD, CHEST, 1 VIEW, NON [id number] 05:06:00Reason for exam:->r/o effusionIs the patient ?->NoShould [...] Stable contours. Additional findings: None. Signed: JR Les, Mahendra MAYEReport Verified Date/Time: 07/05/2017 05:06: 19 Reading Location: [facility] C013Y CT Body Reading Room BASIC METABOLIC [id number] 04:36:00 Test Item Value Reference Range Comments SODIUM (BEAKER) (test 149 meq/L 136-145 xlid=088) POTASSIUM (BEAKER) (test 3.0 meq/L 3.5-5.1 igmh=298) CHLORIDE (BEAKER) (test 110 meq/L 98-107 ycwj=169) CO2 (BEAKER) (test 26 meq/L 22-29 ezhh=152) BLOOD UREA NITROGEN 34 mg/dL 7-21 (BEAKER) (test ifoh=247) CREATININE (BEAKER) (test 2.16 mg/dL 0.57-1.25 cpzi=048) GLUCOSE RANDOM (BEAKER) 106 mg/dL 70-105 (test fmbi=679) CALCIUM (BEAKER) (test 8.6 mg/dL 8.4-10.2 annm=613) EGFR (BEAKER) (test 23 mL/min/1.73 sq m ESTIMATED GFR IS NOT ueue=3040) ACCURATE CREATININE CLEARANCE IN PREDICTING GLOMERULAR FILTRATION RATE. ESTIMATED GFR IS NOT APPLICABLE FOR DIALYSIS PATIENTS. [id number] 04:26:00 Test Item Value Reference Range Comments PHOSPHORUS (BEAKER) (test gsrf=786) 3.6 mg/dL 2.3-4.7 [id number] 04:26:00 Test Item Value Reference Range Comments MAGNESIUM (BEAKER) (test ltkt=046) 1.8 mg/dL 1.6-2.6 CBC W/PLT COUNT & AUTO [id number] 04:08:00 Test Item Value Reference Range Comments WHITE BLOOD CELL COUNT (BEAKER) (test arnx=958) 8.9 K/ L 3.5-10.5 RED BLOOD CELL COUNT (BEAKER) (test dwob=819) 3.54 M/ L 3.93-5.22 HEMOGLOBIN (BEAKER) (test ohgv=769) 9.0 GM/DL 11.2-15.7 HEMATOCRIT (BEAKER) (test acrc=933) 29.2 % 34.1-44.9 MEAN CORPUSCULAR VOLUME (BEAKER) (test jfkh=790) 82.5 fL 79.4-94.8 MEAN CORPUSCULAR HEMOGLOBIN (BEAKER) (test 25.4 pg 25.6-32.2 rzvk=234) MEAN CORPUSCULAR HEMOGLOBIN CONC (BEAKER) (test 30.8 GM/DL 32.2-35.5 demx=016) RED CELL DISTRIBUTION WIDTH (BEAKER) (test 17.8 % 11.7-14.4 dhqa=753) PLATELET COUNT (BEAKER) (test ngac=866) 496 K/CU MM 150-450 MEAN PLATELET VOLUME (BEAKER) (test dzcp=520) 10.2 fL 9.4-12.3 NUCLEATED RED BLOOD CELLS (BEAKER) (test 0 /100 WBC 0-0 lsva=838) NEUTROPHILS RELATIVE PERCENT (BEAKER) (test 70 % hdsb=596) LYMPHOCYTES RELATIVE PERCENT (BEAKER) (test 12 % yxyr=902) MONOCYTES RELATIVE PERCENT (BEAKER) (test 13 % ombr=071) EOSINOPHILS RELATIVE PERCENT (BEAKER) (test 3 % kvqz=460) BASOPHILS RELATIVE PERCENT (BEAKER) (test 1 % nfwv=198) NEUTROPHILS ABSOLUTE COUNT (BEAKER) (test 6.26 K/ L 1.56-6.13 ywbb=409) LYMPHOCYTES ABSOLUTE COUNT (BEAKER) (test 1.09 K/ L 1.18-3.74 jtxx=059) MONOCYTES ABSOLUTE COUNT (BEAKER) (test 1.12 K/ L 0.24-0.36 jzku=785) EOSINOPHILS ABSOLUTE COUNT (BEAKER) (test 0.28 K/ L 0.04-0.36 jzfm=258) BASOPHILS ABSOLUTE COUNT (BEAKER) (test 0.08 K/ L 0.01-0.08 xwjj=009) IMMATURE GRANULOCYTES-RELATIVE PERCENT (BEAKER) 1 % 0-1 (test yhhx=9002) PROTHROMBIN [id number] 04:05:00 Test Item Value Reference Range Comments PROTIME (BEAKER) (test zjwo=206) 17.1 seconds 11.7-14.7 INR (BEAKER) (test nhrq=053) 1.4 <=5.9 RECOMMENDED COUMADIN/WARFARIN INR THERAPY RANGESSTANDARD DOSE: 2.0 - 3.0 Includes: PROPHYLAXIS forvenous thrombosis, systemic embolization; TREATMENT for venous thrombosis and/or pulmonary embolus.HIGH RISK: Target INR is 2.5-3.5 for patients with mechanical heart valves.CBC W/PLT COUNT & AUTO [id number] 17:52:00 Test Item Value Reference Range Comments WHITE BLOOD CELL COUNT (BEAKER) (test dyvm=672) 8.7 K/ L 3.5-10.5 RED BLOOD CELL COUNT (BEAKER) (test swvb=122) 3.58 M/ L 3.93-5.22 HEMOGLOBIN (BEAKER) (test vijt=345) 8.9 GM/DL 11.2-15.7 HEMATOCRIT (BEAKER) (test qluz=717) 29.5 % 34.1-44.9 MEAN CORPUSCULAR VOLUME (BEAKER) (test hovu=253) 82.4 fL 79.4-94.8 MEAN CORPUSCULAR HEMOGLOBIN (BEAKER) (test 24.9 pg 25.6-32.2 lzhg=011) MEAN CORPUSCULAR HEMOGLOBIN CONC (BEAKER) (test 30.2 GM/DL 32.2-35.5 whus=974) RED CELL DISTRIBUTION WIDTH (BEAKER) (test 17.7 % 11.7-14.4 zfof=515) PLATELET COUNT (BEAKER) (test fqmq=174) 490 K/CU MM 150-450 MEAN PLATELET VOLUME (BEAKER) (test fcfv=791) 9.5 fL 9.4-12.3 NUCLEATED RED BLOOD CELLS (BEAKER) (test 0 /100 WBC 0-0 pgwd=939) NEUTROPHILS RELATIVE PERCENT (BEAKER) (test 79 % gwcr=775) LYMPHOCYTES RELATIVE PERCENT (BEAKER) (test 7 % zntf=125) MONOCYTES RELATIVE PERCENT (BEAKER) (test 11 % jsxc=971) EOSINOPHILS RELATIVE PERCENT (BEAKER) (test 1 % zikp=962) BASOPHILS RELATIVE PERCENT (BEAKER) (test 1 % lzoe=530) NEUTROPHILS ABSOLUTE COUNT (BEAKER) (test 6.88 K/ L 1.56-6.13 apfk=869) LYMPHOCYTES ABSOLUTE COUNT (BEAKER) (test 0.64 K/ L 1.18-3.74 fjbz=058) MONOCYTES ABSOLUTE COUNT (BEAKER) (test 0.93 K/ L 0.24-0.36 xevs=612) EOSINOPHILS ABSOLUTE COUNT (BEAKER) (test 0.10 K/ L 0.04-0.36 ndap=857) BASOPHILS ABSOLUTE COUNT (BEAKER) (test 0.08 K/ L 0.01-0.08 omek=498) IMMATURE GRANULOCYTES-RELATIVE PERCENT (BEAKER) 1 % 0-1 (test zzod=5937) BASIC METABOLIC [id number] 17:51:00 Test Item Value Reference Range Comments SODIUM (BEAKER) (test 147 meq/L 136-145 gdrg=465) POTASSIUM (BEAKER) (test 3.4 meq/L 3.5-5.1 plho=664) CHLORIDE (BEAKER) (test 110 meq/L 98-107 fecx=444) CO2 (BEAKER) (test 25 meq/L 22-29 qvzs=919) BLOOD UREA NITROGEN 42 mg/dL 7-21 (BEAKER) (test gomd=002) CREATININE (BEAKER) (test 2.69 mg/dL 0.57-1.25 qheq=055) GLUCOSE RANDOM (BEAKER) 122 mg/dL 70-105 (test fufr=567) CALCIUM (BEAKER) (test 8.5 mg/dL 8.4-10.2 xxxt=551) EGFR (BEAKER) (test 18 mL/min/1.73 sq m ESTIMATED GFR IS NOT wutp=6168) ACCURATE CREATININE CLEARANCE IN PREDICTING GLOMERULAR FILTRATION RATE. ESTIMATED GFR IS NOT APPLICABLE FOR DIALYSIS PATIENTS. [id number] 17:45:00 Test Item Value Reference Range Comments PHOSPHORUS (BEAKER) (test sydo=142) 3.5 mg/dL 2.3-4.7 [id number] 17:45:00 Test Item Value Reference Range Comments MAGNESIUM (BEAKER) (test sbkh=185) 2.0 mg/dL 1.6-2.6 RAD, CHEST, 1 VIEW, NON [id number] 17:39:00Reason for exam:->s/p chest tube removalShould this [...] with nonspecific increased interstitial findings. Signed: Ingrid Garcia Verified Date/Time: 07/04/2017 17:39:24 Reading Location: [facility] C013W Consult Reading Room 05: 39 PMPROTHROMBIN [id number] 17:08:00 Test Item Value Reference Range Comments PROTIME (BEAKER) (test oxhm=377) 17.3 seconds 11.7-14.7 INR (BEAKER) (test eszw=905) 1.4 <=5.9 RECOMMENDED COUMADIN/WARFARIN INR THERAPY RANGESSTANDARD DOSE: 2.0 - 3.0 Includes: PROPHYLAXIS forvenous thrombosis, systemic embolization; TREATMENT for venous thrombosis and/or pulmonary embolus.HIGH RISK: Target INR is 2.5-3.5 for patients with mechanical heart valves.BLOOD GAS, [id number] 13:15:00 Test Item Value Reference Range Comments PH ARTERIAL (BEAKER) (test ywkt=793) 7.49 7.35-7.45 PCO2 ARTERIAL (BEAKER) (test sxsf=952) 34 mmHg 35-45 PO2 ARTERIAL (BEAKER) (test hzxs=905) 88 mmHg 80-90 O2 SATURATION ARTERIAL (BEAKER) (test yyie=726) 97.4 % 96.0-97.0 HCO3 ARTERIAL (BEAKER) (test axcn=743) 25 mmol/L 21-29 BASE EXCESS ARTERIAL (BEAKER) (test chxe=822) 1.8 mmol/L -2.0-3.0 PATIENT TEMPERATURE (BEAKER) (test kxuw=8928) 37.0 C FIO2 (BEAKER) (test frvv=5343) 36.0 % FUNGUS CULTURE + [id number] 12:50:00 Test Item Value Reference Range Comments CULTURE (BEAKER) (test <1+ Theodora dubliniensis gysj=7626) FUNGUS SMEAR (BEAKER) (test No fungi seen cauo=6507) BLOOD GAS, [id number] 05:22:00 Test Item Value Reference Range Comments PH ARTERIAL (BEAKER) (test jpig=048) 7.48 7.35-7.45 PCO2 ARTERIAL (BEAKER) (test qhwn=774) 32 mmHg 35-45 PO2 ARTERIAL (BEAKER) (test mbrg=611) 69 mmHg 80-90 O2 SATURATION ARTERIAL (BEAKER) (test pxoq=636) 95.1 % 96.0-97.0 HCO3 ARTERIAL (BEAKER) (test tjtn=435) 23 mmol/L 21-29 BASE EXCESS ARTERIAL (BEAKER) (test xhso=930) 0.4 mmol/L -2.0-3.0 PATIENT TEMPERATURE (BEAKER) (test pryp=6411) 37.0 C FIO2 (BEAKER) (test hxim=4869) 36.0 % RAD, CHEST, 1 VIEW, NON [id number] 05:15:00Reason for exam:->r/o effusionIs the patient ?->NoShould [...] Verified Date/Time: 07/04/2017 05:15: 15 Reading Location: [place] [address]447T Transitional Reading Room BASIC METABOLIC [id number] 04:31:00 Test Item Value Reference Range Comments SODIUM (BEAKER) (test 149 meq/L 136-145 ksgt=802) POTASSIUM (BEAKER) (test 3.2 meq/L 3.5-5.1 xwtd=001) CHLORIDE (BEAKER) (test 110 meq/L 98-107 bhck=312) CO2 (BEAKER) (test 24 meq/L 22-29 nkbj=334) BLOOD UREA NITROGEN 46 mg/dL 7-21 (BEAKER) (test nkna=539) CREATININE (BEAKER) (test 3.18 mg/dL 0.57-1.25 qoeo=416) GLUCOSE RANDOM (BEAKER) 118 mg/dL 70-105 (test xekr=607) CALCIUM (BEAKER) (test 9.1 mg/dL 8.4-10.2 cbuf=097) EGFR (BEAKER) (test 15 mL/min/1.73 sq m ESTIMATED GFR IS NOT jzjb=9082) ACCURATE CREATININE CLEARANCE IN PREDICTING GLOMERULAR FILTRATION RATE. ESTIMATED GFR IS NOT APPLICABLE FOR DIALYSIS PATIENTS. [id number] 04:26:00 Test Item Value Reference Range Comments PHOSPHORUS (BEAKER) (test esku=522) 4.9 mg/dL 2.3-4.7 [id number] 04:26:00 Test Item Value Reference Range Comments MAGNESIUM (BEAKER) (test vdet=322) 2.1 mg/dL 1.6-2.6 PROTHROMBIN [id number] 04:07:00 Test Item Value Reference Range Comments PROTIME (BEAKER) (test mbjx=750) 16.8 seconds 11.7-14.7 INR (BEAKER) (test klci=985) 1.4 <=5.9 RECOMMENDED COUMADIN/WARFARIN INR THERAPY RANGESSTANDARD DOSE: 2.0 - 3.0 Includes: PROPHYLAXIS forvenous thrombosis, systemic embolization; TREATMENT for venous thrombosis and/or pulmonary embolus.HIGH RISK: Target INR is 2.5-3.5 for patients with mechanical heart valves.CBC W/PLT COUNT & AUTO [id number] 03:55:00 Test Item Value Reference Range Comments WHITE BLOOD CELL COUNT (BEAKER) (test rkft=563) 7.9 K/ L 3.5-10.5 RED BLOOD CELL COUNT (BEAKER) (test vcur=018) 3.50 M/ L 3.93-5.22 HEMOGLOBIN (BEAKER) (test hktu=128) 8.8 GM/DL 11.2-15.7 HEMATOCRIT (BEAKER) (test zbou=040) 28.7 % 34.1-44.9 MEAN CORPUSCULAR VOLUME (BEAKER) (test ngpa=523) 82.0 fL 79.4-94.8 MEAN CORPUSCULAR HEMOGLOBIN (BEAKER) (test 25.1 pg 25.6-32.2 wphd=471) MEAN CORPUSCULAR HEMOGLOBIN CONC (BEAKER) (test 30.7 GM/DL 32.2-35.5 atlo=332) RED CELL DISTRIBUTION WIDTH (BEAKER) (test 17.7 % 11.7-14.4 qyza=293) PLATELET COUNT (BEAKER) (test nxok=209) 459 K/CU MM 150-450 MEAN PLATELET VOLUME (BEAKER) (test nxuf=690) 9.8 fL 9.4-12.3 NUCLEATED RED BLOOD CELLS (BEAKER) (test 0 /100 WBC 0-0 wgag=556) NEUTROPHILS RELATIVE PERCENT (BEAKER) (test 72 % isec=391) LYMPHOCYTES RELATIVE PERCENT (BEAKER) (test 13 % wykw=412) MONOCYTES RELATIVE PERCENT (BEAKER) (test 11 % ghhq=136) EOSINOPHILS RELATIVE PERCENT (BEAKER) (test 2 % uepl=218) BASOPHILS RELATIVE PERCENT (BEAKER) (test 1 % gmdm=709) NEUTROPHILS ABSOLUTE COUNT (BEAKER) (test 5.68 K/ L 1.56-6.13 bgdn=398) LYMPHOCYTES ABSOLUTE COUNT (BEAKER) (test 1.01 K/ L 1.18-3.74 tyed=387) MONOCYTES ABSOLUTE COUNT (BEAKER) (test 0.84 K/ L 0.24-0.36 xjmr=880) EOSINOPHILS ABSOLUTE COUNT (BEAKER) (test 0.19 K/ L 0.04-0.36 yzli=085) BASOPHILS ABSOLUTE COUNT (BEAKER) (test 0.07 K/ L 0.01-0.08 tvvy=427) IMMATURE GRANULOCYTES-RELATIVE PERCENT (BEAKER) 1 % 0-1 (test tabx=7749) RAD, CHEST, 1 VIEW, NON [id number] 17:46:00Reason for exam:->s/p chest tube removalShould this [...] MDReport Verified Date/Time: 07/03/2017 17:46:43 Reading Location: [address] Consult Reading Room BASIC METABOLIC [id number] 16:18:00 Test Item Value Reference Range Comments SODIUM (BEAKER) (test 146 meq/L 136-145 dfcd=253) POTASSIUM (BEAKER) (test 3.3 meq/L 3.5-5.1 fcni=738) CHLORIDE (BEAKER) (test 108 meq/L 98-107 aujt=048) CO2 (BEAKER) (test 25 meq/L 22-29 fmcp=550) BLOOD UREA NITROGEN 50 mg/dL 7-21 (BEAKER) (test eoms=702) CREATININE (BEAKER) (test 3.72 mg/dL 0.57-1.25 tnhh=154) GLUCOSE RANDOM (BEAKER) 107 mg/dL 70-105 (test pwpe=998) CALCIUM (BEAKER) (test 9.1 mg/dL 8.4-10.2 fkxd=303) EGFR (BEAKER) (test 12 mL/min/1.73 sq m ESTIMATED GFR IS NOT gmvy=2228) ACCURATE CREATININE CLEARANCE IN PREDICTING GLOMERULAR FILTRATION RATE. ESTIMATED GFR IS NOT APPLICABLE FOR DIALYSIS PATIENTS. [id number] 16:11:00 Test Item Value Reference Range Comments PHOSPHORUS (BEAKER) (test wkmn=038) 5.2 mg/dL 2.3-4.7 [id number] 16:11:00 Test Item Value Reference Range Comments MAGNESIUM (BEAKER) (test ritp=784) 2.1 mg/dL 1.6-2.6 PROTHROMBIN [id number] 16:10:00 Test Item Value Reference Range Comments PROTIME (BEAKER) (test hcri=814) 16.0 seconds 11.7-14.7 INR (BEAKER) (test dook=906) 1.3 <=5.9 RECOMMENDED COUMADIN/WARFARIN INR THERAPY RANGESSTANDARD DOSE: 2.0 - 3.0 Includes: PROPHYLAXIS forvenous thrombosis, systemic embolization; TREATMENT for venous thrombosis and/or pulmonary embolus.HIGH RISK: Target INR is 2.5-3.5 for patients with mechanical heart valves.CBC W/PLT COUNT & AUTO [id number] 16:01:00 Test Item Value Reference Range Comments WHITE BLOOD CELL COUNT (BEAKER) (test ukgv=860) 8.2 K/ L 3.5-10.5 RED BLOOD CELL COUNT (BEAKER) (test xqfq=257) 3.59 M/ L 3.93-5.22 HEMOGLOBIN (BEAKER) (test zaef=810) 9.1 GM/DL 11.2-15.7 HEMATOCRIT (BEAKER) (test yhfo=315) 29.1 % 34.1-44.9 MEAN CORPUSCULAR VOLUME (BEAKER) (test pulk=735) 81.1 fL 79.4-94.8 MEAN CORPUSCULAR HEMOGLOBIN (BEAKER) (test 25.3 pg 25.6-32.2 tmyq=386) MEAN CORPUSCULAR HEMOGLOBIN CONC (BEAKER) (test 31.3 GM/DL 32.2-35.5 luih=533) RED CELL DISTRIBUTION WIDTH (BEAKER) (test 17.7 % 11.7-14.4 ubkn=440) PLATELET COUNT (BEAKER) (test ybkh=513) 480 K/CU MM 150-450 MEAN PLATELET VOLUME (BEAKER) (test acqz=639) 9.5 fL 9.4-12.3 NUCLEATED RED BLOOD CELLS (BEAKER) (test 0 /100 WBC 0-0 nvld=488) NEUTROPHILS RELATIVE PERCENT (BEAKER) (test 82 % ksok=316) LYMPHOCYTES RELATIVE PERCENT (BEAKER) (test 7 % unuk=234) MONOCYTES RELATIVE PERCENT (BEAKER) (test 9 % yrbd=208) EOSINOPHILS RELATIVE PERCENT (BEAKER) (test 1 % jgvr=335) BASOPHILS RELATIVE PERCENT (BEAKER) (test 1 % uqrc=691) NEUTROPHILS ABSOLUTE COUNT (BEAKER) (test 6.70 K/ L 1.56-6.13 staj=674) LYMPHOCYTES ABSOLUTE COUNT (BEAKER) (test 0.58 K/ L 1.18-3.74 bgty=894) MONOCYTES ABSOLUTE COUNT (BEAKER) (test 0.70 K/ L 0.24-0.36 vtmr=000) EOSINOPHILS ABSOLUTE COUNT (BEAKER) (test 0.11 K/ L 0.04-0.36 wanw=840) BASOPHILS ABSOLUTE COUNT (BEAKER) (test 0.07 K/ L 0.01-0.08 pwgm=281) IMMATURE GRANULOCYTES-RELATIVE PERCENT (BEAKER) 1 % 0-1 (test qdub=5402) BLOOD GAS, [id number] 15:49:00 Test Item Value Reference Range Comments PH ARTERIAL (BEAKER) (test xqcz=319) 7.46 7.35-7.45 PCO2 ARTERIAL (BEAKER) (test mdsa=980) 39 mmHg 35-45 PO2 ARTERIAL (BEAKER) (test grqo=914) 79 mmHg 80-90 O2 SATURATION ARTERIAL (BEAKER) (test opzf=209) 96.3 % 96.0-97.0 HCO3 ARTERIAL (BEAKER) (test vrqh=896) 27 mmol/L 21-29 BASE EXCESS ARTERIAL (BEAKER) (test dqsu=388) 2.9 mmol/L -2.0-3.0 PATIENT TEMPERATURE (BEAKER) (test evwn=1296) 37.0 C FIO2 (BEAKER) (test fmbv=6504) 36.0 % [id number] 13:56:00 Test Item Value Reference Range Comments POTASSIUM (BEAKER) (test ijyw=727) 3.4 meq/L 3.5-5.1 POCT-GLUCOSE [id number] 12:22:00 Test Item Value Reference Range Comments POC-GLUCOSE METER (BEAKER) 110 mg/dL 70-110 [facility] [address] [facility] (test cthm=5019) [place] [address] RAD, CHEST, 1 VIEW, NON [id number] 08:28:00Reason for exam:->r/o effusionIs the patient ?->NoShould this be performed at the bedside?- >YesFINAL REPORT Chest, one view. HISTORY: Effusion COMPARISON: 07/02/2017 IMPRESSION: Interval decrease in bilateral pleural effusions with near resolution of right-sided pleural effusion. A trace left- sided pleural effusion remains. No identifiable pneumothorax. Supporting hardware grossly unchanged in position. Cardiomediastinal silhouette is unchanged from prior examination. Signed: Marcellus Braxton MDReport Verified Date/ Time: 07/03/2017 08:28:04 Reading Location: [facility] Diagnostic Imaging Reading Room - [place] [id number] Electronically signed by: MARCELLUS BRAXTON on 2016 08:28 [id number] 04:33:00 Test Item Value Reference Range Comments PREALBUMIN (BEAKER) (test uqxa=273) 12 mg/dL 14-45 CBC W/PLT COUNT & AUTO [id number] 04:30:00 Test Item Value Reference Range Comments WHITE BLOOD CELL COUNT (BEAKER) (test olea=301) 8.5 K/ L 3.5-10.5 RED BLOOD CELL COUNT (BEAKER) (test uwnk=609) 3.15 M/ L 3.93-5.22 HEMOGLOBIN (BEAKER) (test cgxv=952) 8.2 GM/DL 11.2-15.7 HEMATOCRIT (BEAKER) (test vecl=731) 25.8 % 34.1-44.9 MEAN CORPUSCULAR VOLUME (BEAKER) (test ujaq=175) 81.9 fL 79.4-94.8 MEAN CORPUSCULAR HEMOGLOBIN (BEAKER) (test 26.0 pg 25.6-32.2 tnxn=306) MEAN CORPUSCULAR HEMOGLOBIN CONC (BEAKER) (test 31.8 GM/DL 32.2-35.5 unyv=836) RED CELL DISTRIBUTION WIDTH (BEAKER) (test 18.0 % 11.7-14.4 eimg=501) PLATELET COUNT (BEAKER) (test dzmw=713) 470 K/CU MM 150-450 MEAN PLATELET VOLUME (BEAKER) (test matu=722) 10.2 fL 9.4-12.3 NUCLEATED RED BLOOD CELLS (BEAKER) (test 0 /100 WBC 0-0 nuuf=011) NEUTROPHILS RELATIVE PERCENT (BEAKER) (test 73 % vmdb=841) LYMPHOCYTES RELATIVE PERCENT (BEAKER) (test 12 % kqmd=196) MONOCYTES RELATIVE PERCENT (BEAKER) (test 11 % qfzr=769) EOSINOPHILS RELATIVE PERCENT (BEAKER) (test 3 % qkuh=734) BASOPHILS RELATIVE PERCENT (BEAKER) (test 1 % jfkd=436) NEUTROPHILS ABSOLUTE COUNT (BEAKER) (test 6.17 K/ L 1.56-6.13 pdqm=014) LYMPHOCYTES ABSOLUTE COUNT (BEAKER) (test 0.97 K/ L 1.18-3.74 irvj=875) MONOCYTES ABSOLUTE COUNT (BEAKER) (test 0.95 K/ L 0.24-0.36 kcqi=060) EOSINOPHILS ABSOLUTE COUNT (BEAKER) (test 0.24 K/ L 0.04-0.36 aktf=137) BASOPHILS ABSOLUTE COUNT (BEAKER) (test 0.05 K/ L 0.01-0.08 ofsm=036) IMMATURE GRANULOCYTES-RELATIVE PERCENT (BEAKER) 1 % 0-1 (test dgvc=5891) BASIC METABOLIC [id number] 04:27:00 Test Item Value Reference Range Comments SODIUM (BEAKER) (test 147 meq/L 136-145 bvgg=333) POTASSIUM (BEAKER) (test 3.0 meq/L 3.5-5.1 juqm=124) CHLORIDE (BEAKER) (test 110 meq/L 98-107 cfxc=159) CO2 (BEAKER) (test 24 meq/L 22-29 jvaf=847) BLOOD UREA NITROGEN 54 mg/dL 7-21 (BEAKER) (test wtiy=372) CREATININE (BEAKER) (test 4.42 mg/dL 0.57-1.25 tfcx=504) GLUCOSE RANDOM (BEAKER) 81 mg/dL 70-105 (test hqub=198) CALCIUM (BEAKER) (test 9.1 mg/dL 8.4-10.2 kzus=000) EGFR (BEAKER) (test 10 mL/min/1.73 sq m ESTIMATED GFR IS NOT akoy=7201) ACCURATE CREATININE CLEARANCE IN PREDICTING GLOMERULAR FILTRATION RATE. ESTIMATED GFR IS NOT APPLICABLE FOR DIALYSIS PATIENTS. PROTEIN, [id number] 04:25:00 Test Item Value Reference Range Comments TOTAL PROTEIN (BEAKER) (test iqdu=728) 5.9 gm/dL 6.0-8.3 [id number] 04:25:00 Test Item Value Reference Range Comments MAGNESIUM (BEAKER) (test ffwo=147) 1.8 mg/dL 1.6-2.6 [id number] 04:25:00 Test Item Value Reference Range Comments PHOSPHORUS (BEAKER) (test uwun=759) 5.1 mg/dL 2.3-4.7 [id number] 04:25:00 Test Item Value Reference Range Comments ALBUMIN (BEAKER) (test hmeh=3005) 2.5 g/dL 3.5-5.0 PROTHROMBIN [id number] 04:20:00 Test Item Value Reference Range Comments PROTIME (BEAKER) (test jqzu=553) 16.7 seconds 11.7-14.7 INR (BEAKER) (test omcy=433) 1.4 <=5.9 RECOMMENDED COUMADIN/WARFARIN INR THERAPY RANGESSTANDARD DOSE: 2.0 - 3.0 Includes: PROPHYLAXIS forvenous thrombosis, systemic embolization; TREATMENT for venous thrombosis and/or pulmonary embolus.HIGH RISK: Target INR is 2.5-3.5 for patients with mechanical heart valves.BLOOD GAS, [id number] 04:13:00 Test Item Value Reference Range Comments PH ARTERIAL (BEAKER) (test whoi=180) 7.51 7.35-7.45 PCO2 ARTERIAL (BEAKER) (test qywu=821) 22 mmHg 35-45 PO2 ARTERIAL (BEAKER) (test gbcx=210) 111 mmHg 80-90 O2 SATURATION ARTERIAL (BEAKER) (test xliy=612) 98.5 % 96.0-97.0 HCO3 ARTERIAL (BEAKER) (test urlw=652) 17 mmol/L 21-29 BASE EXCESS ARTERIAL (BEAKER) (test vyvr=064) -5.3 mmol/L -2.0-3.0 PATIENT TEMPERATURE (BEAKER) (test dwez=4611) 37.5 C FIO2 (BEAKER) (test forv=9754) 50.0 % POCT-GLUCOSE [id number] 00:13:00 Test Item Value Reference Range Comments POC-GLUCOSE METER (BEAKER) 118 mg/dL 70-110 TESTED AT [facility] [address] (test ylxn=3904) [facility] [address] RAD, ABDOMEN/KUB, 1 VIEW [id number] 20:00:00Reason for exam:->s/p Corpak insertion Should this be performed at the bedside?->YesFINAL REPORT EXAMINATION: SUPINE ABDOMEN CLINICAL INDICATION: FEEDING TUBE PLACEMENT IMPRESSION: Compared with 06/27/2017. Tip of the feeding tube projects over the right upper abdomen in the region of the gastroduodenal junction. The visualized bowel gas pattern is nonspecific. Signed: Darrin Escalera MDReport Verified Date/Time: 07/02/2017 20:00:19 Reading Location: [address] Reading Room Electronically signed by: DARRIN ESCALERA M.D. on 08:00 PMPOCT-GLUCOSE [id number] 18:51:00 Test Item Value Reference Range Comments POC-GLUCOSE METER (BEAKER) 105 mg/dL 70-110 TESTED AT [address] (test wgev=9607) [facility] [address] BASIC METABOLIC [id number] 16:42:00 Test Item Value Reference Range Comments SODIUM (BEAKER) (test 146 meq/L 136-145 vdfj=942) POTASSIUM (BEAKER) (test 3.4 meq/L 3.5-5.1 gjus=632) CHLORIDE (BEAKER) (test 111 meq/L 98-107 ulan=697) CO2 (BEAKER) (test 21 meq/L 22-29 lgqu=672) BLOOD UREA NITROGEN 56 mg/dL 7-21 (BEAKER) (test mhrh=860) CREATININE (BEAKER) (test 4.90 mg/dL 0.57-1.25 vqzc=051) GLUCOSE RANDOM (BEAKER) 111 mg/dL 70-105 (test gyay=687) CALCIUM (BEAKER) (test 9.3 mg/dL 8.4-10.2 nkgu=925) EGFR (BEAKER) (test 9 mL/min/1.73 sq m ESTIMATED GFR IS NOT loix=4363) ACCURATE CREATININE CLEARANCE IN PREDICTING GLOMERULAR FILTRATION RATE. ESTIMATED GFR IS NOT APPLICABLE FOR DIALYSIS PATIENTS. [id number] 16:37:00 Test Item Value Reference Range Comments PHOSPHORUS (BEAKER) (test zocj=079) 5.4 mg/dL 2.3-4.7 [id number] 16:37:00 Test Item Value Reference Range Comments MAGNESIUM (BEAKER) (test dehm=115) 1.9 mg/dL 1.6-2.6 CBC W/PLT COUNT & AUTO [id number] 16:24:00 Test Item Value Reference Range Comments WHITE BLOOD CELL COUNT (BEAKER) (test nwus=083) 10.4 K/ L 3.5-10.5 RED BLOOD CELL COUNT (BEAKER) (test xspm=774) 3.43 M/ L 3.93-5.22 HEMOGLOBIN (BEAKER) (test rlnd=252) 8.8 GM/DL 11.2-15.7 HEMATOCRIT (BEAKER) (test daqk=337) 27.3 % 34.1-44.9 MEAN CORPUSCULAR VOLUME (BEAKER) (test rjrx=913) 79.6 fL 79.4-94.8 MEAN CORPUSCULAR HEMOGLOBIN (BEAKER) (test 25.7 pg 25.6-32.2 sveu=939) MEAN CORPUSCULAR HEMOGLOBIN CONC (BEAKER) (test 32.2 GM/DL 32.2-35.5 xmnp=922) RED CELL DISTRIBUTION WIDTH (BEAKER) (test 18.0 % 11.7-14.4 bjjf=211) PLATELET COUNT (BEAKER) (test ufcs=157) 518 K/CU MM 150-450 MEAN PLATELET VOLUME (BEAKER) (test qsnd=938) 9.9 fL 9.4-12.3 NUCLEATED RED BLOOD CELLS (BEAKER) (test 0 /100 WBC 0-0 sewz=702) NEUTROPHILS RELATIVE PERCENT (BEAKER) (test 79 % dchk=154) LYMPHOCYTES RELATIVE PERCENT (BEAKER) (test 7 % bejf=595) MONOCYTES RELATIVE PERCENT (BEAKER) (test 10 % fnsb=147) EOSINOPHILS RELATIVE PERCENT (BEAKER) (test 3 % rjqv=843) BASOPHILS RELATIVE PERCENT (BEAKER) (test 0 % gnkb=933) NEUTROPHILS ABSOLUTE COUNT (BEAKER) (test 8.19 K/ L 1.56-6.13 mzip=612) LYMPHOCYTES ABSOLUTE COUNT (BEAKER) (test 0.72 K/ L 1.18-3.74 cfce=144) MONOCYTES ABSOLUTE COUNT (BEAKER) (test 1.01 K/ L 0.24-0.36 kwiu=280) EOSINOPHILS ABSOLUTE COUNT (BEAKER) (test 0.34 K/ L 0.04-0.36 azkh=570) BASOPHILS ABSOLUTE COUNT (BEAKER) (test 0.04 K/ L 0.01-0.08 pqcd=609) IMMATURE GRANULOCYTES-RELATIVE PERCENT (BEAKER) 1 % 0-1 (test mzho=7065) PROTHROMBIN [id number] 16:18:00 Test Item Value Reference Range Comments PROTIME (BEAKER) (test gtpf=393) 16.5 seconds 11.7-14.7 INR (BEAKER) (test mhqp=483) 1.3 <=5.9 RECOMMENDED COUMADIN/WARFARIN INR THERAPY RANGESSTANDARD DOSE: 2.0 - 3.0 Includes: PROPHYLAXIS forvenous thrombosis, systemic embolization; TREATMENT for venous thrombosis and/or pulmonary embolus.HIGH RISK: Target INR is 2.5-3.5 for patients with mechanical heart valves.BLOOD GAS, [id number] 15:56:00 Test Item Value Reference Range Comments PH ARTERIAL (BEAKER) (test kars=975) 7.49 7.35-7.45 PCO2 ARTERIAL (BEAKER) (test xmng=579) 33 mmHg 35-45 PO2 ARTERIAL (BEAKER) (test jvrv=422) 114 mmHg 80-90 O2 SATURATION ARTERIAL (BEAKER) (test cmhi=353) 98.5 % 96.0-97.0 HCO3 ARTERIAL (BEAKER) (test jkme=673) 24 mmol/L 21-29 BASE EXCESS ARTERIAL (BEAKER) (test rgms=374) 1.0 mmol/L -2.0-3.0 PATIENT TEMPERATURE (BEAKER) (test julb=2036) 37.0 C FIO2 (BEAKER) (test uzvo=7385) 50.0 % POCT-GLUCOSE [id number] 12:25:00 Test Item Value Reference Range Comments POC-GLUCOSE METER (BEAKER) 139 mg/dL 70-110 TESTED AT [facility] [address] (test vuay=2121) [facility] [address] RAD, CHEST, 1 VIEW, NON [id number] 07:09:00Reason for exam:->r/o effusionIs the patient ?->NoShould [...] MDReport Verified Date/Time: 07/02/2017 07:09:46 Reading Location: [place] [id number] Consult Reading Room BASIC METABOLIC [id number] 04:14: 00 Test Item Value Reference Range Comments SODIUM (BEAKER) (test 145 meq/L 136-145 sfxp=526) POTASSIUM (BEAKER) (test 3.3 meq/L 3.5-5.1 etcl=075) CHLORIDE (BEAKER) (test 112 meq/L 98-107 hpcl=632) CO2 (BEAKER) (test 19 meq/L 22-29 epik=756) BLOOD UREA NITROGEN 57 mg/dL 7-21 (BEAKER) (test eoxo=865) CREATININE (BEAKER) (test 5.45 mg/dL 0.57-1.25 mtzi=796) GLUCOSE RANDOM (BEAKER) 111 mg/dL 70-105 (test zkje=002) CALCIUM (BEAKER) (test 9.1 mg/dL 8.4-10.2 csup=753) EGFR (BEAKER) (test 8 mL/min/1.73 sq m ESTIMATED GFR IS NOT hdgi=6028) ACCURATE CREATININE CLEARANCE IN PREDICTING GLOMERULAR FILTRATION RATE. ESTIMATED GFR IS NOT APPLICABLE FOR DIALYSIS PATIENTS. BLOOD GAS, [id number] 04:11:00 Test Item Value Reference Range Comments PH ARTERIAL (BEAKER) (test plcm=738) 7.47 7.35-7.45 PCO2 ARTERIAL (BEAKER) (test ugyb=398) 31 mmHg 35-45 PO2 ARTERIAL (BEAKER) (test ovyz=051) 141 mmHg 80-90 O2 SATURATION ARTERIAL (BEAKER) (test sdnp=372) 98.9 % 96.0-97.0 HCO3 ARTERIAL (BEAKER) (test xumz=770) 22 mmol/L 21-29 BASE EXCESS ARTERIAL (BEAKER) (test eiom=157) -1.1 mmol/L -2.0-3.0 PATIENT TEMPERATURE (BEAKER) (test ziil=8663) 37.5 C FIO2 (BEAKER) (test zqkc=7948) 60.0 % [id number] 04:09:00 Test Item Value Reference Range Comments PHOSPHORUS (BEAKER) (test wpgk=242) 5.5 mg/dL 2.3-4.7 [id number] 04:09:00 Test Item Value Reference Range Comments MAGNESIUM (BEAKER) (test mvyl=419) 1.9 mg/dL 1.6-2.6 PROTHROMBIN [id number] 03:50:00 Test Item Value Reference Range Comments PROTIME (BEAKER) (test vvcr=879) 16.7 seconds 11.7-14.7 INR (BEAKER) (test pwlf=700) 1.4 <=5.9 RECOMMENDED COUMADIN/WARFARIN INR THERAPY RANGESSTANDARD DOSE: 2.0 - 3.0 Includes: PROPHYLAXIS forvenous thrombosis, systemic embolization; TREATMENT for venous thrombosis and/or pulmonary embolus.HIGH RISK: Target INR is 2.5-3.5 for patients with mechanical heart valves.CBC W/PLT COUNT & AUTO [id number] 03:45:00 Test Item Value Reference Range Comments WHITE BLOOD CELL COUNT (BEAKER) (test szcy=357) 9.0 K/ L 3.5-10.5 RED BLOOD CELL COUNT (BEAKER) (test agfp=755) 3.31 M/ L 3.93-5.22 HEMOGLOBIN (BEAKER) (test hgkf=444) 8.3 GM/DL 11.2-15.7 HEMATOCRIT (BEAKER) (test pvjv=035) 26.8 % 34.1-44.9 MEAN CORPUSCULAR VOLUME (BEAKER) (test nsxz=681) 81.0 fL 79.4-94.8 MEAN CORPUSCULAR HEMOGLOBIN (BEAKER) (test 25.1 pg 25.6-32.2 nwig=755) MEAN CORPUSCULAR HEMOGLOBIN CONC (BEAKER) (test 31.0 GM/DL 32.2-35.5 ainy=710) RED CELL DISTRIBUTION WIDTH (BEAKER) (test 18.0 % 11.7-14.4 rvon=721) PLATELET COUNT (BEAKER) (test ufcw=143) 433 K/CU MM 150-450 MEAN PLATELET VOLUME (BEAKER) (test eliw=538) 9.6 fL 9.4-12.3 NUCLEATED RED BLOOD CELLS (BEAKER) (test 0 /100 WBC 0-0 fozg=623) NEUTROPHILS RELATIVE PERCENT (BEAKER) (test 72 % slfj=894) LYMPHOCYTES RELATIVE PERCENT (BEAKER) (test 10 % pybx=412) MONOCYTES RELATIVE PERCENT (BEAKER) (test 11 % wokr=440) EOSINOPHILS RELATIVE PERCENT (BEAKER) (test 5 % iimp=070) BASOPHILS RELATIVE PERCENT (BEAKER) (test 1 % qojx=556) NEUTROPHILS ABSOLUTE COUNT (BEAKER) (test 6.50 K/ L 1.56-6.13 qxzv=124) LYMPHOCYTES ABSOLUTE COUNT (BEAKER) (test 0.93 K/ L 1.18-3.74 hcvo=823) MONOCYTES ABSOLUTE COUNT (BEAKER) (test 0.96 K/ L 0.24-0.36 bart=141) EOSINOPHILS ABSOLUTE COUNT (BEAKER) (test 0.46 K/ L 0.04-0.36 mnvb=938) BASOPHILS ABSOLUTE COUNT (BEAKER) (test 0.05 K/ L 0.01-0.08 ndit=076) IMMATURE GRANULOCYTES-RELATIVE PERCENT (BEAKER) 1 % 0-1 (test jmiq=0174) POCT-GLUCOSE [id number] 00:44:00 Test Item Value Reference Range Comments POC-GLUCOSE METER (BEAKER) 132 mg/dL 70-110 TESTED AT [facility] [address] (test wirr=0576) [facility] [address] CBC W/PLT COUNT & AUTO [id number] 18:56:00 Test Item Value Reference Range Comments WHITE BLOOD CELL COUNT (BEAKER) (test zrtr=151) 10.4 K/ L 3.5-10.5 RED BLOOD CELL COUNT (BEAKER) (test ygia=828) 3.45 M/ L 3.93-5.22 HEMOGLOBIN (BEAKER) (test ugaj=130) 8.8 GM/DL 11.2-15.7 HEMATOCRIT (BEAKER) (test inza=371) 28.4 % 34.1-44.9 MEAN CORPUSCULAR VOLUME (BEAKER) (test flds=403) 82.3 fL 79.4-94.8 MEAN CORPUSCULAR HEMOGLOBIN (BEAKER) (test 25.5 pg 25.6-32.2 wgdb=326) MEAN CORPUSCULAR HEMOGLOBIN CONC (BEAKER) (test 31.0 GM/DL 32.2-35.5 ffoa=250) RED CELL DISTRIBUTION WIDTH (BEAKER) (test 18.3 % 11.7-14.4 rrad=728) PLATELET COUNT (BEAKER) (test jrda=989) 453 K/CU MM 150-450 MEAN PLATELET VOLUME (BEAKER) (test xwzq=550) 9.5 fL 9.4-12.3 NUCLEATED RED BLOOD CELLS (BEAKER) (test 0 /100 WBC 0-0 alyj=780) NEUTROPHILS RELATIVE PERCENT (BEAKER) (test 77 % zkpi=514) LYMPHOCYTES RELATIVE PERCENT (BEAKER) (test 7 % cgoy=599) MONOCYTES RELATIVE PERCENT (BEAKER) (test 9 % psxi=614) EOSINOPHILS RELATIVE PERCENT (BEAKER) (test 5 % rbti=142) BASOPHILS RELATIVE PERCENT (BEAKER) (test 1 % rpvi=336) NEUTROPHILS ABSOLUTE COUNT (BEAKER) (test 8.02 K/ L 1.56-6.13 zqav=076) LYMPHOCYTES ABSOLUTE COUNT (BEAKER) (test 0.77 K/ L 1.18-3.74 eteh=401) MONOCYTES ABSOLUTE COUNT (BEAKER) (test 0.92 K/ L 0.24-0.36 vzhe=155) EOSINOPHILS ABSOLUTE COUNT (BEAKER) (test 0.48 K/ L 0.04-0.36 zwcm=638) BASOPHILS ABSOLUTE COUNT (BEAKER) (test 0.05 K/ L 0.01-0.08 oftd=085) IMMATURE GRANULOCYTES-RELATIVE PERCENT (BEAKER) 1 % 0-1 (test ypcc=7819) BASIC METABOLIC [id number] 16:41:00 Test Item Value Reference Range Comments SODIUM (BEAKER) (test 141 meq/L 136-145 dgwj=297) POTASSIUM (BEAKER) (test 3.4 meq/L 3.5-5.1 abyp=759) CHLORIDE (BEAKER) (test 111 meq/L 98-107 tutt=919) CO2 (BEAKER) (test 20 meq/L 22-29 hfcp=862) BLOOD UREA NITROGEN 56 mg/dL 7-21 (BEAKER) (test fucl=699) CREATININE (BEAKER) (test 5.85 mg/dL 0.57-1.25 uapk=406) GLUCOSE RANDOM (BEAKER) 116 mg/dL 70-105 (test nwak=899) CALCIUM (BEAKER) (test 9.1 mg/dL 8.4-10.2 akyq=406) EGFR (BEAKER) (test 7 mL/min/1.73 sq m ESTIMATED GFR IS NOT zsxt=2185) ACCURATE CREATININE CLEARANCE IN PREDICTING GLOMERULAR FILTRATION RATE. ESTIMATED GFR IS NOT APPLICABLE FOR DIALYSIS PATIENTS. [id number] 16:37:00 Test Item Value Reference Range Comments PHOSPHORUS (BEAKER) (test wqqc=795) 5.7 mg/dL 2.3-4.7 [id number] 16:37:00 Test Item Value Reference Range Comments MAGNESIUM (BEAKER) (test hyof=747) 2.0 mg/dL 1.6-2.6 PROTHROMBIN [id number] 16:21:00 Test Item Value Reference Range Comments PROTIME (BEAKER) (test yent=295) 16.0 seconds 11.7-14.7 INR (BEAKER) (test lofe=496) 1.3 <=5.9 RECOMMENDED COUMADIN/WARFARIN INR THERAPY RANGESSTANDARD DOSE: 2.0 - 3.0 Includes: PROPHYLAXIS forvenous thrombosis, systemic embolization; TREATMENT for venous thrombosis and/or pulmonary embolus.HIGH RISK: Target INR is 2.5-3.5 for patients with mechanical heart valves.BLOOD GAS, [id number] 15:49:00 Test Item Value Reference Range Comments PH ARTERIAL (BEAKER) (test tory=332) 7.48 7.35-7.45 PCO2 ARTERIAL (BEAKER) (test cpbp=237) 29 mmHg 35-45 PO2 ARTERIAL (BEAKER) (test ylgy=747) 132 mmHg 80-90 O2 SATURATION ARTERIAL (BEAKER) (test imdi=454) 98.9 % 96.0-97.0 HCO3 ARTERIAL (BEAKER) (test trjs=840) 21 mmol/L 21-29 BASE EXCESS ARTERIAL (BEAKER) (test bmpa=519) -1.7 mmol/L -2.0-3.0 PATIENT TEMPERATURE (BEAKER) (test hnrx=1571) 37.0 C FIO2 (BEAKER) (test satw=2372) 60.0 % POCT-GLUCOSE [id number] 12:20:00 Test Item Value Reference Range Comments POC-GLUCOSE METER (BEAKER) 134 mg/dL 70-110 TESTED AT [facility] [address] (test gimu=7890) [facility] [address] RAD, CHEST, 1 VIEW, NON [id number] 07:57:00Reason for exam:->r/o effusionIs the patient ?->NoShould this be performed at the bedside?- >YesFINAL REPORT Chest one view compared to June 30 Discussion: Pulmonary congestion and basilar opacities obscuring hemidiaphragms are similar. Tubes and lines again noted. I could not exclude small effusions. No pneumothorax. IMPRESSIONS: No change Signed: Fady Bauer Verified Date/Time: 07/01/2017 07:57:44 Reading Location: [address] Reading Room Electronically signed by: FADY BAUER M.D. on 07:57 AMBLOOD GAS, [id number] 05:39:00 Test Item Value Reference Range Comments PH ARTERIAL (BEAKER) (test jgit=220) 7.45 7.35-7.45 PCO2 ARTERIAL (BEAKER) (test zucn=013) 29 mmHg 35-45 PO2 ARTERIAL (BEAKER) (test fsjg=859) 132 mmHg 80-90 O2 SATURATION ARTERIAL (BEAKER) (test ppew=299) 98.8 % 96.0-97.0 HCO3 ARTERIAL (BEAKER) (test chmr=259) 20 mmol/L 21-29 BASE EXCESS ARTERIAL (BEAKER) (test owzl=719) -3.6 mmol/L -2.0-3.0 PATIENT TEMPERATURE (BEAKER) (test oibb=9624) 37.0 C FIO2 (BEAKER) (test pmtr=1896) 60.0 % BASIC METABOLIC [id number] 05:29:00 Test Item Value Reference Range Comments SODIUM (BEAKER) (test 144 meq/L 136-145 wupk=556) POTASSIUM (BEAKER) (test 3.3 meq/L 3.5-5.1 lsey=759) CHLORIDE (BEAKER) (test 114 meq/L 98-107 mrmr=474) CO2 (BEAKER) (test 20 meq/L 22-29 lsiu=303) BLOOD UREA NITROGEN 57 mg/dL 7-21 (BEAKER) (test qnac=931) CREATININE (BEAKER) (test 6.39 mg/dL 0.57-1.25 exya=128) GLUCOSE RANDOM (BEAKER) 106 mg/dL 70-105 (test ovam=303) CALCIUM (BEAKER) (test 9.0 mg/dL 8.4-10.2 pybw=791) EGFR (BEAKER) (test 7 mL/min/1.73 sq m ESTIMATED GFR IS NOT ysem=4837) ACCURATE CREATININE CLEARANCE IN PREDICTING GLOMERULAR FILTRATION RATE. ESTIMATED GFR IS NOT APPLICABLE FOR DIALYSIS PATIENTS. [id number] 05:26:00 Test Item Value Reference Range Comments PHOSPHORUS (BEAKER) (test keii=572) 5.8 mg/dL 2.3-4.7 [id number] 05:26:00 Test Item Value Reference Range Comments MAGNESIUM (BEAKER) (test oklj=317) 2.0 mg/dL 1.6-2.6 PROTHROMBIN [id number] 05:19:00 Test Item Value Reference Range Comments PROTIME (BEAKER) (test ahgp=290) 16.5 seconds 11.7-14.7 INR (BEAKER) (test tqsn=685) 1.3 <=5.9 RECOMMENDED COUMADIN/WARFARIN INR THERAPY RANGESSTANDARD DOSE: 2.0 - 3.0 Includes: PROPHYLAXIS forvenous thrombosis, systemic embolization; TREATMENT for venous thrombosis and/or pulmonary embolus.HIGH RISK: Target INR is 2.5-3.5 for patients with mechanical heart valves.CBC W/PLT COUNT & AUTO [id number] 05:04:00 Test Item Value Reference Range Comments WHITE BLOOD CELL COUNT (BEAKER) (test moro=725) 8.6 K/ L 3.5-10.5 RED BLOOD CELL COUNT (BEAKER) (test vmjp=250) 2.98 M/ L 3.93-5.22 HEMOGLOBIN (BEAKER) (test ldwd=634) 7.6 GM/DL 11.2-15.7 HEMATOCRIT (BEAKER) (test qjcx=637) 24.3 % 34.1-44.9 MEAN CORPUSCULAR VOLUME (BEAKER) (test krag=246) 81.5 fL 79.4-94.8 MEAN CORPUSCULAR HEMOGLOBIN (BEAKER) (test 25.5 pg 25.6-32.2 youb=283) MEAN CORPUSCULAR HEMOGLOBIN CONC (BEAKER) (test 31.3 GM/DL 32.2-35.5 xmle=362) RED CELL DISTRIBUTION WIDTH (BEAKER) (test 18.6 % 11.7-14.4 nwpn=532) PLATELET COUNT (BEAKER) (test sbvi=410) 472 K/CU MM 150-450 MEAN PLATELET VOLUME (BEAKER) (test nnbb=480) 10.1 fL 9.4-12.3 NUCLEATED RED BLOOD CELLS (BEAKER) (test 0 /100 WBC 0-0 kqkf=010) NEUTROPHILS RELATIVE PERCENT (BEAKER) (test 75 % lsfl=713) LYMPHOCYTES RELATIVE PERCENT (BEAKER) (test 10 % spxz=451) MONOCYTES RELATIVE PERCENT (BEAKER) (test 9 % vdvc=550) EOSINOPHILS RELATIVE PERCENT (BEAKER) (test 5 % leeu=389) BASOPHILS RELATIVE PERCENT (BEAKER) (test 1 % ccya=862) NEUTROPHILS ABSOLUTE COUNT (BEAKER) (test 6.43 K/ L 1.56-6.13 jycm=033) LYMPHOCYTES ABSOLUTE COUNT (BEAKER) (test 0.83 K/ L 1.18-3.74 zthd=995) MONOCYTES ABSOLUTE COUNT (BEAKER) (test 0.78 K/ L 0.24-0.36 txmi=904) EOSINOPHILS ABSOLUTE COUNT (BEAKER) (test 0.42 K/ L 0.04-0.36 fiua=079) BASOPHILS ABSOLUTE COUNT (BEAKER) (test 0.05 K/ L 0.01-0.08 gles=044) IMMATURE GRANULOCYTES-RELATIVE PERCENT (BEAKER) 1 % 0-1 (test vdht=8956) BASIC METABOLIC [id number] 17:53:00 Test Item Value Reference Range Comments SODIUM (BEAKER) (test 144 meq/L 136-145 mwpd=105) POTASSIUM (BEAKER) (test 3.3 meq/L 3.5-5.1 dgqb=154) CHLORIDE (BEAKER) (test 115 meq/L 98-107 qnvu=738) CO2 (BEAKER) (test 18 meq/L 22-29 otnp=559) BLOOD UREA NITROGEN 53 mg/dL 7-21 (BEAKER) (test vrpg=027) CREATININE (BEAKER) (test 6.82 mg/dL 0.57-1.25 oacp=944) GLUCOSE RANDOM (BEAKER) 114 mg/dL 70-105 (test xfta=295) CALCIUM (BEAKER) (test 8.9 mg/dL 8.4-10.2 xzfq=751) EGFR (BEAKER) (test 6 mL/min/1.73 sq m ESTIMATED GFR IS NOT ygaf=0232) ACCURATE CREATININE CLEARANCE IN PREDICTING GLOMERULAR FILTRATION RATE. ESTIMATED GFR IS NOT APPLICABLE FOR DIALYSIS PATIENTS. POCT-GLUCOSE [id number] 17:53:00 Test Item Value Reference Range Comments POC-GLUCOSE METER (BEAKER) 132 mg/dL 70-110 TESTED AT [address] (test thfn=2712) [facility] [address] [id number] 17:48:00 Test Item Value Reference Range Comments PHOSPHORUS (BEAKER) (test gppm=066) 5.7 mg/dL 2.3-4.7 [id number] 17:48:00 Test Item Value Reference Range Comments MAGNESIUM (BEAKER) (test rlke=384) 2.0 mg/dL 1.6-2.6 PROTHROMBIN [id number] 17:45:00 Test Item Value Reference Range Comments PROTIME (BEAKER) (test bujy=450) 16.6 seconds 11.7-14.7 INR (BEAKER) (test hqoj=903) 1.4 <=5.9 RECOMMENDED COUMADIN/WARFARIN INR THERAPY RANGESSTANDARD DOSE: 2.0 - 3.0 Includes: PROPHYLAXIS forvenous thrombosis, systemic embolization; TREATMENT for venous thrombosis and/or pulmonary embolus.HIGH RISK: Target INR is 2.5-3.5 for patients with mechanical heart valves.BLOOD GAS, [id number] 17:24:00 Test Item Value Reference Range Comments PH ARTERIAL (BEAKER) (test auiv=547) 7.45 7.35-7.45 PCO2 ARTERIAL (BEAKER) (test zxtv=971) 29 mmHg 35-45 PO2 ARTERIAL (BEAKER) (test vprc=789) 110 mmHg 80-90 O2 SATURATION ARTERIAL (BEAKER) (test boco=690) 98.3 % 96.0-97.0 HCO3 ARTERIAL (BEAKER) (test oeql=051) 19 mmol/L 21-29 BASE EXCESS ARTERIAL (BEAKER) (test wmaf=234) -3.9 mmol/L -2.0-3.0 PATIENT TEMPERATURE (BEAKER) (test uqmg=5238) 37.0 C CBC W/PLT COUNT & AUTO [id number] 17:19:00 Test Item Value Reference Range Comments WHITE BLOOD CELL COUNT (BEAKER) (test cbjy=307) 8.3 K/ L 3.5-10.5 RED BLOOD CELL COUNT (BEAKER) (test ykwd=091) 2.89 M/ L 3.93-5.22 HEMOGLOBIN (BEAKER) (test pokf=971) 7.4 GM/DL 11.2-15.7 HEMATOCRIT (BEAKER) (test bpxv=085) 23.4 % 34.1-44.9 MEAN CORPUSCULAR VOLUME (BEAKER) (test swgl=906) 81.0 fL 79.4-94.8 MEAN CORPUSCULAR HEMOGLOBIN (BEAKER) (test 25.6 pg 25.6-32.2 tmoc=855) MEAN CORPUSCULAR HEMOGLOBIN CONC (BEAKER) (test 31.6 GM/DL 32.2-35.5 fpqr=364) RED CELL DISTRIBUTION WIDTH (BEAKER) (test 18.4 % 11.7-14.4 vvop=637) PLATELET COUNT (BEAKER) (test fbrm=946) 443 K/CU MM 150-450 MEAN PLATELET VOLUME (BEAKER) (test jnvu=395) 9.7 fL 9.4-12.3 NUCLEATED RED BLOOD CELLS (BEAKER) (test 0 /100 WBC 0-0 twua=842) NEUTROPHILS RELATIVE PERCENT (BEAKER) (test 75 % sfcb=489) LYMPHOCYTES RELATIVE PERCENT (BEAKER) (test 10 % nhlc=919) MONOCYTES RELATIVE PERCENT (BEAKER) (test 9 % wybo=961) EOSINOPHILS RELATIVE PERCENT (BEAKER) (test 5 % cyrd=619) BASOPHILS RELATIVE PERCENT (BEAKER) (test 0 % twds=234) NEUTROPHILS ABSOLUTE COUNT (BEAKER) (test 6.21 K/ L 1.56-6.13 jhsf=031) LYMPHOCYTES ABSOLUTE COUNT (BEAKER) (test 0.79 K/ L 1.18-3.74 jfzt=520) MONOCYTES ABSOLUTE COUNT (BEAKER) (test 0.78 K/ L 0.24-0.36 zams=811) EOSINOPHILS ABSOLUTE COUNT (BEAKER) (test 0.41 K/ L 0.04-0.36 teie=124) BASOPHILS ABSOLUTE COUNT (BEAKER) (test 0.03 K/ L 0.01-0.08 hvlt=844) IMMATURE GRANULOCYTES-RELATIVE PERCENT (BEAKER) 1 % 0-1 (test hjmd=9116) POCT-GLUCOSE [id number] 08:21:00 Test Item Value Reference Range Comments POC-GLUCOSE METER (BEAKER) 140 mg/dL 70-110 TESTED AT [facility] [address] (test oovm=5234) [facility] [address] RAD, CHEST, 1 VIEW, NON [id number] 07:46:00Reason for exam:->r/o effusionIs the patient ?->NoShould [...] in size with adjacent consolidations. Signed: Cecy Saucedoeport Verified Date/Time: 06/30/2017 07 :46:57 Reading Location: [facility] Diagnostic Imaging Reading Room -[place] [address] BLOOD GAS , [id number] 06:10:00 Test Item Value Reference Range Comments PH ARTERIAL (BEAKER) (test vzlm=444) 7.41 7.35-7.45 PCO2 ARTERIAL (BEAKER) (test hakm=741) 29 mmHg 35-45 PO2 ARTERIAL (BEAKER) (test yhnl=244) 107 mmHg 80-90 O2 SATURATION ARTERIAL (BEAKER) (test momq=206) 97.9 % 96.0-97.0 HCO3 ARTERIAL (BEAKER) (test jwer=705) 18 mmol/L 21-29 BASE EXCESS ARTERIAL (BEAKER) (test lnca=971) -5.9 mmol/L -2.0-3.0 PATIENT TEMPERATURE (BEAKER) (test jpjs=1122) 37.5 C FIO2 (BEAKER) (test gglm=8801) 60.0 % VANCOMYCIN LEVEL, [id number] 05:08:00 Test Item Value Reference Range Comments VANCOMYCIN RANDOM (BEAKER) (test fswg=747) 11.5 ug/mL Reference Range: No NormalsPROTHROMBIN [id number] 03:55:00 Test Item Value Reference Range Comments PROTIME (BEAKER) (test smrr=729) 16.7 seconds 11.7-14.7 INR (BEAKER) (test tgqw=265) 1.4 <=5.9 RECOMMENDED COUMADIN/WARFARIN INR THERAPY RANGESSTANDARD DOSE: 2.0 - 3.0 Includes: PROPHYLAXIS forvenous thrombosis, systemic embolization; TREATMENT for venous thrombosis and/or pulmonary embolus.HIGH RISK: Target INR is 2.5-3.5 for patients with mechanical heart valves.BASIC METABOLIC [id number] 03:54: 00 Test Item Value Reference Range Comments SODIUM (BEAKER) (test 144 meq/L 136-145 dknx=313) POTASSIUM (BEAKER) (test 3.5 meq/L 3.5-5.1 caka=075) CHLORIDE (BEAKER) (test 116 meq/L 98-107 sbng=928) CO2 (BEAKER) (test 17 meq/L 22-29 tldt=662) BLOOD UREA NITROGEN 51 mg/dL 7-21 (BEAKER) (test tbiq=204) CREATININE (BEAKER) (test 7.09 mg/dL 0.57-1.25 ejky=359) GLUCOSE RANDOM (BEAKER) 111 mg/dL 70-105 (test hxfz=163) CALCIUM (BEAKER) (test 8.9 mg/dL 8.4-10.2 rzgr=155) EGFR (BEAKER) (test 6 mL/min/1.73 sq m ESTIMATED GFR IS NOT efag=3799) ACCURATE CREATININE CLEARANCE IN PREDICTING GLOMERULAR FILTRATION RATE. ESTIMATED GFR IS NOT APPLICABLE FOR DIALYSIS PATIENTS. [id number] 03:51:00 Test Item Value Reference Range Comments PHOSPHORUS (BEAKER) (test nbjk=064) 5.8 mg/dL 2.3-4.7 [id number] 03:51:00 Test Item Value Reference Range Comments MAGNESIUM (BEAKER) (test fgcl=842) 2.1 mg/dL 1.6-2.6 CBC W/PLT COUNT & AUTO [id number] 03:41:00 Test Item Value Reference Range Comments WHITE BLOOD CELL COUNT (BEAKER) (test stso=533) 7.6 K/ L 3.5-10.5 RED BLOOD CELL COUNT (BEAKER) (test fsse=709) 2.90 M/ L 3.93-5.22 HEMOGLOBIN (BEAKER) (test hopm=619) 7.3 GM/DL 11.2-15.7 HEMATOCRIT (BEAKER) (test xolx=935) 23.4 % 34.1-44.9 MEAN CORPUSCULAR VOLUME (BEAKER) (test bthz=006) 80.7 fL 79.4-94.8 MEAN CORPUSCULAR HEMOGLOBIN (BEAKER) (test 25.2 pg 25.6-32.2 ghen=799) MEAN CORPUSCULAR HEMOGLOBIN CONC (BEAKER) (test 31.2 GM/DL 32.2-35.5 qalu=899) RED CELL DISTRIBUTION WIDTH (BEAKER) (test 18.5 % 11.7-14.4 jksa=189) PLATELET COUNT (BEAKER) (test yjvw=528) 453 K/CU MM 150-450 MEAN PLATELET VOLUME (BEAKER) (test ouod=552) 9.3 fL 9.4-12.3 NUCLEATED RED BLOOD CELLS (BEAKER) (test 0 /100 WBC 0-0 zjar=345) NEUTROPHILS RELATIVE PERCENT (BEAKER) (test 76 % qhso=707) LYMPHOCYTES RELATIVE PERCENT (BEAKER) (test 9 % qkil=196) MONOCYTES RELATIVE PERCENT (BEAKER) (test 9 % towl=991) EOSINOPHILS RELATIVE PERCENT (BEAKER) (test 5 % zrxl=229) BASOPHILS RELATIVE PERCENT (BEAKER) (test 1 % roep=019) NEUTROPHILS ABSOLUTE COUNT (BEAKER) (test 5.80 K/ L 1.56-6.13 fepb=129) LYMPHOCYTES ABSOLUTE COUNT (BEAKER) (test 0.72 K/ L 1.18-3.74 pabo=325) MONOCYTES ABSOLUTE COUNT (BEAKER) (test 0.66 K/ L 0.24-0.36 tknz=621) EOSINOPHILS ABSOLUTE COUNT (BEAKER) (test 0.34 K/ L 0.04-0.36 fpwy=480) BASOPHILS ABSOLUTE COUNT (BEAKER) (test 0.04 K/ L 0.01-0.08 gxij=430) IMMATURE GRANULOCYTES-RELATIVE PERCENT (BEAKER) 1 % 0-1 (test hmsq=1809) POCT-GLUCOSE [id number] 22:03:00 Test Item Value Reference Range Comments POC-GLUCOSE METER (BEAKER) 135 mg/dL 70-110 TESTED AT [address] (test ebmh=3126) [place] [address] POCT-GLUCOSE [id number] 18:07:00 Test Item Value Reference Range Comments POC-GLUCOSE METER (BEAKER) 116 mg/dL 70-110 TESTED AT [address] (test vgkv=0667) [place] [address] POCT-GLUCOSE [id number] 17:48:00 Test Item Value Reference Range Comments POC-GLUCOSE METER (BEAKER) 134 mg/dL 70-110 TESTED AT [address] (test hehn=3626) [place] [address] [id number] 17:14:00 Test Item Value Reference Range Comments PHOSPHORUS (BEAKER) (test sixo=985) 5.7 mg/dL 2.3-4.7 [id number] 17:14:00 Test Item Value Reference Range Comments MAGNESIUM (BEAKER) (test titj=516) 2.1 mg/dL 1.6-2.6 BASIC METABOLIC [id number] 17:14:00 Test Item Value Reference Range Comments SODIUM (BEAKER) (test 144 meq/L 136-145 pgdi=943) POTASSIUM (BEAKER) (test 3.5 meq/L 3.5-5.1 hdfn=113) CHLORIDE (BEAKER) (test 116 meq/L 98-107 mmpa=948) CO2 (BEAKER) (test 17 meq/L 22-29 evgv=500) BLOOD UREA NITROGEN 48 mg/dL 7-21 (BEAKER) (test pgby=447) CREATININE (BEAKER) (test 7.07 mg/dL 0.57-1.25 rgjc=996) GLUCOSE RANDOM (BEAKER) 120 mg/dL 70-105 (test efyw=847) CALCIUM (BEAKER) (test 9.0 mg/dL 8.4-10.2 cmer=803) EGFR (BEAKER) (test 6 mL/min/1.73 sq m ESTIMATED GFR IS NOT fyxe=9213) ACCURATE CREATININE CLEARANCE IN PREDICTING GLOMERULAR FILTRATION RATE. ESTIMATED GFR IS NOT APPLICABLE FOR DIALYSIS PATIENTS. PROTHROMBIN [id number] 17:09:00 Test Item Value Reference Range Comments PROTIME (BEAKER) (test ooqi=402) 16.7 seconds 11.7-14.7 INR (BEAKER) (test pxfb=196) 1.4 <=5.9 RECOMMENDED COUMADIN/WARFARIN INR THERAPY RANGESSTANDARD DOSE: 2.0 - 3.0 Includes: PROPHYLAXIS forvenous thrombosis, systemic embolization; TREATMENT for venous thrombosis and/or pulmonary embolus.HIGH RISK: Target INR is 2.5-3.5 for patients with mechanical heart valves.BLOOD GAS, [id number] 17:03:00 Test Item Value Reference Range Comments PH ARTERIAL (BEAKER) (test optu=769) 7.38 7.35-7.45 PCO2 ARTERIAL (BEAKER) (test hfto=505) 33 mmHg 35-45 PO2 ARTERIAL (BEAKER) (test zkom=642) 120 mmHg 80-90 O2 SATURATION ARTERIAL (BEAKER) (test yjgk=764) 98.3 % 96.0-97.0 HCO3 ARTERIAL (BEAKER) (test hzrb=932) 19 mmol/L 21-29 BASE EXCESS ARTERIAL (BEAKER) (test ppfn=478) -5.4 mmol/L -2.0-3.0 PATIENT TEMPERATURE (BEAKER) (test vzqe=1766) 37.0 C FIO2 (BEAKER) (test ojby=1088) 60.0 % CBC W/PLT COUNT & AUTO [id number] 17:00:00 Test Item Value Reference Range Comments WHITE BLOOD CELL COUNT (BEAKER) (test csdb=942) 7.8 K/ L 3.5-10.5 RED BLOOD CELL COUNT (BEAKER) (test cwvy=829) 3.05 M/ L 3.93-5.22 HEMOGLOBIN (BEAKER) (test ovth=802) 7.7 GM/DL 11.2-15.7 HEMATOCRIT (BEAKER) (test sheu=097) 24.9 % 34.1-44.9 MEAN CORPUSCULAR VOLUME (BEAKER) (test swpt=644) 81.6 fL 79.4-94.8 MEAN CORPUSCULAR HEMOGLOBIN (BEAKER) (test 25.2 pg 25.6-32.2 ozmn=846) MEAN CORPUSCULAR HEMOGLOBIN CONC (BEAKER) (test 30.9 GM/DL 32.2-35.5 putp=077) RED CELL DISTRIBUTION WIDTH (BEAKER) (test 18.6 % 11.7-14.4 eovj=898) PLATELET COUNT (BEAKER) (test mamm=713) 438 K/CU MM 150-450 MEAN PLATELET VOLUME (BEAKER) (test bvfk=659) 9.2 fL 9.4-12.3 NUCLEATED RED BLOOD CELLS (BEAKER) (test 0 /100 WBC 0-0 mboz=287) NEUTROPHILS RELATIVE PERCENT (BEAKER) (test 78 % yhbs=995) LYMPHOCYTES RELATIVE PERCENT (BEAKER) (test 8 % eztr=864) MONOCYTES RELATIVE PERCENT (BEAKER) (test 8 % fvcb=604) EOSINOPHILS RELATIVE PERCENT (BEAKER) (test 4 % czkp=083) BASOPHILS RELATIVE PERCENT (BEAKER) (test 1 % aqot=284) NEUTROPHILS ABSOLUTE COUNT (BEAKER) (test 6.11 K/ L 1.56-6.13 rsfm=227) LYMPHOCYTES ABSOLUTE COUNT (BEAKER) (test 0.60 K/ L 1.18-3.74 ajgb=691) MONOCYTES ABSOLUTE COUNT (BEAKER) (test 0.65 K/ L 0.24-0.36 cupq=931) EOSINOPHILS ABSOLUTE COUNT (BEAKER) (test 0.34 K/ L 0.04-0.36 udhb=721) BASOPHILS ABSOLUTE COUNT (BEAKER) (test 0.05 K/ L 0.01-0.08 zodj=822) IMMATURE GRANULOCYTES-RELATIVE PERCENT (BEAKER) 1 % 0-1 (test pxqf=7978) BLOOD GAS, [id number] 11:32:00 Test Item Value Reference Range Comments PH ARTERIAL (BEAKER) (test bown=666) 7.40 7.35-7.45 PCO2 ARTERIAL (BEAKER) (test ipcw=623) 29 mmHg 35-45 PO2 ARTERIAL (BEAKER) (test wvsj=021) 142 mmHg 80-90 O2 SATURATION ARTERIAL (BEAKER) (test ijdf=166) 98.9 % 96.0-97.0 HCO3 ARTERIAL (BEAKER) (test ipjd=655) 18 mmol/L 21-29 BASE EXCESS ARTERIAL (BEAKER) (test zwlh=727) -6.6 mmol/L -2.0-3.0 PATIENT TEMPERATURE (BEAKER) (test qmgs=0988) 37.0 C FIO2 (BEAKER) (test eppi=5843) 60.0 % RAD, CHEST, 1 VIEW, NON [id number] 07:35:00Reason for exam:->r/o effusionIs the patient ?->NoShould this be performed at the bedside?- >YesFINAL REPORT Chest one view compared to June 28, 2017 Discussion: Support tubes, lines, left-sided chest tubes, cardiac prominence, pulmonary edema left greater than right are similar. Probable small effusions unchanged. No pneumothorax. IMPRESSIONS: No change Signed: Fady Bauer Verified Date/Time: 06/29/2017 07:35:52 Reading Location: [facility] Radiology Reading Room BASIC METABOLIC [id number] 04:12:00 Test Item Value Reference Range Comments SODIUM (BEAKER) (test 144 meq/L 136-145 imkt=082) POTASSIUM (BEAKER) (test 3.5 meq/L 3.5-5.1 hdog=560) CHLORIDE (BEAKER) (test 116 meq/L 98-107 fjlw=852) CO2 (BEAKER) (test 18 meq/L 22-29 rpuv=178) BLOOD UREA NITROGEN 45 mg/dL 7-21 (BEAKER) (test erea=693) CREATININE (BEAKER) (test 7.17 mg/dL 0.57-1.25 uexs=405) GLUCOSE RANDOM (BEAKER) 127 mg/dL 70-105 (test jvvd=815) CALCIUM (BEAKER) (test 8.8 mg/dL 8.4-10.2 cupm=996) EGFR (BEAKER) (test 6 mL/min/1.73 sq m ESTIMATED GFR IS NOT scuk=3029) ACCURATE CREATININE CLEARANCE IN PREDICTING GLOMERULAR FILTRATION RATE. ESTIMATED GFR IS NOT APPLICABLE FOR DIALYSIS PATIENTS. VANCOMYCIN LEVEL, [id number] 04:09:00 Test Item Value Reference Range Comments VANCOMYCIN RANDOM (BEAKER) (test wwqh=449) 12.6 ug/mL Reference Range: No [id number] 04:07:00 Test Item Value Reference Range Comments PHOSPHORUS (BEAKER) (test ekhe=202) 5.6 mg/dL 2.3-4.7 [id number] 04:07:00 Test Item Value Reference Range Comments MAGNESIUM (BEAKER) (test wuok=455) 2.3 mg/dL 1.6-2.6 PROTHROMBIN [id number] 04:04:00 Test Item Value Reference Range Comments PROTIME (BEAKER) (test bnzq=839) 16.6 seconds 11.7-14.7 INR (BEAKER) (test nmka=821) 1.4 <=5.9 RECOMMENDED COUMADIN/WARFARIN INR THERAPY RANGESSTANDARD DOSE: 2.0 - 3.0 Includes: PROPHYLAXIS forvenous thrombosis, systemic embolization; TREATMENT for venous thrombosis and/or pulmonary embolus.HIGH RISK: Target INR is 2.5-3.5 for patients with mechanical heart valves.CBC W/PLT COUNT & AUTO [id number] 03:53:00 Test Item Value Reference Range Comments WHITE BLOOD CELL COUNT (BEAKER) (test hags=964) 7.5 K/ L 3.5-10.5 RED BLOOD CELL COUNT (BEAKER) (test aqya=782) 3.02 M/ L 3.93-5.22 HEMOGLOBIN (BEAKER) (test abqw=313) 7.7 GM/DL 11.2-15.7 HEMATOCRIT (BEAKER) (test lfdl=078) 24.7 % 34.1-44.9 MEAN CORPUSCULAR VOLUME (BEAKER) (test xmtf=895) 81.8 fL 79.4-94.8 MEAN CORPUSCULAR HEMOGLOBIN (BEAKER) (test 25.5 pg 25.6-32.2 akdt=479) MEAN CORPUSCULAR HEMOGLOBIN CONC (BEAKER) (test 31.2 GM/DL 32.2-35.5 msgb=339) RED CELL DISTRIBUTION WIDTH (BEAKER) (test 18.4 % 11.7-14.4 osku=992) PLATELET COUNT (BEAKER) (test nhia=623) 410 K/CU MM 150-450 MEAN PLATELET VOLUME (BEAKER) (test wmng=388) 9.1 fL 9.4-12.3 NUCLEATED RED BLOOD CELLS (BEAKER) (test 0 /100 WBC 0-0 bobn=775) NEUTROPHILS RELATIVE PERCENT (BEAKER) (test 77 % stol=644) LYMPHOCYTES RELATIVE PERCENT (BEAKER) (test 9 % xhve=209) MONOCYTES RELATIVE PERCENT (BEAKER) (test 8 % esbi=649) EOSINOPHILS RELATIVE PERCENT (BEAKER) (test 6 % ywle=655) BASOPHILS RELATIVE PERCENT (BEAKER) (test 0 % ruga=258) NEUTROPHILS ABSOLUTE COUNT (BEAKER) (test 5.70 K/ L 1.56-6.13 qazy=655) LYMPHOCYTES ABSOLUTE COUNT (BEAKER) (test 0.65 K/ L 1.18-3.74 qpfo=508) MONOCYTES ABSOLUTE COUNT (BEAKER) (test 0.60 K/ L 0.24-0.36 frqo=864) EOSINOPHILS ABSOLUTE COUNT (BEAKER) (test 0.43 K/ L 0.04-0.36 fkvt=536) BASOPHILS ABSOLUTE COUNT (BEAKER) (test 0.03 K/ L 0.01-0.08 jlph=880) IMMATURE GRANULOCYTES-RELATIVE PERCENT (BEAKER) 1 % 0-1 (test erve=1221) POCT-GLUCOSE [id number] 23:22:00 Test Item Value Reference Range Comments POC-GLUCOSE METER (BEAKER) 135 mg/dL 70-110 TESTED AT [facility] [address] (test srtu=7705) [facility] [address] BASIC METABOLIC [id number] 16:54:00 Test Item Value Reference Range Comments SODIUM (BEAKER) (test 143 meq/L 136-145 dkim=006) POTASSIUM (BEAKER) (test 3.7 meq/L 3.5-5.1 lkfn=696) CHLORIDE (BEAKER) (test 116 meq/L 98-107 xwql=228) CO2 (BEAKER) (test 16 meq/L 22-29 kini=125) BLOOD UREA NITROGEN 42 mg/dL 7-21 (BEAKER) (test vrrf=248) CREATININE (BEAKER) (test 6.88 mg/dL 0.57-1.25 plag=229) GLUCOSE RANDOM (BEAKER) 120 mg/dL 70-105 (test ekyi=724) CALCIUM (BEAKER) (test 9.0 mg/dL 8.4-10.2 cdhg=911) EGFR (BEAKER) (test 6 mL/min/1.73 sq m ESTIMATED GFR IS NOT abmn=4792) ACCURATE CREATININE CLEARANCE IN PREDICTING GLOMERULAR FILTRATION RATE. ESTIMATED GFR IS NOT APPLICABLE FOR DIALYSIS PATIENTS. CBC W/PLT COUNT & AUTO [id number] 16:50:00 Test Item Value Reference Range Comments WHITE BLOOD CELL COUNT (BEAKER) (test hret=099) 7.9 K/ L 3.5-10.5 RED BLOOD CELL COUNT (BEAKER) (test npok=936) 3.12 M/ L 3.93-5.22 HEMOGLOBIN (BEAKER) (test hmny=434) 7.9 GM/DL 11.2-15.7 HEMATOCRIT (BEAKER) (test zoat=824) 25.7 % 34.1-44.9 MEAN CORPUSCULAR VOLUME (BEAKER) (test wayo=888) 82.4 fL 79.4-94.8 MEAN CORPUSCULAR HEMOGLOBIN (BEAKER) (test 25.3 pg 25.6-32.2 mnbx=811) MEAN CORPUSCULAR HEMOGLOBIN CONC (BEAKER) (test 30.7 GM/DL 32.2-35.5 qjvc=514) RED CELL DISTRIBUTION WIDTH (BEAKER) (test 18.6 % 11.7-14.4 srdi=597) PLATELET COUNT (BEAKER) (test guuh=823) 402 K/CU MM 150-450 MEAN PLATELET VOLUME (BEAKER) (test vmww=571) 8.7 fL 9.4-12.3 NUCLEATED RED BLOOD CELLS (BEAKER) (test 0 /100 WBC 0-0 cxtw=041) NEUTROPHILS RELATIVE PERCENT (BEAKER) (test 77 % nceo=467) LYMPHOCYTES RELATIVE PERCENT (BEAKER) (test 8 % zdlk=358) MONOCYTES RELATIVE PERCENT (BEAKER) (test 9 % eyyd=674) EOSINOPHILS RELATIVE PERCENT (BEAKER) (test 6 % yuhn=644) BASOPHILS RELATIVE PERCENT (BEAKER) (test 1 % rczg=193) NEUTROPHILS ABSOLUTE COUNT (BEAKER) (test 6.05 K/ L 1.56-6.13 ggrs=524) LYMPHOCYTES ABSOLUTE COUNT (BEAKER) (test 0.63 K/ L 1.18-3.74 xgwl=226) MONOCYTES ABSOLUTE COUNT (BEAKER) (test 0.67 K/ L 0.24-0.36 fece=158) EOSINOPHILS ABSOLUTE COUNT (BEAKER) (test 0.46 K/ L 0.04-0.36 gojv=649) BASOPHILS ABSOLUTE COUNT (BEAKER) (test 0.05 K/ L 0.01-0.08 svbg=248) IMMATURE GRANULOCYTES-RELATIVE PERCENT (BEAKER) 1 % 0-1 (test aovv=3131) [id number] 16:50:00 Test Item Value Reference Range Comments PHOSPHORUS (BEAKER) (test vwvp=474) 5.8 mg/dL 2.3-4.7 [id number] 16:50:00 Test Item Value Reference Range Comments MAGNESIUM (BEAKER) (test olvz=877) 2.3 mg/dL 1.6-2.6 BLOOD GAS, [id number] 16:45:00 Test Item Value Reference Range Comments PH ARTERIAL (BEAKER) (test pmcc=488) 7.31 7.35-7.45 PCO2 ARTERIAL (BEAKER) (test ncjv=460) 35 mmHg 35-45 PO2 ARTERIAL (BEAKER) (test sotc=516) 198 mmHg 80-90 O2 SATURATION ARTERIAL (BEAKER) (test jkqd=635) 99.3 % 96.0-97.0 HCO3 ARTERIAL (BEAKER) (test oxac=135) 17 mmol/L 21-29 BASE EXCESS ARTERIAL (BEAKER) (test kvsb=824) -8.3 mmol/L -2.0-3.0 PATIENT TEMPERATURE (BEAKER) (test zehh=9731) 37.0 C FIO2 (BEAKER) (test gule=0964) 100.0 % PROTHROMBIN [id number] 16:30:00 Test Item Value Reference Range Comments PROTIME (BEAKER) (test ucqv=608) 16.6 seconds 11.7-14.7 INR (BEAKER) (test jpgc=091) 1.4 <=5.9 RECOMMENDED COUMADIN/WARFARIN INR THERAPY RANGESSTANDARD DOSE: 2.0 - 3.0 Includes: PROPHYLAXIS forvenous thrombosis, systemic embolization; TREATMENT for venous thrombosis and/or pulmonary embolus.HIGH RISK: Target INR is 2.5-3.5 for patients with mechanical heart valves.BASIC METABOLIC [id number] 12:12: 00 Test Item Value Reference Range Comments SODIUM (BEAKER) (test 142 meq/L 136-145 mnsu=889) POTASSIUM (BEAKER) (test 3.6 meq/L 3.5-5.1 zqpz=292) CHLORIDE (BEAKER) (test 116 meq/L 98-107 idlx=421) CO2 (BEAKER) (test 16 meq/L 22-29 ghlj=718) BLOOD UREA NITROGEN 42 mg/dL 7-21 (BEAKER) (test xxqr=130) CREATININE (BEAKER) (test 7.04 mg/dL 0.57-1.25 nkax=861) GLUCOSE RANDOM (BEAKER) 128 mg/dL 70-105 (test fcwf=999) CALCIUM (BEAKER) (test 8.6 mg/dL 8.4-10.2 uoqa=549) EGFR (BEAKER) (test 6 mL/min/1.73 sq m ESTIMATED GFR IS NOT kbdb=2771) ACCURATE CREATININE CLEARANCE IN PREDICTING GLOMERULAR FILTRATION RATE. ESTIMATED GFR IS NOT APPLICABLE FOR DIALYSIS PATIENTS. CBC W/PLT COUNT & AUTO [id number] 12:05:00 Test Item Value Reference Range Comments WHITE BLOOD CELL COUNT (BEAKER) (test tqop=850) 8.1 K/ L 3.5-10.5 RED BLOOD CELL COUNT (BEAKER) (test nmna=996) 3.03 M/ L 3.93-5.22 HEMOGLOBIN (BEAKER) (test xsjd=957) 7.6 GM/DL 11.2-15.7 HEMATOCRIT (BEAKER) (test yujf=602) 24.8 % 34.1-44.9 MEAN CORPUSCULAR VOLUME (BEAKER) (test ufsq=483) 81.8 fL 79.4-94.8 MEAN CORPUSCULAR HEMOGLOBIN (BEAKER) (test 25.1 pg 25.6-32.2 mfgk=373) MEAN CORPUSCULAR HEMOGLOBIN CONC (BEAKER) (test 30.6 GM/DL 32.2-35.5 uthf=449) RED CELL DISTRIBUTION WIDTH (BEAKER) (test 18.1 % 11.7-14.4 shsx=541) PLATELET COUNT (BEAKER) (test shni=799) 382 K/CU MM 150-450 MEAN PLATELET VOLUME (BEAKER) (test eodu=277) 9.2 fL 9.4-12.3 NUCLEATED RED BLOOD CELLS (BEAKER) (test 0 /100 WBC 0-0 dmod=327) NEUTROPHILS RELATIVE PERCENT (BEAKER) (test 79 % nhbk=654) LYMPHOCYTES RELATIVE PERCENT (BEAKER) (test 7 % zkxq=953) MONOCYTES RELATIVE PERCENT (BEAKER) (test 7 % hcbk=057) EOSINOPHILS RELATIVE PERCENT (BEAKER) (test 6 % aoup=070) BASOPHILS RELATIVE PERCENT (BEAKER) (test 0 % dpyc=206) NEUTROPHILS ABSOLUTE COUNT (BEAKER) (test 6.37 K/ L 1.56-6.13 nddr=804) LYMPHOCYTES ABSOLUTE COUNT (BEAKER) (test 0.58 K/ L 1.18-3.74 rwlg=076) MONOCYTES ABSOLUTE COUNT (BEAKER) (test 0.59 K/ L 0.24-0.36 plnc=010) EOSINOPHILS ABSOLUTE COUNT (BEAKER) (test 0.47 K/ L 0.04-0.36 uhpe=605) BASOPHILS ABSOLUTE COUNT (BEAKER) (test 0.03 K/ L 0.01-0.08 lkvk=660) IMMATURE GRANULOCYTES-RELATIVE PERCENT (BEAKER) 1 % 0-1 (test nfhy=0329) [id number] 12:02:00 Test Item Value Reference Range Comments PHOSPHORUS (BEAKER) (test eymg=193) 5.6 mg/dL 2.3-4.7 [id number] 12:02:00 Test Item Value Reference Range Comments MAGNESIUM (BEAKER) (test rzqy=585) 2.3 mg/dL 1.6-2.6 BLOOD GAS, [id number] 11:33:00 Test Item Value Reference Range Comments PH ARTERIAL (BEAKER) (test xmie=263) 7.35 7.35-7.45 PCO2 ARTERIAL (BEAKER) (test ciyt=077) 31 mmHg 35-45 PO2 ARTERIAL (BEAKER) (test wwge=023) 87 mmHg 80-90 O2 SATURATION ARTERIAL (BEAKER) (test boam=324) 96.3 % 96.0-97.0 HCO3 ARTERIAL (BEAKER) (test fois=899) 17 mmol/L 21-29 BASE EXCESS ARTERIAL (BEAKER) (test alnp=797) -8.0 mmol/L -2.0-3.0 PATIENT TEMPERATURE (BEAKER) (test zrui=9241) 37.0 C FIO2 (BEAKER) (test fyli=2110) 60.0 % POCT-GLUCOSE [id number] 07:54:00 Test Item Value Reference Range Comments POC-GLUCOSE METER (BEAKER) 155 mg/dL 70-110 TESTED AT [facility] [address] (test qzos=9959) [facility] [address] BLOOD GAS, [id number] 05:47:00 Test Item Value Reference Range Comments PH ARTERIAL (BEAKER) (test vjjj=208) 7.36 7.35-7.45 PCO2 ARTERIAL (BEAKER) (test ddmp=474) 30 mmHg 35-45 PO2 ARTERIAL (BEAKER) (test qyed=638) 159 mmHg 80-90 O2 SATURATION ARTERIAL (BEAKER) (test xdqn=190) 99.0 % 96.0-97.0 HCO3 ARTERIAL (BEAKER) (test wkkg=974) 16 mmol/L 21-29 BASE EXCESS ARTERIAL (BEAKER) (test dwwm=255) -8.2 mmol/L -2.0-3.0 PATIENT TEMPERATURE (BEAKER) (test paou=6297) 37.5 C FIO2 (BEAKER) (test djzr=8791) 60.0 % BASIC METABOLIC [id number] 04:28:00 Test Item Value Reference Range Comments SODIUM (BEAKER) (test 144 meq/L 136-145 aiad=412) POTASSIUM (BEAKER) (test 3.6 meq/L 3.5-5.1 hjey=345) CHLORIDE (BEAKER) (test 119 meq/L 98-107 zwis=775) CO2 (BEAKER) (test 15 meq/L 22-29 cvvi=111) BLOOD UREA NITROGEN 38 mg/dL 7-21 (BEAKER) (test tsfi=991) CREATININE (BEAKER) (test 6.81 mg/dL 0.57-1.25 amje=334) GLUCOSE RANDOM (BEAKER) 126 mg/dL 70-105 (test vcfp=044) CALCIUM (BEAKER) (test 8.8 mg/dL 8.4-10.2 zxjr=671) EGFR (BEAKER) (test 6 mL/min/1.73 sq m ESTIMATED GFR IS NOT iphl=5851) ACCURATE CREATININE CLEARANCE IN PREDICTING GLOMERULAR FILTRATION RATE. ESTIMATED GFR IS NOT APPLICABLE FOR DIALYSIS PATIENTS. [id number] 04:22:00 Test Item Value Reference Range Comments PHOSPHORUS (BEAKER) (test vclx=685) 5.4 mg/dL 2.3-4.7 [id number] 04:22:00 Test Item Value Reference Range Comments MAGNESIUM (BEAKER) (test ejiz=257) 2.3 mg/dL 1.6-2.6 RAD, CHEST, 1 VIEW, NON [id number] 04:19:00Reason for exam:->L pleural effusion, empyemaShould this [...] MDReport Verified Date/Time: 06/28/2017 04 :19:29Reading Location: [address] Reading Room VANCOMYCIN LEVEL, [id number] 04:12:00 Test Item Value Reference Range Comments VANCOMYCIN RANDOM (BEAKER) (test wbbz=215) 13.2 ug/mL Reference Range: No NormalsPROTHROMBIN [id number] 04:08:00 Test Item Value Reference Range Comments PROTIME (BEAKER) (test oxbs=936) 17.4 seconds 11.7-14.7 INR (BEAKER) (test avjk=505) 1.4 <=5.9 RECOMMENDED COUMADIN/WARFARIN INR THERAPY RANGESSTANDARD DOSE: 2.0 - 3.0 Includes: PROPHYLAXIS forvenous thrombosis, systemic embolization; TREATMENT for venous thrombosis and/or pulmonary embolus.HIGH RISK: Target INR is 2.5-3.5 for patients with mechanical heart valves.CBC W/PLT COUNT & AUTO [id number] 03:55:00 Test Item Value Reference Range Comments WHITE BLOOD CELL COUNT (BEAKER) (test lrlr=446) 8.1 K/ L 3.5-10.5 RED BLOOD CELL COUNT (BEAKER) (test reer=522) 3.03 M/ L 3.93-5.22 HEMOGLOBIN (BEAKER) (test rpqe=736) 7.6 GM/DL 11.2-15.7 HEMATOCRIT (BEAKER) (test dfxp=891) 24.9 % 34.1-44.9 MEAN CORPUSCULAR VOLUME (BEAKER) (test mray=463) 82.2 fL 79.4-94.8 MEAN CORPUSCULAR HEMOGLOBIN (BEAKER) (test 25.1 pg 25.6-32.2 zukb=476) MEAN CORPUSCULAR HEMOGLOBIN CONC (BEAKER) (test 30.5 GM/DL 32.2-35.5 tavh=587) RED CELL DISTRIBUTION WIDTH (BEAKER) (test 18.3 % 11.7-14.4 svsh=194) PLATELET COUNT (BEAKER) (test rzei=177) 370 K/CU MM 150-450 MEAN PLATELET VOLUME (BEAKER) (test wefz=051) 8.7 fL 9.4-12.3 NUCLEATED RED BLOOD CELLS (BEAKER) (test 0 /100 WBC 0-0 xyzy=850) NEUTROPHILS RELATIVE PERCENT (BEAKER) (test 77 % xtkg=772) LYMPHOCYTES RELATIVE PERCENT (BEAKER) (test 8 % xiuw=333) MONOCYTES RELATIVE PERCENT (BEAKER) (test 8 % prxw=515) EOSINOPHILS RELATIVE PERCENT (BEAKER) (test 6 % eedn=473) BASOPHILS RELATIVE PERCENT (BEAKER) (test 1 % qgae=313) NEUTROPHILS ABSOLUTE COUNT (BEAKER) (test 6.16 K/ L 1.56-6.13 kjhd=977) LYMPHOCYTES ABSOLUTE COUNT (BEAKER) (test 0.63 K/ L 1.18-3.74 rpyl=055) MONOCYTES ABSOLUTE COUNT (BEAKER) (test 0.67 K/ L 0.24-0.36 phdz=848) EOSINOPHILS ABSOLUTE COUNT (BEAKER) (test 0.50 K/ L 0.04-0.36 xhwp=230) BASOPHILS ABSOLUTE COUNT (BEAKER) (test 0.04 K/ L 0.01-0.08 hupc=924) IMMATURE GRANULOCYTES-RELATIVE PERCENT (BEAKER) 1 % 0-1 (test vcgq=8430) ANAEROBIC [id number] 02:09:00 Test Item Value Reference Range Comments CULTURE (BEAKER) (test kmou=8595) No anaerobes isolated ANAEROBIC [id number] 02:09:00 Test Item Value Reference Range Comments CULTURE (BEAKER) (test ycfr=8584) No anaerobes isolated ANAEROBIC [id number] 02:09:00 Test Item Value Reference Range Comments CULTURE (BEAKER) (test vzla=5262) No anaerobes isolated ANAEROBIC [id number] 02:09:00 Test Item Value Reference Range Comments CULTURE (BEAKER) (test idcq=2332) No anaerobes isolated POCT-GLUCOSE [id number] 23:01:00 Test Item Value Reference Range Comments POC-GLUCOSE METER (BEAKER) 104 mg/dL 70-110 TESTED AT [address] (test zcft=7181) [facility] [address] CBC W/PLT COUNT & AUTO [id number] 22:42:00 Test Item Value Reference Range Comments WHITE BLOOD CELL COUNT (BEAKER) (test tifm=835) 8.4 K/ L 3.5-10.5 RED BLOOD CELL COUNT (BEAKER) (test sdya=712) 3.01 M/ L 3.93-5.22 HEMOGLOBIN (BEAKER) (test lxnh=458) 7.7 GM/DL 11.2-15.7 HEMATOCRIT (BEAKER) (test mkma=492) 25.0 % 34.1-44.9 MEAN CORPUSCULAR VOLUME (BEAKER) (test kydm=013) 83.1 fL 79.4-94.8 MEAN CORPUSCULAR HEMOGLOBIN (BEAKER) (test 25.6 pg 25.6-32.2 znsz=919) MEAN CORPUSCULAR HEMOGLOBIN CONC (BEAKER) (test 30.8 GM/DL 32.2-35.5 pyef=746) RED CELL DISTRIBUTION WIDTH (BEAKER) (test 18.2 % 11.7-14.4 qqyg=230) PLATELET COUNT (BEAKER) (test satv=597) 345 K/CU MM 150-450 MEAN PLATELET VOLUME (BEAKER) (test jsso=063) 8.7 fL 9.4-12.3 NUCLEATED RED BLOOD CELLS (BEAKER) (test 0 /100 WBC 0-0 hzpu=147) NEUTROPHILS RELATIVE PERCENT (BEAKER) (test 81 % aqno=526) LYMPHOCYTES RELATIVE PERCENT (BEAKER) (test 6 % wqkx=968) MONOCYTES RELATIVE PERCENT (BEAKER) (test 7 % qonz=558) EOSINOPHILS RELATIVE PERCENT (BEAKER) (test 5 % kpsj=560) BASOPHILS RELATIVE PERCENT (BEAKER) (test 1 % nrpy=906) NEUTROPHILS ABSOLUTE COUNT (BEAKER) (test 6.82 K/ L 1.56-6.13 tybw=449) LYMPHOCYTES ABSOLUTE COUNT (BEAKER) (test 0.53 K/ L 1.18-3.74 vhvp=942) MONOCYTES ABSOLUTE COUNT (BEAKER) (test 0.61 K/ L 0.24-0.36 xwgv=700) EOSINOPHILS ABSOLUTE COUNT (BEAKER) (test 0.39 K/ L 0.04-0.36 pbes=374) BASOPHILS ABSOLUTE COUNT (BEAKER) (test 0.04 K/ L 0.01-0.08 qrug=674) IMMATURE GRANULOCYTES-RELATIVE PERCENT (BEAKER) 1 % 0-1 (test aena=0648) BASIC METABOLIC [id number] 22:26:00 Test Item Value Reference Range Comments SODIUM (BEAKER) (test 143 meq/L 136-145 wnar=988) POTASSIUM (BEAKER) (test 3.7 meq/L 3.5-5.1 hrev=676) CHLORIDE (BEAKER) (test 117 meq/L 98-107 whym=386) CO2 (BEAKER) (test 16 meq/L 22-29 jihr=062) BLOOD UREA NITROGEN 36 mg/dL 7-21 (BEAKER) (test erdo=950) CREATININE (BEAKER) (test 6.79 mg/dL 0.57-1.25 ylem=025) GLUCOSE RANDOM (BEAKER) 112 mg/dL 70-105 (test gmhv=460) CALCIUM (BEAKER) (test 8.6 mg/dL 8.4-10.2 oedz=584) EGFR (BEAKER) (test 6 mL/min/1.73 sq m ESTIMATED GFR IS NOT ijlh=9000) ACCURATE CREATININE CLEARANCE IN PREDICTING GLOMERULAR FILTRATION RATE. ESTIMATED GFR IS NOT APPLICABLE FOR DIALYSIS PATIENTS. [id number] 22:22:00 Test Item Value Reference Range Comments PHOSPHORUS (BEAKER) (test kgod=873) 5.5 mg/dL 2.3-4.7 [id number] 22:22:00 Test Item Value Reference Range Comments MAGNESIUM (BEAKER) (test cpqq=348) 2.3 mg/dL 1.6-2.6 BLOOD GAS, [id number] 21:58:00 Test Item Value Reference Range Comments PH ARTERIAL (BEAKER) (test eemc=604) 7.35 7.35-7.45 PCO2 ARTERIAL (BEAKER) (test gkst=712) 28 mmHg 35-45 PO2 ARTERIAL (BEAKER) (test cslm=013) 142 mmHg 80-90 O2 SATURATION ARTERIAL (BEAKER) (test fzqt=194) 98.7 % 96.0-97.0 HCO3 ARTERIAL (BEAKER) (test vhhe=958) 15 mmol/L 21-29 BASE EXCESS ARTERIAL (BEAKER) (test uahy=806) -9.6 mmol/L -2.0-3.0 PATIENT TEMPERATURE (BEAKER) (test vpah=6718) 37.5 C FIO2 (BEAKER) (test jbup=8310) 60.0 % POCT-GLUCOSE [id number] 18:13:00 Test Item Value Reference Range Comments POC-GLUCOSE METER (BEAKER) 121 mg/dL 70-110 TESTED AT [facility] [address] [place] [address] (test yike=1910) [facility] [id number] BASIC METABOLIC [id number] 16:34:00 Test Item Value Reference Range Comments SODIUM (BEAKER) (test 144 meq/L 136-145 rwyd=810) POTASSIUM (BEAKER) (test 3.8 meq/L 3.5-5.1 dyic=118) CHLORIDE (BEAKER) (test 116 meq/L 98-107 erck=927) CO2 (BEAKER) (test 15 meq/L 22-29 eyhe=754) BLOOD UREA NITROGEN 36 mg/dL 7-21 (BEAKER) (test renh=125) CREATININE (BEAKER) (test 6.65 mg/dL 0.57-1.25 fcvs=559) GLUCOSE RANDOM (BEAKER) 102 mg/dL 70-105 (test aftz=653) CALCIUM (BEAKER) (test 8.5 mg/dL 8.4-10.2 xjsi=867) EGFR (BEAKER) (test 6 mL/min/1.73 sq m ESTIMATED GFR IS NOT rnie=3474) ACCURATE CREATININE CLEARANCE IN PREDICTING GLOMERULAR FILTRATION RATE. ESTIMATED GFR IS NOT APPLICABLE FOR DIALYSIS PATIENTS. CBC W/PLT COUNT & AUTO [id number] 16:34:00 Test Item Value Reference Range Comments WHITE BLOOD CELL COUNT (BEAKER) (test xfey=457) 8.7 K/ L 3.5-10.5 RED BLOOD CELL COUNT (BEAKER) (test yxth=227) 2.97 M/ L 3.93-5.22 HEMOGLOBIN (BEAKER) (test txuo=946) 7.4 GM/DL 11.2-15.7 HEMATOCRIT (BEAKER) (test hmpf=482) 24.5 % 34.1-44.9 MEAN CORPUSCULAR VOLUME (BEAKER) (test rzyu=340) 82.5 fL 79.4-94.8 MEAN CORPUSCULAR HEMOGLOBIN (BEAKER) (test 24.9 pg 25.6-32.2 mvnd=085) MEAN CORPUSCULAR HEMOGLOBIN CONC (BEAKER) (test 30.2 GM/DL 32.2-35.5 nzgg=980) RED CELL DISTRIBUTION WIDTH (BEAKER) (test 18.3 % 11.7-14.4 pbee=218) PLATELET COUNT (BEAKER) (test sinw=097) 332 K/CU MM 150-450 MEAN PLATELET VOLUME (BEAKER) (test wphm=409) 8.9 fL 9.4-12.3 NUCLEATED RED BLOOD CELLS (BEAKER) (test 0 /100 WBC 0-0 bwqf=116) NEUTROPHILS RELATIVE PERCENT (BEAKER) (test 82 % ujrp=810) LYMPHOCYTES RELATIVE PERCENT (BEAKER) (test 6 % zclo=540) MONOCYTES RELATIVE PERCENT (BEAKER) (test 7 % ayjj=091) EOSINOPHILS RELATIVE PERCENT (BEAKER) (test 3 % jhfk=819) BASOPHILS RELATIVE PERCENT (BEAKER) (test 1 % jldg=137) NEUTROPHILS ABSOLUTE COUNT (BEAKER) (test 7.12 K/ L 1.56-6.13 xfzy=010) LYMPHOCYTES ABSOLUTE COUNT (BEAKER) (test 0.56 K/ L 1.18-3.74 cwdw=815) MONOCYTES ABSOLUTE COUNT (BEAKER) (test 0.60 K/ L 0.24-0.36 fvne=351) EOSINOPHILS ABSOLUTE COUNT (BEAKER) (test 0.28 K/ L 0.04-0.36 cnup=819) BASOPHILS ABSOLUTE COUNT (BEAKER) (test 0.05 K/ L 0.01-0.08 snxz=925) IMMATURE GRANULOCYTES-RELATIVE PERCENT (BEAKER) 1 % 0-1 (test yfty=5792) [id number] 16:31:00 Test Item Value Reference Range Comments PHOSPHORUS (BEAKER) (test tfqb=416) 5.7 mg/dL 2.3-4.7 [id number] 16:31:00 Test Item Value Reference Range Comments MAGNESIUM (BEAKER) (test jhfr=474) 2.4 mg/dL 1.6-2.6 PROTHROMBIN [id number] 16:27:00 Test Item Value Reference Range Comments PROTIME (BEAKER) (test mpnp=290) 18.2 seconds 11.7-14.7 INR (BEAKER) (test hass=585) 1.5 <=5.9 RECOMMENDED COUMADIN/WARFARIN INR THERAPY RANGESSTANDARD DOSE: 2.0 - 3.0 Includes: PROPHYLAXIS forvenous thrombosis, systemic embolization; TREATMENT for venous thrombosis and/or pulmonary embolus.HIGH RISK: Target INR is 2.5-3.5 for patients with mechanical heart valves.BLOOD GAS, [id number] 16:12:00 Test Item Value Reference Range Comments PH ARTERIAL (BEAKER) (test zrjp=051) 7.32 7.35-7.45 PCO2 ARTERIAL (BEAKER) (test obis=364) 29 mmHg 35-45 PO2 ARTERIAL (BEAKER) (test lmfn=522) 100 mmHg 80-90 O2 SATURATION ARTERIAL (BEAKER) (test oyzf=114) 97.2 % 96.0-97.0 HCO3 ARTERIAL (BEAKER) (test krsn=178) 15 mmol/L 21-29 BASE EXCESS ARTERIAL (BEAKER) (test wagv=657) -10.3 mmol/L -2.0-3.0 PATIENT TEMPERATURE (BEAKER) (test vjgj=2218) 37.0 C FIO2 (BEAKER) (test yhsn=3889) 60.0 % POCT-GLUCOSE [id number] 12:36:00 Test Item Value Reference Range Comments POC-GLUCOSE METER (BEAKER) 100 mg/dL 70-110 TESTED AT [facility] [address] [facility] (test vwgl=0005) [facility] [address] BASIC METABOLIC [id number] 10:54:00 Test Item Value Reference Range Comments SODIUM (BEAKER) (test 144 meq/L 136-145 mkux=074) POTASSIUM (BEAKER) (test 3.8 meq/L 3.5-5.1 jgur=874) CHLORIDE (BEAKER) (test 117 meq/L 98-107 xhts=590) CO2 (BEAKER) (test 15 meq/L 22-29 zptu=694) BLOOD UREA NITROGEN 35 mg/dL 7-21 (BEAKER) (test kzvn=437) CREATININE (BEAKER) (test 6.35 mg/dL 0.57-1.25 rbrv=148) GLUCOSE RANDOM (BEAKER) 95 mg/dL 70-105 (test xrou=824) CALCIUM (BEAKER) (test 8.6 mg/dL 8.4-10.2 lkka=034) EGFR (BEAKER) (test 7 mL/min/1.73 sq m ESTIMATED GFR IS NOT illj=1758) ACCURATE CREATININE CLEARANCE IN PREDICTING GLOMERULAR FILTRATION RATE. ESTIMATED GFR IS NOT APPLICABLE FOR DIALYSIS PATIENTS. [id number] 10:51:00 Test Item Value Reference Range Comments PHOSPHORUS (BEAKER) (test ddbh=191) 5.6 mg/dL 2.3-4.7 [id number] 10:51:00 Test Item Value Reference Range Comments MAGNESIUM (BEAKER) (test twdx=864) 2.3 mg/dL 1.6-2.6 RAD, ABDOMEN/KUB, 1 VIEW [id number] 10:43:00Reason for exam:->corpak placedFINAL REPORT Abdomen one view Comparison: None. Reason for exam: corpak placed Findings: Tip of Corpak projects over the expected location of gastric antrum. No free air identified on this single frontal view. Signed: Nina Naranjo MDReport Verified Date/Time: 06/27/2017 10:43: 50 Reading Location: [facility] Radiology Reading Room VANCOMYCIN LEVEL, [id number] 10:36:00 Test Item Value Reference Range Comments VANCOMYCIN RANDOM (BEAKER) (test hojv=508) 13.8 ug/mL Reference Range: No NormalsBLOOD GAS, [id number] 10:29:00 Test Item Value Reference Range Comments PH ARTERIAL (BEAKER) (test hocu=052) 7.31 7.35-7.45 PCO2 ARTERIAL (BEAKER) (test axwu=004) 28 mmHg 35-45 PO2 ARTERIAL (BEAKER) (test rtyj=390) 157 mmHg 80-90 O2 SATURATION ARTERIAL (BEAKER) (test ivbe=403) 98.9 % 96.0-97.0 HCO3 ARTERIAL (BEAKER) (test yajl=001) 14 mmol/L 21-29 BASE EXCESS ARTERIAL (BEAKER) (test skrq=903) -11.6 mmol/L -2.0-3.0 PATIENT TEMPERATURE (BEAKER) (test joga=8329) 37.0 C FIO2 (BEAKER) (test oqpc=3110) 60.0 % CBC W/PLT COUNT & AUTO [id number] 10:19:00 Test Item Value Reference Range Comments WHITE BLOOD CELL COUNT (BEAKER) (test desi=425) 9.3 K/ L 3.5-10.5 RED BLOOD CELL COUNT (BEAKER) (test pfla=333) 2.97 M/ L 3.93-5.22 HEMOGLOBIN (BEAKER) (test wgez=659) 7.7 GM/DL 11.2-15.7 HEMATOCRIT (BEAKER) (test smnf=912) 24.8 % 34.1-44.9 MEAN CORPUSCULAR VOLUME (BEAKER) (test irqc=652) 83.5 fL 79.4-94.8 MEAN CORPUSCULAR HEMOGLOBIN (BEAKER) (test 25.9 pg 25.6-32.2 eglm=971) MEAN CORPUSCULAR HEMOGLOBIN CONC (BEAKER) (test 31.0 GM/DL 32.2-35.5 glxp=825) RED CELL DISTRIBUTION WIDTH (BEAKER) (test 18.1 % 11.7-14.4 zpuj=769) PLATELET COUNT (BEAKER) (test fpdp=691) 315 K/CU MM 150-450 MEAN PLATELET VOLUME (BEAKER) (test gquw=358) 8.7 fL 9.4-12.3 NUCLEATED RED BLOOD CELLS (BEAKER) (test 0 /100 WBC 0-0 jymy=067) NEUTROPHILS RELATIVE PERCENT (BEAKER) (test 85 % ydqy=047) LYMPHOCYTES RELATIVE PERCENT (BEAKER) (test 4 % rnrw=692) MONOCYTES RELATIVE PERCENT (BEAKER) (test 7 % sfyh=210) EOSINOPHILS RELATIVE PERCENT (BEAKER) (test 3 % bjno=831) BASOPHILS RELATIVE PERCENT (BEAKER) (test 0 % bvdh=416) NEUTROPHILS ABSOLUTE COUNT (BEAKER) (test 7.92 K/ L 1.56-6.13 apon=776) LYMPHOCYTES ABSOLUTE COUNT (BEAKER) (test 0.37 K/ L 1.18-3.74 mzjc=409) MONOCYTES ABSOLUTE COUNT (BEAKER) (test 0.60 K/ L 0.24-0.36 rhja=620) EOSINOPHILS ABSOLUTE COUNT (BEAKER) (test 0.29 K/ L 0.04-0.36 wbax=936) BASOPHILS ABSOLUTE COUNT (BEAKER) (test 0.04 K/ L 0.01-0.08 bezm=687) IMMATURE GRANULOCYTES-RELATIVE PERCENT (BEAKER) 1 % 0-1 (test zhnd=0432) BLOOD GAS, [id number] 05:22:00 Test Item Value Reference Range Comments PH ARTERIAL (BEAKER) (test atpg=942) 7.28 7.35-7.45 PCO2 ARTERIAL (BEAKER) (test dsjn=474) 32 mmHg 35-45 PO2 ARTERIAL (BEAKER) (test royf=485) 135 mmHg 80-90 O2 SATURATION ARTERIAL (BEAKER) (test emaj=680) 98.3 % 96.0-97.0 HCO3 ARTERIAL (BEAKER) (test kwxb=840) 14 mmol/L 21-29 BASE EXCESS ARTERIAL (BEAKER) (test oyax=602) -11.3 mmol/L -2.0-3.0 PATIENT TEMPERATURE (BEAKER) (test knvf=6728) 37.5 C FIO2 (BEAKER) (test trtz=3851) 60.0 % BASIC METABOLIC [id number] 04:40:00 Test Item Value Reference Range Comments SODIUM (BEAKER) (test 143 meq/L 136-145 ehwo=178) POTASSIUM (BEAKER) (test 3.8 meq/L 3.5-5.1 slmb=689) CHLORIDE (BEAKER) (test 116 meq/L 98-107 qyop=808) CO2 (BEAKER) (test 15 meq/L 22-29 jipx=892) BLOOD UREA NITROGEN 34 mg/dL 7-21 (BEAKER) (test bavq=782) CREATININE (BEAKER) (test 6.22 mg/dL 0.57-1.25 kgoe=876) GLUCOSE RANDOM (BEAKER) 103 mg/dL 70-105 (test unca=863) CALCIUM (BEAKER) (test 8.5 mg/dL 8.4-10.2 kdvi=652) EGFR (BEAKER) (test 7 mL/min/1.73 sq m ESTIMATED GFR IS NOT nypp=3882) ACCURATE CREATININE CLEARANCE IN PREDICTING GLOMERULAR FILTRATION RATE. ESTIMATED GFR IS NOT APPLICABLE FOR DIALYSIS PATIENTS. [id number] 04:39:00 Test Item Value Reference Range Comments PHOSPHORUS (BEAKER) (test hxmr=806) 5.5 mg/dL 2.3-4.7 [id number] 04:39:00 Test Item Value Reference Range Comments MAGNESIUM (BEAKER) (test lsuz=912) 2.3 mg/dL 1.6-2.6 PROTHROMBIN [id number] 04:29:00 Test Item Value Reference Range Comments PROTIME (BEAKER) (test flbn=303) 17.6 seconds 11.7-14.7 INR (BEAKER) (test yfef=810) 1.5 <=5.9 RECOMMENDED COUMADIN/WARFARIN INR THERAPY RANGESSTANDARD DOSE: 2.0 - 3.0 Includes: PROPHYLAXIS forvenous thrombosis, systemic embolization; TREATMENT for venous thrombosis and/or pulmonary embolus.HIGH RISK: Target INR is 2.5-3.5 for patients with mechanical heart valves.CBC W/PLT COUNT & AUTO [id number] 04:27:00 Test Item Value Reference Range Comments WHITE BLOOD CELL COUNT (BEAKER) (test hvur=003) 10.5 K/ L 3.5-10.5 RED BLOOD CELL COUNT (BEAKER) (test mqju=876) 3.08 M/ L 3.93-5.22 HEMOGLOBIN (BEAKER) (test pouq=675) 7.9 GM/DL 11.2-15.7 HEMATOCRIT (BEAKER) (test egph=845) 25.7 % 34.1-44.9 MEAN CORPUSCULAR VOLUME (BEAKER) (test lwlx=091) 83.4 fL 79.4-94.8 MEAN CORPUSCULAR HEMOGLOBIN (BEAKER) (test 25.6 pg 25.6-32.2 pkwk=739) MEAN CORPUSCULAR HEMOGLOBIN CONC (BEAKER) (test 30.7 GM/DL 32.2-35.5 adcy=205) RED CELL DISTRIBUTION WIDTH (BEAKER) (test 18.1 % 11.7-14.4 jigp=301) PLATELET COUNT (BEAKER) (test xige=920) 311 K/CU MM 150-450 MEAN PLATELET VOLUME (BEAKER) (test rcuv=499) 8.8 fL 9.4-12.3 NUCLEATED RED BLOOD CELLS (BEAKER) (test 0 /100 WBC 0-0 dtrq=605) NEUTROPHILS RELATIVE PERCENT (BEAKER) (test 85 % bvus=546) LYMPHOCYTES RELATIVE PERCENT (BEAKER) (test 5 % iiqe=549) MONOCYTES RELATIVE PERCENT (BEAKER) (test 7 % yann=864) EOSINOPHILS RELATIVE PERCENT (BEAKER) (test 2 % ssum=612) BASOPHILS RELATIVE PERCENT (BEAKER) (test 0 % axvg=069) NEUTROPHILS ABSOLUTE COUNT (BEAKER) (test 8.92 K/ L 1.56-6.13 jkyk=511) LYMPHOCYTES ABSOLUTE COUNT (BEAKER) (test 0.54 K/ L 1.18-3.74 pvor=707) MONOCYTES ABSOLUTE COUNT (BEAKER) (test 0.68 K/ L 0.24-0.36 ghqk=808) EOSINOPHILS ABSOLUTE COUNT (BEAKER) (test 0.25 K/ L 0.04-0.36 spdd=182) BASOPHILS ABSOLUTE COUNT (BEAKER) (test 0.04 K/ L 0.01-0.08 trkg=271) IMMATURE GRANULOCYTES-RELATIVE PERCENT (BEAKER) 1 % 0-1 (test mhcj=8862) RAD, CHEST, 1 VIEW, NON [id number] 04:20:00Reason for exam:->r/o effusionIs the patient ?->NoShould [...] notify the appropriate on-call clinician. Signed: Darrin Escalera MDReport Verified Date/ Time: 06/27/2017 04:20:42 Reading Location: [address] Reading Room Electronically signedby: DARRIN ESCALERA M.D. on 06/27/2017 04:20 AMBASIC METABOLIC [id number] 22:17:00 Test Item Value Reference Range Comments SODIUM (BEAKER) (test 144 meq/L 136-145 dunz=369) POTASSIUM (BEAKER) (test 3.8 meq/L 3.5-5.1 hgzl=054) CHLORIDE (BEAKER) (test 116 meq/L 98-107 tmuo=268) CO2 (BEAKER) (test 13 meq/L 22-29 rtwg=878) BLOOD UREA NITROGEN 33 mg/dL 7-21 (BEAKER) (test fpua=652) CREATININE (BEAKER) (test 6.10 mg/dL 0.57-1.25 ablk=285) GLUCOSE RANDOM (BEAKER) 86 mg/dL 70-105 (test uxyf=055) CALCIUM (BEAKER) (test 8.2 mg/dL 8.4-10.2 hjvy=539) EGFR (BEAKER) (test 7 mL/min/1.73 sq m ESTIMATED GFR IS NOT fomr=2361) ACCURATE CREATININE CLEARANCE IN PREDICTING GLOMERULAR FILTRATION RATE. ESTIMATED GFR IS NOT APPLICABLE FOR DIALYSIS PATIENTS. [id number] 22:14:00 Test Item Value Reference Range Comments PHOSPHORUS (BEAKER) (test xokt=744) 5.5 mg/dL 2.3-4.7 [id number] 22:14:00 Test Item Value Reference Range Comments MAGNESIUM (BEAKER) (test jluj=229) 2.3 mg/dL 1.6-2.6 CBC W/PLT COUNT & AUTO [id number] 21:57:00 Test Item Value Reference Range Comments WHITE BLOOD CELL COUNT (BEAKER) (test wfwv=965) 11.0 K/ L 3.5-10.5 RED BLOOD CELL COUNT (BEAKER) (test hjwi=210) 2.95 M/ L 3.93-5.22 HEMOGLOBIN (BEAKER) (test hkyv=812) 7.6 GM/DL 11.2-15.7 HEMATOCRIT (BEAKER) (test ehsw=198) 24.7 % 34.1-44.9 MEAN CORPUSCULAR VOLUME (BEAKER) (test guif=667) 83.7 fL 79.4-94.8 MEAN CORPUSCULAR HEMOGLOBIN (BEAKER) (test 25.8 pg 25.6-32.2 sbpv=112) MEAN CORPUSCULAR HEMOGLOBIN CONC (BEAKER) (test 30.8 GM/DL 32.2-35.5 vfzz=782) RED CELL DISTRIBUTION WIDTH (BEAKER) (test 17.8 % 11.7-14.4 hqrf=061) PLATELET COUNT (BEAKER) (test jchp=761) 299 K/CU MM 150-450 MEAN PLATELET VOLUME (BEAKER) (test jhii=589) 9.1 fL 9.4-12.3 NUCLEATED RED BLOOD CELLS (BEAKER) (test 0 /100 WBC 0-0 jcqb=552) NEUTROPHILS RELATIVE PERCENT (BEAKER) (test 88 % rmns=309) LYMPHOCYTES RELATIVE PERCENT (BEAKER) (test 4 % cpud=570) MONOCYTES RELATIVE PERCENT (BEAKER) (test 6 % owfb=697) EOSINOPHILS RELATIVE PERCENT (BEAKER) (test 2 % dkgg=359) BASOPHILS RELATIVE PERCENT (BEAKER) (test 0 % stqz=681) NEUTROPHILS ABSOLUTE COUNT (BEAKER) (test 9.70 K/ L 1.56-6.13 pjuu=978) LYMPHOCYTES ABSOLUTE COUNT (BEAKER) (test 0.42 K/ L 1.18-3.74 errm=039) MONOCYTES ABSOLUTE COUNT (BEAKER) (test 0.67 K/ L 0.24-0.36 xaul=307) EOSINOPHILS ABSOLUTE COUNT (BEAKER) (test 0.16 K/ L 0.04-0.36 qagw=577) BASOPHILS ABSOLUTE COUNT (BEAKER) (test 0.03 K/ L 0.01-0.08 imjg=284) IMMATURE GRANULOCYTES-RELATIVE PERCENT (BEAKER) 1 % 0-1 (test spzv=3931) POCT-GLUCOSE [id number] 21:56:00 Test Item Value Reference Range Comments POC-GLUCOSE METER (BEAKER) 91 mg/dL 70-110 TESTED AT [address] (test gzjj=0784) [place] [address] BLOOD GAS, [id number] 21:53:00 Test Item Value Reference Range Comments PH ARTERIAL (BEAKER) (test ukea=941) 7.34 7.35-7.45 PCO2 ARTERIAL (BEAKER) (test qgtp=435) 25 mmHg 35-45 PO2 ARTERIAL (BEAKER) (test tphu=606) 120 mmHg 80-90 O2 SATURATION ARTERIAL (BEAKER) (test dsoq=068) 98.2 % 96.0-97.0 HCO3 ARTERIAL (BEAKER) (test egyb=802) 13 mmol/L 21-29 BASE EXCESS ARTERIAL (BEAKER) (test ionw=419) -11.0 mmol/L -2.0-3.0 PATIENT TEMPERATURE (BEAKER) (test unxf=2077) 37.5 C FIO2 (BEAKER) (test bubb=2001) 60.0 % POCT-GLUCOSE [id number] 18:49:00 Test Item Value Reference Range Comments POC-GLUCOSE METER (BEAKER) 92 mg/dL 70-110 TESTED AT [address] (test mess=0211) [place] [address] BASIC METABOLIC [id number] 18:20:00 Test Item Value Reference Range Comments SODIUM (BEAKER) (test 144 meq/L 136-145 zekd=576) POTASSIUM (BEAKER) (test 4.1 meq/L 3.5-5.1 oxxw=138) CHLORIDE (BEAKER) (test 119 meq/L 98-107 xdhp=794) CO2 (BEAKER) (test 13 meq/L 22-29 hthh=172) BLOOD UREA NITROGEN 31 mg/dL 7-21 (BEAKER) (test iaor=111) CREATININE (BEAKER) (test 5.84 mg/dL 0.57-1.25 pedi=001) GLUCOSE RANDOM (BEAKER) 78 mg/dL 70-105 (test aymw=550) CALCIUM (BEAKER) (test 8.4 mg/dL 8.4-10.2 hmhc=782) EGFR (BEAKER) (test 7 mL/min/1.73 sq m ESTIMATED GFR IS NOT leet=8733) ACCURATE CREATININE CLEARANCE IN PREDICTING GLOMERULAR FILTRATION RATE. ESTIMATED GFR IS NOT APPLICABLE FOR DIALYSIS PATIENTS. [id number] 18:17:00 Test Item Value Reference Range Comments PHOSPHORUS (BEAKER) (test fqnw=369) 5.5 mg/dL 2.3-4.7 [id number] 18:17:00 Test Item Value Reference Range Comments MAGNESIUM (BEAKER) (test rmvg=734) 2.4 mg/dL 1.6-2.6 PROTHROMBIN [id number] 17:59:00 Test Item Value Reference Range Comments PROTIME (BEAKER) (test kxgx=910) 17.5 seconds 11.7-14.7 INR (BEAKER) (test hfhn=894) 1.4 <=5.9 RECOMMENDED COUMADIN/WARFARIN INR THERAPY RANGESSTANDARD DOSE: 2.0 - 3.0 Includes: PROPHYLAXIS forvenous thrombosis, systemic embolization; TREATMENT for venous thrombosis and/or pulmonary embolus.HIGH RISK: Target INR is 2.5-3.5 for patients with mechanical heart valves.CBC W/PLT COUNT & AUTO [id number] 17:40:00 Test Item Value Reference Range Comments WHITE BLOOD CELL COUNT (BEAKER) (test ruju=454) 12.2 K/ L 3.5-10.5 RED BLOOD CELL COUNT (BEAKER) (test bpgz=743) 3.24 M/ L 3.93-5.22 HEMOGLOBIN (BEAKER) (test zdvf=606) 8.3 GM/DL 11.2-15.7 HEMATOCRIT (BEAKER) (test xalb=053) 27.2 % 34.1-44.9 MEAN CORPUSCULAR VOLUME (BEAKER) (test uwoz=054) 84.0 fL 79.4-94.8 MEAN CORPUSCULAR HEMOGLOBIN (BEAKER) (test 25.6 pg 25.6-32.2 jjdd=599) MEAN CORPUSCULAR HEMOGLOBIN CONC (BEAKER) (test 30.5 GM/DL 32.2-35.5 uqsj=031) RED CELL DISTRIBUTION WIDTH (BEAKER) (test 17.8 % 11.7-14.4 rfxz=311) PLATELET COUNT (BEAKER) (test xkee=077) 314 K/CU MM 150-450 MEAN PLATELET VOLUME (BEAKER) (test aqzq=805) 9.3 fL 9.4-12.3 NUCLEATED RED BLOOD CELLS (BEAKER) (test 0 /100 WBC 0-0 fhsh=817) NEUTROPHILS RELATIVE PERCENT (BEAKER) (test 87 % ileh=791) LYMPHOCYTES RELATIVE PERCENT (BEAKER) (test 4 % siaw=754) MONOCYTES RELATIVE PERCENT (BEAKER) (test 6 % nnnl=660) EOSINOPHILS RELATIVE PERCENT (BEAKER) (test 1 % qzbp=369) BASOPHILS RELATIVE PERCENT (BEAKER) (test 0 % zxze=031) NEUTROPHILS ABSOLUTE COUNT (BEAKER) (test 10.58 K/ L 1.56-6.13 yhlx=923) LYMPHOCYTES ABSOLUTE COUNT (BEAKER) (test 0.51 K/ L 1.18-3.74 opev=380) MONOCYTES ABSOLUTE COUNT (BEAKER) (test 0.78 K/ L 0.24-0.36 xglk=201) EOSINOPHILS ABSOLUTE COUNT (BEAKER) (test 0.16 K/ L 0.04-0.36 hvnj=597) BASOPHILS ABSOLUTE COUNT (BEAKER) (test 0.04 K/ L 0.01-0.08 qxmj=155) IMMATURE GRANULOCYTES-RELATIVE PERCENT (BEAKER) 1 % 0-1 (test fqpp=7820) BLOOD GAS, [id number] 16:50:00 Test Item Value Reference Range Comments PH ARTERIAL (BEAKER) (test peyv=050) 7.28 7.35-7.45 PCO2 ARTERIAL (BEAKER) (test tqfg=774) 30 mmHg 35-45 PO2 ARTERIAL (BEAKER) (test enaq=452) 100 mmHg 80-90 O2 SATURATION ARTERIAL (BEAKER) (test qpne=947) 96.9 % 96.0-97.0 HCO3 ARTERIAL (BEAKER) (test ejeh=184) 14 mmol/L 21-29 BASE EXCESS ARTERIAL (BEAKER) (test abfe=676) -11.9 mmol/L -2.0-3.0 PATIENT TEMPERATURE (BEAKER) (test tmpv=4815) 37.0 C FIO2 (BEAKER) (test kznt=8106) 60.0 % VANCOMYCIN LEVEL, [id number] 15:13:00 Test Item Value Reference Range Comments VANCOMYCIN RANDOM (BEAKER) (test pkgm=018) 15.1 ug/mL Reference Range: No NormalsRAD, CHEST, 1 VIEW, NON [id number] 14:15: 00Reason for exam:->CT removalShould this be [...] MDReport Verified Date/Time: 06/26/2017 14:15:00 Reading Location: [facility] Mammo Reading Room 02: 15 PMBLOOD GAS, [id number] 13:30:00 Test Item Value Reference Range Comments PH ARTERIAL (BEAKER) (test wxlt=616) 7.24 7.35-7.45 PCO2 ARTERIAL (BEAKER) (test gqes=206) 34 mmHg 35-45 PO2 ARTERIAL (BEAKER) (test jvgn=714) 115 mmHg 80-90 O2 SATURATION ARTERIAL (BEAKER) (test qddj=809) 97.5 % 96.0-97.0 HCO3 ARTERIAL (BEAKER) (test ilrd=899) 14 mmol/L 21-29 BASE EXCESS ARTERIAL (BEAKER) (test mgsx=373) -12.1 mmol/L -2.0-3.0 PATIENT TEMPERATURE (BEAKER) (test yxsc=4604) 37.0 C FIO2 (BEAKER) (test mebz=4498) 60.0 % POCT-GLUCOSE [id number] 13:19:00 Test Item Value Reference Range Comments POC-GLUCOSE METER (BEAKER) 87 mg/dL 70-110 TESTED AT [facility] [address] (test vipw=8443) [facility] [address] BASIC METABOLIC [id number] 11:25:00 Test Item Value Reference Range Comments SODIUM (BEAKER) (test 142 meq/L 136-145 kjey=054) POTASSIUM (BEAKER) (test 3.9 meq/L 3.5-5.1 kbxf=767) CHLORIDE (BEAKER) (test 116 meq/L 98-107 vjzt=891) CO2 (BEAKER) (test 15 meq/L 22-29 ncvh=489) BLOOD UREA NITROGEN 29 mg/dL 7-21 (BEAKER) (test vafb=639) CREATININE (BEAKER) (test 5.54 mg/dL 0.57-1.25 vslf=759) GLUCOSE RANDOM (BEAKER) 83 mg/dL 70-105 (test cmkm=891) CALCIUM (BEAKER) (test 8.2 mg/dL 8.4-10.2 vlxm=346) EGFR (BEAKER) (test 8 mL/min/1.73 sq m ESTIMATED GFR IS NOT ndnm=8102) ACCURATE CREATININE CLEARANCE IN PREDICTING GLOMERULAR FILTRATION RATE. ESTIMATED GFR IS NOT APPLICABLE FOR DIALYSIS PATIENTS. [id number] 11:22:00 Test Item Value Reference Range Comments PHOSPHORUS (BEAKER) (test buhr=118) 5.2 mg/dL 2.3-4.7 [id number] 11:22:00 Test Item Value Reference Range Comments MAGNESIUM (BEAKER) (test fusc=848) 2.4 mg/dL 1.6-2.6 CBC W/PLT COUNT & AUTO [id number] 11:02:00 Test Item Value Reference Range Comments WHITE BLOOD CELL COUNT (BEAKER) (test kloc=551) 13.4 K/ L 3.5-10.5 RED BLOOD CELL COUNT (BEAKER) (test sfmr=510) 3.11 M/ L 3.93-5.22 HEMOGLOBIN (BEAKER) (test scqt=453) 7.9 GM/DL 11.2-15.7 HEMATOCRIT (BEAKER) (test qcid=760) 26.2 % 34.1-44.9 MEAN CORPUSCULAR VOLUME (BEAKER) (test uggl=314) 84.2 fL 79.4-94.8 MEAN CORPUSCULAR HEMOGLOBIN (BEAKER) (test 25.4 pg 25.6-32.2 fthc=535) MEAN CORPUSCULAR HEMOGLOBIN CONC (BEAKER) (test 30.2 GM/DL 32.2-35.5 rpxe=459) RED CELL DISTRIBUTION WIDTH (BEAKER) (test 17.7 % 11.7-14.4 czjb=533) PLATELET COUNT (BEAKER) (test cpza=238) 288 K/CU MM 150-450 MEAN PLATELET VOLUME (BEAKER) (test bpij=268) 9.2 fL 9.4-12.3 NUCLEATED RED BLOOD CELLS (BEAKER) (test 0 /100 WBC 0-0 wpxp=849) NEUTROPHILS RELATIVE PERCENT (BEAKER) (test 89 % dszg=335) LYMPHOCYTES RELATIVE PERCENT (BEAKER) (test 3 % dful=362) MONOCYTES RELATIVE PERCENT (BEAKER) (test 6 % ikrf=639) EOSINOPHILS RELATIVE PERCENT (BEAKER) (test 1 % iwxq=303) BASOPHILS RELATIVE PERCENT (BEAKER) (test 0 % wqph=526) NEUTROPHILS ABSOLUTE COUNT (BEAKER) (test 11.98 K/ L 1.56-6.13 athc=972) LYMPHOCYTES ABSOLUTE COUNT (BEAKER) (test 0.41 K/ L 1.18-3.74 cizr=811) MONOCYTES ABSOLUTE COUNT (BEAKER) (test 0.74 K/ L 0.24-0.36 bfkz=515) EOSINOPHILS ABSOLUTE COUNT (BEAKER) (test 0.11 K/ L 0.04-0.36 vyju=642) BASOPHILS ABSOLUTE COUNT (BEAKER) (test 0.05 K/ L 0.01-0.08 xupw=506) IMMATURE GRANULOCYTES-RELATIVE PERCENT (BEAKER) 1 % 0-1 (test bhdr=9813) BLOOD GAS, [id number] 10:47:00 Test Item Value Reference Range Comments PH ARTERIAL (BEAKER) (test qomk=403) 7.28 7.35-7.45 PCO2 ARTERIAL (BEAKER) (test ebcl=441) 29 mmHg 35-45 PO2 ARTERIAL (BEAKER) (test asfd=462) 97 mmHg 80-90 O2 SATURATION ARTERIAL (BEAKER) (test rzpz=830) 96.7 % 96.0-97.0 HCO3 ARTERIAL (BEAKER) (test ygyq=754) 13 mmol/L 21-29 BASE EXCESS ARTERIAL (BEAKER) (test cdsf=314) -12.2 mmol/L -2.0-3.0 PATIENT TEMPERATURE (BEAKER) (test kwmt=3172) 37.0 C FIO2 (BEAKER) (test gyuh=8809) 60.0 % RAD, CHEST, 1 VIEW, NON [id number] 10:41:00Reason for exam:->HD line placementShould this be [...] Bauer Verified Date/Time: 06/26/2017 10:41:23 Reading Location: [facility] Radiology Reading Room RAD, CHEST, 1 VIEW, NON [id number] 04:39:00Reason for exam:->r/o effusionIs the patient ?-> NoShould this be performed at the bedside?->YesFINAL REPORT CLINICAL INDICATION: Support lines. Comparison: 06/25/2017 The cardiomediastinal contours are stable. Central pulmonary vascular congestion and left greater than right parenchymal and pleural opacities are unchanged. There is no pneumothorax. Support lines are stable. Signed: Gelacio Glez Verified Date/Time: 06/26/2017 04:39:23 Reading Location: [address] Reading Room BASIC METABOLIC [id number] 04:29:00 Test Item Value Reference Range Comments SODIUM (BEAKER) (test 143 meq/L 136-145 uitj=123) POTASSIUM (BEAKER) (test 3.8 meq/L 3.5-5.1 yeyj=983) CHLORIDE (BEAKER) (test 116 meq/L 98-107 jmfy=061) CO2 (BEAKER) (test 16 meq/L 22-29 dbej=181) BLOOD UREA NITROGEN 27 mg/dL 7-21 (BEAKER) (test cwkr=581) CREATININE (BEAKER) (test 5.24 mg/dL 0.57-1.25 qaqq=324) GLUCOSE RANDOM (BEAKER) 77 mg/dL 70-105 (test prir=666) CALCIUM (BEAKER) (test 8.4 mg/dL 8.4-10.2 mfbx=511) EGFR (BEAKER) (test 8 mL/min/1.73 sq m ESTIMATED GFR IS NOT xpnd=9862) ACCURATE CREATININE CLEARANCE IN PREDICTING GLOMERULAR FILTRATION RATE. ESTIMATED GFR IS NOT APPLICABLE FOR DIALYSIS PATIENTS. VANCOMYCIN LEVEL, [id number] 04:29:00 Test Item Value Reference Range Comments VANCOMYCIN RANDOM (BEAKER) (test woas=718) < ug/mL Reference Range: No NormalsPROTEIN, [id number] 04:25:00 Test Item Value Reference Range Comments TOTAL PROTEIN (BEAKER) (test osjf=291) 5.1 gm/dL 6.0-8.3 [id number] 04:25:00 Test Item Value Reference Range Comments MAGNESIUM (BEAKER) (test fyfm=987) 2.1 mg/dL 1.6-2.6 [id number] 04:25:00 Test Item Value Reference Range Comments PHOSPHORUS (BEAKER) (test zcae=599) 4.8 mg/dL 2.3-4.7 [id number] 04:25:00 Test Item Value Reference Range Comments ALBUMIN (BEAKER) (test bplr=1569) 2.3 g/dL 3.5-5.0 [id number] 04:22:00 Test Item Value Reference Range Comments PREALBUMIN (BEAKER) (test agnq=746) 8 mg/dL 14-45 PROTHROMBIN [id number] 04:15:00 Test Item Value Reference Range Comments PROTIME (BEAKER) (test ixjf=613) 17.6 seconds 11.7-14.7 INR (BEAKER) (test ghmm=235) 1.5 <=5.9 RECOMMENDED COUMADIN/WARFARIN INR THERAPY RANGESSTANDARD DOSE: 2.0 - 3.0 Includes: PROPHYLAXIS forvenous thrombosis, systemic embolization; TREATMENT for venous thrombosis and/or pulmonary embolus.HIGH RISK: Target INR is 2.5-3.5 for patients with mechanical heart valves.CBC W/PLT COUNT & AUTO [id number] 04:08:00 Test Item Value Reference Range Comments WHITE BLOOD CELL COUNT (BEAKER) (test ibdt=881) 13.8 K/ L 3.5-10.5 RED BLOOD CELL COUNT (BEAKER) (test lktx=667) 3.34 M/ L 3.93-5.22 HEMOGLOBIN (BEAKER) (test iqlc=233) 8.5 GM/DL 11.2-15.7 HEMATOCRIT (BEAKER) (test ohpr=923) 27.9 % 34.1-44.9 MEAN CORPUSCULAR VOLUME (BEAKER) (test yszw=775) 83.5 fL 79.4-94.8 MEAN CORPUSCULAR HEMOGLOBIN (BEAKER) (test 25.4 pg 25.6-32.2 ksix=719) MEAN CORPUSCULAR HEMOGLOBIN CONC (BEAKER) (test 30.5 GM/DL 32.2-35.5 wkbe=467) RED CELL DISTRIBUTION WIDTH (BEAKER) (test 17.7 % 11.7-14.4 fdab=061) PLATELET COUNT (BEAKER) (test zvzf=059) 304 K/CU MM 150-450 MEAN PLATELET VOLUME (BEAKER) (test asjd=603) 9.3 fL 9.4-12.3 NUCLEATED RED BLOOD CELLS (BEAKER) (test 0 /100 WBC 0-0 ajim=655) NEUTROPHILS RELATIVE PERCENT (BEAKER) (test 85 % jqnn=956) LYMPHOCYTES RELATIVE PERCENT (BEAKER) (test 6 % zwvz=355) MONOCYTES RELATIVE PERCENT (BEAKER) (test 7 % gqve=050) EOSINOPHILS RELATIVE PERCENT (BEAKER) (test 2 % hjeh=638) BASOPHILS RELATIVE PERCENT (BEAKER) (test 0 % pdyc=852) NEUTROPHILS ABSOLUTE COUNT (BEAKER) (test 11.66 K/ L 1.56-6.13 epzg=487) LYMPHOCYTES ABSOLUTE COUNT (BEAKER) (test 0.77 K/ L 1.18-3.74 aeca=454) MONOCYTES ABSOLUTE COUNT (BEAKER) (test 0.97 K/ L 0.24-0.36 yadg=431) EOSINOPHILS ABSOLUTE COUNT (BEAKER) (test 0.20 K/ L 0.04-0.36 crts=327) BASOPHILS ABSOLUTE COUNT (BEAKER) (test 0.05 K/ L 0.01-0.08 rbkk=047) IMMATURE GRANULOCYTES-RELATIVE PERCENT (BEAKER) 1 % 0-1 (test eqni=5950) BLOOD GAS, [id number] 03:36:00 Test Item Value Reference Range Comments PH ARTERIAL (BEAKER) (test xwfr=172) 7.27 7.35-7.45 PCO2 ARTERIAL (BEAKER) (test kady=208) 33 mmHg 35-45 PO2 ARTERIAL (BEAKER) (test yycu=326) 104 mmHg 80-90 O2 SATURATION ARTERIAL (BEAKER) (test dcsy=283) 97.1 % 96.0-97.0 HCO3 ARTERIAL (BEAKER) (test ltjl=001) 15 mmol/L 21-29 BASE EXCESS ARTERIAL (BEAKER) (test nxki=452) -11.1 mmol/L -2.0-3.0 PATIENT TEMPERATURE (BEAKER) (test dlwt=9692) 37.2 C FIO2 (BEAKER) (test drmr=2546) 60.0 % POCT-GLUCOSE [id number] 22:29:00 Test Item Value Reference Range Comments POC-GLUCOSE METER (BEAKER) 101 mg/dL 70-110 TESTED AT [facility] [address] [place] [address] (test gvqx=9007) [facility] [address] BASIC METABOLIC [id number] 21:47:00 Test Item Value Reference Range Comments SODIUM (BEAKER) (test 143 meq/L 136-145 qlbs=226) POTASSIUM (BEAKER) (test 4.0 meq/L 3.5-5.1 lphf=205) CHLORIDE (BEAKER) (test 117 meq/L 98-107 hdoy=400) CO2 (BEAKER) (test 16 meq/L 22-29 qyoq=385) BLOOD UREA NITROGEN 25 mg/dL 7-21 (BEAKER) (test befs=476) CREATININE (BEAKER) (test 4.93 mg/dL 0.57-1.25 wwzu=608) GLUCOSE RANDOM (BEAKER) 92 mg/dL 70-105 (test ozqr=981) CALCIUM (BEAKER) (test 8.2 mg/dL 8.4-10.2 bmbe=264) EGFR (BEAKER) (test 9 mL/min/1.73 sq m ESTIMATED GFR IS NOT duaw=6649) ACCURATE CREATININE CLEARANCE IN PREDICTING GLOMERULAR FILTRATION RATE. ESTIMATED GFR IS NOT APPLICABLE FOR DIALYSIS PATIENTS. [id number] 21:35:00 Test Item Value Reference Range Comments PHOSPHORUS (BEAKER) (test qtbj=027) 4.8 mg/dL 2.3-4.7 [id number] 21:35:00 Test Item Value Reference Range Comments MAGNESIUM (BEAKER) (test zlwi=980) 1.9 mg/dL 1.6-2.6 CBC W/PLT COUNT & AUTO [id number] 21:11:00 Test Item Value Reference Range Comments WHITE BLOOD CELL COUNT (BEAKER) (test ufdi=447) 16.4 K/ L 3.5-10.5 RED BLOOD CELL COUNT (BEAKER) (test paci=564) 3.26 M/ L 3.93-5.22 HEMOGLOBIN (BEAKER) (test baoa=509) 8.3 GM/DL 11.2-15.7 HEMATOCRIT (BEAKER) (test lvsi=230) 27.3 % 34.1-44.9 MEAN CORPUSCULAR VOLUME (BEAKER) (test mffk=551) 83.7 fL 79.4-94.8 MEAN CORPUSCULAR HEMOGLOBIN (BEAKER) (test 25.5 pg 25.6-32.2 jjlc=007) MEAN CORPUSCULAR HEMOGLOBIN CONC (BEAKER) (test 30.4 GM/DL 32.2-35.5 umqv=352) RED CELL DISTRIBUTION WIDTH (BEAKER) (test 17.5 % 11.7-14.4 jqsv=923) PLATELET COUNT (BEAKER) (test qdif=626) 281 K/CU MM 150-450 MEAN PLATELET VOLUME (BEAKER) (test tecl=375) 9.0 fL 9.4-12.3 NUCLEATED RED BLOOD CELLS (BEAKER) (test 0 /100 WBC 0-0 jwfh=119) NEUTROPHILS RELATIVE PERCENT (BEAKER) (test 88 % hrhh=763) LYMPHOCYTES RELATIVE PERCENT (BEAKER) (test 4 % sjtb=327) MONOCYTES RELATIVE PERCENT (BEAKER) (test 6 % dzwi=957) EOSINOPHILS RELATIVE PERCENT (BEAKER) (test 1 % kgup=012) BASOPHILS RELATIVE PERCENT (BEAKER) (test 0 % akgc=471) NEUTROPHILS ABSOLUTE COUNT (BEAKER) (test 14.43 K/ L 1.56-6.13 nybl=178) LYMPHOCYTES ABSOLUTE COUNT (BEAKER) (test 0.70 K/ L 1.18-3.74 gogo=754) MONOCYTES ABSOLUTE COUNT (BEAKER) (test 0.99 K/ L 0.24-0.36 ylgc=273) EOSINOPHILS ABSOLUTE COUNT (BEAKER) (test 0.12 K/ L 0.04-0.36 wspc=932) BASOPHILS ABSOLUTE COUNT (BEAKER) (test 0.06 K/ L 0.01-0.08 fpqn=222) IMMATURE GRANULOCYTES-RELATIVE PERCENT (BEAKER) 1 % 0-1 (test xzmv=4260) BLOOD GAS, [id number] 20:46:00 Test Item Value Reference Range Comments PH ARTERIAL (BEAKER) (test tedh=587) 7.28 7.35-7.45 PCO2 ARTERIAL (BEAKER) (test jpvu=837) 31 mmHg 35-45 PO2 ARTERIAL (BEAKER) (test qvpr=492) 288 mmHg 80-90 O2 SATURATION ARTERIAL (BEAKER) (test bioy=090) 99.6 % 96.0-97.0 HCO3 ARTERIAL (BEAKER) (test qxyn=135) 14 mmol/L 21-29 BASE EXCESS ARTERIAL (BEAKER) (test mlio=579) -11.4 mmol/L -2.0-3.0 PATIENT TEMPERATURE (BEAKER) (test tiwh=3065) 37.2 C FIO2 (BEAKER) (test aomc=4569) 60.0 % BASIC METABOLIC [id number] 17:29:00 Test Item Value Reference Range Comments SODIUM (BEAKER) (test 142 meq/L 136-145 ouob=554) POTASSIUM (BEAKER) (test 4.1 meq/L 3.5-5.1 iuxr=076) CHLORIDE (BEAKER) (test 117 meq/L 98-107 vchy=203) CO2 (BEAKER) (test 13 meq/L 22-29 puho=953) BLOOD UREA NITROGEN 24 mg/dL 7-21 (BEAKER) (test txnw=718) CREATININE (BEAKER) (test 4.73 mg/dL 0.57-1.25 wuif=214) GLUCOSE RANDOM (BEAKER) 66 mg/dL 70-105 (test rxxk=226) CALCIUM (BEAKER) (test 8.4 mg/dL 8.4-10.2 toyy=194) EGFR (BEAKER) (test 9 mL/min/1.73 sq m ESTIMATED GFR IS NOT isoi=8904) ACCURATE CREATININE CLEARANCE IN PREDICTING GLOMERULAR FILTRATION RATE. ESTIMATED GFR IS NOT APPLICABLE FOR DIALYSIS PATIENTS. [id number] 17:24:00 Test Item Value Reference Range Comments PHOSPHORUS (BEAKER) (test duhd=892) 5.2 mg/dL 2.3-4.7 [id number] 17:24:00 Test Item Value Reference Range Comments MAGNESIUM (BEAKER) (test rpmh=598) 2.0 mg/dL 1.6-2.6 PROTHROMBIN [id number] 17:17:00 Test Item Value Reference Range Comments PROTIME (BEAKER) (test wikz=587) 17.3 seconds 11.7-14.7 INR (BEAKER) (test post=618) 1.4 <=5.9 RECOMMENDED COUMADIN/WARFARIN INR THERAPY RANGESSTANDARD DOSE: 2.0 - 3.0 Includes: PROPHYLAXIS forvenous thrombosis, systemic embolization; TREATMENT for venous thrombosis and/or pulmonary embolus.HIGH RISK: Target INR is 2.5-3.5 for patients with mechanical heart valves.CBC W/PLT COUNT & AUTO [id number] 17:15:00 Test Item Value Reference Range Comments WHITE BLOOD CELL COUNT (BEAKER) (test ejlf=045) 19.0 K/ L 3.5-10.5 RED BLOOD CELL COUNT (BEAKER) (test tzcw=216) 3.39 M/ L 3.93-5.22 HEMOGLOBIN (BEAKER) (test kkpk=739) 8.9 GM/DL 11.2-15.7 HEMATOCRIT (BEAKER) (test ycge=631) 28.6 % 34.1-44.9 MEAN CORPUSCULAR VOLUME (BEAKER) (test sdqy=909) 84.4 fL 79.4-94.8 MEAN CORPUSCULAR HEMOGLOBIN (BEAKER) (test 26.3 pg 25.6-32.2 cyyg=397) MEAN CORPUSCULAR HEMOGLOBIN CONC (BEAKER) (test 31.1 GM/DL 32.2-35.5 zlqh=136) RED CELL DISTRIBUTION WIDTH (BEAKER) (test 17.4 % 11.7-14.4 vpgg=042) PLATELET COUNT (BEAKER) (test guhw=604) 315 K/CU MM 150-450 MEAN PLATELET VOLUME (BEAKER) (test nfdz=189) 9.0 fL 9.4-12.3 NUCLEATED RED BLOOD CELLS (BEAKER) (test 0 /100 WBC 0-0 fwgc=960) NEUTROPHILS RELATIVE PERCENT (BEAKER) (test 89 % ccud=806) LYMPHOCYTES RELATIVE PERCENT (BEAKER) (test 3 % fwjx=347) MONOCYTES RELATIVE PERCENT (BEAKER) (test 6 % ckeb=651) EOSINOPHILS RELATIVE PERCENT (BEAKER) (test 1 % ngxr=184) BASOPHILS RELATIVE PERCENT (BEAKER) (test 0 % hctr=932) NEUTROPHILS ABSOLUTE COUNT (BEAKER) (test 17.02 K/ L 1.56-6.13 lndm=446) LYMPHOCYTES ABSOLUTE COUNT (BEAKER) (test 0.62 K/ L 1.18-3.74 nguv=702) MONOCYTES ABSOLUTE COUNT (BEAKER) (test 1.04 K/ L 0.24-0.36 eoou=486) EOSINOPHILS ABSOLUTE COUNT (BEAKER) (test 0.11 K/ L 0.04-0.36 fmow=302) BASOPHILS ABSOLUTE COUNT (BEAKER) (test 0.07 K/ L 0.01-0.08 deex=007) IMMATURE GRANULOCYTES-RELATIVE PERCENT (BEAKER) 1 % 0-1 (test yeuq=4896) BLOOD GAS, [id number] 17:07:00 Test Item Value Reference Range Comments PH ARTERIAL (BEAKER) (test ryiw=500) 7.21 7.35-7.45 PCO2 ARTERIAL (BEAKER) (test gkxz=179) 31 mmHg 35-45 PO2 ARTERIAL (BEAKER) (test liox=094) 105 mmHg 80-90 O2 SATURATION ARTERIAL (BEAKER) (test juhk=762) 96.4 % 96.0-97.0 HCO3 ARTERIAL (BEAKER) (test bkhw=331) 12 mmol/L 21-29 BASE EXCESS ARTERIAL (BEAKER) (test rmas=896) -14.4 mmol/L -2.0-3.0 PATIENT TEMPERATURE (BEAKER) (test zoxq=5899) 38.0 C FIO2 (BEAKER) (test syln=1671) 60.0 % SURGICALLY OBTAINED CULTURE + GRAM [id number] 12:57:00 Test Item Value Reference Range Comments CULTURE (BEAKER) (test sozu=6002) No growth GRAM STAIN RESULT (BEAKER) (test 1+ WBCs mlum=8219) GRAM STAIN RESULT (BEAKER) (test No organisms seen gjdo=77681) SURGICALLY OBTAINED CULTURE + GRAM [id number] 12:57:00 Test Item Value Reference Range Comments CULTURE (BEAKER) (test bkiv=2601) No growth GRAM STAIN RESULT (BEAKER) (test <1+ WBCs yyus=8994) GRAM STAIN RESULT (BEAKER) (test No organisms seen qmkm=89516) SURGICALLY OBTAINED CULTURE + GRAM [id number] 12:57:00 Test Item Value Reference Range Comments CULTURE (BEAKER) (test gwef=4001) No growth GRAM STAIN RESULT (BEAKER) (test <1+ WBCs pdqb=8714) GRAM STAIN RESULT (BEAKER) (test No organisms seen lblu=62338) SURGICALLY OBTAINED CULTURE + GRAM [id number] 12:56:00 Test Item Value Reference Range Comments CULTURE (BEAKER) (test llbb=0707) No growth GRAM STAIN RESULT (BEAKER) (test <1+ WBCs sspv=3763) GRAM STAIN RESULT (BEAKER) (test No organisms seen vvuo=33161) BASIC METABOLIC [id number] 11:14:00 Test Item Value Reference Range Comments SODIUM (BEAKER) (test 141 meq/L 136-145 pdxo=980) POTASSIUM (BEAKER) (test 3.4 meq/L 3.5-5.1 xpvn=044) CHLORIDE (BEAKER) (test 117 meq/L 98-107 kqlz=579) CO2 (BEAKER) (test 14 meq/L 22-29 qzxq=591) BLOOD UREA NITROGEN 23 mg/dL 7-21 (BEAKER) (test cwqv=078) CREATININE (BEAKER) (test 4.36 mg/dL 0.57-1.25 qmxv=666) GLUCOSE RANDOM (BEAKER) 78 mg/dL 70-105 (test ueza=974) CALCIUM (BEAKER) (test 8.0 mg/dL 8.4-10.2 rfcc=691) EGFR (BEAKER) (test 10 mL/min/1.73 sq m ESTIMATED GFR IS NOT smdy=2063) ACCURATE CREATININE CLEARANCE IN PREDICTING GLOMERULAR FILTRATION RATE. ESTIMATED GFR IS NOT APPLICABLE FOR DIALYSIS PATIENTS. CBC W/PLT COUNT & AUTO [id number] 11:10:00 Test Item Value Reference Range Comments WHITE BLOOD CELL COUNT (BEAKER) (test prvh=815) 16.2 K/ L 3.5-10.5 RED BLOOD CELL COUNT (BEAKER) (test bojx=966) 3.31 M/ L 3.93-5.22 HEMOGLOBIN (BEAKER) (test jabn=798) 8.5 GM/DL 11.2-15.7 HEMATOCRIT (BEAKER) (test mlhu=924) 27.6 % 34.1-44.9 MEAN CORPUSCULAR VOLUME (BEAKER) (test dgzs=970) 83.4 fL 79.4-94.8 MEAN CORPUSCULAR HEMOGLOBIN (BEAKER) (test 25.7 pg 25.6-32.2 lbkl=688) MEAN CORPUSCULAR HEMOGLOBIN CONC (BEAKER) (test 30.8 GM/DL 32.2-35.5 uklk=055) RED CELL DISTRIBUTION WIDTH (BEAKER) (test 17.2 % 11.7-14.4 bpzq=775) PLATELET COUNT (BEAKER) (test chko=282) 277 K/CU MM 150-450 MEAN PLATELET VOLUME (BEAKER) (test qtnn=936) 8.8 fL 9.4-12.3 NUCLEATED RED BLOOD CELLS (BEAKER) (test 0 /100 WBC 0-0 sduc=101) NEUTROPHILS RELATIVE PERCENT (BEAKER) (test 87 % rwcy=878) LYMPHOCYTES RELATIVE PERCENT (BEAKER) (test 5 % jacs=751) MONOCYTES RELATIVE PERCENT (BEAKER) (test 6 % sllz=516) EOSINOPHILS RELATIVE PERCENT (BEAKER) (test 1 % guyl=695) BASOPHILS RELATIVE PERCENT (BEAKER) (test 0 % pffb=266) NEUTROPHILS ABSOLUTE COUNT (BEAKER) (test 14.04 K/ L 1.56-6.13 rjin=558) LYMPHOCYTES ABSOLUTE COUNT (BEAKER) (test 0.85 K/ L 1.18-3.74 xxdj=521) MONOCYTES ABSOLUTE COUNT (BEAKER) (test 1.00 K/ L 0.24-0.36 uvnf=754) EOSINOPHILS ABSOLUTE COUNT (BEAKER) (test 0.16 K/ L 0.04-0.36 wisk=391) BASOPHILS ABSOLUTE COUNT (BEAKER) (test 0.05 K/ L 0.01-0.08 qsxu=412) IMMATURE GRANULOCYTES-RELATIVE PERCENT (BEAKER) 1 % 0-1 (test yntq=4802) [id number] 11:08:00 Test Item Value Reference Range Comments PHOSPHORUS (BEAKER) (test qaku=228) 4.6 mg/dL 2.3-4.7 [id number] 11:08:00 Test Item Value Reference Range Comments MAGNESIUM (BEAKER) (test mupa=423) 2.0 mg/dL 1.6-2.6 BLOOD GAS, [id number] 10:44:00 Test Item Value Reference Range Comments PH ARTERIAL (BEAKER) (test tmrv=209) 7.30 7.35-7.45 PCO2 ARTERIAL (BEAKER) (test elnr=094) 29 mmHg 35-45 PO2 ARTERIAL (BEAKER) (test fhfb=413) 160 mmHg 80-90 O2 SATURATION ARTERIAL (BEAKER) (test vfnh=309) 98.9 % 96.0-97.0 HCO3 ARTERIAL (BEAKER) (test wifo=805) 14 mmol/L 21-29 BASE EXCESS ARTERIAL (BEAKER) (test zztw=153) -11.2 mmol/L -2.0-3.0 PATIENT TEMPERATURE (BEAKER) (test ugse=5159) 37.0 C FIO2 (BEAKER) (test gpih=7608) 70.0 % POCT-GLUCOSE [id number] 10:18:00 Test Item Value Reference Range Comments POC-GLUCOSE METER (BEAKER) 89 mg/dL 70-110 TESTED AT [facility] [address] (test jgkl=1111) [facility] [id number] RAD, CHEST, 1 VIEW, NON [id number] 09:03:00Reason for exam:->r/o effusionIs the patient ?->NoShould [...] place. No pneumothorax is noted. Signed: Eric Fish MDReport Verified Date/Time: 06/25/2017 09:03:49 Reading Location: [facility] B1 [id number] Ortho Consult Reading Room POCT-GLUCOSE [id number] 08:04:00 Test Item Value Reference Range Comments POC-GLUCOSE METER (BEAKER) 65 mg/dL 70-110 TESTED AT [facility] [address] (test wdfr=3117) [facility] [address] CBC W/PLT COUNT & AUTO [id number] 07:40:00 Test Item Value Reference Range Comments WHITE BLOOD CELL COUNT (BEAKER) (test tpdr=807) 16.9 K/ L 3.5-10.5 RED BLOOD CELL COUNT (BEAKER) (test jsxn=785) 3.34 M/ L 3.93-5.22 HEMOGLOBIN (BEAKER) (test pftv=926) 8.6 GM/DL 11.2-15.7 HEMATOCRIT (BEAKER) (test glwk=121) 27.9 % 34.1-44.9 MEAN CORPUSCULAR VOLUME (BEAKER) (test vlgw=532) 83.5 fL 79.4-94.8 MEAN CORPUSCULAR HEMOGLOBIN (BEAKER) (test 25.7 pg 25.6-32.2 rmdg=705) MEAN CORPUSCULAR HEMOGLOBIN CONC (BEAKER) (test 30.8 GM/DL 32.2-35.5 qebn=343) RED CELL DISTRIBUTION WIDTH (BEAKER) (test 17.3 % 11.7-14.4 cwyj=344) PLATELET COUNT (BEAKER) (test izpg=267) 308 K/CU MM 150-450 MEAN PLATELET VOLUME (BEAKER) (test zqyh=309) 9.3 fL 9.4-12.3 NUCLEATED RED BLOOD CELLS (BEAKER) (test 0 /100 WBC 0-0 pqpg=430) NEUTROPHILS RELATIVE PERCENT (BEAKER) (test 87 % qbep=219) LYMPHOCYTES RELATIVE PERCENT (BEAKER) (test 5 % jgwf=277) MONOCYTES RELATIVE PERCENT (BEAKER) (test 6 % eort=839) EOSINOPHILS RELATIVE PERCENT (BEAKER) (test 1 % boxm=557) BASOPHILS RELATIVE PERCENT (BEAKER) (test 0 % jlwr=448) NEUTROPHILS ABSOLUTE COUNT (BEAKER) (test 14.64 K/ L 1.56-6.13 oedj=470) LYMPHOCYTES ABSOLUTE COUNT (BEAKER) (test 0.86 K/ L 1.18-3.74 mjgg=477) MONOCYTES ABSOLUTE COUNT (BEAKER) (test 1.05 K/ L 0.24-0.36 iniv=918) EOSINOPHILS ABSOLUTE COUNT (BEAKER) (test 0.17 K/ L 0.04-0.36 kksj=462) BASOPHILS ABSOLUTE COUNT (BEAKER) (test 0.06 K/ L 0.01-0.08 ghle=119) IMMATURE GRANULOCYTES-RELATIVE PERCENT (BEAKER) 1 % 0-1 (test osfg=3419) BASIC METABOLIC [id number] 07:06:00 Test Item Value Reference Range Comments SODIUM (BEAKER) (test 141 meq/L 136-145 uyjp=153) POTASSIUM (BEAKER) (test 3.5 meq/L 3.5-5.1 eyxh=916) CHLORIDE (BEAKER) (test 116 meq/L 98-107 ytcu=174) CO2 (BEAKER) (test 13 meq/L 22-29 dxrj=691) BLOOD UREA NITROGEN 21 mg/dL 7-21 (BEAKER) (test wqau=416) CREATININE (BEAKER) (test 4.19 mg/dL 0.57-1.25 mjgr=026) GLUCOSE RANDOM (BEAKER) 65 mg/dL 70-105 (test jooa=581) CALCIUM (BEAKER) (test 8.0 mg/dL 8.4-10.2 xqbz=462) EGFR (BEAKER) (test 11 mL/min/1.73 sq m ESTIMATED GFR IS NOT ukrz=3446) ACCURATE CREATININE CLEARANCE IN PREDICTING GLOMERULAR FILTRATION RATE. ESTIMATED GFR IS NOT APPLICABLE FOR DIALYSIS PATIENTS. [id number] 06:57:00 Test Item Value Reference Range Comments PHOSPHORUS (BEAKER) (test pobf=620) 4.1 mg/dL 2.3-4.7 [id number] 06:57:00 Test Item Value Reference Range Comments MAGNESIUM (BEAKER) (test fhyz=796) 2.0 mg/dL 1.6-2.6 VANCOMYCIN LEVEL, [id number] 06:33:00 Test Item Value Reference Range Comments VANCOMYCIN RANDOM (BEAKER) (test xblr=699) 16.9 ug/mL Reference Range: No NormalsPROTHROMBIN [id number] 06:03:00 Test Item Value Reference Range Comments PROTIME (BEAKER) (test iyvi=000) 17.8 seconds 11.7-14.7 INR (BEAKER) (test lvxq=481) 1.5 <=5.9 RECOMMENDED COUMADIN/WARFARIN INR THERAPY RANGESSTANDARD DOSE: 2.0 - 3.0 Includes: PROPHYLAXIS forvenous thrombosis, systemic embolization; TREATMENT for venous thrombosis and/or pulmonary embolus.HIGH RISK: Target INR is 2.5-3.5 for patients with mechanical heart valves.BLOOD GAS, [id number] 05:41:00 Test Item Value Reference Range Comments PH ARTERIAL (BEAKER) (test vwmy=339) 7.26 7.35-7.45 PCO2 ARTERIAL (BEAKER) (test ftvl=517) 32 mmHg 35-45 PO2 ARTERIAL (BEAKER) (test rhtd=773) 75 mmHg 80-90 O2 SATURATION ARTERIAL (BEAKER) (test kooh=691) 92.8 % 96.0-97.0 HCO3 ARTERIAL (BEAKER) (test hqyl=640) 14 mmol/L 21-29 BASE EXCESS ARTERIAL (BEAKER) (test nioo=728) -11.8 mmol/L -2.0-3.0 PATIENT TEMPERATURE (BEAKER) (test cklw=7113) 37.5 C FIO2 (BEAKER) (test ogcp=5555) 100.0 % OSMOLALITY, [id number] 16:49:00 Test Item Value Reference Range Comments OSMOLALITY, SERUM (BEAKER) (test cely=551) 292 mOsm/kg 275-295 BASIC METABOLIC [id number] 16:46:00 Test Item Value Reference Range Comments SODIUM (BEAKER) (test 140 meq/L 136-145 ftzm=979) POTASSIUM (BEAKER) (test 3.2 meq/L 3.5-5.1 ppvk=652) CHLORIDE (BEAKER) (test 114 meq/L 98-107 kjnk=684) CO2 (BEAKER) (test 16 meq/L 22-29 naib=835) BLOOD UREA NITROGEN 17 mg/dL 7-21 (BEAKER) (test escs=236) CREATININE (BEAKER) (test 3.44 mg/dL 0.57-1.25 usbs=330) GLUCOSE RANDOM (BEAKER) 79 mg/dL 70-105 (test juuf=036) CALCIUM (BEAKER) (test 7.6 mg/dL 8.4-10.2 zhko=404) EGFR (BEAKER) (test 14 mL/min/1.73 sq m ESTIMATED GFR IS NOT kewy=0832) ACCURATE CREATININE CLEARANCE IN PREDICTING GLOMERULAR FILTRATION RATE. ESTIMATED GFR IS NOT APPLICABLE FOR DIALYSIS PATIENTS. [id number] 16:45:00 Test Item Value Reference Range Comments PHOSPHORUS (BEAKER) (test mfaz=747) 3.2 mg/dL 2.3-4.7 [id number] 16:45:00 Test Item Value Reference Range Comments MAGNESIUM (BEAKER) (test gpck=887) 1.9 mg/dL 1.6-2.6 PROTHROMBIN [id number] 16:29:00 Test Item Value Reference Range Comments PROTIME (BEAKER) (test xkxo=222) 17.7 seconds 11.7-14.7 INR (BEAKER) (test mtvj=814) 1.5 <=5.9 RECOMMENDED COUMADIN/WARFARIN INR THERAPY RANGESSTANDARD DOSE: 2.0 - 3.0 Includes: PROPHYLAXIS forvenous thrombosis, systemic embolization; TREATMENT for venous thrombosis and/or pulmonary embolus.HIGH RISK: Target INR is 2.5-3.5 for patients with mechanical heart valves.CBC W/PLT COUNT & AUTO [id number] 16:24:00 Test Item Value Reference Range Comments WHITE BLOOD CELL COUNT (BEAKER) (test hfzx=023) 13.9 K/ L 3.5-10.5 RED BLOOD CELL COUNT (BEAKER) (test qtdq=777) 3.10 M/ L 3.93-5.22 HEMOGLOBIN (BEAKER) (test fecr=282) 7.8 GM/DL 11.2-15.7 HEMATOCRIT (BEAKER) (test ulmh=951) 25.6 % 34.1-44.9 MEAN CORPUSCULAR VOLUME (BEAKER) (test vxys=936) 82.6 fL 79.4-94.8 MEAN CORPUSCULAR HEMOGLOBIN (BEAKER) (test 25.2 pg 25.6-32.2 aqqh=356) MEAN CORPUSCULAR HEMOGLOBIN CONC (BEAKER) (test 30.5 GM/DL 32.2-35.5 lihy=277) RED CELL DISTRIBUTION WIDTH (BEAKER) (test 17.2 % 11.7-14.4 pfgs=925) PLATELET COUNT (BEAKER) (test znts=149) 318 K/CU MM 150-450 MEAN PLATELET VOLUME (BEAKER) (test hpfu=706) 9.4 fL 9.4-12.3 NUCLEATED RED BLOOD CELLS (BEAKER) (test 0 /100 WBC 0-0 vchu=057) NEUTROPHILS RELATIVE PERCENT (BEAKER) (test 85 % hfyq=130) LYMPHOCYTES RELATIVE PERCENT (BEAKER) (test 6 % zbap=232) MONOCYTES RELATIVE PERCENT (BEAKER) (test 7 % neyr=054) EOSINOPHILS RELATIVE PERCENT (BEAKER) (test 1 % jssz=879) BASOPHILS RELATIVE PERCENT (BEAKER) (test 0 % uutv=201) NEUTROPHILS ABSOLUTE COUNT (BEAKER) (test 11.82 K/ L 1.56-6.13 wclv=920) LYMPHOCYTES ABSOLUTE COUNT (BEAKER) (test 0.86 K/ L 1.18-3.74 sizn=616) MONOCYTES ABSOLUTE COUNT (BEAKER) (test 0.99 K/ L 0.24-0.36 pvuo=785) EOSINOPHILS ABSOLUTE COUNT (BEAKER) (test 0.12 K/ L 0.04-0.36 ukxv=566) BASOPHILS ABSOLUTE COUNT (BEAKER) (test 0.04 K/ L 0.01-0.08 lqrh=895) IMMATURE GRANULOCYTES-RELATIVE PERCENT (BEAKER) 1 % 0-1 (test pgbr=3912) BLOOD GAS, [id number] 16:15:00 Test Item Value Reference Range Comments PH ARTERIAL (BEAKER) (test pmbl=047) 7.34 7.35-7.45 PCO2 ARTERIAL (BEAKER) (test tomv=154) 32 mmHg 35-45 PO2 ARTERIAL (BEAKER) (test rabf=743) 175 mmHg 80-90 O2 SATURATION ARTERIAL (BEAKER) (test zrrk=016) 99.1 % 96.0-97.0 HCO3 ARTERIAL (BEAKER) (test rxye=899) 17 mmol/L 21-29 BASE EXCESS ARTERIAL (BEAKER) (test fond=952) -8.3 mmol/L -2.0-3.0 PATIENT TEMPERATURE (BEAKER) (test iqtq=5711) 37.2 C FIO2 (BEAKER) (test jwiy=3674) 60.0 % BRONCHIAL CULTURE + GRAM [id number] 13:50:00 Test Item Value Reference Range Comments CULTURE (BEAKER) (test fzov=3185) No growth GRAM STAIN RESULT (BEAKER) (test <1+ WBCs wwrp=9670) GRAM STAIN RESULT (BEAKER) (test No organisms seen gwzr=98075) RAD, CHEST, 1 VIEW, NON [id number] 11:38:00Reason for exam:->CVC line verificationShould this be [...] chest tubes remain in place. [facility] Verified Date/Time: 06/24/2017 11:38:23 Reading Location: [address] Ortho Consult Reading Room CBC W/PLT COUNT & AUTO [id number] 11:19:00 Test Item Value Reference Range Comments WHITE BLOOD CELL COUNT (BEAKER) (test uqqv=382) 15.2 K/ L 3.5-10.5 RED BLOOD CELL COUNT (BEAKER) (test aene=012) 3.25 M/ L 3.93-5.22 HEMOGLOBIN (BEAKER) (test cnmv=397) 8.3 GM/DL 11.2-15.7 HEMATOCRIT (BEAKER) (test rcwq=631) 27.3 % 34.1-44.9 MEAN CORPUSCULAR VOLUME (BEAKER) (test tttg=487) 84.0 fL 79.4-94.8 MEAN CORPUSCULAR HEMOGLOBIN (BEAKER) (test 25.5 pg 25.6-32.2 zshh=634) MEAN CORPUSCULAR HEMOGLOBIN CONC (BEAKER) (test 30.4 GM/DL 32.2-35.5 mxlg=686) RED CELL DISTRIBUTION WIDTH (BEAKER) (test 16.8 % 11.7-14.4 bvfk=277) PLATELET COUNT (BEAKER) (test ldme=355) 303 K/CU MM 150-450 MEAN PLATELET VOLUME (BEAKER) (test ljpa=602) 9.0 fL 9.4-12.3 NUCLEATED RED BLOOD CELLS (BEAKER) (test 0 /100 WBC 0-0 gxjx=412) NEUTROPHILS RELATIVE PERCENT (BEAKER) (test 88 % cjdw=543) LYMPHOCYTES RELATIVE PERCENT (BEAKER) (test 4 % pxll=538) MONOCYTES RELATIVE PERCENT (BEAKER) (test 7 % sfqd=933) EOSINOPHILS RELATIVE PERCENT (BEAKER) (test 0 % ifyf=368) BASOPHILS RELATIVE PERCENT (BEAKER) (test 0 % yrhf=923) NEUTROPHILS ABSOLUTE COUNT (BEAKER) (test 13.40 K/ L 1.56-6.13 wjat=595) LYMPHOCYTES ABSOLUTE COUNT (BEAKER) (test 0.61 K/ L 1.18-3.74 krhz=776) MONOCYTES ABSOLUTE COUNT (BEAKER) (test 1.01 K/ L 0.24-0.36 lvqv=806) EOSINOPHILS ABSOLUTE COUNT (BEAKER) (test 0.01 K/ L 0.04-0.36 dfhp=374) BASOPHILS ABSOLUTE COUNT (BEAKER) (test 0.02 K/ L 0.01-0.08 aqgs=672) IMMATURE GRANULOCYTES-RELATIVE PERCENT (BEAKER) 1 % 0-1 (test zskm=4802) BASIC METABOLIC [id number] 09:55:00 Test Item Value Reference Range Comments SODIUM (BEAKER) (test 140 meq/L 136-145 ylcy=263) POTASSIUM (BEAKER) (test 3.5 meq/L 3.5-5.1 yvkk=386) CHLORIDE (BEAKER) (test 114 meq/L 98-107 mgyh=554) CO2 (BEAKER) (test 16 meq/L 22-29 carn=458) BLOOD UREA NITROGEN 16 mg/dL 7-21 (BEAKER) (test uerr=497) CREATININE (BEAKER) (test 3.06 mg/dL 0.57-1.25 oekt=026) GLUCOSE RANDOM (BEAKER) 118 mg/dL 70-105 (test ixrm=130) CALCIUM (BEAKER) (test 7.6 mg/dL 8.4-10.2 sqze=053) EGFR (BEAKER) (test 16 mL/min/1.73 sq m ESTIMATED GFR IS NOT catu=4620) ACCURATE CREATININE CLEARANCE IN PREDICTING GLOMERULAR FILTRATION RATE. ESTIMATED GFR IS NOT APPLICABLE FOR DIALYSIS PATIENTS. [id number] 09:39:00 Test Item Value Reference Range Comments PHOSPHORUS (BEAKER) (test njzl=670) 4.2 mg/dL 2.3-4.7 [id number] 09:39:00 Test Item Value Reference Range Comments MAGNESIUM (BEAKER) (test oehc=435) 2.0 mg/dL 1.6-2.6 RAD, CHEST, 1 VIEW, NON [id number] 09:18:00Reason for exam:->L pleural effusion, empyemaShould this be performed at the bedside?->YesFINAL REPORT Chest, one view. HISTORY: Left pleural effusion, empyema COMPARISON: 06/23/2017 IMPRESSION: Interval extubation. Remaining supporting hardware unchanged in position.Moderate central venous congestion and small bilateral pleural effusions. Unchanged enlargement of the cardiomediastinal silhouette. No pneumothorax. Signed: Marcellus Braxton MDReport Verified Date/Time: 06/24/2017 09:18:28 Reading Location: [facility] B1 C013Y CT Body Reading Room BLOOD GAS, [id number] 09:17:00 Test Item Value Reference Range Comments PH ARTERIAL (BEAKER) (test magq=450) 7.32 7.35-7.45 PCO2 ARTERIAL (BEAKER) (test dveg=136) 32 mmHg 35-45 PO2 ARTERIAL (BEAKER) (test xojv=423) 106 mmHg 80-90 O2 SATURATION ARTERIAL (BEAKER) (test kdes=669) 97.5 % 96.0-97.0 HCO3 ARTERIAL (BEAKER) (test jcbn=999) 16 mmol/L 21-29 BASE EXCESS ARTERIAL (BEAKER) (test lygn=094) -8.7 mmol/L -2.0-3.0 PATIENT TEMPERATURE (BEAKER) (test vone=2537) 37.3 C FIO2 (BEAKER) (test vkpa=3733) 60.0 % CBC W/PLT COUNT & AUTO [id number] 07:49:00 Test Item Value Reference Range Comments WHITE BLOOD CELL COUNT (BEAKER) (test doym=258) 25.0 K/ L 3.5-10.5 RED BLOOD CELL COUNT (BEAKER) (test ofnw=686) 3.91 M/ L 3.93-5.22 HEMOGLOBIN (BEAKER) (test fxgv=029) 9.7 GM/DL 11.2-15.7 HEMATOCRIT (BEAKER) (test vdlv=699) 34.1 % 34.1-44.9 MEAN CORPUSCULAR VOLUME (BEAKER) (test cuor=730) 87.2 fL 79.4-94.8 MEAN CORPUSCULAR HEMOGLOBIN (BEAKER) (test 24.8 pg 25.6-32.2 jnrt=476) MEAN CORPUSCULAR HEMOGLOBIN CONC (BEAKER) (test 28.4 GM/DL 32.2-35.5 xoxh=600) RED CELL DISTRIBUTION WIDTH (BEAKER) (test 17.0 % 11.7-14.4 dswk=860) PLATELET COUNT (BEAKER) (test wxqb=167) 424 K/CU MM 150-450 MEAN PLATELET VOLUME (BEAKER) (test fnzr=205) 9.5 fL 9.4-12.3 NUCLEATED RED BLOOD CELLS (BEAKER) (test 0 /100 WBC 0-0 inzm=733) NEUTROPHILS RELATIVE PERCENT (BEAKER) (test 88 % gygj=317) LYMPHOCYTES RELATIVE PERCENT (BEAKER) (test 3 % vdzc=666) MONOCYTES RELATIVE PERCENT (BEAKER) (test 7 % ltnb=232) EOSINOPHILS RELATIVE PERCENT (BEAKER) (test 0 % qgmj=746) BASOPHILS RELATIVE PERCENT (BEAKER) (test 0 % zuni=787) NEUTROPHILS ABSOLUTE COUNT (BEAKER) (test 22.02 K/ L 1.56-6.13 lcxk=812) LYMPHOCYTES ABSOLUTE COUNT (BEAKER) (test 0.82 K/ L 1.18-3.74 iltm=823) MONOCYTES ABSOLUTE COUNT (BEAKER) (test 1.66 K/ L 0.24-0.36 cgtx=525) EOSINOPHILS ABSOLUTE COUNT (BEAKER) (test 0.05 K/ L 0.04-0.36 yrzk=581) BASOPHILS ABSOLUTE COUNT (BEAKER) (test 0.06 K/ L 0.01-0.08 gzdk=878) IMMATURE GRANULOCYTES-RELATIVE PERCENT (BEAKER) 1 % 0-1 (test njgx=0505) (MANUAL DIFFERENTIAL)2017-06-24 07:49:00 Test Item Value Reference Range Comments TOTAL COUNTED (BEAKER) (test pidw=2026) WBC MORPHOLOGY (BEAKER) (test pmfs=211) Normal PLT MORPHOLOGY (BEAKER) (test dagu=372) Normal DARBY CELLS (BEAKER) (test wxbi=642) 2+ moderate BASIC METABOLIC [id number] 06:17:00 Test Item Value Reference Range Comments SODIUM (BEAKER) (test 138 meq/L 136-145 kqde=909) POTASSIUM (BEAKER) (test 4.2 meq/L 3.5-5.1 ksog=864) CHLORIDE (BEAKER) (test 114 meq/L 98-107 muvd=454) CO2 (BEAKER) (test 15 meq/L 22-29 rzis=036) BLOOD UREA NITROGEN 15 mg/dL 7-21 (BEAKER) (test nmik=809) CREATININE (BEAKER) (test 2.90 mg/dL 0.57-1.25 gnbi=257) GLUCOSE RANDOM (BEAKER) 120 mg/dL 70-105 (test jwde=237) CALCIUM (BEAKER) (test 8.0 mg/dL 8.4-10.2 yyva=769) EGFR (BEAKER) (test 17 mL/min/1.73 sq m ESTIMATED GFR IS NOT rsvr=7708) ACCURATE CREATININE CLEARANCE IN PREDICTING GLOMERULAR FILTRATION RATE. ESTIMATED GFR IS NOT APPLICABLE FOR DIALYSIS PATIENTS. [id number] 06:15:00 Test Item Value Reference Range Comments PHOSPHORUS (BEAKER) (test squx=390) 5.7 mg/dL 2.3-4.7 [id number] 06:15:00 Test Item Value Reference Range Comments MAGNESIUM (BEAKER) (test vwew=433) 2.1 mg/dL 1.6-2.6 VANCOMYCIN LEVEL, [id number] 06:14:00 Test Item Value Reference Range Comments VANCOMYCIN RANDOM (BEAKER) (test zwng=183) 17.2 ug/mL Reference Range: No NormalsBLOOD GAS, [id number] 05:47:00 Test Item Value Reference Range Comments PH ARTERIAL (BEAKER) (test avgz=025) 7.07 7.35-7.45 PCO2 ARTERIAL (BEAKER) (test jgkq=768) 61 mmHg 35-45 PO2 ARTERIAL (BEAKER) (test suqr=799) 93 mmHg 80-90 O2 SATURATION ARTERIAL (BEAKER) (test csbm=125) 93.3 % 96.0-97.0 HCO3 ARTERIAL (BEAKER) (test obzd=293) 17 mmol/L 21-29 BASE EXCESS ARTERIAL (BEAKER) (test qejf=681) -13.0 mmol/L -2.0-3.0 PATIENT TEMPERATURE (BEAKER) (test lwcm=9719) 37.1 C FIO2 (BEAKER) (test ftrv=7556) 60.0 % PROTHROMBIN [id number] 05:45:00 Test Item Value Reference Range Comments PROTIME (BEAKER) (test jygo=656) 16.9 seconds 11.7-14.7 INR (BEAKER) (test vidl=526) 1.4 <=5.9 RECOMMENDED COUMADIN/WARFARIN INR THERAPY RANGESSTANDARD DOSE: 2.0 - 3.0 Includes: PROPHYLAXIS forvenous thrombosis, systemic embolization; TREATMENT for venous thrombosis and/or pulmonary embolus.HIGH RISK: Target INR is 2.5-3.5 for patients with mechanical heart valves.BASIC METABOLIC [id number] 16:51: 00 Test Item Value Reference Range Comments SODIUM (BEAKER) (test 138 meq/L 136-145 ozvr=850) POTASSIUM (BEAKER) (test 3.2 meq/L 3.5-5.1 cnsu=499) CHLORIDE (BEAKER) (test 113 meq/L 98-107 ggqp=436) CO2 (BEAKER) (test 16 meq/L 22-29 qrpa=914) BLOOD UREA NITROGEN 13 mg/dL 7-21 (BEAKER) (test idmi=155) CREATININE (BEAKER) (test 2.17 mg/dL 0.57-1.25 iofq=115) GLUCOSE RANDOM (BEAKER) 121 mg/dL 70-105 (test ofcl=763) CALCIUM (BEAKER) (test 7.3 mg/dL 8.4-10.2 odnt=351) EGFR (BEAKER) (test 23 mL/min/1.73 sq m ESTIMATED GFR IS NOT xzez=9523) ACCURATE CREATININE CLEARANCE IN PREDICTING GLOMERULAR FILTRATION RATE. ESTIMATED GFR IS NOT APPLICABLE FOR DIALYSIS PATIENTS. [id number] 16:46:00 Test Item Value Reference Range Comments PHOSPHORUS (BEAKER) (test vcfu=222) 3.2 mg/dL 2.3-4.7 [id number] 16:46:00 Test Item Value Reference Range Comments MAGNESIUM (BEAKER) (test xtxt=156) 2.0 mg/dL 1.6-2.6 PROTHROMBIN [id number] 16:36:00 Test Item Value Reference Range Comments PROTIME (BEAKER) (test qchl=151) 17.3 seconds 11.7-14.7 INR (BEAKER) (test labx=035) 1.4 <=5.9 RECOMMENDED COUMADIN/WARFARIN INR THERAPY RANGESSTANDARD DOSE: 2.0 - 3.0 Includes: PROPHYLAXIS forvenous thrombosis, systemic embolization; TREATMENT for venous thrombosis and/or pulmonary embolus.HIGH RISK: Target INR is 2.5-3.5 for patients with mechanical heart valves.CBC W/PLT COUNT & AUTO [id number] 16:32:00 Test Item Value Reference Range Comments WHITE BLOOD CELL COUNT (BEAKER) (test pqaz=756) 16.7 K/ L 3.5-10.5 RED BLOOD CELL COUNT (BEAKER) (test wotz=738) 3.40 M/ L 3.93-5.22 HEMOGLOBIN (BEAKER) (test zwyt=138) 8.7 GM/DL 11.2-15.7 HEMATOCRIT (BEAKER) (test mhwu=531) 28.1 % 34.1-44.9 MEAN CORPUSCULAR VOLUME (BEAKER) (test vutk=667) 82.6 fL 79.4-94.8 MEAN CORPUSCULAR HEMOGLOBIN (BEAKER) (test 25.6 pg 25.6-32.2 agjt=852) MEAN CORPUSCULAR HEMOGLOBIN CONC (BEAKER) (test 31.0 GM/DL 32.2-35.5 cket=663) RED CELL DISTRIBUTION WIDTH (BEAKER) (test 16.8 % 11.7-14.4 nqye=291) PLATELET COUNT (BEAKER) (test aftz=658) 306 K/CU MM 150-450 MEAN PLATELET VOLUME (BEAKER) (test dvcp=887) 9.2 fL 9.4-12.3 NUCLEATED RED BLOOD CELLS (BEAKER) (test 0 /100 WBC 0-0 ywmb=145) NEUTROPHILS RELATIVE PERCENT (BEAKER) (test 86 % dqdo=667) LYMPHOCYTES RELATIVE PERCENT (BEAKER) (test 6 % qidh=751) MONOCYTES RELATIVE PERCENT (BEAKER) (test 8 % gunf=375) EOSINOPHILS RELATIVE PERCENT (BEAKER) (test 0 % jrvx=837) BASOPHILS RELATIVE PERCENT (BEAKER) (test 0 % tnmw=692) NEUTROPHILS ABSOLUTE COUNT (BEAKER) (test 14.31 K/ L 1.56-6.13 prdt=149) LYMPHOCYTES ABSOLUTE COUNT (BEAKER) (test 0.96 K/ L 1.18-3.74 ckvq=454) MONOCYTES ABSOLUTE COUNT (BEAKER) (test 1.25 K/ L 0.24-0.36 oszw=270) EOSINOPHILS ABSOLUTE COUNT (BEAKER) (test 0.05 K/ L 0.04-0.36 phgs=326) BASOPHILS ABSOLUTE COUNT (BEAKER) (test 0.05 K/ L 0.01-0.08 wwjs=463) IMMATURE GRANULOCYTES-RELATIVE PERCENT (BEAKER) 1 % 0-1 (test chgu=5002) BLOOD GAS, [id number] 16:19:00 Test Item Value Reference Range Comments PH ARTERIAL (BEAKER) (test nzum=630) 7.24 7.35-7.45 PCO2 ARTERIAL (BEAKER) (test afny=944) 42 mmHg 35-45 PO2 ARTERIAL (BEAKER) (test vytd=327) 70 mmHg 80-90 O2 SATURATION ARTERIAL (BEAKER) (test duex=953) 91.2 % 96.0-97.0 HCO3 ARTERIAL (BEAKER) (test yxnd=029) 18 mmol/L 21-29 BASE EXCESS ARTERIAL (BEAKER) (test jssz=044) -9.1 mmol/L -2.0-3.0 PATIENT TEMPERATURE (BEAKER) (test xqpw=6853) 36.8 C FIO2 (BEAKER) (test lenb=6725) 50.0 % OSMOLALITY, [id number] 14:48:00 Test Item Value Reference Range Comments OSMOLALITY URINE (BEAKER) (test okjr=699) 228 mOsm/kg 40-1400 CREATININE, RANDOM [id number] 14:00:00 Test Item Value Reference Range Comments CREATININE URINE (BEAKER) (test hgaq=973) 62.4 mg/dL Reference Range: No NormalsSODIUM, RANDOM [id number] 14:00:00 Test Item Value Reference Range Comments SODIUM URINE (BEAKER) (test ewya=466) 35 meq/L Reference Range: No NormalsTISSUE [id number] 13:58:00Surgical Pathology Report Case: [id number] Authorizing Provider: Brayan Joseph MD Collected: 2016 [id number] Ordering Location: [facility] Received : 06/22/2017 1510 PERIOPERATIVE SERVICES Pathologist: [...] AND NECROSIS. Signing Pathologist Direct Phone Line: [phone] signed by Otis Meade MD on 06/23/2017 at 1:58 [id number] X3Left empyemaA. Left parietal pleural peel; B. [...] C1 and C2. CG/pl A-C. Performed.BASIC METABOLIC [id number] 11:58:00 Test Item Value Reference Range Comments SODIUM (BEAKER) (test 135 meq/L 136-145 pwog=097) POTASSIUM (BEAKER) (test 3.2 meq/L 3.5-5.1 icuz=670) CHLORIDE (BEAKER) (test 111 meq/L 98-107 iaot=599) CO2 (BEAKER) (test 16 meq/L 22-29 txkh=069) BLOOD UREA NITROGEN 13 mg/dL 7-21 (BEAKER) (test ljbu=111) CREATININE (BEAKER) (test 1.90 mg/dL 0.57-1.25 etbs=713) GLUCOSE RANDOM (BEAKER) 172 mg/dL 70-105 (test ieth=247) CALCIUM (BEAKER) (test 7.4 mg/dL 8.4-10.2 zvuv=412) EGFR (BEAKER) (test 27 mL/min/1.73 sq m ESTIMATED GFR IS NOT dbid=3548) ACCURATE CREATININE CLEARANCE IN PREDICTING GLOMERULAR FILTRATION RATE. ESTIMATED GFR IS NOT APPLICABLE FOR DIALYSIS PATIENTS. VANCOMYCIN LEVEL, [id number] 11:56:00 Test Item Value Reference Range Comments VANCOMYCIN TROUGH (BEAKER) (test gqnh=479) 22.6 ug/mL 10.0-20.0 Get Vanc trough before next doseDont give Vanc until result reviewed by RN GERIATRIC/ [id number] 11:56:00 Test Item Value Reference Range Comments PHOSPHORUS (BEAKER) (test rdxs=582) 2.6 mg/dL 2.3-4.7 [id number] 11:56:00 Test Item Value Reference Range Comments MAGNESIUM (BEAKER) (test kbyf=076) 2.1 mg/dL 1.6-2.6 CBC W/PLT COUNT & AUTO [id number] 11:45:00 Test Item Value Reference Range Comments WHITE BLOOD CELL COUNT (BEAKER) (test ctku=409) 17.4 K/ L 3.5-10.5 RED BLOOD CELL COUNT (BEAKER) (test uxun=669) 3.49 M/ L 3.93-5.22 HEMOGLOBIN (BEAKER) (test nhzq=268) 8.7 GM/DL 11.2-15.7 HEMATOCRIT (BEAKER) (test dxxd=197) 28.7 % 34.1-44.9 MEAN CORPUSCULAR VOLUME (BEAKER) (test fvbp=095) 82.2 fL 79.4-94.8 MEAN CORPUSCULAR HEMOGLOBIN (BEAKER) (test 24.9 pg 25.6-32.2 cyma=709) MEAN CORPUSCULAR HEMOGLOBIN CONC (BEAKER) (test 30.3 GM/DL 32.2-35.5 ujsh=042) RED CELL DISTRIBUTION WIDTH (BEAKER) (test 16.6 % 11.7-14.4 pehc=728) PLATELET COUNT (BEAKER) (test okfq=165) 296 K/CU MM 150-450 MEAN PLATELET VOLUME (BEAKER) (test zvbj=636) 9.7 fL 9.4-12.3 NUCLEATED RED BLOOD CELLS (BEAKER) (test 0 /100 WBC 0-0 rtiy=645) NEUTROPHILS RELATIVE PERCENT (BEAKER) (test 87 % raol=706) LYMPHOCYTES RELATIVE PERCENT (BEAKER) (test 4 % zmvv=530) MONOCYTES RELATIVE PERCENT (BEAKER) (test 7 % bmjq=123) EOSINOPHILS RELATIVE PERCENT (BEAKER) (test 0 % uhof=516) BASOPHILS RELATIVE PERCENT (BEAKER) (test 0 % ujgs=531) NEUTROPHILS ABSOLUTE COUNT (BEAKER) (test 15.21 K/ L 1.56-6.13 zhmg=567) LYMPHOCYTES ABSOLUTE COUNT (BEAKER) (test 0.76 K/ L 1.18-3.74 nvvu=363) MONOCYTES ABSOLUTE COUNT (BEAKER) (test 1.19 K/ L 0.24-0.36 izzm=407) EOSINOPHILS ABSOLUTE COUNT (BEAKER) (test 0.04 K/ L 0.04-0.36 omff=709) BASOPHILS ABSOLUTE COUNT (BEAKER) (test 0.06 K/ L 0.01-0.08 pqko=445) IMMATURE GRANULOCYTES-RELATIVE PERCENT (BEAKER) 1 % 0-1 (test hjne=8520) BLOOD GAS, [id number] 11:33:00 Test Item Value Reference Range Comments PH ARTERIAL (BEAKER) (test ydia=057) 7.30 7.35-7.45 PCO2 ARTERIAL (BEAKER) (test ujld=052) 35 mmHg 35-45 PO2 ARTERIAL (BEAKER) (test pyxa=366) 79 mmHg 80-90 O2 SATURATION ARTERIAL (BEAKER) (test jvhz=588) 94.4 % 96.0-97.0 HCO3 ARTERIAL (BEAKER) (test rors=333) 17 mmol/L 21-29 BASE EXCESS ARTERIAL (BEAKER) (test xqcu=134) -8.6 mmol/L -2.0-3.0 PATIENT TEMPERATURE (BEAKER) (test mcqh=4393) 37.3 C FIO2 (BEAKER) (test dlkv=3861) 50.0 % RAD, CHEST, 1 VIEW, NON [id number] 04:45:00Reason for exam:->r/o effusionIs the patient ?->NoShould this be performed at the bedside?- >YesFINAL REPORT CLINICAL INDICATION: Support lines. Comparison: 06/22/2017 The cardiomediastinal contours are stable. Central pulmonary vascular congestion and left greater than right parenchymal and pleural opacities are unchanged. There is no pneumothorax. Support lines are stable. Signed: Gelacio Glez Verified Date/Time: 06/23/2017 04:45:33 Reading Location: [address] Reading Room LACTIC ACID, ARTERIAL, WHOLE [id number] 04:02:00 Test Item Value Reference Range Comments LACTATE BLOOD ARTERIAL (2) (BEAKER) (test 1.0 mmol/L 0.5-2.2 uycj=1266) Effective 02/10/2016: Units/Reference Range ChangeNew: 0.5-2.2 mmol/L Previous: 5 -20 mg/dLBASIC METABOLIC [id number] 03:30:00 Test Item Value Reference Range Comments SODIUM (BEAKER) (test 135 meq/L 136-145 laqm=171) POTASSIUM (BEAKER) (test 3.2 meq/L 3.5-5.1 yvlv=068) CHLORIDE (BEAKER) (test 111 meq/L 98-107 fmod=653) CO2 (BEAKER) (test 18 meq/L 22-29 cknw=715) BLOOD UREA NITROGEN 13 mg/dL 7-21 (BEAKER) (test kqxa=105) CREATININE (BEAKER) (test 1.38 mg/dL 0.57-1.25 iavr=289) GLUCOSE RANDOM (BEAKER) 170 mg/dL 70-105 (test befj=157) CALCIUM (BEAKER) (test 7.6 mg/dL 8.4-10.2 qycp=232) EGFR (BEAKER) (test 39 mL/min/1.73 sq m ESTIMATED GFR IS NOT igby=8026) ACCURATE CREATININE CLEARANCE IN PREDICTING GLOMERULAR FILTRATION RATE. ESTIMATED GFR IS NOT APPLICABLE FOR DIALYSIS PATIENTS. [id number] 03:16:00 Test Item Value Reference Range Comments PHOSPHORUS (BEAKER) (test xpzz=817) 2.2 mg/dL 2.3-4.7 [id number] 03:16:00 Test Item Value Reference Range Comments MAGNESIUM (BEAKER) (test kbyv=439) 2.3 mg/dL 1.6-2.6 PROTHROMBIN [id number] 03:04:00 Test Item Value Reference Range Comments PROTIME (BEAKER) (test rcts=963) 18.8 seconds 11.7-14.7 INR (BEAKER) (test tguj=717) 1.6 <=5.9 RECOMMENDED COUMADIN/WARFARIN INR THERAPY RANGESSTANDARD DOSE: 2.0 - 3.0 Includes: PROPHYLAXIS forvenous thrombosis, systemic embolization; TREATMENT for venous thrombosis and/or pulmonary embolus.HIGH RISK: Target INR is 2.5-3.5 for patients with mechanical heart valves.BLOOD GAS, [id number] 02:57:00 Test Item Value Reference Range Comments PH ARTERIAL (BEAKER) (test pjqx=044) 7.38 7.35-7.45 PCO2 ARTERIAL (BEAKER) (test vpkq=304) 33 mmHg 35-45 PO2 ARTERIAL (BEAKER) (test hnbn=988) 106 mmHg 80-90 O2 SATURATION ARTERIAL (BEAKER) (test ppdt=620) 97.7 % 96.0-97.0 HCO3 ARTERIAL (BEAKER) (test zdxp=335) 19 mmol/L 21-29 BASE EXCESS ARTERIAL (BEAKER) (test frko=657) -5.2 mmol/L -2.0-3.0 PATIENT TEMPERATURE (BEAKER) (test jsur=8996) 37.7 C FIO2 (BEAKER) (test heil=6119) 60.0 % CBC W/PLT COUNT & AUTO [id number] 02:55:00 Test Item Value Reference Range Comments WHITE BLOOD CELL COUNT (BEAKER) (test onfr=923) 14.6 K/ L 3.5-10.5 RED BLOOD CELL COUNT (BEAKER) (test fsrg=209) 2.98 M/ L 3.93-5.22 HEMOGLOBIN (BEAKER) (test ahou=023) 7.3 GM/DL 11.2-15.7 HEMATOCRIT (BEAKER) (test jnfh=158) 24.2 % 34.1-44.9 MEAN CORPUSCULAR VOLUME (BEAKER) (test ojqg=968) 81.2 fL 79.4-94.8 MEAN CORPUSCULAR HEMOGLOBIN (BEAKER) (test 24.5 pg 25.6-32.2 ydvw=705) MEAN CORPUSCULAR HEMOGLOBIN CONC (BEAKER) (test 30.2 GM/DL 32.2-35.5 oqsk=141) RED CELL DISTRIBUTION WIDTH (BEAKER) (test 16.8 % 11.7-14.4 axsg=975) PLATELET COUNT (BEAKER) (test armn=454) 256 K/CU MM 150-450 MEAN PLATELET VOLUME (BEAKER) (test ptkx=637) 9.2 fL 9.4-12.3 NUCLEATED RED BLOOD CELLS (BEAKER) (test 0 /100 WBC 0-0 ddal=320) NEUTROPHILS RELATIVE PERCENT (BEAKER) (test 82 % nvli=304) LYMPHOCYTES RELATIVE PERCENT (BEAKER) (test 8 % sqyk=281) MONOCYTES RELATIVE PERCENT (BEAKER) (test 6 % gwcc=759) EOSINOPHILS RELATIVE PERCENT (BEAKER) (test 1 % ffdu=944) BASOPHILS RELATIVE PERCENT (BEAKER) (test 0 % wvxg=677) NEUTROPHILS ABSOLUTE COUNT (BEAKER) (test 11.88 K/ L 1.56-6.13 wxnp=273) LYMPHOCYTES ABSOLUTE COUNT (BEAKER) (test 1.20 K/ L 1.18-3.74 znbx=504) MONOCYTES ABSOLUTE COUNT (BEAKER) (test 0.92 K/ L 0.24-0.36 otiq=563) EOSINOPHILS ABSOLUTE COUNT (BEAKER) (test 0.21 K/ L 0.04-0.36 vfwj=558) BASOPHILS ABSOLUTE COUNT (BEAKER) (test 0.02 K/ L 0.01-0.08 aiiq=003) IMMATURE GRANULOCYTES-RELATIVE PERCENT (BEAKER) 2 % 0-1 (test sksk=1671) [id number] 21:00:00 Test Item Value Reference Range Comments MAGNESIUM (BEAKER) (test mrmo=503) 2.2 mg/dL 1.6-2.6 BASIC METABOLIC [id number] 21:00:00 Test Item Value Reference Range Comments SODIUM (BEAKER) (test 136 meq/L 136-145 pzli=106) POTASSIUM (BEAKER) (test 3.6 meq/L 3.5-5.1 rcun=058) CHLORIDE (BEAKER) (test 112 meq/L 98-107 cjfe=646) CO2 (BEAKER) (test 18 meq/L 22-29 ycvg=756) BLOOD UREA NITROGEN 13 mg/dL 7-21 (BEAKER) (test zqvf=681) CREATININE (BEAKER) (test 0.93 mg/dL 0.57-1.25 srak=045) GLUCOSE RANDOM (BEAKER) 154 mg/dL 70-105 (test dfte=720) CALCIUM (BEAKER) (test 7.6 mg/dL 8.4-10.2 fgzv=799) EGFR (BEAKER) (test 61 mL/min/1.73 sq m ESTIMATED GFR IS NOT fmpb=4865) ACCURATE CREATININE CLEARANCE IN PREDICTING GLOMERULAR FILTRATION RATE. ESTIMATED GFR IS NOT APPLICABLE FOR DIALYSIS PATIENTS. CBC W/PLT COUNT & AUTO [id number] 20:47:00 Test Item Value Reference Range Comments WHITE BLOOD CELL COUNT (BEAKER) (test yrwu=882) 18.8 K/ L 3.5-10.5 RED BLOOD CELL COUNT (BEAKER) (test akuc=260) 3.12 M/ L 3.93-5.22 HEMOGLOBIN (BEAKER) (test atmc=859) 7.6 GM/DL 11.2-15.7 HEMATOCRIT (BEAKER) (test ykhe=689) 25.2 % 34.1-44.9 MEAN CORPUSCULAR VOLUME (BEAKER) (test eahg=954) 80.8 fL 79.4-94.8 MEAN CORPUSCULAR HEMOGLOBIN (BEAKER) (test 24.4 pg 25.6-32.2 uqcc=453) MEAN CORPUSCULAR HEMOGLOBIN CONC (BEAKER) (test 30.2 GM/DL 32.2-35.5 xqdp=956) RED CELL DISTRIBUTION WIDTH (BEAKER) (test 16.7 % 11.7-14.4 yhyo=918) PLATELET COUNT (BEAKER) (test gszo=940) 256 K/CU MM 150-450 MEAN PLATELET VOLUME (BEAKER) (test kwnc=171) 8.9 fL 9.4-12.3 NUCLEATED RED BLOOD CELLS (BEAKER) (test 0 /100 WBC 0-0 qikl=545) NEUTROPHILS RELATIVE PERCENT (BEAKER) (test 83 % dudr=336) LYMPHOCYTES RELATIVE PERCENT (BEAKER) (test 3 % bilx=600) MONOCYTES RELATIVE PERCENT (BEAKER) (test 4 % wtdn=088) EOSINOPHILS RELATIVE PERCENT (BEAKER) (test 0 % kkur=171) BASOPHILS RELATIVE PERCENT (BEAKER) (test 0 % qzlj=298) NEUTROPHILS ABSOLUTE COUNT (BEAKER) (test 15.59 K/ L 1.56-6.13 sjvg=023) LYMPHOCYTES ABSOLUTE COUNT (BEAKER) (test 0.47 K/ L 1.18-3.74 rvie=753) MONOCYTES ABSOLUTE COUNT (BEAKER) (test 0.82 K/ L 0.24-0.36 kwpi=464) EOSINOPHILS ABSOLUTE COUNT (BEAKER) (test 0.00 K/ L 0.04-0.36 srsd=787) BASOPHILS ABSOLUTE COUNT (BEAKER) (test 0.03 K/ L 0.01-0.08 aymv=000) IMMATURE GRANULOCYTES-RELATIVE PERCENT (BEAKER) 10 % 0-1 (test orrp=4143) (MANUAL DIFFERENTIAL)2017-06-22 20:47:00 Test Item Value Reference Range Comments NEUTROPHILS - REL (DIFF) (BEAKER) (test 92 % zmgq=1765) LYMPHOCYTES - REL (DIFF) (BEAKER) (test 3 % afbk=3413) MONOCYTES - REL (DIFF) (BEAKER) (test tyik=0422) 3 % BANDS - REL (DIFF) (BEAKER) (test srcs=6308) 2 % 0-10 NEUTROPHILS - ABS (DIFF) (BEAKER) (test 17.30 K/ L 1.80-8.00 kymi=2931) LYMPHOCYTES - ABS (DIFF) (BEAKER) (test 0.56 K/ L 1.48-4.50 rddc=7720) MONOCYTES - ABS (DIFF) (BEAKER) (test qgdx=4941) 0.56 K/ L 0.00-1.30 BANDS-ABS (DIFF) (BEAKER) (test rosx=7916) 0.4 K/ L 0.0-0.8 TOTAL COUNTED (BEAKER) (test pbqm=5567) 100 BANDS + SEGMENTED NEUTROPHILS (BEAKER) (test 17.67 qowp=0379) PLT MORPHOLOGY (BEAKER) (test lgii=594) Normal RBC MORPHOLOGY (BEAKER) (test fhsh=869) Normal DOHLE BODIES (BEAKER) (test tjwp=727) Present TOXIC GRANULATION (BEAKER) (test gjhm=539) Present PROTHROMBIN [id number] 20:35:00 Test Item Value Reference Range Comments PROTIME (BEAKER) (test mkxk=976) 19.1 seconds 11.7-14.7 INR (BEAKER) (test xspl=659) 1.6 <=5.9 RECOMMENDED COUMADIN/WARFARIN INR THERAPY RANGESSTANDARD DOSE: 2.0 - 3.0 Includes: PROPHYLAXIS forvenous thrombosis, systemic embolization; TREATMENT for venous thrombosis and/or pulmonary embolus.HIGH RISK: Target INR is 2.5-3.5 for patients with mechanical heart valves.CBC W/PLT COUNT & AUTO [id number] 20:29:00 Test Item Value Reference Range Comments WHITE BLOOD CELL COUNT (BEAKER) (test uxqr=032) 18.3 K/ L 3.5-10.5 RED BLOOD CELL COUNT (BEAKER) (test gtdr=574) 3.09 M/ L 3.93-5.22 HEMOGLOBIN (BEAKER) (test gxby=379) 7.5 GM/DL 11.2-15.7 HEMATOCRIT (BEAKER) (test rcpa=270) 25.3 % 34.1-44.9 MEAN CORPUSCULAR VOLUME (BEAKER) (test zwtl=628) 81.9 fL 79.4-94.8 MEAN CORPUSCULAR HEMOGLOBIN (BEAKER) (test 24.3 pg 25.6-32.2 ibal=932) MEAN CORPUSCULAR HEMOGLOBIN CONC (BEAKER) (test 29.6 GM/DL 32.2-35.5 ruyr=756) RED CELL DISTRIBUTION WIDTH (BEAKER) (test 16.6 % 11.7-14.4 cwrm=038) PLATELET COUNT (BEAKER) (test fxdg=565) 279 K/CU MM 150-450 MEAN PLATELET VOLUME (BEAKER) (test jxdf=040) 9.5 fL 9.4-12.3 NUCLEATED RED BLOOD CELLS (BEAKER) (test 0 /100 WBC 0-0 mauk=675) NEUTROPHILS RELATIVE PERCENT (BEAKER) (test 82 % nzka=523) LYMPHOCYTES RELATIVE PERCENT (BEAKER) (test 4 % hctq=780) MONOCYTES RELATIVE PERCENT (BEAKER) (test 5 % hpve=079) EOSINOPHILS RELATIVE PERCENT (BEAKER) (test 0 % xefd=437) BASOPHILS RELATIVE PERCENT (BEAKER) (test 0 % zhkf=606) NEUTROPHILS ABSOLUTE COUNT (BEAKER) (test 15.00 K/ L 1.56-6.13 gpwd=075) LYMPHOCYTES ABSOLUTE COUNT (BEAKER) (test 0.70 K/ L 1.18-3.74 zxaf=468) MONOCYTES ABSOLUTE COUNT (BEAKER) (test 0.92 K/ L 0.24-0.36 adxx=484) EOSINOPHILS ABSOLUTE COUNT (BEAKER) (test 0.00 K/ L 0.04-0.36 gfng=212) BASOPHILS ABSOLUTE COUNT (BEAKER) (test 0.03 K/ L 0.01-0.08 tjip=083) IMMATURE GRANULOCYTES-RELATIVE PERCENT (BEAKER) 9 % 0-1 (test ccfw=2536) BLOOD GAS, [id number] 20:22:00 Test Item Value Reference Range Comments PH ARTERIAL (BEAKER) (test luin=315) 7.36 7.35-7.45 PCO2 ARTERIAL (BEAKER) (test xqdt=899) 35 mmHg 35-45 PO2 ARTERIAL (BEAKER) (test wtpb=820) 113 mmHg 80-90 O2 SATURATION ARTERIAL (BEAKER) (test vpjh=678) 98.0 % 96.0-97.0 HCO3 ARTERIAL (BEAKER) (test xrwh=018) 19 mmol/L 21-29 BASE EXCESS ARTERIAL (BEAKER) (test myca=274) -5.5 mmol/L -2.0-3.0 PATIENT TEMPERATURE (BEAKER) (test bxxo=5460) 37.1 C FIO2 (BEAKER) (test oozj=5191) 60.0 % RAD, CHEST, 1 VIEW, NON [id number] 16:44:00Reason for exam:->postopIs the patient ?->NoShould this [...] stable in size. No fracture. Signed: Saumya [place] Verified Date/Time: 06/22/2017 16:44:08 Reading Location: [facility] Radiology Reading Room [id number] 16:21:00 Test Item Value Reference Range Comments MAGNESIUM (BEAKER) (test lqyl=112) 1.5 mg/dL 1.6-2.6 BASIC METABOLIC [id number] 16:21:00 Test Item Value Reference Range Comments SODIUM (BEAKER) (test 137 meq/L 136-145 jrms=339) POTASSIUM (BEAKER) (test 3.5 meq/L 3.5-5.1 pkie=725) CHLORIDE (BEAKER) (test 111 meq/L 98-107 kmzy=231) CO2 (BEAKER) (test 21 meq/L 22-29 atoq=458) BLOOD UREA NITROGEN 12 mg/dL 7-21 (BEAKER) (test scnp=319) CREATININE (BEAKER) (test 0.70 mg/dL 0.57-1.25 caoo=141) GLUCOSE RANDOM (BEAKER) 133 mg/dL 70-105 (test xqtq=276) CALCIUM (BEAKER) (test 7.6 mg/dL 8.4-10.2 jbed=147) EGFR (BEAKER) (test 85 mL/min/1.73 sq m ESTIMATED GFR IS NOT xrio=8914) ACCURATE CREATININE CLEARANCE IN PREDICTING GLOMERULAR FILTRATION RATE. ESTIMATED GFR IS NOT APPLICABLE FOR DIALYSIS PATIENTS. PROTHROMBIN [id number] 16:14:00 Test Item Value Reference Range Comments PROTIME (BEAKER) (test zuxj=963) 18.8 seconds 11.7-14.7 INR (BEAKER) (test tkip=804) 1.6 <=5.9 RECOMMENDED COUMADIN/WARFARIN INR THERAPY RANGESSTANDARD DOSE: 2.0 - 3.0 Includes: PROPHYLAXIS forvenous thrombosis, systemic embolization; TREATMENT for venous thrombosis and/or pulmonary embolus.HIGH RISK: Target INR is 2.5-3.5 for patients with mechanical heart valves.BLOOD GAS, [id number] 15:59:00 Test Item Value Reference Range Comments PH ARTERIAL (BEAKER) (test onzd=118) 7.35 7.35-7.45 PCO2 ARTERIAL (BEAKER) (test hbyb=942) 37 mmHg 35-45 PO2 ARTERIAL (BEAKER) (test jazw=375) 76 mmHg 80-90 O2 SATURATION ARTERIAL (BEAKER) (test gjzw=093) 95.0 % 96.0-97.0 HCO3 ARTERIAL (BEAKER) (test tyqy=394) 20 mmol/L 21-29 BASE EXCESS ARTERIAL (BEAKER) (test thsl=655) -5.2 mmol/L -2.0-3.0 PATIENT TEMPERATURE (BEAKER) (test htno=3066) 36.5 C FIO2 (BEAKER) (test yftj=9247) 60.0 % SODIUM NA-STAT [id number] 15:59:00 Test Item Value Reference Range Comments SODIUM (BEAKER) (test yzqn=790) 134 meq/L 135-148 POTASSIUM-STAT [id number] 15:59:00 Test Item Value Reference Range Comments POTASSIUM (BEAKER) (test ujbw=590) 3.4 meq/L 3.6-5.5 GLUCOSE-STAT [id number] 15:59:00 Test Item Value Reference Range Comments GLUCOSE RANDOM (BEAKER) (test vmtt=518) 132 mg/dL 70-110 HGB/HCT (H&H) - STAT [id number] 15:59:00 Test Item Value Reference Range Comments HEMOGLOBIN (BEAKER) (test ncuf=246) 8.3 g/dL 12.0-15.0 HEMATOCRIT (BEAKER) (test sxkz=225) 24.0 % 36.0-45.0 CALCIUM, [id number] 15:59:00 Test Item Value Reference Range Comments CALCIUM IONIZED (BEAKER) (test rcnv=755) 1.00 mmol/L 1.12-1.27 PH, BLOOD (BEAKER) (test mypu=6466) 7.34 BLOOD GAS, [id number] 13:05:00 Test Item Value Reference Range Comments PH ARTERIAL (BEAKER) (test tejt=492) 7.37 7.35-7.45 PCO2 ARTERIAL (BEAKER) (test oulf=026) 39 mmHg 35-45 PO2 ARTERIAL (BEAKER) (test ruwt=517) 110 mmHg 80-90 O2 SATURATION ARTERIAL (BEAKER) (test cygx=299) 98.0 % 96.0-97.0 HCO3 ARTERIAL (BEAKER) (test avxr=301) 22 mmol/L 21-29 BASE EXCESS ARTERIAL (BEAKER) (test fdkg=276) -3.1 mmol/L -2.0-3.0 PATIENT TEMPERATURE (BEAKER) (test oazr=6091) 36.2 C FIO2 (BEAKER) (test zkue=1817) 96.0 % SODIUM NA-STAT [id number] 13:05:00 Test Item Value Reference Range Comments SODIUM (BEAKER) (test fpvz=825) 134 meq/L 135-148 POTASSIUM-STAT [id number] 13:05:00 Test Item Value Reference Range Comments POTASSIUM (BEAKER) (test dnzv=587) 3.4 meq/L 3.6-5.5 GLUCOSE-STAT [id number] 13:05:00 Test Item Value Reference Range Comments GLUCOSE RANDOM (BEAKER) (test egza=955) 141 mg/dL 70-110 HGB/HCT (H&H) - STAT [id number] 13:05:00 Test Item Value Reference Range Comments HEMOGLOBIN (BEAKER) (test pcfu=927) 9.1 g/dL 12.0-15.0 HEMATOCRIT (BEAKER) (test jmvu=824) 27.0 % 36.0-45.0 SPIN/CONCENTRATION [id number] 12:10:00 Test Item Value Reference Range Comments CONCENTRATION CHARGED (BEAKER) (test cfyp=8861) Done [id number] 05:19:00 Test Item Value Reference Range Comments PHOSPHORUS (BEAKER) (test vwcr=764) 1.7 mg/dL 2.3-4.7 [id number] 05:19:00 Test Item Value Reference Range Comments MAGNESIUM (BEAKER) (test dduq=261) 1.8 mg/dL 1.6-2.6 BASIC METABOLIC [id number] 05:19:00 Test Item Value Reference Range Comments SODIUM (BEAKER) (test 138 meq/L 136-145 zhxv=842) POTASSIUM (BEAKER) (test 3.4 meq/L 3.5-5.1 pjyc=840) CHLORIDE (BEAKER) (test 106 meq/L 98-107 favo=237) CO2 (BEAKER) (test 25 meq/L 22-29 pmhj=474) BLOOD UREA NITROGEN 10 mg/dL 7-21 (BEAKER) (test pzft=041) CREATININE (BEAKER) (test 0.59 mg/dL 0.57-1.25 tkdn=448) GLUCOSE RANDOM (BEAKER) 102 mg/dL 70-105 (test helv=328) CALCIUM (BEAKER) (test 8.9 mg/dL 8.4-10.2 ykmu=155) EGFR (BEAKER) (test 104 mL/min/1.73 sq m ESTIMATED GFR IS NOT dguf=9348) ACCURATE CREATININE CLEARANCE IN PREDICTING GLOMERULAR FILTRATION RATE. ESTIMATED GFR IS NOT APPLICABLE FOR DIALYSIS PATIENTS. CBC W/PLT COUNT & AUTO [id number] 05:12:00 Test Item Value Reference Range Comments WHITE BLOOD CELL COUNT (BEAKER) (test zwxc=831) 23.3 K/ L 3.5-10.5 RED BLOOD CELL COUNT (BEAKER) (test jtdc=641) 3.63 M/ L 3.93-5.22 HEMOGLOBIN (BEAKER) (test lqdh=856) 8.8 GM/DL 11.2-15.7 HEMATOCRIT (BEAKER) (test fvtw=065) 29.2 % 34.1-44.9 MEAN CORPUSCULAR VOLUME (BEAKER) (test dxdk=414) 80.4 fL 79.4-94.8 MEAN CORPUSCULAR HEMOGLOBIN (BEAKER) (test 24.2 pg 25.6-32.2 bpin=659) MEAN CORPUSCULAR HEMOGLOBIN CONC (BEAKER) (test 30.1 GM/DL 32.2-35.5 xjrj=003) RED CELL DISTRIBUTION WIDTH (BEAKER) (test 16.5 % 11.7-14.4 aslj=626) PLATELET COUNT (BEAKER) (test fxyc=492) 326 K/CU MM 150-450 MEAN PLATELET VOLUME (BEAKER) (test totn=205) 9.3 fL 9.4-12.3 NUCLEATED RED BLOOD CELLS (BEAKER) (test 0 /100 WBC 0-0 xdxg=636) NEUTROPHILS RELATIVE PERCENT (BEAKER) (test 82 % hblr=047) LYMPHOCYTES RELATIVE PERCENT (BEAKER) (test 6 % hyax=973) MONOCYTES RELATIVE PERCENT (BEAKER) (test 6 % fiix=974) EOSINOPHILS RELATIVE PERCENT (BEAKER) (test 2 % bsln=547) BASOPHILS RELATIVE PERCENT (BEAKER) (test 0 % trlb=540) NEUTROPHILS ABSOLUTE COUNT (BEAKER) (test 19.08 K/ L 1.56-6.13 bbdb=090) LYMPHOCYTES ABSOLUTE COUNT (BEAKER) (test 1.32 K/ L 1.18-3.74 vnyu=551) MONOCYTES ABSOLUTE COUNT (BEAKER) (test 1.40 K/ L 0.24-0.36 xxfv=387) EOSINOPHILS ABSOLUTE COUNT (BEAKER) (test 0.43 K/ L 0.04-0.36 iwtp=042) BASOPHILS ABSOLUTE COUNT (BEAKER) (test 0.06 K/ L 0.01-0.08 ppqu=878) IMMATURE GRANULOCYTES-RELATIVE PERCENT (BEAKER) 5 % 0-1 (test jkvq=4502) PROTHROMBIN [id number] 05:06:00 Test Item Value Reference Range Comments PROTIME (BEAKER) (test dmju=613) 17.9 seconds 11.7-14.7 INR (BEAKER) (test rpxx=109) 1.5 <=5.9 RECOMMENDED COUMADIN/WARFARIN INR THERAPY RANGESSTANDARD DOSE: 2.0 - 3.0 Includes: PROPHYLAXIS forvenous thrombosis, systemic embolization; TREATMENT for venous thrombosis and/or pulmonary embolus.HIGH RISK: Target INR is 2.5-3.5 for patients with mechanical heart valves.CBC W/PLT COUNT & AUTO [id number] 00:24:00 Test Item Value Reference Range Comments WHITE BLOOD CELL COUNT (BEAKER) (test nrfg=399) 30.1 K/ L 3.5-10.5 RED BLOOD CELL COUNT (BEAKER) (test gtyx=030) 3.98 M/ L 3.93-5.22 HEMOGLOBIN (BEAKER) (test hobs=369) 9.7 GM/DL 11.2-15.7 HEMATOCRIT (BEAKER) (test yrgn=148) 31.9 % 34.1-44.9 MEAN CORPUSCULAR VOLUME (BEAKER) (test hqob=948) 80.2 fL 79.4-94.8 MEAN CORPUSCULAR HEMOGLOBIN (BEAKER) (test 24.4 pg 25.6-32.2 ugjg=856) MEAN CORPUSCULAR HEMOGLOBIN CONC (BEAKER) (test 30.4 GM/DL 32.2-35.5 iker=340) RED CELL DISTRIBUTION WIDTH (BEAKER) (test 16.5 % 11.7-14.4 cfhc=186) PLATELET COUNT (BEAKER) (test oarh=690) 372 K/CU MM 150-450 MEAN PLATELET VOLUME (BEAKER) (test lklh=847) 9.2 fL 9.4-12.3 NUCLEATED RED BLOOD CELLS (BEAKER) (test 0 /100 WBC 0-0 kluw=496) IMMATURE GRANULOCYTES-RELATIVE PERCENT (BEAKER) 6 % 0-1 (test toig=4751) (MANUAL DIFFERENTIAL)2017-06-22 00:24:00 Test Item Value Reference Range Comments NEUTROPHILS - REL (DIFF) (BEAKER) (test 78 % bfdj=9308) LYMPHOCYTES - REL (DIFF) (BEAKER) (test 5 % gyfq=8884) MONOCYTES - REL (DIFF) (BEAKER) (test qtqc=3061) 4 % BANDS - REL (DIFF) (BEAKER) (test yfur=5617) 10 % 0-10 ATYPICAL LYMPHOCYTE - REL (DIFF) (BEAKER) (test 3 % 0-0 dvjc=549) NEUTROPHILS - ABS (DIFF) (BEAKER) (test 23.48 K/ L 1.80-8.00 dggx=8778) LYMPHOCYTES - ABS (DIFF) (BEAKER) (test 1.51 K/ L 1.48-4.50 sxmg=2373) MONOCYTES - ABS (DIFF) (BEAKER) (test mvyk=6474) 1.20 K/ L 0.00-1.30 BANDS-ABS (DIFF) (BEAKER) (test edjb=3249) 3.0 K/ L 0.0-0.8 ATYPICAL LYMPHOCYTES - ABS (DIFF) (BEAKER) (test 0.90 K/ L 0.00-0.00 srpj=765) TOTAL COUNTED (BEAKER) (test gzjb=9988) 100 BANDS + SEGMENTED NEUTROPHILS (BEAKER) (test 26.49 xgva=5107) WBC MORPHOLOGY (BEAKER) (test zlep=472) Normal PLT MORPHOLOGY (BEAKER) (test wubc=934) Normal ANISOCYTOSIS (BEAKER) (test xgtp=551) 1+ few DARBY CELLS (BEAKER) (test vokd=503) 1+ few OVALOCYTES (BEAKER) (test ffkb=459) 1+ few POIKILOCYTES (BEAKER) (test ltwv=964) 1+ few URINALYSIS W/ [id number] 00:15:00 Test Item Value Reference Range Comments COLOR (BEAKER) (test vedt=972) Yellow CLARITY (BEAKER) (test nyxe=589) Clear SPECIFIC GRAVITY UA (BEAKER) (test 1.023 1.001-1.035 sygw=600) PH UA (BEAKER) (test cnpa=212) 5.5 5.0-8.0 PROTEIN UA (BEAKER) (test cvoh=083) 50 mg/dL Negative GLUCOSE UA (BEAKER) (test gpqq=466) Negative Negative KETONES UA (BEAKER) (test zyon=578) 60 mg/dL Negative BILIRUBIN UA (BEAKER) (test ncyt=183) Negative Negative BLOOD UA (BEAKER) (test puha=248) Small Negative NITRITE UA (BEAKER) (test bfir=757) Negative Negative LEUKOCYTE ESTERASE UA (BEAKER) (test Small Negative hfpq=520) UROBILINOGEN UA (BEAKER) (test gjgc=245) 0.2 mg/dL 0.2-1.0 RBC UA (BEAKER) (test ousp=604) 4 /HPF WBC UA (BEAKER) (test zjqp=487) 19 /HPF MUCUS (BEAKER) (test mtqr=5164) Many SQUAMOUS EPITHELIAL (BEAKER) (test 2 /HPF mfoy=484) HYALINE CASTS (BEAKER) (test tjrd=095) 3 /LPF AMORPHOUS CRYSTALS (BEAKER) (test Rare ebtp=2188) SOURCE(BEAKER) (test nilo=2848) Urine, Clean Catch RAD, CHEST, 1 VIEW, NON [id number] 23:38:00Reason for exam:->pre- opShould this be performed [...] MDReport Verified Date/Time: 06/21/2017 23:38:52 Reading Location: [facility] Diagnostic Imaging Reading Room - [place] [id number] Electronically signed by: FADY POP M.D.on 06/21/2017 11:38 PMCOMPREHENSIVE METABOLIC [id number] 21:57:00 Test Item Value Reference Range Comments TOTAL PROTEIN (BEAKER) 6.4 gm/dL 6.0-8.3 (test qkpj=205) ALBUMIN (BEAKER) (test 3.2 g/dL 3.5-5.0 yksz=0974) ALKALINE PHOSPHATASE 65 U/L 40-150 (BEAKER) (test ntqi=271) BILIRUBIN TOTAL (BEAKER) < mg/dL 0.2-1.2 (test srov=990) SODIUM (BEAKER) (test 136 meq/L 136-145 npwk=587) POTASSIUM (BEAKER) (test 3.7 meq/L 3.5-5.1 xsqy=865) CHLORIDE (BEAKER) (test 105 meq/L 98-107 zlzp=391) CO2 (BEAKER) (test 23 meq/L 22-29 ibhk=314) BLOOD UREA NITROGEN 10 mg/dL 7-21 (BEAKER) (test iuhv=123) CREATININE (BEAKER) (test 0.61 mg/dL 0.57-1.25 fifz=403) GLUCOSE RANDOM (BEAKER) 110 mg/dL 70-105 (test rzos=812) CALCIUM (BEAKER) (test 9.0 mg/dL 8.4-10.2 ejvo=702) AST (SGOT) (BEAKER) (test 12 U/L 5-34 zjpn=819) ALT (SGPT) (BEAKER) (test 13 U/L 6-55 ouwq=982) EGFR (BEAKER) (test 100 mL/min/1.73 sq ESTIMATED GFR IS NOT mwlx=1791) m ACCURATE CREATININE CLEARANCE IN PREDICTING GLOMERULAR FILTRATION RATE. ESTIMATED GFR IS NOT APPLICABLE FOR DIALYSIS PATIENTS. [id number] 21:57:00 Test Item Value Reference Range Comments PREALBUMIN (BEAKER) (test llld=593) 13 mg/dL 14-45 [id number] 21:46:00 Test Item Value Reference Range Comments PROTIME (BEAKER) (test jhpl=095) 17.6 seconds 11.7-14.7 INR (BEAKER) (test cnbv=938) 1.5 <=5.9 PARTIAL THROMBOPLASTIN TIME (BEAKER) (test 39.0 seconds 22.5-36.0 cmqe=510) RECOMMENDED COUMADIN/WARFARIN INR THERAPY RANGESSTANDARD DOSE: 2.0 - 3.0 Includes: PROPHYLAXIS forvenous thrombosis, systemic embolization; TREATMENT for venous thrombosis and/or pulmonary embolus.HIGH RISK: Target INR is 2.5-3.5 for patients with mechanical heart valves.
--- NOTE | 2019-04-27 09:45 | EDPHYS ---
Physician Documentation [facility] Name: Leona Alcazar Age: 63 yrs Sex: Female : 1955 Arrival Date: 04/27/2019 Time: 08:06 Bed 13 Private MD: Dave Keene ED Physician Kb Rothman HPI: 04/27 09:28 This 63 yrs old Female presents to ER via Ambulatory with complaints of gs Finger Injury. 09:28 The patient or guardian reports injury. The complaints affect the left middle finger. gs Context: resulted from a crush injury, by a car door. Onset: The symptoms/episode began/occurred acutely, just prior to arrival. Modifying factors: The symptoms are alleviated by nothing, the symptoms are aggravated by nothing. Associated signs and symptoms: Pertinent negatives: numbness distally. Severity of symptoms: At their worst the symptoms were severe, in the emergency department the symptoms are unchanged. The patient has not experienced similar symptoms in the past. Historical: - Allergies: 08:16 No Known Allergies; sg - PMHx: 08:16 COPD; Empyema; Genital herpes; Hepatitis B; hiatal hernia; Hypertension; pulmonary sg nodule; - PSHx: 08:16 Right BKA; sg - Immunization history:: Last tetanus immunization: > 10 years ago. - Social history:: Smoking status: Patient/guardian denies using tobacco. - Ebola Screening: : Patient negative for fever greater than or equal to 101.5 degrees Fahrenheit, and additional compatible Ebola Virus Disease symptoms Patient denies exposure to infectious person Patient denies travel to an Ebola-affected area in the 21 days before illness onset No symptoms or risks identified at this time. ROS: 09:28 All other systems are negative. gs Exam: 09:28 Constitutional: The patient appears alert, awake, uncomfortable. gs 09:28 Musculoskeletal/extremity: Extremities: ecchymosis, laceration, pain, swelling, very small sub ungual hematoma, ROM: no acute changes, Pulses: are normal with no appreciated deficits, Joints: 09:28 Neuro: Exam negative for acute changes, motor deficits, sensory deficits. Vital Signs: 08:14 BP 185 / 102; Pulse 66; Resp 17; Temp 98.2; Pulse Ox 95% on R/A; Weight 77.11 kg; sg Height 5 ft. 3 in. (160.02 cm); Pain 10/10; 10:00 BP 172 / 89; Pulse 66; Resp 17; Temp 98.2; Pulse Ox 98% on R/A; Pain 4/10; sg 08:14 Body Mass Index 30.11 (77.11 kg, 160.02 cm) sg Laceration: 10:10 Wound Repair of 1cm ( 0.4in ) avulsed laceration to left middle finger. Distal gs neuro/vascular/tendon intact. Wound prep: Simple cleansing. Skin closed with 1-0 Adhesive skin closure using Dermabond. Patient tolerated well. MDM: 08:28 Patient medically screened. 09:28 Differential diagnosis: open fracture, closed fracture. Data reviewed: vital signs, nurses notes. Counseling: I had a detailed discussion with the patient and/or guardian regarding: radiology results, the need for outpatient follow up, a orthopedic surgeon. Response to treatment: the patient's symptoms have mildly improved after treatment, and as a result, I will discharge patient. 04/27 08:35 Order name: Hand Left 3 View XRAY Administered Medications: No medications were administered Disposition: 04/27/19 09:44 Discharged to Home. Impression: Laceration without foreign body of left middle finger with damage to nail. - Condition is Stable. - Discharge Instructions: Laceration Care, Adult, Nail Bed Injury, [id number]. - Prescriptions for Keflex 500 mg Oral Capsule - take 1 capsule by ORAL route every 12 hours for 5 days; 10 capsule. - Medication Reconciliation Form, Thank You Letter, Antibiotic Education, Prescription Opioid Use form. - Follow up: Abdifatah Kumar MD; When: 2 - 3 days; Reason: Re-evaluation by your physician. Signatures: Dispatcher [employer] EDMS Abdifatah Holloway RN RN Ellie Figueredo RN RN Kb Rothman MD MD Corrections: (The following items were deleted from the chart) 10:10 09:44 04/27/2019 09:44 Discharged to Home. Impression: Laceration without foreign body hb of left middle finger with damage to nail. Condition is Stable. Forms are Medication Reconciliation Form, Thank You Letter, Antibiotic Education, Prescription Opioid Use. Follow up: Abdifatah Kumar; When: 2 - 3 days; Reason: Re-evaluation by your physician. gs
--- NOTE | 2019-04-27 09:45 | ER ---
Nurse's Notes [facility] Name: Leona Alcazar Age: 63 yrs Sex: Female : 1955 Arrival Date: 04/27/2019 Time: 08:06 Bed 13 Private MD: Dave Keene Diagnosis: Laceration without foreign body of left middle finger with damage to nail Presentation: 04/27 08:12 Presenting complaint: Patient states: I slammed by left middle finger in my car door sg this morning. Transition of care: patient was not received from another setting of care. Onset of symptoms was April 27, 2019. Risk Assessment: Do you want to hurt yourself or someone else? Patient reports no desire to harm self or others. Initial Sepsis Screen: Does the patient meet any 2 criteria? No. Patient's initial sepsis screen is negative. Does the patient have a suspected source of infection? No. Patient's initial sepsis screen is negative. Care prior to arrival: None. 08:12 Method Of Arrival: Ambulatory sg 08:12 Acuity: ROCK 4 sg Historical: - Allergies: 08:16 No Known Allergies; sg - PMHx: 08:16 COPD; Empyema; Genital herpes; Hepatitis B; hiatal hernia; Hypertension; pulmonary sg nodule; - PSHx: 08:16 Right BKA; sg - Immunization history:: Last tetanus immunization: > 10 years ago. - Social history:: Smoking status: Patient/guardian denies using tobacco. - Ebola Screening: : Patient negative for fever greater than or equal to 101.5 degrees Fahrenheit, and additional compatible Ebola Virus Disease symptoms Patient denies exposure to infectious person Patient denies travel to an Ebola-affected area in the 21 days before illness onset No symptoms or risks identified at this time. Screenin:20 Abuse screen: Denies threats or abuse. Denies injuries from another. Nutritional sg screening: No deficits noted. Tuberculosis screening: No symptoms or risk factors identified. Never had TB. Fall Risk None identified. Assessment: 08:20 General: Appears in no apparent distress. well groomed, well developed, well nourished, sg Behavior is calm, cooperative, appropriate for age. Pain: Complains of pain in left middle finger Quality of pain is described as tender, throbbing. Neuro: No deficits noted. Cardiovascular: Capillary refill is brisk in bilateral fingers Patient's skin is warm and dry. Chest pain is denied. Respiratory: Airway is patent Respiratory effort is even, unlabored, Respiratory pattern is regular, symmetrical. GI: Abdomen is round non-distended. : No signs and/or symptoms were reported regarding the genitourinary system. EENT: No signs and/or symptoms were reported regarding the EENT system. Derm: Skin is pink, warm \T\ dry. Musculoskeletal: Circulation, motion, and sensation intact. Range of motion: intact in all extremities, Swelling absent. 08:20 Injury Description: Crush injury sustained to left middle finger is small amount of sg bleeding, reports pain and swelling. 09:17 Reassessment: Patient appears in no apparent distress at this time. Patient and/or sg family updated on plan of care and expected duration. Pain level reassessed. Patient is alert, oriented x 3, equal unlabored respirations, skin warm/dry/pink. Vital Signs: 08:14 BP 185 / 102; Pulse 66; Resp 17; Temp 98.2; Pulse Ox 95% on R/A; Weight 77.11 kg; sg Height 5 ft. 3 in. (160.02 cm); Pain 10/10; 10:00 BP 172 / 89; Pulse 66; Resp 17; Temp 98.2; Pulse Ox 98% on R/A; Pain 4/10; sg 08:14 Body Mass Index 30.11 (77.11 kg, 160.02 cm) sg ED Course: 08:06 Patient arrived in ED. mr 08:06 Dave Keene MD is Private Physician. mr 08:11 Abdifatah Holloway RN is Primary Nurse. sg 08:14 Triage completed. sg 08:14 Arm band placed on. sg 08:14 Pulse ox on. NIBP on. sg 08:20 Kb Rothman MD is Attending Physician. gs 08:49 Hand Left 3 View XRAY In Process Unspecified. EDMS 09:42 Abdifatah Kumar MD is Referral Physician. gs 10:00 No provider procedures requiring assistance completed. Patient did not have IV access sg during this emergency room visit. Aluminum finger splint applied to left middle finger. Wound care: to laceration located on left middle finger was cleaned with soap and water, dressed with dermabond applied by . 10:14 Patient has correct armband on for positive identification. Call light in reach. Side rails up X2. Administered Medications: No medications were administered Outcome: 09:44 Discharge ordered by . 10:05 Discharged to home ambulatory, with family. 10:05 Condition: good 10:05 Discharge instructions given to patient, Instructed on discharge instructions, follow up and referral plans. no drinking with medication, medication usage, wound care, Demonstrated understanding of instructions, follow-up care, wound care, splint care, Prescriptions given X 1. 10:10 Patient left the ED. Signatures: Dispatcher [employer] EDMS Abdifatah Holloway RN RN sg Rivera, Mary mr Ellie Figueredo RN RN Kb Rothman MD MD
[2019-04-27] MEDS ORDERED: DERMABOND SKIN ADHESIVE TOP ONE (10:10)
--- NOTE | 2019-04-27 10:12 | RAD REPORT ---
EXAM DESCRIPTION: RAD -Hand Left 3 View - 04/27/2019 8:49 am CLINICAL HISTORY: Left hand pain status post injury FINDINGS: No fracture or dislocation is seen. Moderate osteoarthritis first carpometacarpal joint
[2019-04-27 10:18] VITALS: BP 185/102; TEMP 98.2; O2SAT 95
== END 2019-04-27 10:10 | disposition home or self-care (01) ==
LOC: ER 08:03
PROC: 0JQK0ZZ Repair Left Hand Subcutaneous Tissue and Fascia, Open Approach (ICD-10-PCS; principal; 2019-04-27)
DX: S61.313A Laceration without foreign body of left middle finger with damage to nail, initial encounter (principal); W23.0XXA Caught, crushed, jammed, or pinched between moving objects, initial encounter; Y93.9 Activity, unspecified; Y92.9 Unspecified place or not applicable; I10 Essential (primary) hypertension
CPT/HCPCS: 99284

== ENCOUNTER 2024-11-20 12:13 | Emergency (ER) | payer OTHER ==
--- NOTE | 2024-11-20 14:06 | RAD REPORT ---
EXAM: CT brain without contrast HISTORY: TRAUMA COMPARISON: None TECHNIQUE: Multiple contiguous axial images were obtained and a CT of the brain without contrast. Sag ittal and coronal reformats were performed. One or more of the following dose reduction techniques were used: Automated exposure control, adjust ment of the mA and/or kV according to patient size, and/or iterative reconstruction. FINDINGS: No evidence of hydrocephalus, intracranial hemorrhage, or extra-axial fluid collection. Mild brain atrophy with mild periventricular and deep white matter chronic microvascular ischemic ch anges present. No evidence of midline shift or areas of brain edema. The calvarium is intact. Mild bilateral mastoid effusions. Right periorbital soft tissue swelling. IMPRESSION: No evidence of acute intracranial abnormality. Right periorbital soft tissue swelling noted. EXAM: CT of the cervical spine without contrast HISTORY: Neck pain, injury TRAUMA TECHNIQUE: Multiple contiguous axial images were obtained in a CT of the cervical spine without contr ast. Sagittal and coronal reformats were performed. FINDINGS: The vertebral bodies demonstrate normal height and alignment. No evidence of acute fracture or subluxation.. No degenerative changes are present. No prevertebral soft tissue swelling is seen. The posterior facets are well aligned. Normal alignment of the skull base with the cervical spine is seen. Mild thyroid goiter. The lung apices are unremarkable. IMPRESSION: No evidence of acute osseous abnormality of the cervical spine. Mild mastoid effusions. Right periorbital soft tissue swelling.
--- NOTE | 2024-11-20 14:15 | RAD REPORT ---
EXAM: CT CHEST, ABDOMEN AND PELVIS WITHOUT CONTRAST CLINICAL INDICATION: FALL TECHNIQUE: CT chest, abdomen and pelvis was performed without contrast, as per department protocol. A xial, sagittal and coronal reconstructions were obtained. One or more of the following dose reduction techniques were used: Automated exposure control, adjustment of the mA and/or kV according to patient size, and/or iterative reconstruction. Unless otherwise specified, incidental findings do not require dedicated imaging follow-up. Examination is limited by the lack of intravenous contrast material. COMPARISON: No prior exam. FINDINGS: LUNGS: There is mild subsegmental atelectasis seen in both lower lobes. Large hiatal hernia. PLEURA: No pleural effusion. No pneumothorax. MEDIASTINUM AND LYMPH NODES: No mediastinal mass or fluid collection. Normal size mediastinal, hilar, and axillary lymph nodes. OSSEOUS STRUCTURES AND CHEST WALL: Intact. LIVER: Normal in size and contour. No focal lesion or biliary dilatation. Grossly unremarkable gallbl adder. PANCREAS: No mass, ductal dilation, or milan-pancreatic fluid. SPLEEN: Normal size. No focal lesion. ADRENALS: Normal; no mass. KIDNEYS: Normal size and contour. No hydronephrosis. Punctate calculus inferior calyx left kidney. URINARY BLADDER: Normal contour. GASTROINTESTINAL TRACT: No bowel obstruction, free air, significant free fluid or abscess. Sigmoid diverticulosis coli without diverticulitis. APPENDIX: Normal appendix. LYMPH NODES: No lymphadenopathy. MUSCULOSKELETAL: Prominent diffuse osteopenia seen. Multiple wedge compression deformities of varying severity are present. T12 moderate compression deformity results in mild canal narrowing. Age of the compression deformities is indeterminate but favored to be subacute to chronic. 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 IMPRESSION: Large hiatal hernia. Mild subsegmental atelectasis in both lung bases. Diffuse osteopenia with multiple wedge compression deformities affecting thoracic and lumbar levels a s detailed, age indeterminate. T12 moderate compression deformity could be subacute in timeframe. Chronic appearing dissection likely present of the distal thoracic and abdominal aorta.
--- NOTE | 2024-11-20 14:28 | EDPHYS ---
Physician Documentation [facility] Name: Leona Alcazar Age: 69 yrs Sex: Female : 1955 Arrival Date: 11/20/2024 Time: 12:13 Bed DX3 Private MD: ED Physician Guru Meza HPI: 11/20 14:19 This 69 yrs old Female presents to ER via Wheelchair with complaints of Fall arash Injury, Head Injury-Adult, Eye Swelling. 14:19 Details of fall: The patient fell from seated position. Onset: The symptoms/episode arash began/occurred today. Associated injuries: The patient sustained head, periorbital, right stump. Severity of symptoms: At their worst the symptoms were mild, in the emergency department the symptoms are unchanged. The patient has experienced similar episodes in the past, several times. Historical: - Allergies: 12:38 No Known Allergies; ll1 - PMHx: 12:38 COPD; Empyema; Genital herpes; Hepatitis B; hiatal hernia; Home O2 via NC; ll1 Hypertension; pulmonary nodule; Rheumatoid Arthritis; - Immunization history:: Adult Immunizations up to date. - Social history:: Smoking status: Patient/guardian denies using tobacco, the patient reports quitting approximately 7 years ago. ROS: 14:20 Constitutional: Negative for fever, chills, and weight loss, ENT: Negative for injury, arash pain, and discharge, Neck: Negative for injury, pain, and swelling, Cardiovascular: Negative for chest pain, palpitations, and edema, Respiratory: Negative for shortness of breath, cough, wheezing, and pleuritic chest pain, Abdomen/GI: Negative for abdominal pain, nausea, vomiting, diarrhea, and constipation, Back: Negative for injury and pain, : Negative for injury, bleeding, discharge, and swelling, Skin: Negative for injury, rash, and discoloration, Neuro: Negative for headache, weakness, numbness, tingling, and seizure, Psych: Negative for depression, anxiety, suicide ideation, homicidal ideation, and hallucinations, Allergy/Immunology: Negative for hives, rash, and allergies, Endocrine: Negative for neck swelling, polydipsia, polyuria, polyphagia, and marked weight changes, Hematologic/Lymphatic: Negative for swollen nodes, abnormal bleeding, and unusual bruising, 14:20 Eyes: Positive for pain, swelling, Exam: 14:20 Constitutional: This is a well developed, well nourished patient who is awake, alert, arash and in no acute distress. Eyes: Pupils equal round and reactive to light, extra-ocular motions intact. Lids and lashes normal. Conjunctiva and sclera are non-icteric and not injected. Cornea within normal limits. Periorbital areas with no swelling, redness, or edema. ENT: Nares patent. No nasal discharge, no septal abnormalities noted. Tympanic membranes are normal and external auditory canals are clear. Oropharynx with no redness, swelling, or masses, exudates, or evidence of obstruction, uvula midline. Mucous membranes moist. Neck: Trachea midline, no thyromegaly or masses palpated, and no cervical lymphadenopathy. Supple, full range of motion without nuchal rigidity, or vertebral point tenderness. No Meningismus. Chest/axilla: Normal chest wall appearance and motion. Nontender with no deformity. No lesions are appreciated. Cardiovascular: Regular rate and rhythm with a normal S1 and S2. No gallops, murmurs, or rubs. Normal PMI, no JVD. No pulse deficits. Respiratory: Lungs have equal breath sounds bilaterally, clear to auscultation and percussion. No rales, rhonchi or wheezes noted. No increased work of breathing, no retractions or nasal flaring. Abdomen/GI: Soft, non-tender, with normal bowel sounds. No distension or tympany. No guarding or rebound. No evidence of tenderness throughout. Back: No spinal tenderness. No costovertebral tenderness. Full range of motion. Skin: Warm, dry with normal turgor. Normal color with no rashes, no lesions, and no evidence of cellulitis. MS/ Extremity: Pulses equal, no cyanosis. Neurovascular intact. Full, normal range of motion., bilateral aka Neuro: Awake and alert, GCS 15, oriented to person, place, time, and situation. Cranial nerves II-XII grossly intact. Motor strength 5/5 in all extremities. Sensory grossly intact. Cerebellar exam normal. Normal gait. Psych: Awake, alert, with orientation to person, place and time. Behavior, mood, and affect are within normal limits. 14:20 Head/face: Noted is contusion, ecchymosis, that is mild, of the right eye, 14:20 Musculoskeletal/extremity: Extremities: grossly normal except: decreased ROM, pain, swelling, tenderness, Vital Signs: 12:39 BP 156 / 94; Pulse 77; Resp 20; Temp 97.2; Pulse Ox 90% on 2 lpm NC; Weight 81.65 kg; ll1 Height 4 ft. 11 in. ; Pain 10/10; 12:39 Body Mass Index 36.36 (81.65 kg, 149.86 cm) ll1 12:39 Pain Scale: Adult ll1 [place] Coma Score: 14:25 Eye Response: spontaneous(4). Motor Response: obeys commands(6). Verbal Response: arash oriented(5). Total: 15. MDM: 12:22 Medical Screening Exam initiated arash 14:25 Differential diagnosis: Contusion of Hematoma on Intracranial bleed- Concussion without arash LOC. cerebral contusion, closed fracture, contusion, tendonitis. Differential diagnosis: abrasion, closed head injury, contusion, fracture, laceration, multiple trauma, sprain, strain. Data reviewed: vital signs, nurses notes, lab test result(s), radiologic studies, CT scan, plain films. Consideration of Admission/Observation Escalation of care including admission/observation considered. I considered the following discharge prescriptions or medication management in the emergency department Medications were administered in the Emergency Department. See MAR. Independent interpretation of the following test(s) in the Emergency Department CT Scan: My interpretation is ct trauma. Test considered but Not performed: Ultrasound no abd usg. Historians other than the Patient: Family Member: family well informed. Counseling: I had a detailed discussion with the patient and/or guardian regarding the historical points, exam findings, and any diagnostic results supporting the discharge/admit diagnosis, lab results, radiology results, the need for outpatient follow up, for definitive care, a family practitioner. 11/20 12:23 Order name: XRAY Chest (1 view) [facility] 11/20 13:00 Order name: Knee Right 3 View XRAY [facility] 11/20 13:00 Order name: Tib Fib Right XRAY [facility] 11/20 13:34 Order name: Head C Spine Mpr Wo Con; Complete Time: 14:18 EDMS 11/20 13:35 Order name: Chest Abd Pelvis Wo Con; Complete Time: 14:18 EDMS Administered Medications: 13:02 CANCELLED (Duplicate Order): ns 0.9% 1000 ml IV at 1000 ml once; to be given as a bolus arash over 60 minutes 14:56 Drug: Hydrocodone-Acetaminophen PO (7.5 mg-325 mg) 1 tabs PO once Route: PO; jl7 14:56 Follow up: Response: Medication administered at discharge. jl7 Disposition Summary: 11/20/24 14:27 Discharge Ordered Notes: Location: Home arash Problem: new arash Symptoms: have improved arash Condition: Stable arash Diagnosis - Fall (on) (from) other stairs and steps arash - Unspecified injury of head, initial encounter arash - Contusion of right knee arash Followup: arash - With: Private Physician - When: 2 - 3 days - Reason: Recheck today's complaints, Continuance of care, Re-evaluation by your physician Discharge Instructions: - Discharge Summary Sheet arash - Contusion arash - Head Injury, Adult arash - Fall Prevention in the Home, Adult arash - Contusion, [id number] arash - Fall Prevention in the Home, Adult, [id number] arash - Head Injury, Adult, Qahi-ho-[id number] arash Forms: - Medication Reconciliation Form arash - Antibiotic Education arash - Prescription Opioid Use arash - Patient Portal Instructions arash - Leadership Thank You Letter arash Signatures: Dispatcher [employer] EDMS Guru Meza MD MD cha Leal, Jahala RN RN jl7 Alice Aceves RN RN ll1 Corrections: (The following items were deleted from the chart) 12:24 12:24 Chest Single View+RAD.RAD.BRZ ordered. EDMO EDMS 13:02 12:23 Cardiac monitoring ordered. [facility] 13:02 12:23 NS 0.9% IV 1000 ml IV at 1000 ml once; to be given as a bolus over 60 minutes arash ordered. arash 13:34 13:03 Head C Spine Cap Wo Con+CT.RAD.BRZ ordered. EDMO EDMS 14:38 12:23 EKG - Nurse/Tech ordered. [facility] 14:38 12:23 IV Saline Lock ordered. [facility] 14:38 12:23 Labs collected and sent ordered. [facility] 14:38 12:23 Oxygen Per Protocol ordered. [facility] 14:38 12:23 O2 Sat Monitoring ordered. [place] [id number] 14:41 12:23 BASIC METABOLIC PANEL+C.LAB.BRZ ordered. EDMO EDMS 14:41 12:23 CBC+H.LAB.BRZ ordered. EDMS EDMS 14: 12:23 HEPATIC FUNCTION+C.LAB.BRZ ordered. EDMS EDMS 14: 12:23 PROTIME (+INR)+COAG.LAB.BRZ ordered. EDMS EDMS 14: 12:23 Troponin High Sensitivity+C.LAB.BRZ ordered. EDMS EDMS 14: 12:23 Urinalysis+U.LAB.BRZ ordered. EDMS EDMS 14: 12:23 MAGNESIUM+C.LAB.BRZ ordered. EDMS EDMS 14:42 12:23 PROBNP+C.LAB.BRZ ordered. EDMS EDMS
--- NOTE | 2024-11-20 14:28 | ER ---
Nurse's Notes [facility] Name: Leona Alcazar Age: 69 yrs Sex: Female : 1955 Arrival Date: 11/20/2024 Time: 12:13 Bed DX3 Private MD: Diagnosis: Fall (on) (from) other stairs and steps;Unspecified injury of head, initial encounter;Contusion of right knee Presentation: 11/20 12:39 Chief complaint: Patient states: Fell asleep on side of bed at 5 AM. Fell onto both ll1 knees and hit R side of face. R Eye swollen shut now. R knee pain. Coronavirus screen: Client denies travel out of the [place] in the last 14 days. At this time, the client does not indicate any symptoms associated with coronavirus-19. Ebola Screen: Patient denies travel to an Ebola-affected area in the 21 days before illness onset. Initial Sepsis Screen: Does the patient meet any 2 criteria? No. Patient's initial sepsis screen is negative. Does the patient have a suspected source of infection? No. Patient's initial sepsis screen is negative. Risk Assessment: Do you want to hurt yourself or someone else? Patient reports no desire to harm self or others. Onset of symptoms was November 20, 2024. 12:39 Method Of Arrival: Wheelchair ll1 12:39 Acuity: ROCK 3 ll1 Triage Assessment: 12:39 General: Appears uncomfortable, Behavior is calm, cooperative, appropriate for age. ll1 Pain: Complains of pain in R face Quality of pain is described as aching. EENT: Reports pain in right eye R eye swollen shut, bruising noted. Neuro: Reports headache. Musculoskeletal: Reports pain in R knee. Injury Description: Head injury Bruise. Historical: - Allergies: 12:38 No Known Allergies; ll1 - PMHx: 12:38 COPD; Empyema; Genital herpes; Hepatitis B; hiatal hernia; Home O2 via NC; ll1 Hypertension; pulmonary nodule; Rheumatoid Arthritis; - Immunization history:: Adult Immunizations up to date. - Social history:: Smoking status: Patient/guardian denies using tobacco, the patient reports quitting approximately 7 years ago. Vital Signs: 12:39 BP 156 / 94; Pulse 77; Resp 20; Temp 97.2; Pulse Ox 90% on 2 lpm NC; Weight 81.65 kg; ll1 Height 4 ft. 11 in. ; Pain 10/10; 12:39 Body Mass Index 36.36 (81.65 kg, 149.86 cm) ll1 12:39 Pain Scale: Adult ll1 [place] Coma Score: 14:25 Eye Response: spontaneous(4). Motor Response: obeys commands(6). Verbal Response: arash oriented(5). Total: 15. ED Course: 12:14 Patient arrived in ED. im 12:22 Guru Meza MD is Attending Physician. [facility] 12:41 Triage completed. ll1 12:41 Arm band placed on. ll1 13:59 Head C Spine Mpr Wo Con In Process Unspecified. EDMS 13:59 Chest Abd Pelvis Wo Con In Process Unspecified. EDMS 14:07 XRAY Chest (1 view) In Process Unspecified. EDMS 14:07 Knee Right 3 View XRAY In Process Unspecified. EDMS 14:07 Tib Fib Right XRAY In Process Unspecified. EDMS 14:56 No provider procedures requiring assistance completed. Patient did not have IV access jl7 during this emergency room visit. Administered Medications: 13:02 CANCELLED (Duplicate Order): ns 0.9% 1000 ml IV at 1000 ml once; to be given as a bolus [facility] over 60 minutes 14:56 Drug: Hydrocodone-Acetaminophen PO (7.5 mg-325 mg) 1 tabs PO once Route: PO; jl7 14:56 Follow up: Response: Medication administered at discharge. jl7 Outcome: 14:27 Discharge ordered by . [facility] 14:56 Discharged to home via wheelchair, with family, jl7 14:56 Condition: stable 14:56 Discharge instructions given to patient, family, Instructed on discharge instructions, follow up and referral plans. Demonstrated understanding of instructions, follow-up care, 14:57 Patient left the ED. jl7 Signatures: Dispatcher [employer] EDMS Guru Meza MD MD cha Leal, Jahala RN RN jl7 Alice Aceves RN RN ll1 April Corea im
--- NOTE | 2024-11-20 14:31 | RAD REPORT ---
EXAMINATION: XR RIGHT KNEE CLINICAL INDICATION: Female, 69 years old. PAIN TECHNIQUE: Multiple views of the right knee were obtained. COMPARISON: No prior exam. FINDINGS: Below the knee amputation is noted. Prominent diffuse osteopenia. Hardware is present dista l femur. No gross fracture appreciated.
--- NOTE | 2024-11-20 14:31 | RAD REPORT ---
EXAMINATION: ONE VIEW CHEST XR CLINICAL INDICATION: PAIN TECHNIQUE: Frontal chest projection is submitted. Examination is limited by patient positioning and t echnique. COMPARISON: No prior exam. FINDINGS: Mild pulmonary edema is suspected. Heart is moderately enlarged. No displaced fractures identified. Large hiatal hernia. IMPRESSION: Mild CHF.
--- NOTE | 2024-11-20 14:32 | RAD REPORT ---
EXAMINATION: XR RIGHT TIBIA AND FIBULA CLINICAL INDICATION: PAIN TECHNIQUE:Two view radiograph of the right tibia and fibula were obtained. COMPARISON: No prior exam. FINDINGS: Below the knee amputation is seen. Hardware is in place distal femur. No acute fracture se en.
[2024-11-20] MEDS ORDERED: HYDROCODONE/APAP 7.5/325 MG TAB ONE (14:42)
[2024-11-20 15:31] VITALS: BP 156/94; TEMP 97.2; O2SAT 90
== END 2024-11-20 14:57 | disposition home or self-care (01) ==
LOC: ER 12:13
DX: S05.11XA Contusion of eyeball and orbital tissues, right eye, initial encounter (principal); S80.01XA Contusion of right knee, initial encounter; W10.8XXA Fall (on) (from) other stairs and steps, initial encounter; I10 Essential (primary) hypertension; J44.9 Chronic obstructive pulmonary disease, unspecified; Z99.81 Dependence on supplemental oxygen
CPT/HCPCS: 70450; 71045; 71250; 72125; 74176